=== PATIENT | female | born 1940 | race Caucasian/White ===

== ENCOUNTER 2020-07-11 09:06 | Inpatient (IN) | payer MEDICARE, MEDICAID, SELFPAY ==
[2020-07-11] VITALS (14 sets, daily range): BP systolic 96–165; BP diastolic 42–78; PULSE 55–75; RESP 16–24; TEMP 36.4–37.1; O2SAT 89–98; BMI 31.4
--- NOTE | 2020-07-11 09:30 | ED_ITS ---
HPI - SOB/Dyspnea General Chief Complaint: Dyspnea Stated Complaint: covid +, low 02 Time Seen by Provider: 07/11/20 09:26 Source: patient Mode of arrival: EMS Limitations: no limitations History of Present Illness HPI Narrative: Patient with the diagnosis of COVID-19 on 07/03 history of COPD hypertension CKD peripheral vascular disease depression and history of remote PE on 2 L oxygen dependent at baseline was admitted to the [facility] days ago for increased shortness of breath for hypoxia since last night patient requiring more oxygen saturating 82% on 2 L increased on non-rebreather and saturating 94% also she is on Bactrim for UTI patient been coughing more lately denied any chest pain had taken a course of prednisone MD elicited complaint: shortness of breath and cough Pertinent past history: COPD Onset (ago): day(s) (1) Related Data Home Medications Medication Instructions Recorded Confirmed Docusate Plus 1 tab PO BID 07/11/20 07/11/20 acetaminophen 650 mg PO Q6H PRN 07/11/20 07/11/20 amlodipine 5 mg PO DAILY 07/11/20 07/11/20 atorvastatin 40 mg PO BEDTIME 07/11/20 07/11/20 budesonide-formoterol [Symbicort] 1 puff INHALATION BID 07/11/20 07/11/20 clopidogrel 75 mg PO DAILY 07/11/20 07/11/20 escitalopram oxalate 10 mg PO DAILY 07/11/20 07/11/20 estradiol 1 appl VAGINAL USEASDIRECTD 07/11/20 07/11/20 fluticasone propionate 1 spray INTRANASAL DAILY 07/11/20 07/11/20 furosemide 80 mg PO DAILY 07/11/20 glycerin [Artificial Tears 1 drp OPHTHALMIC (EYE) DAILY 07/11/20 07/11/20 (glycerin)] labetalol 300 mg PO BID 07/11/20 07/11/20 lamotrigine 25 mg PO DAILY 07/11/20 07/11/20 mirabegron [Myrbetriq] 25 mg PO DAILY 07/11/20 07/11/20 sulfamethoxazole-trimethoprim 1 tab PO BID 07/11/20 07/11/20 tiotropium bromide [Spiriva with 1 cap INHALATION DAILY 07/11/20 07/11/20 HandiHaler] Allergies Allergy/AdvReac Type Severity Reaction Status Date / Time No Known Allergies Allergy Verified 07/11/20 09:41 Review of Systems Review of Systems: Constitutional : No Weight loss, No Fever, No Chills ENT/Mouth : No sore throat, No Rhinorrhea Eyes: No Eye Pain, No Swelling Cardiovascular : No Chest Pain, no palpitations Respiratory : ++ Cough, No Sputum, ++ shortness of breath Gastrointestinal : no Nausea, No Vomiting, No Diarrhea, No abdominal Pain, no black stools Genitourinary : No Dysuria, No Urinary Frequency Musculoskeletal : No joint pain, No Myalgias, No Joint Swelling Skin : No Skin Lesions, No rash Neuro : No Weakness, No Numbness, No Dizziness, No Headache Psych : No Anxiety/Panic, No Depression Heme/Lymph: No Bruising, No Lymphadenopathy Endocrine : No Polyuria, No Polydipsia All other systems reviewed and are negative [facility] Past Medical History Medical History Anxiety CKD (chronic kidney disease) COPD (chronic obstructive pulmonary disease) Dementia Diastolic dysfunction HTN (hypertension) Hyperlipidemia Insomnia Pulmonary embolism PVD (peripheral vascular disease) Social History Social History Smoking Status: Former smoker Use of substances other than those prescribed or required for medical reasons: No Advance Directives: No Advance Directives Information Provided: No Physical Exam Vital Signs: Vital Signs: Last Vital Signs Temp 97.5 F 07/11/20 14:16 Pulse 66 07/11/20 13:49 Resp 16 07/11/20 12:45 BP 145/78 H 07/11/20 12:45 Pulse Ox 96 07/11/20 12:45 Body Mass Index 31.4 Const: General: in distress moderate Nutritional Appearance: average body habitus Orientation/consciousness: oriented to person, oriented to place and oriented to time Limitations: no limitations HENMT: Head: Yes normal to inspection and Yes normocephalic Ears: hearing grossly normal bilaterally General nose exam: Normal external nose present Face and sinus: Yes normal facial exam Mouth: Normal oral and palatal mucosa present Teeth and gingiva: dentition normal Throat: Yes posterior oropharynx normal Eyes: General: appearance normal, both eyes and all related structures Sclerae: sclerae normal Corneas: corneas normal Neck: Neck: Yes normal visual inspection, Yes full ROM and Yes no lymphadenopathy Chest: Chest palpation & inspection: normal inspection of the chest and normal palpation of entire chest wall Resp: Effort & Inspection: labored, respiratory distress (Moderate) and tachypneic Auscultation: no crackles, no rales, rhonchi and wheezes Percussion: percussion normal Cardio: Jugular venous distension: no JVD Rate: regular rate Rhythm: regular rhythm Heart sounds: S1 normal heart sound present and S2 normal heart sound present Peripheral pulses: Peripheral pulses 2+ throughout GI: Inspection: Yes normal to inspection Palpation (GI): Soft to palpation, nontender and no guarding Auscultation: normal bowel sounds : General: Yes no CVA tenderness Back/Spine/Pelvis: Back: no CVA tenderness Thoracic/Lumbar Spine: thoracic and lumbar spine normal to inspection Skin: General skin exam: no rashes or lesions noted Neuro: General: oriented to person, oriented to place and oriented to time MDM - SOB/Dyspnea MDM Narrative Medical decision making narrative: Patient with chronic lung disease with COVID positive with significant hypoxia CTA chest negative for PE but diffuse infiltrate will admit patient for hypoxia with COVID , started on Decadron Medical Records Attestation: I reviewed the patient's medical records. Lab Data Attestation: I reviewed the patient's lab results. Result diagrams: 07/11/20 09:52 07/11/20 09:52 Labs: Lab Results 07/11/20 07/11/20 07/11/20 Range/Units 09:52 09:52 09:52 WBC 3.6 L (4.8-10.8) X10*3/uL RBC 3.79 L (4.20-5.50) X10*6/uL Hgb 11.8 L (12.0-16.0) g/dl Hct 37.5 (37-47) % MCV 98.9 H (80-98) fL MCH 31.1 (27.0-33.0) pg MCHC 31.5 (31.0-35.0) g/dl RDW 13.6 (11.0-16.0) % Plt Count 177 (160-400) X10*3/uL MPV 9.6 (9.4-12.3) fL Immature Gran % (Auto) 0.6 H (0.0-0.4) % Neut % (Auto) 64.9 (45-73) % Lymph % (Auto) 23.0 (20-40) % [place] % (Auto) 11.2 H (2-11) % Eos % (Auto) 0.0 (0-4) % Baso % (Auto) 0.3 (0-2) % Lymph # (Auto) 0.8 L (1.2-4.9) X10*3/uL [place] # (Auto) 0.4 (0.1-1.2) X10*3/uL Eos # (Auto) 0.0 (0.0-0.4) X10*3/uL Baso # (Auto) 0.0 (0.0-0.2) X10*3/uL Abs Immat Gran (auto) 0.02 (0.00-0.03) X10*3/uL Absolute Neuts (auto) 2.3 (2.0-8.3) X10*3/uL Absolute Nucleated RBC 0.000 (0.0-0.012) X10*3/uL Nucleated RBC % (auto) 0.0 (0.0-0.2) /100WBC PT 12.3 (10.8-13.0) SEC INR 1.0 (0.9-1.1) APTT 35.3 (24.1-38.0) SEC D-Dimer 228 NG/ML Sodium 144 (135-145) mmol/L Potassium 4.5 (3.3-5.1) mmol/l Chloride 110 H (96-108) mmol/L Carbon Dioxide 27 (22-29) mmol/L Anion Gap 12 (12-20) BUN 22 H (9-16) mg/dL Creatinine 1.10 (0.5-1.4) mg/dL Estim Creat Clear Calc 35.1 Estimated GFR 48 Random Glucose 111 (60-115) mg/dL Lactic Acid (0.5-2.0) mmol/L Calcium 7.6 L (8.4-10.2) mg/dL Ferritin 194 (10-250) ng/mL Total Bilirubin 0.3 (0.0-1.0) mg/dL Direct Bilirubin 0.2 (0.0-0.5) mg/dL AST 20 (5-31) U/L ALT < 6 (0-31) U/L Alkaline Phosphatase 78 (39-117) U/L Lactate Dehydrogenase (122-220) U/L Troponin I High Sens (<3.5-17.0) ng/L C-Reactive Protein (< or = 0.50) mg/dL B-Natriuretic Peptide (<100) pg/mL Total Protein 5.6 L (6.5-8.0) g/dL Albumin 3.6 (3.5-5.0) g/dL Lipase (8-78) U/L 07/11/20 07/11/20 07/11/20 Range/Units 09:52 09:52 09:53 WBC (4.8-10.8) X10*3/uL RBC (4.20-5.50) X10*6/uL Hgb (12.0-16.0) g/dl Hct (37-47) % MCV (80-98) fL MCH (27.0-33.0) pg MCHC (31.0-35.0) g/dl RDW (11.0-16.0) % Plt Count (160-400) X10*3/uL MPV (9.4-12.3) fL Immature Gran % (Auto) (0.0-0.4) % Neut % (Auto) (45-73) % Lymph % (Auto) (20-40) % Bea[place]gard % (Auto) (2-11) % Eos % (Auto) (0-4) % Baso % (Auto) (0-2) % Lymph # (Auto) (1.2-4.9) X10*3/uL [place] # (Auto) (0.1-1.2) X10*3/uL Eos # (Auto) (0.0-0.4) X10*3/uL Baso # (Auto) (0.0-0.2) X10*3/uL Abs Immat Gran (auto) (0.00-0.03) X10*3/uL Absolute Neuts (auto) (2.0-8.3) X10*3/uL Absolute Nucleated RBC (0.0-0.012) X10*3/uL Nucleated RBC % (auto) (0.0-0.2) /100WBC PT (10.8-13.0) SEC INR (0.9-1.1) APTT (24.1-38.0) SEC D-Dimer NG/ML Sodium (135-145) mmol/L Potassium (3.3-5.1) mmol/l Chloride (96-108) mmol/L Carbon Dioxide (22-29) mmol/L Anion Gap (12-20) BUN (9-16) mg/dL Creatinine (0.5-1.4) mg/dL Estim Creat Clear Calc Estimated GFR Random Glucose (60-115) mg/dL Lactic Acid 0.6 (0.5-2.0) mmol/L Calcium (8.4-10.2) mg/dL Ferritin (10-250) ng/mL Total Bilirubin (0.0-1.0) mg/dL Direct Bilirubin (0.0-0.5) mg/dL AST (5-31) U/L ALT (0-31) U/L Alkaline Phosphatase (39-117) U/L Lactate Dehydrogenase 301 H (122-220) U/L Troponin I High Sens 15.9 (<3.5-17.0) ng/L C-Reactive Protein 6.03 H (< or = 0.50) mg/dL B-Natriuretic Peptide 111 H (<100) pg/mL Total Protein (6.5-8.0) g/dL Albumin (3.5-5.0) g/dL Lipase 25 (8-78) U/L
--- NOTE | 2020-07-11 09:38 | CT_ITS ---
EXAMINATION: CT ANGIOGRAM OF THE CHEST WITH AND WITHOUT CONTRAST (CT PULMONARY ANGIOGRAM FOR PE) CLINICAL INFORMATION: Reason for Exam COVID positive with history of PE increased shortness of frandy COMPARISON: None TECHNIQUE: Prior to contrast administration, noncontrast localization images were obtained. Subsequently, multidetector volumetric imaging was performed from the thoracic inlet to below the diaphragms following the administration of 65 mL Omnipaque 350 intravenous contrast. No contrast reaction reported Sagittal, coronal, and MIP oblique sagittal reformatted images were obtained on the CT workstation, uploaded to PACS, and reviewed. This CT examination was performed using dose optimization techniques as appropriate, variously including the following: *Automated exposure control *Adjustment of mA and/or kV according to patient size (this includes techniques or standardized protocols for targeted exams where dose is matched to indication/reason for exam; i.e. extremities or head) *Use of iterative reconstruction technique Total exam dose-length product 257 mGy-cm FINDINGS: QUALITY OF STUDY/CONTRAST BOLUS: Satisfactory. PULMONARY ARTERIES: No large central or segmental pulmonary emboli. Evaluation of the smaller segmental and subsegmental pulmonary arteries are limited due to motion artifact and compressive atelectasis/consolidation of the left lung base to the large diaphragmatic hernia. There may be evidence of old pulmonary embolism with increased soft tissue in the wall of the right upper lobe for example MIP reconstructed image 64 series 9. The pulmonary arteries are slightly enlarged, main pulmonary artery measuring 3.3 cm questionable for pulmonary artery hypertension. THORACIC AORTA: No aneurysm or dissection. The thoracic aorta is tortuous. There is calcified and noncalcified atherosclerotic plaque. LUNG: There are increased peripheral reticular markings seen. This may be related to a sequela of Covid infection. There is subsegmental atelectasis or small infiltrate seen at the right lung base in the posterior basal right lower lobe. There is a subsegmental atelectasis or small infiltrate in the inferior segment of the lingula and left lower lobe adjacent to the left diaphragmatic hernia. PLEURA: No pleural effusion or pneumothorax. MEDIASTINUM: Normal heart size. No pericardial effusion. There are enlarged right hilar and mediastinal lymph nodes. Largest lymph nodes are a right precarinal lymph node measuring 1.2 x 1.5 cm and right hilar lymph node measuring 1.4 x 2.3 cm. Evaluation for left hilar adenopathy is limited due to adjacent consolidation/atelectasis of the left lung. There may be a small left hilar lymph nodes as well. No evidence of septal bowing or right heart strain. There is a large left diaphragmatic hernia containing the stomach and distal transverse colon, splenic flexure and proximal left colon. CHEST WALL/AXILLA: No axillary or internal mammary lymphadenopathy. OSSEOUS STRUCTURES: There are degenerative changes of the spine. UPPER ABDOMEN: Large left diaphragmatic hernia containing the stomach and splenic flexure No reflux of contrast into the hepatic veins to suggest elevated right heart pressures. CT/CT angio chest PE protocol IMPRESSION: No evidence of acute or large or central pulmonary embolism. Evaluation for smaller subsegmental pulmonary arteries is limited due to respiratory motion and compressive atelectasis/infiltrate from large left diaphragmatic hernia. There is question of changes from old of pulmonary embolism seen right upper lobe. Slightly enlarged pulmonary arteries questionable for pulmonary artery hypertension. Subsegmental atelectasis/small infiltrate in the posterior basal right lower lobe, inferior segment of the lingula and left lower lobe. Enlarged right sided hilar and mediastinal lymph nodes. Large left diaphragmatic hernia containing the stomach and splenic flexure. VTE: negative
--- NOTE | 2020-07-11 09:38 | ECG_ITS ---
Test Reason : SOB Blood Pressure : / mmHG Vent. Rate : 066 BPM Atrial Rate : 066 BPM P-R Int : 200 ms QRS Dur : 068 ms QT Int : 406 ms P-R-T Axes : 037 008 037 degrees QTc Int : 425 ms Poor data quality Normal sinus rhythm Septal infarct , age undetermined Abnormal ECG When compared with ECG of 05-JUL-2016 16:08, Septal infarct is now Present Referred By: Jorden Davis Electronically Signed By:FRANCI ROME
[2020-07-11] MEDS: 0.9 % Sodium Chloride 1,000 ML 999 ML IVCONT (09:58)
[2020-07-11 10:05] LABS: MANUAL DIFF FLAG NO
[2020-07-11 10:08] LABS: Basophils Percent Auto 0.3 % (0-2); Hematocrit 37.5 % (37-47); Hemoglobin 11.8 g/dl (12.0-16.0); Imm Gran Abs Auto 0.02 X10*3/uL (0.00-0.03); Imm Gran Pct Auto 0.6 % (0.0-0.4); Lymphocytes Absolute Auto 0.8 X10*3/uL (1.2-4.9); Mean Corpuscular HGB Conc 31.5 g/dl (31.0-35.0); Mean Corpuscular Hemoglobin 31.1 pg (27.0-33.0); Mean Corpuscular Volume 98.9 fL (80-98); Mean Platelet Volume 9.6 fL (9.4-12.3); Monocytes Absolute Auto 0.4 X10*3/uL (0.1-1.2); Monocytes Percent Auto 11.2 % (2-11); Neutrophils Absolute Auto 2.3 X10*3/uL (2.0-8.3); Neutrophils Percent Auto 64.9 % (45-73); Platelet Count 177 X10*3/uL (160-400); Red Blood Count 3.79 X10*6/uL (4.20-5.50); Red Cell Distribution Width 13.6 % (11.0-16.0); White Blood Count 3.6 X10*3/uL (4.8-10.8)
[2020-07-11 10:14] LABS: Prothrombin Time 12.3 SEC (10.8-13.0)
[2020-07-11 10:17] LABS: D Dimer 228 NG/ML; Partial Thromboplastin Time 35.3 SEC (24.1-38.0)
[2020-07-11 10:30] LABS: Lactic Acid 0.6 mmol/L (0.5-2.0)
[2020-07-11 10:37] LABS: C Reactive Protein 6.03 mg/dL (< or = 0.50); Lactate Dehydrogenase 301 U/L (122-220); Lipase 25 U/L (8-78)
[2020-07-11 10:38] LABS: Alanine Aminotransferase < 6 U/L (0-31); Albumin Level 3.6 g/dL (3.5-5.0); Alkaline Phosphatase 78 U/L (39-117); Anion Gap 12 (12-20); Aspartate Amino Transferase 20 U/L (5-31); Bilirubin Direct 0.2 mg/dL (0.0-0.5); Bilirubin Total 0.3 mg/dL (0.0-1.0); Blood Urea Nitrogen 22 mg/dL (9-16); Calcium 7.6 mg/dL (8.4-10.2); Carbon Dioxide 27 mmol/L (22-29); Chloride 110 mmol/L (96-108); Creatinine Clr Calc Pharmacy 35.1; Estimated Glomerular Filt Rate 48; Glucose Random 111 mg/dL (60-115); Potassium 4.5 mmol/l (3.3-5.1); Sodium 144 mmol/L (135-145); Total Protein 5.6 g/dL (6.5-8.0)
[2020-07-11 10:40] LABS: B Type Natriuretic Peptide 111 pg/mL (<100); Troponin-I High Sensitivity 15.9 ng/L (<3.5-17.0)
[2020-07-11 10:57] LABS: Ferritin 194 ng/mL (10-250)
[2020-07-11] MEDS: iohexoL 350 MG/ML 100 ML INFUS..BTL IV (11:07)
[2020-07-11] MEDS: Albuterol Sulfate 90 MCG 8 GM INHALER 4 PUFF INHALE (13:48)
--- NOTE | 2020-07-11 13:49 | PC.NURSE ---
PT CURRENTLY ON 4L O2 VIA NC, SPO2 92-93% WITH RETRACTIONS, THOUGH PT DENIES FEELING SOB. SEEN BY HOSPITALIST. RT AT BEDSIDE FOR INHALER INSTRUCTION.
--- NOTE | 2020-07-11 13:59 | PM.EVENT ---
Event Note Date of Service: 07/11/20 Event Note: Patient seen and examined independently and was present during adams portion of E/M service. Agree with midlevel's history, physical, assessment, and plan. 80F presented with hypoxia Acute on chronic hypoxic respiratory failure secondary to COVID pneumonia Decadron Monitor Check ABG
--- NOTE | 2020-07-11 14:41 | PC.NURSE ---
CALLED UP TO [facility] FOR REPORT, EXPECTING CALL BACK.
[2020-07-11 14:53] LABS: Pt Ventilation O2% 4 L
[2020-07-11 15:01] LABS: ABG PCO2 44 mmHg (32-45); Base Excess ABG -0.7; HCO3 ABG 25 mmol/L (22-26); PO2 ABG 69 mmHg (83-108); pH ABG 7.35 (7.35-7.45)
[2020-07-11] MEDS: cefTRIAXone sodium 1 GM in 0.9 % Sodium Chloride 50 ML IV (15:11)
--- NOTE | 2020-07-11 15:51 | P.HPHOSP_ITS ---
History of Present Illness Date of Service: 07/11/20 Chief Complaint: increasing oxygen requirements This is an 80-year-old female who was sent from the [facility] due to increasing oxygen requirements. She tested positive for coronavirus on July 06 and since that time she reportedly has been having increasing shortness of breath and oxygen requirements. Due to her underlying she is unable to provide any additional details. She does have a history of oxygen dependent COPD. She typically uses 2 L of oxygen. See department she was requiring 4 L of oxygen to maintain saturations in the mid 90s. Subsegmental atelectasis/small infiltrate in the posterior basal right lower lobe inferior segment of the lingula and left lower lobe. She was afebrile, lab work revealed no leukocytosis. She was given a dose of IV and covered empirically with antibiotics. Review of Systems Review of Systems: Yes Unobtainable due to mental condition [facility]LY [facility], [facility] Medical History (Updated 07/11/20 @ 15:56 by RADHA Menendez) Anxiety Chronic respiratory failure CKD (chronic kidney disease) COPD (chronic obstructive pulmonary disease) Dementia Diastolic dysfunction HTN (hypertension) Hyperlipidemia Insomnia RENETTA (obstructive sleep apnea) Pulmonary embolism PVD (peripheral vascular disease) Family history: reviewed and not pertinent Social History Smoking Status: Former smoker Use of substances other than those prescribed or required for medical reasons: No Advance Directives: No Advance Directives Information Provided: No Meds Allergies Allergy/AdvReac Type Severity Reaction Status Date / Time No Known Allergies Allergy Verified 07/11/20 09:41 Home Medications Medication Instructions Recorded Confirmed Type Docusate Plus 1 tab PO BID 07/11/20 07/11/20 History acetaminophen 650 mg PO Q6H PRN 07/11/20 07/11/20 History amlodipine 5 mg PO DAILY 07/11/20 07/11/20 History atorvastatin 40 mg PO BEDTIME 07/11/20 07/11/20 History budesonide-formoterol [Symbicort] 1 puff INHALATION BID 07/11/20 07/11/20 History clopidogrel 75 mg PO DAILY 07/11/20 07/11/20 History escitalopram oxalate 10 mg PO DAILY 07/11/20 07/11/20 History estradiol 1 appl VAGINAL USEASDIRECTD 07/11/20 07/11/20 History fluticasone propionate 1 spray INTRANASAL DAILY 07/11/20 07/11/20 History furosemide 80 mg PO DAILY 07/11/20 History glycerin [Artificial Tears 1 drp OPHTHALMIC (EYE) DAILY 07/11/20 07/11/20 History (glycerin)] labetalol 300 mg PO BID 07/11/20 07/11/20 History lamotrigine 25 mg PO DAILY 07/11/20 07/11/20 History mirabegron [Myrbetriq] 25 mg PO DAILY 07/11/20 07/11/20 History sulfamethoxazole-trimethoprim 1 tab PO BID 07/11/20 07/11/20 History tiotropium bromide [Spiriva with 1 cap INHALATION DAILY 07/11/20 07/11/20 History HandiHaler] Physical Exam Vital Signs and Narrative: Vital Signs: Last Vital Signs Temp 97.5 F 07/11/20 14:16 Pulse 66 07/11/20 13:49 Resp 16 07/11/20 12:45 BP 145/78 H 07/11/20 12:45 Pulse Ox 96 07/11/20 12:45 Body Mass Index 31.4 Const: General: lethargic Nutritional Appearance: well nourished Orientation/consciousness: lethargic HENMT: Head: Yes normocephalic and Yes atraumatic Eyes: Sclerae: sclerae normal Chest: Chest palpation & inspection: normal inspection of the chest Resp: Effort & Inspection: tachypneic Cardio: Rate: regular rate Rhythm: regular rhythm GI: Palpation (GI): Soft to palpation and nontender Skin: General skin exam: no rashes or lesions noted Neuro: Cranial nerves: Yes CN's II-XII intact bilaterally and Yes Bilaterally intact EOM present Extrem: General: Yes normal to inspection Results Labs CBC and Chem 7: 07/11/20 09:52 07/11/20 09:52 Labs: Laboratory Results - last 24 hr 07/11/20 07/11/20 07/11/20 09:52 09:52 09:52 MCV 98.9 H MCH 31.1 MCHC 31.5 RDW 13.6 Plt Count 177 MPV 9.6 Immature Gran % (Auto) 0.6 H Neut % (Auto) 64.9 Lymph % (Auto) 23.0 Garland % (Auto) 11.2 H Eos % (Auto) 0.0 Baso % (Auto) 0.3 Lymph # (Auto) 0.8 L [place]land # (Auto) 0.4 Eos # (Auto) 0.0 Baso # (Auto) 0.0 Abs Immat Gran (auto) 0.02 Absolute Neuts (auto) 2.3 Absolute Nucleated RBC 0.000 Nucleated RBC % (auto) 0.0 PT 12.3 INR 1.0 APTT 35.3 D-Dimer 228 ABG pH ABG pCO2 ABG pO2 ABG HCO3 ABG O2 Saturation ABG Base Excess Oxygen Given Anion Gap 12 Estim Creat Clear Calc 35.1 Estimated GFR 48 Random Glucose 111 Lactic Acid Calcium 7.6 L Ferritin 194 Total Bilirubin 0.3 Direct Bilirubin 0.2 AST 20 ALT < 6 Alkaline Phosphatase 78 Lactate Dehydrogenase Troponin I High Sens C-Reactive Protein B-Natriuretic Peptide Total Protein 5.6 L Albumin 3.6 Lipase 07/11/20 07/11/20 07/11/20 09:52 09:52 09:53 MCV MCH MCHC RDW Plt Count MPV Immature Gran % (Auto) Neut % (Auto) Lymph % (Auto) Garland % (Auto) Eos % (Auto) Baso % (Auto) Lymph # (Auto) [place]land # (Auto) Eos # (Auto) Baso # (Auto) Abs Immat Gran (auto) Absolute Neuts (auto) Absolute Nucleated RBC Nucleated RBC % (auto) PT INR APTT D-Dimer ABG pH ABG pCO2 ABG pO2 ABG HCO3 ABG O2 Saturation ABG Base Excess Oxygen Given Anion Gap Estim Creat Clear Calc Estimated GFR Random Glucose Lactic Acid 0.6 Calcium Ferritin Total Bilirubin Direct Bilirubin AST ALT Alkaline Phosphatase Lactate Dehydrogenase 301 H Troponin I High Sens 15.9 C-Reactive Protein 6.03 H B-Natriuretic Peptide 111 H Total Protein Albumin Lipase 25 07/11/20 14:48 MCV MCH MCHC RDW Plt Count MPV Immature Gran % (Auto) Neut % (Auto) Lymph % (Auto) Garland % (Auto) Eos % (Auto) Baso % (Auto) Lymph # (Auto) Garland # (Auto) Eos # (Auto) Baso # (Auto) Abs Immat Gran (auto) Absolute Neuts (auto) Absolute Nucleated RBC Nucleated RBC % (auto) PT INR APTT D-Dimer ABG pH 7.35 ABG pCO2 44 ABG pO2 69 L ABG HCO3 25 ABG O2 Saturation 95.0 ABG Base Excess -0.7 Oxygen Given 4 L Anion Gap Estim Creat Clear Calc Estimated GFR Random Glucose Lactic Acid Calcium Ferritin Total Bilirubin Direct Bilirubin AST ALT Alkaline Phosphatase Lactate Dehydrogenase Troponin I High Sens C-Reactive Protein B-Natriuretic Peptide Total Protein Albumin Lipase Imaging Radiologist's Impressions: Impressions Chest CTA 07/11/20 09:38 IMPRESSION: No evidence of acute or large or central pulmonary embolism. Evaluation for smaller subsegmental pulmonary arteries is limited due to respiratory motion and compressive atelectasis/infiltrate from large left diaphragmatic hernia. There is question of changes from old of pulmonary embolism seen right upper lobe. Slightly enlarged pulmonary arteries questionable for pulmonary artery hypertension. Subsegmental atelectasis/small infiltrate in the posterior basal right lower lobe, inferior segment of the lingula and left lower lobe. Enlarged right sided hilar and mediastinal lymph nodes. Large left diaphragmatic hernia containing the stomach and splenic flexure. VTE: negative Assessment and Plan (1) COVID-19: Status: Acute (2) Hypoxia: Status: Acute This is an 80-year-old female with history of COPD, chronic respiratory failure, CHF, dementia, recently diagnosed with COVID-19 sent from the [facility] for increasing oxygen requirements Acute on chronic respiratory failure COVID-19 pneumonia -IV dexamethasone -continue supplemental oxygen Hypertension Continue Norvasc, labetalol RENETTA Continue CPAP HLD Continue statin PVD continue plavix Mood Continue ssri, lamotrigine Overactive bladder continue myrbetriq dvt ppx - heparin code status - full code this case was discussed with Dr. Guan
[2020-07-11] MEDS: Azithromycin 500 MG in 0.9 % Sodium Chloride 250 ML 125 MG IV (15:58)
[2020-07-11] MEDS: 0.9 % Sodium Chloride Flush 3 ML SYRINGE IVFLUSH ×2 (16:01→21:27)
[2020-07-11] MEDS: Heparin Sodium,Porcine 5,000 UNIT/ML VIAL 5000 UNIT SUBCUT (17:31)
[2020-07-11] MEDS: Labetalol HCL 100 MG TABLET 300 MG PO (21:27)
[2020-07-11] MEDS: Atorvastatin Calcium 40 MG TABLET PO (21:27)
[2020-07-12] VITALS (10 sets, daily range): BP systolic 121–146; BP diastolic 59–69; PULSE 66–88; RESP 16–22; TEMP 36–36.8; O2SAT 90–94
[2020-07-12] MEDS: Heparin Sodium,Porcine 5,000 UNIT/ML VIAL 5000 UNIT SUBCUT (05:14)
[2020-07-12 06:19] LABS: MANUAL DIFF FLAG NO
[2020-07-12 06:30] LABS: Basophils Percent Auto 0.3 % (0-2); Hematocrit 36.5 % (37-47); Hemoglobin 11.4 g/dl (12.0-16.0); Imm Gran Abs Auto 0.07 X10*3/uL (0.00-0.03); Imm Gran Pct Auto 1.9 % (0.0-0.4); Lymphocytes Absolute Auto 0.9 X10*3/uL (1.2-4.9); Lymphocytes Percent Auto 23.2 % (20-40); Mean Corpuscular HGB Conc 31.2 g/dl (31.0-35.0); Mean Corpuscular Hemoglobin 31.1 pg (27.0-33.0); Mean Corpuscular Volume 99.7 fL (80-98); Mean Platelet Volume 9.7 fL (9.4-12.3); Monocytes Absolute Auto 0.3 X10*3/uL (0.1-1.2); Monocytes Percent Auto 7.7 % (2-11); Neutrophils Absolute Auto 2.5 X10*3/uL (2.0-8.3); Neutrophils Percent Auto 66.9 % (45-73); Platelet Count 191 X10*3/uL (160-400); Red Blood Count 3.66 X10*6/uL (4.20-5.50); Red Cell Distribution Width 13.5 % (11.0-16.0); White Blood Count 3.8 X10*3/uL (4.8-10.8)
[2020-07-12 07:10] LABS: Anion Gap 13 (12-20); Blood Urea Nitrogen 21 mg/dL (9-16); Carbon Dioxide 23 mmol/L (22-29); Chloride 113 mmol/L (96-108); Creatinine Clr Calc Pharmacy 47.2; Estimated Glomerular Filt Rate > 60; Glucose Random 146 mg/dL (60-115); Potassium 4.4 mmol/l (3.3-5.1); Sodium 145 mmol/L (135-145)
[2020-07-12 07:21] LABS: Calcium 7.3 mg/dL (8.4-10.2)
[2020-07-12] MEDS: Escitalopram Oxalate 10 MG TABLET PO (09:02)
[2020-07-12] MEDS: lamoTRIgine 25 MG TABLET PO (09:02)
[2020-07-12] MEDS: amLODIPine Besylate 5 MG TABLET PO (09:02)
[2020-07-12] MEDS: 0.9 % Sodium Chloride Flush 3 ML SYRINGE IVFLUSH ×3 (09:02→20:04)
[2020-07-12] MEDS: Clopidogrel Bisulfate 75 MG TABLET PO (09:02)
[2020-07-12] MEDS: Mirabegron 25 MG TAB.ER.24H PO (09:02)
[2020-07-12] MEDS: Labetalol HCL 100 MG TABLET 300 MG PO ×2 (09:02→20:04)
[2020-07-12] MEDS: Fluticasone Propionate Nasal 16 GM SPRAY 1 SPRAY NOSTRIL-B (09:03)
[2020-07-12] MEDS: Artificial Tears 15 ML DROPS 1 DROP EYE-BOTH (09:03)
--- NOTE | 2020-07-12 09:52 | PC.NURSE ---
Pt desats on 3L O2 while talking on the phone down to low 80's. Will continue to monitor.
--- NOTE | 2020-07-12 12:32 | HO.PM.IMPN ---
Subjective Subjective Date of Service: 07/12/20 Interval History: no complaints Cardiovascular Cardiovascular: Reports no additional cardiovascular complaints Gastrointestinal Gastrointestinal: Reports no additional gastrointestinal complaints Physical Exam Vital Signs: Vital Signs: Last Vital Signs Temp 97.8 F 07/12/20 08:00 Pulse 72 07/12/20 09:02 Resp 18 07/12/20 08:00 BP 142/69 H 07/12/20 09:02 Pulse Ox 94 07/12/20 08:00 Body Mass Index 31.4 General: AO X 3, no acute distress Resp: diminished CVS: S1,S2,RRR GI: soft, non tender, non distended Neuro: motor grossly intact Psych: appropriate affect Objective Data Current Medications Generic Name Dose Route Start Last Admin Trade Name Freq PRN Reason Stop Dose Admin Acetaminophen 650 mg 07/11/20 15:08 Acetaminophen 325 Mg Tablet PO Q6H PRN Pain, Mild (Pain Scale 1-3) Amlodipine Besylate 5 mg 07/12/20 09:00 07/12/20 09:02 Amlodipine Besylate 5 Mg Tablet PO 5 mg DAILY DANA Administration Protocol Artificial Tears 1 drop 07/12/20 09:00 07/12/20 09:03 Artificial Tears 15 Ml Drops EYE-BOTH 1 drop DAILY DANA Administration Atorvastatin Calcium 40 mg 07/11/20 21:00 07/11/20 21:27 Atorvastatin Calcium 40 Mg Tablet PO 40 mg BEDTIME DANA Administration Clopidogrel Bisulfate 75 mg 07/12/20 09:00 07/12/20 09:02 Clopidogrel Bisulfate 75 Mg Tablet PO 75 mg DAILY DANA Administration Dexamethasone Sodium Phosphate 6 mg 07/12/20 09:00 07/12/20 09:03 Dexamethasone Sod Phosphate/Pf 10 Mg/Ml Vial IVPUSH 6 mg DAILY DANA Administration Docusate Sodium 100 mg 07/11/20 15:08 Docusate Sodium 100 Mg Capsule PO DAILY PRN Constipation Escitalopram Oxalate 10 mg 07/12/20 09:00 07/12/20 09:02 Escitalopram Oxalate 10 Mg Tablet PO 10 mg DAILY DANA Administration Fluticasone Propionate 1 spray 07/12/20 09:00 07/12/20 09:03 Fluticasone Propionate Nasal 16 Gm [place] NOSTRIL-B 1 spray DAILY DANA Administration Heparin Sodium (Porcine) 5,000 unit 07/11/20 18:00 07/12/20 05:14 Heparin Sodium,Porcine 5,000 Unit/Ml Vial SUBCUT 5,000 unit Q12H DANA Administration Labetalol HCl 300 mg 07/11/20 21:00 07/12/20 09:02 Labetalol Hcl 100 Mg Tablet PO 300 mg BID DANA Administration Lamotrigine 25 mg 07/12/20 09:00 07/12/20 09:02 Lamotrigine 25 Mg Tablet PO 25 mg DAILY DANA Administration Mirabegron 25 mg 07/12/20 09:00 07/12/20 09:02 Mirabegron 25 Mg Tab.Er.24h PO 25 mg DAILY DANA Administration Ondansetron HCl 4 mg 07/11/20 15:08 Ondansetron Hcl 4 Mg/2 Ml Vial IVPUSH Q8H PRN Nausea and Vomiting Pharmacy Consult 1 each 07/11/20 13:53 Consult Rx Perform Med Rec MISCELLANE ONCE PRN Consult order Sodium Chloride 3 ml 07/11/20 16:00 07/12/20 09:02 0.9 % Sodium Chloride Flush 3 Ml Syringe IVFLUSH 3 ml QSHIFT DANA Administration Tiotropium [employer] 1 puff 07/12/20 09:00 07/12/20 08:40 Tiotropium [employer] 18 Mcg Cap.W.Dev INHALE 1 puff DAILY DANA Administration Labs CBC & Chem 7: 07/12/20 05:51 07/12/20 05:51 Microbiology Microbiology Results: Microbiology 07/11/20 09:53 Blood - Venous Blood Culture - Preliminary No growth after 24 hours. 07/11/20 09:53 Blood - Venous Blood Culture - Preliminary No growth after 24 hours. Assessment and Plan (1) COVID-19: Status: Acute (2) Hypoxia: Status: Acute Assessment and Plan: This is an 80-year-old female with history of COPD, chronic respiratory failure, CHF, dementia, recently diagnosed with COVID-19 sent from the [facility] for increasing oxygen requirements Acute on chronic respiratory failure COVID-19 pneumonia -IV dexamethasone day 2 -continue supplemental oxygen Hypertension Continue Norvasc, labetalol RENETTA Continue CPAP HLD Continue statin PVD continue plavix Mood Continue ssri, lamotrigine Overactive bladder continue myrbetriq dvt ppx - heparin code status - full code
--- NOTE | 2020-07-12 14:51 | MHC.CM.PN ---
CM CONTACTED PTS HCP, ELMIRA LAYTON ([phone]) TO COMPLETE ENERGY DIRECTOR. PT ON ISOLATION UNIT DUE TO COVID 19 AND HAS A DEMENTIA DIAGNOSIS. ELMIRA REPORTS SHE IS THE PTS [id number] WELL HCP. 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 ELMIRA REPORTS THE PT USUALLY AMBULATES WITH A WALKER HOWEVER SHE HAS BEEN ABLE TO GO SHORTER AND SHORTER DISTANCES RECENTLY DUE TO INCREASING OXYGEN REQUIREMENTS. PT IS OXYGEN DEPENDENT AT BASELINE PER ELMIRA. PTS MEDICARE RIGHTS WERE REVIEWED AND ELMIRA CONFIRMS PTS DCP WILL BE TO RETURN TO [facility] VIA BLS. CM CONTACTED [facility] TO REQUEST A COPY OF PTS HCP. COPY RECEIVED, SCANNED INTO Pocket AND SENT TO [facility].
[2020-07-12] MEDS: Atorvastatin Calcium 40 MG TABLET PO (20:04)
[2020-07-13] VITALS (9 sets, daily range): BP systolic 126–168; BP diastolic 55–88; PULSE 68–81; RESP 18–20; TEMP 36.6–37; O2SAT 88–94
[2020-07-13] MEDS: Heparin Sodium,Porcine 5,000 UNIT/ML VIAL 5000 UNIT SUBCUT ×2 (05:31→16:35)
[2020-07-13] MEDS: guaiFENesin DM 100/10/5 ML 5 ML SYRUP PO ×2 (06:34→16:40)
[2020-07-13] MEDS: 0.9 % Sodium Chloride Flush 3 ML SYRINGE IVFLUSH ×3 (09:30→19:34)
[2020-07-13] MEDS: Escitalopram Oxalate 10 MG TABLET PO (09:31)
[2020-07-13] MEDS: lamoTRIgine 25 MG TABLET PO (09:31)
[2020-07-13] MEDS: Mirabegron 25 MG TAB.ER.24H PO (09:31)
[2020-07-13] MEDS: amLODIPine Besylate 5 MG TABLET PO (09:31)
[2020-07-13] MEDS: Labetalol HCL 100 MG TABLET 300 MG PO ×2 (09:31→19:32)
[2020-07-13] MEDS: Clopidogrel Bisulfate 75 MG TABLET PO (09:31)
[2020-07-13] MEDS: Artificial Tears 15 ML DROPS 1 DROP EYE-BOTH (09:32)
[2020-07-13] MEDS: Fluticasone Propionate Nasal 16 GM SPRAY 1 SPRAY NOSTRIL-B (09:32)
--- NOTE | 2020-07-13 11:54 | P.PNIM_ITS ---
Subjective Subjective Date of Service: 07/13/20 Interval History: no complaints Cardiovascular Cardiovascular: Reports no additional cardiovascular complaints Gastrointestinal Gastrointestinal: Reports no additional gastrointestinal complaints Physical Exam Vital Signs: Vital Signs: Last Vital Signs Temp 98.6 F 07/13/20 07:15 Pulse 70 07/13/20 09:31 Resp 18 07/13/20 03:51 BP 159/75 H 07/13/20 09:31 Pulse Ox 92 07/13/20 07:15 Body Mass Index 31.4 General: Alert, no acute distress Resp: CTA bilateral CVS: S1,S2,RRR GI: soft, non tender, non distended Neuro: motor grossly intact Psych: appropriate affect Objective Data Current Medications Generic Name Dose Route Start Last Admin Trade Name Freq PRN Reason Stop Dose Admin Acetaminophen 650 mg 07/11/20 15:08 Acetaminophen 325 Mg Tablet PO Q6H PRN Pain, Mild (Pain Scale 1-3) Amlodipine Besylate 5 mg 07/12/20 09:00 07/13/20 09:31 Amlodipine Besylate 5 Mg Tablet PO 5 mg DAILY DANA Administration Protocol Artificial Tears 1 drop 07/12/20 09:00 07/13/20 09:32 Artificial Tears 15 Ml Drops EYE-BOTH 1 drop DAILY DANA Administration Atorvastatin Calcium 40 mg 07/11/20 21:00 07/12/20 20:04 Atorvastatin Calcium 40 Mg Tablet PO 40 mg BEDTIME DANA Administration Clopidogrel Bisulfate 75 mg 07/12/20 09:00 07/13/20 09:31 Clopidogrel Bisulfate 75 Mg Tablet PO 75 mg DAILY DANA Administration Dexamethasone Sodium Phosphate 6 mg 07/12/20 09:00 07/13/20 09:32 Dexamethasone Sod Phosphate/Pf 10 Mg/Ml Vial IVPUSH 6 mg DAILY DANA Administration Docusate Sodium 100 mg 07/11/20 15:08 Docusate Sodium 100 Mg Capsule PO DAILY PRN Constipation Escitalopram Oxalate 10 mg 07/12/20 09:00 07/13/20 09:31 Escitalopram Oxalate 10 Mg Tablet PO 10 mg DAILY DANA Administration Fluticasone Propionate 1 spray 07/12/20 09:00 07/13/20 09:32 Fluticasone Propionate Nasal 16 Gm [place] NOSTRIL-B 1 spray DAILY DANA Administration Guaifenesin/Dextromethorphan 5 ml 07/13/20 05:55 07/13/20 06:34 Guaifenesin Dm 100/10/5 Ml 5 Ml Syrup PO 5 ml Q6H PRN Administration cough Heparin Sodium (Porcine) 5,000 unit 07/11/20 18:00 07/13/20 05:31 Heparin Sodium,Porcine 5,000 Unit/Ml Vial SUBCUT 5,000 unit Q12H DANA Administration Labetalol HCl 300 mg 07/11/20 21:00 07/13/20 09:31 Labetalol Hcl 100 Mg Tablet PO 300 mg BID DANA Administration Lamotrigine 25 mg 07/12/20 09:00 07/13/20 09:31 Lamotrigine 25 Mg Tablet PO 25 mg DAILY DANA Administration Mirabegron 25 mg 07/12/20 09:00 07/13/20 09:31 Mirabegron 25 Mg Tab.Er.24h PO 25 mg DAILY DANA Administration Ondansetron HCl 4 mg 07/11/20 15:08 Ondansetron Hcl 4 Mg/2 Ml Vial IVPUSH Q8H PRN Nausea and Vomiting Pharmacy Consult 1 each 07/11/20 13:53 Consult Rx Perform Med Rec MISCELLANE ONCE PRN Consult order Sodium Chloride 3 ml 07/11/20 16:00 07/13/20 09:30 0.9 % Sodium Chloride Flush 3 Ml Syringe IVFLUSH 3 ml QSHIFT DANA Administration Tiotropium [place] 1 puff 07/12/20 09:00 07/13/20 07:46 Tiotropium [place] 18 Mcg Cap.W.Dev INHALE 1 puff DAILY DANA Administration Labs CBC & Chem 7: 07/12/20 05:51 07/12/20 05:51 Microbiology Microbiology Results: Microbiology 07/11/20 09:53 Blood - Venous Blood Culture - Preliminary No growth after 24 hours. 07/11/20 09:53 Blood - Venous Blood Culture - Preliminary No growth after 24 hours. Assessment and Plan (1) COVID-19: Status: Acute (2) Hypoxia: Status: Acute Assessment and Plan: This is an 80-year-old female with history of COPD, chronic respiratory failure, CHF, dementia, recently diagnosed with COVID-19 sent from the [facility] for increasing oxygen requirements Acute on chronic respiratory failure COVID-19 pneumonia -IV dexamethasone day 3 -continue supplemental oxygen Hypertension Continue Norvasc, labetalol RENETTA Continue CPAP HLD Continue statin PVD continue plavix Mood Continue ssri, lamotrigine Overactive bladder continue myrbetriq dvt ppx - heparin code status - full code
[2020-07-13] MEDS: Acetaminophen 325 MG TABLET 650 MG PO (16:40)
[2020-07-13] MEDS: Atorvastatin Calcium 40 MG TABLET PO (19:33)
[2020-07-14 00:19] VITALS: BP 159/82; PULSE 69; RESP 18; TEMP 36.7; O2SAT 90
[2020-07-14 03:57] VITALS: BP 141/78; PULSE 71; RESP 18; TEMP 36.8; O2SAT 91
[2020-07-14] MEDS: Heparin Sodium,Porcine 5,000 UNIT/ML VIAL 5000 UNIT SUBCUT (06:08)
[2020-07-14 06:11] LABS: MANUAL DIFF FLAG NO
[2020-07-14 06:21] LABS: Hematocrit 36.7 % (37-47); Hemoglobin 11.7 g/dl (12.0-16.0); Imm Gran Abs Auto 0.03 X10*3/uL (0.00-0.03); Imm Gran Pct Auto 0.6 % (0.0-0.4); Lymphocytes Absolute Auto 0.7 X10*3/uL (1.2-4.9); Lymphocytes Percent Auto 12.9 % (20-40); Mean Corpuscular HGB Conc 31.9 g/dl (31.0-35.0); Mean Corpuscular Hemoglobin 30.6 pg (27.0-33.0); Mean Corpuscular Volume 96.1 fL (80-98); Mean Platelet Volume 9.2 fL (9.4-12.3); Monocytes Absolute Auto 0.6 X10*3/uL (0.1-1.2); Monocytes Percent Auto 11.2 % (2-11); Neutrophils Absolute Auto 4.1 X10*3/uL (2.0-8.3); Neutrophils Percent Auto 75.3 % (45-73); Platelet Count 260 X10*3/uL (160-400); Red Blood Count 3.82 X10*6/uL (4.20-5.50); Red Cell Distribution Width 13.1 % (11.0-16.0); White Blood Count 5.4 X10*3/uL (4.8-10.8)
[2020-07-14 06:25] LABS: D Dimer 374 NG/ML
[2020-07-14 06:52] LABS: Anion Gap 15 (12-20); Blood Urea Nitrogen 21 mg/dL (9-16); C Reactive Protein 4.43 mg/dL (< or = 0.50); Carbon Dioxide 23 mmol/L (22-29); Chloride 109 mmol/L (96-108); Estimated Glomerular Filt Rate > 60; Glucose Fasting 95 mg/dL (60-99); Potassium 4.4 mmol/l (3.3-5.1); Sodium 143 mmol/L (135-145)
[2020-07-14 07:13] VITALS: BP 134/76; PULSE 71; RESP 20; TEMP 37.1; O2SAT 91
[2020-07-14 08:06] VITALS: PULSE 68; O2SAT 94
[2020-07-14] MEDS: Mirabegron 25 MG TAB.ER.24H PO (09:35)
[2020-07-14] MEDS: Labetalol HCL 100 MG TABLET 300 MG PO (09:35)
[2020-07-14] MEDS: Escitalopram Oxalate 10 MG TABLET PO (09:35)
[2020-07-14] MEDS: Clopidogrel Bisulfate 75 MG TABLET PO (09:36)
[2020-07-14] MEDS: lamoTRIgine 25 MG TABLET PO (09:36)
[2020-07-14] MEDS: Fluticasone Propionate Nasal 16 GM SPRAY 1 SPRAY NOSTRIL-B (09:36)
[2020-07-14] MEDS: 0.9 % Sodium Chloride Flush 3 ML SYRINGE IVFLUSH (09:36)
[2020-07-14] MEDS: Artificial Tears 15 ML DROPS 1 DROP EYE-BOTH (09:36)
[2020-07-14] MEDS: amLODIPine Besylate 5 MG TABLET PO (09:36)
[2020-07-14 10:51] VITALS: BP 150/74; PULSE 68; RESP 18; TEMP 35.5; O2SAT 92
--- NOTE | 2020-07-14 11:41 | P.DS_ITS ---
DS: Providers Provider Date of Service: 07/14/20 Date of admission: 07/11/20 13:53 Primary care physician: Nonstaff Physician DS: Diagnosis Discharge Diagnosis (1) COVID-19: Status: Acute (2) Hypoxia: Status: Acute DS: Medications Discharge Medications Home Medications: Home Medications Medication Instructions Recorded Confirmed Artificial Tears (PF) 1 drp OPHTHALMIC (EYE) DAILY 07/11/20 07/11/20 Docusate Plus 1 tab PO BID 07/11/20 07/11/20 Myrbetriq 25 mg PO DAILY 07/11/20 07/11/20 Spiriva with HandiHaler 1 cap INHALATION DAILY 07/11/20 07/11/20 acetaminophen 650 mg PO Q6H PRN 07/11/20 07/11/20 amlodipine 5 mg PO DAILY 07/11/20 07/11/20 atorvastatin 40 mg PO BEDTIME 07/11/20 07/11/20 budesonide-formoterol [Symbicort] 1 puff INHALATION BID 07/11/20 07/11/20 clopidogrel 75 mg PO DAILY 07/11/20 07/11/20 escitalopram oxalate 10 mg PO DAILY 07/11/20 07/11/20 estradiol 1 appl VAGINAL USEASDIRECTD 07/11/20 07/11/20 fluticasone propionate 1 spray INTRANASAL DAILY 07/11/20 07/11/20 furosemide 80 mg PO DAILY 07/11/20 labetalol 300 mg PO BID 07/11/20 07/11/20 lamotrigine 25 mg PO DAILY 07/11/20 07/11/20 Previous Rx's Medication Instructions Recorded dexamethasone [Decadron] 6 mg PO DAILY #7 tab 07/14/20 DS: Summary Hospital Course Hospital Course: Patient was admitted for acute on chronic hypoxic respiratory failure secondary to COVID-19 pneumonia. She was put on IV Decadron. Her symptoms improved. Her hypoxia returned to baseline. Her inflammatory markers decreased. She will be discharged back to rehab and continue 7 more days of p.o. Decadron. Time Spent with Patient Time attestation: Total time spent providing and/or coordinating discharge services: Discharge coordination time: Greater than 30 minutes Physical Exam Vital Signs: Vital Signs: Last Vital Signs Temp 96 F L 07/14/20 10:51 Pulse 68 07/14/20 10:51 Resp 18 07/14/20 10:51 BP 150/74 H 07/14/20 10:51 Pulse Ox 92 07/14/20 10:51 Body Mass Index 31.4 General: AO X 3, with some confusion, no acute distress Resp: CTA bilateral CVS: S1,S2,RRR GI: soft, non tender, non distended Neuro: motor grossly intact Psych: appropriate affect DS: Data Data Completed and Pending Labs on day of discharge: Laboratory Tests 07/11/20 07/11/20 07/11/20 09:52 09:52 09:52 WBC 3.6 L RBC 3.79 L Hgb 11.8 L Hct 37.5 MCV 98.9 H MCH 31.1 MCHC 31.5 RDW 13.6 Plt Count 177 MPV 9.6 Immature Gran % (Auto) 0.6 H Neut % (Auto) 64.9 Lymph % (Auto) 23.0 Jennings % (Auto) 11.2 H Eos % (Auto) 0.0 Baso % (Auto) 0.3 Lymph # (Auto) 0.8 L Jennings # (Auto) 0.4 Eos # (Auto) 0.0 Baso # (Auto) 0.0 Abs Immat Gran (auto) 0.02 Absolute Neuts (auto) 2.3 Absolute Nucleated RBC 0.000 Nucleated RBC % (auto) 0.0 PT 12.3 INR 1.0 APTT 35.3 D-Dimer 228 ABG pH ABG pCO2 ABG pO2 ABG HCO3 ABG O2 Saturation ABG Base Excess Oxygen Given Sodium 144 Potassium 4.5 Chloride 110 H Carbon Dioxide 27 Anion Gap 12 BUN 22 H Creatinine 1.10 Estim Creat Clear Calc 35.1 Estimated GFR 48 Random Glucose 111 Fasting Glucose Lactic Acid Calcium 7.6 L Ferritin 194 Total Bilirubin 0.3 Direct Bilirubin 0.2 AST 20 ALT < 6 Alkaline Phosphatase 78 Lactate Dehydrogenase Troponin I High Sens C-Reactive Protein B-Natriuretic Peptide Total Protein 5.6 L Albumin 3.6 Lipase 07/11/20 07/11/20 07/11/20 09:52 09:52 09:53 WBC RBC Hgb Hct MCV MCH MCHC RDW Plt Count MPV Immature Gran % (Auto) Neut % (Auto) Lymph % (Auto) Jennings % (Auto) Eos % (Auto) Baso % (Auto) Lymph # (Auto) Jennings # (Auto) Eos # (Auto) Baso # (Auto) Abs Immat Gran (auto) Absolute Neuts (auto) Absolute Nucleated RBC Nucleated RBC % (auto) PT INR APTT D-Dimer ABG pH ABG pCO2 ABG pO2 ABG HCO3 ABG O2 Saturation ABG Base Excess Oxygen Given Sodium Potassium Chloride Carbon Dioxide Anion Gap BUN Creatinine Estim Creat Clear Calc Estimated GFR Random Glucose Fasting Glucose Lactic Acid 0.6 Calcium Ferritin Total Bilirubin Direct Bilirubin AST ALT Alkaline Phosphatase Lactate Dehydrogenase 301 H Troponin I High Sens 15.9 C-Reactive Protein 6.03 H B-Natriuretic Peptide 111 H Total Protein Albumin Lipase 07/11/20 07/12/20 07/12/20 14:48 05:51 05:51 WBC 3.8 L RBC 3.66 L Hgb 11.4 L Hct 36.5 L MCV 99.7 H MCH 31.1 MCHC 31.2 RDW 13.5 Plt Count 191 MPV 9.7 Immature Gran % (Auto) 1.9 H Neut % (Auto) 66.9 Lymph % (Auto) 23.2 Jennings % (Auto) 7.7 Eos % (Auto) 0.0 Baso % (Auto) 0.3 Lymph # (Auto) 0.9 L Jennings # (Auto) 0.3 Eos # (Auto) 0.0 Baso # (Auto) 0.0 Abs Immat Gran (auto) 0.07 H Absolute Neuts (auto) 2.5 Absolute Nucleated RBC 0.000 Nucleated RBC % (auto) 0.0 PT INR APTT D-Dimer ABG pH 7.35 ABG pCO2 44 ABG pO2 69 L ABG HCO3 25 ABG O2 Saturation 95.0 ABG Base Excess -0.7 Oxygen Given 4 L Sodium 145 Potassium 4.4 Chloride 113 H Carbon Dioxide 23 Anion Gap 13 BUN 21 H Creatinine 0.82 Estim Creat Clear Calc 47.2 Estimated GFR > 60 Random Glucose 146 H Fasting Glucose Lactic Acid Calcium 7.3 L Ferritin Total Bilirubin Direct Bilirubin AST ALT Alkaline Phosphatase Lactate Dehydrogenase Troponin I High Sens C-Reactive Protein B-Natriuretic Peptide Total Protein Albumin Lipase 07/14/20 07/14/20 07/14/20 05:40 05:40 05:40 WBC 5.4 RBC 3.82 L Hgb 11.7 L Hct 36.7 L MCV 96.1 MCH 30.6 MCHC 31.9 RDW 13.1 Plt Count 260 D MPV 9.2 L Immature Gran % (Auto) 0.6 H Neut % (Auto) 75.3 H Lymph % (Auto) 12.9 L Jennings % (Auto) 11.2 H Eos % (Auto) 0.0 Baso % (Auto) 0.0 Lymph # (Auto) 0.7 L Jennings # (Auto) 0.6 Eos # (Auto) 0.0 Baso # (Auto) 0.0 Abs Immat Gran (auto) 0.03 Absolute Neuts (auto) 4.1 Absolute Nucleated RBC 0.000 Nucleated RBC % (auto) 0.0 PT INR APTT D-Dimer 374 ABG pH ABG pCO2 ABG pO2 ABG HCO3 ABG O2 Saturation ABG Base Excess Oxygen Given Sodium 143 Potassium 4.4 Chloride 109 H Carbon Dioxide 23 Anion Gap 15 BUN 21 H Creatinine 0.73 Estim Creat Clear Calc 53.0 Estimated GFR > 60 Random Glucose Fasting Glucose 95 Lactic Acid Calcium 8.0 L D Ferritin Total Bilirubin Direct Bilirubin AST ALT Alkaline Phosphatase Lactate Dehydrogenase Troponin I High Sens C-Reactive Protein 4.43 H B-Natriuretic Peptide Total Protein Albumin Lipase Preliminary micro results at discharge 07/11/20 09:53 Blood Culture - Preliminary Blood - Venous No growth after 48 hours. 07/11/20 09:53 Blood Culture - Preliminary Blood - Venous No growth after 48 hours. Discharge Plan Discharge Patient Disposition: er [facility] Referrals: Physician,Nonstaff [Primary Care Provider] - Discharge Medications: New dexamethasone [Decadron] 6 mg tablet 6 mg PO DAILY Qty: 7 RF: 0 Continued atorvastatin 40 mg tablet 40 mg PO BEDTIME RF: 0 clopidogrel 75 mg tablet 75 mg PO DAILY RF: 0 lamotrigine 25 mg tablet 25 mg PO DAILY RF: 0 furosemide 20 mg tablet 80 mg PO DAILY RF: 0 labetalol 300 mg tablet 300 mg PO BID RF: 0 estradiol 0.01 % (0.1 mg/gram) cream 1 appl vaginal USEASDIRECTD RF: 0 escitalopram oxalate 10 mg tablet 10 mg PO DAILY RF: 0 Spiriva with HandiHaler 18 mcg capsule, w/inhalation device 1 cap inhalation DAILY RF: 0 budesonide-formoterol [Symbicort] 80-4.5 mcg/actuation HFA aerosol inhaler 1 puff inhalation BID RF: 0 Myrbetriq 25 mg tablet extended release 24 hr 25 mg PO DAILY RF: 0 amlodipine 5 mg Tablet 5 mg PO DAILY RF: 0 acetaminophen 650 mg Tablet 650 mg PO Q6H PRN (Reason: Pain) RF: 0 fluticasone propionate 50 mcg/actuation [place],Suspension 1 spray INTRANASAL DAILY RF: 0 Docusate Plus 1 tab PO BID RF: 0 Artificial Tears (PF) [place] 1 drp OPHTHALMIC (EYE) DAILY RF: 0 Discontinued sulfamethoxazole-trimethoprim 800-160 mg tablet 1 tab PO BID RF: 0 Discharge Orders: Discharge Order (Routine); Ordered 07/14/20 Ordered By: Sudhakar Guan Activity on Discharge: As tolerated Stand Alone Forms: Patient Portal Discharge page Care Plan Goals: Recovery Health Concerns: COVID Plan of Treatment: Seven more days of Decadron
--- NOTE | 2020-07-14 12:22 | MHC.CM.PN ---
Patient will be discharged back to [facility] today at 2pm via BLS transport. Nurse, , [place] HCP are all aware.
== END 2020-07-14 15:20 | disposition skilled nursing facility (03) | DRG 177 ==
LOC: HO.ED 10:04 → HO.IMC 14:04
PROVIDERS: Physician Assistant Medical; Admitting Provider Internal Medicine; Emergency Provider Internal Medicine; Visit Provider Internal Medicine
DX: U07.1 COVID-19 (principal); J12.82 Pneumonia due to coronavirus disease 2019; J96.21 Acute and chronic respiratory failure with hypoxia; I13.0 Hypertensive heart and chronic kidney disease with heart failure and stage 1 through stage 4 chronic kidney disease, or unspecified chronic kidney disease; G47.33 Obstructive sleep apnea (adult) (pediatric); N32.81 Overactive bladder; F32.9 Major depressive disorder, single episode, unspecified; N18.9 Chronic kidney disease, unspecified; I50.9 Heart failure, unspecified; Z99.81 Dependence on supplemental oxygen; Z79.02 Long term (current) use of antithrombotics/antiplatelets; Z79.899 Other long term (current) drug therapy
CPT/HCPCS: 36415; 36600; 71275; 80048; 80076; 82728; 82803; 83605; 83615; 83690; 83880; 84484; 85025; 85379; 85610; 85730; 86140; 87040; 93005; 94640; 94660; 99284; J0456; J0696; J1100; Q9967

== ENCOUNTER 2020-08-14 11:21 | Inpatient (IN) | payer MEDICARE, MEDICAID, SELFPAY ==
[2020-08-14] VITALS (8 sets, daily range): BP systolic 102–143; BP diastolic 46–78; PULSE 64–76; RESP 16–23; TEMP 36.1–37.5; O2SAT 94–99; BMI 26.6
--- NOTE | ~2020-08-14 | XR_ITS ---
EXAMINATION: XR CHEST CLINICAL INFORMATION: Shortness of breath COMPARISON: CT scan of July 11, 2020 TECHNIQUE: AP portable view of the chest was obtained. FINDINGS: There is again noted be elevation of the left hemidiaphragm/diaphragmatic hernia containing stomach/bowel. Heart normal size. No evidence of pulmonary edema. Discoid density seen right base. There appears to be some basilar disease at the left base likely related to atelectasis. There is prominence of the right hilum. XR/XR chest 1V IMPRESSION: Elevation of the left hemidiaphragm. Probable bibasilar atelectasis. Discoid density right base with prominence of the right hilum seen to represent lymphadenopathy on previous CT scan.
--- NOTE | ~2020-08-14 | CT_ITS ---
EXAMINATION: CT HEAD WITHOUT CONTRAST CLINICAL INFORMATION: Weakness and lethargy COMPARISON: July 05, 2016 TECHNIQUE: Contiguous axial imaging was performed from the skull base to vertex without intravenous administration of contrast. This CT examination was performed using dose optimization techniques as appropriate, variously including the following: *Automated exposure control *Adjustment of mA and/or kV according to patient size (this includes techniques or standardized protocols for targeted exams where dose is matched to indication/reason for exam; i.e. extremities or head) *Use of iterative reconstruction technique DLP: 1292 mGy-cm FINDINGS: There is no evidence of acute intracranial hemorrhage or territorial infarction. No abnormal mass effect or midline shift is seen. Luna to white matter differentiation is well preserved. No extra-axial fluid collections are identified. There is a large amount of periventricular and subcortical white matter low density consistent with microangiopathy. 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 There is sequela of encephalomalacia within the right frontal lobe from previous hemorrhage. The ventricles, sulci, and cisterns are very prominent consistent with generalized atrophy. Some degree of hydrocephalus cannot be excluded. The osseous structures and soft tissues are normal. The mastoid air cells and visualized portions of the paranasal sinuses are well aerated. CT/CT head/brain wo con IMPRESSION: No acute intracranial pathology. Changes of diffuse microangiopathy and atrophy. Sequela of previous right frontal hemorrhage.
--- NOTE | 2020-08-14 11:48 | ECG_ITS ---
Test Reason : FALL Blood Pressure : / mmHG Vent. Rate : 069 BPM Atrial Rate : 069 BPM P-R Int : 184 ms QRS Dur : 080 ms QT Int : 442 ms P-R-T Axes : 050 027 049 degrees QTc Int : 473 ms Normal sinus rhythm Normal ECG When compared with ECG of 11-JUL-2020 09:36, Criteria for Septal infarct are no longer Present T wave inversion no longer evident in Anterior leads Referred By: Ashley Aguilar Electronically Signed By:KOURTNEY MCGINNIS MD
--- NOTE | 2020-08-14 11:51 | ED_ITS ---
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 She had a fever of 101 three days ago with poor PO intake. Lab workup showed WBC 11K, UA +WBC, CXR negative. She was treated with Rocephin for 3 days. Repeat labs yesterday showed WBC 12.2 & sodium 146. Her lethargy worsened, not verbal and not eating so she was brought to the ER for further evaluation. On arrival to the ED patient is unable to provide any significant history but can answer yes/no questions. She falls asleep easily. She is asking for her O2 to be hooked up and she reports SOB. She was on her baseline O2 with SpO2 94%. Complaint: generalized weakness Onset (ago): day(s) (3) Duration: constant Location: generalized Severity: severe Relieving factors: none Exacerbating factors: none Context: recent illness (recent COVID pneumonia) Associated symptoms: confusion, fever/chills, loss of appetite and shortness of breath Related Data Home Medications Medication Instructions Recorded Confirmed Artificial Tears (PF) 1 drp OPHTHALMIC (EYE) DAILY 07/11/20 08/14/20 Myrbetriq 25 mg PO DAILY 07/11/20 08/14/20 Spiriva with HandiHaler 1 cap INHALATION DAILY 07/11/20 07/11/20 acetaminophen 650 mg PO Q6H PRN 07/11/20 08/14/20 amlodipine 5 mg PO DAILY 07/11/20 08/14/20 atorvastatin 40 mg PO BEDTIME 07/11/20 08/14/20 budesonide-formoterol [Symbicort] 1 puff INHALATION BID 07/11/20 08/14/20 clopidogrel 75 mg PO DAILY 07/11/20 08/14/20 escitalopram oxalate 10 mg PO DAILY 07/11/20 08/14/20 estradiol 1 appl VAGINAL USEASDIRECTD 07/11/20 08/14/20 fluticasone propionate 1 spray INTRANASAL DAILY 07/11/20 07/11/20 furosemide 80 mg PO DAILY 07/11/20 labetalol 300 mg PO BID 07/11/20 07/11/20 lamotrigine 25 mg PO DAILY 07/11/20 08/14/20 Allergies Allergy/AdvReac Type Severity Reaction Status Date / Time No Known Allergies Allergy Verified 07/11/20 09:41 Review of Systems Review of Systems: Yes Unobtainable due to mental condition and Unobtainable due to mental status FOR[facility]LY [facility] Past Medical History Medical History Anxiety Chronic respiratory failure CKD (chronic kidney disease) COPD (chronic obstructive pulmonary disease) Dementia Diastolic dysfunction Hiatal hernia HTN (hypertension) Hyperlipidemia Insomnia RENETTA (obstructive sleep apnea) Pulmonary embolism PVD (peripheral vascular disease) Social History Social History Household Members: Other Housing: Senior Living Alcohol intake: unknown Smoking Status: Former smoker Second Hand Smoke Exposure: No Use of substances other than those prescribed or required for medical reasons: No Advance Directives: Yes Advance Directives Information Provided: No Advance Directives on File: Yes Advance Directives Date on File: 07/15/20 service: No Current occupational status: retired Physical Exam Vital Signs: Vital Signs: Last Vital Signs Temp 97.6 F 08/14/20 14:13 Pulse 69 08/14/20 14:13 Resp 20 08/14/20 14:13 BP 112/51 L 08/14/20 14:13 Pulse Ox 96 08/14/20 14:13 Body Mass Index 26.6 Appearance: Elderly female, lethargic Eyes: Pupils equal, round and reactive to light. ENT: Pharynx with dry mucus membranes Neck: Normal inspection. Neck supple. CVS: Normal heart rate and rhythm. Pulses normal. Respiratory: No respiratory distress. Diminished throughout Abdomen: Soft and nontender. +BS x4 Skin: Skin warm and dry. Normal skin color. Poor skin turgor. No rashes. Extremities: Trace LE edema, warm and well perfused. Neuro: Arouses to voice, oriented x2, equal UE strength, lifts arms against gravity, no pronator drift, can wiggle toes but unable to lift legs off the bed, lethargic and falls asleep quickly. Course Course Course Narrative: 80 y/o female with multiple comorbidities including COPD on O2, recent COVID & hospitalization, dementia presenting with AMS, lethargy and generalized weakness after fever noted 3 days ago. Concern for UTI as source of infection w/ positive UA outpatient vs possible HCAP given her reports of SOB. Maintaining saturations on her baseline O2 with soft but stable BP in 90-100's systolic. MAP>65. Concern for hypercarbia causing acute metabolic encephalopathy, possible worsening hypernatremia. Need to r/o ICH with CT head as well, although she is not on anticoagulation and no reports of trauma. Will give empiric zosyn given she was recently hospitalized and she has gotten worse despite Rocephin. Reevaluation(s) Reevaluation #1: Troponin elevated 150 without ischemic changes on EKG. Denies chest pain. Will trend. Na+ stable 146. BUN/Cr 30/0.95. Given 1L IVF. Will encourage PO water intake and will hold home lasix. CT head showed no acute findings. ABG not acidotic. Reevaluation #2: UA positive for infection. Zosyn given. Lethargy likely due to infection / metabolic encephalopathy. Reevaluation #3: Mental status improved. Repeat troponin pending. Will plan for admission for IV abx and further monitoring. MDM - Weakness Lab Data Attestation: I reviewed the patient's lab results. Result diagrams: 08/14/20 12:24 08/14/20 12:23 Labs: Lab Results 08/14/20 08/14/20 08/14/20 Range/Units 12:22 12:23 12:23 WBC (4.8-10.8) X10*3/uL RBC (4.20-5.50) X10*6/uL Hgb (12.0-16.0) g/dl Hct (37-47) % MCV (80-98) fL MCH (27.0-33.0) pg MCHC (31.0-35.0) g/dl RDW (11.0-16.0) % Plt Count (160-400) X10*3/uL MPV (9.4-12.3) fL Immature Gran % (Auto) (0.0-0.4) % Neut % (Auto) (45-73) % Lymph % (Auto) (20-40) % [place] % (Auto) (2-11) % Eos % (Auto) (0-4) % Baso % (Auto) (0-2) % Lymph # (Auto) (1.2-4.9) X10*3/uL [place] # (Auto) (0.1-1.2) X10*3/uL Eos # (Auto) (0.0-0.4) X10*3/uL Baso # (Auto) (0.0-0.2) X10*3/uL Abs Immat Gran (auto) (0.00-0.03) X10*3/uL Absolute Neuts (auto) (2.0-8.3) X10*3/uL Absolute Nucleated RBC (0.0-0.012) X10*3/uL Nucleated RBC % (auto) (0.0-0.2) /100WBC Hold Blue Top SEE NOTE ABG pH (7.35-7.45) ABG pCO2 (32-45) mmHg ABG pO2 (83-108) mmHg ABG HCO3 (22-26) mmol/L ABG O2 Saturation % ABG Base Excess Oxygen Given Sodium 146 H (135-145) mmol/L Potassium 4.1 (3.3-5.1) mmol/L Chloride 111 H (96-108) mmol/L Carbon Dioxide 28 (22-29) mmol/L Anion Gap 11 L (12-20) BUN 30 H (9-16) mg/dL Creatinine 0.95 (0.5-1.4) mg/dL Estim Creat Clear Calc 45.6 Estimated GFR 56 Random Glucose 101 (60-115) mg/dL Lactic Acid 0.7 (0.5-2.0) mmol/L Calcium 7.8 L (8.4-10.2) mg/dL Magnesium 2.2 (1.6-2.6) mg/dL Total Bilirubin 0.5 (0.0-1.0) mg/dL Direct Bilirubin 0.3 (0.0-0.5) mg/dL AST 12 (5-31) U/L ALT 6 (0-31) U/L Alkaline Phosphatase 121 H D (39-117) U/L Ammonia (13-55) umol/L Troponin I High Sens (<3.5-17.0) ng/L B-Natriuretic Peptide (<100) pg/mL Total Protein 5.1 L (6.5-8.0) g/dL Albumin 2.8 L D (3.5-5.0) g/dL Procalcitonin ng/mL Urine Color Urine Appearance Urine pH (5.0-8.0) Ur Specific [place] (1.005-1.025) Urine Protein (NEG-TRACE) MG/DL Urine Glucose (UA) (NEG) MG/DL Urine Ketones (NEG) MG/DL Urine Blood (NEG) Urine Nitrite (NEG) Ur Leukocyte Esterase (NEG) Urine RBC (0) /HPF Urine WBC (0-4) /HPF Ur Squamous Epith Cells /LPF Urine Bacteria /LPF Urine Mucus /LPF Coronavirus (PCR) (Negative) Influenza Type A (PCR) (Negative) Influenza Type B (PCR) (Negative) RSV RNA Qual (PCR) (Negative) 08/14/20 08/14/20 08/14/20 Range/Units 12:23 12:23 12:23 WBC (4.8-10.8) X10*3/uL RBC (4.20-5.50) X10*6/uL Hgb (12.0-16.0) g/dl Hct (37-47) % MCV (80-98) fL MCH (27.0-33.0) pg MCHC (31.0-35.0) g/dl RDW (11.0-16.0) % Plt Count (160-400) X10*3/uL MPV (9.4-12.3) fL Immature Gran % (Auto) (0.0-0.4) % Neut % (Auto) (45-73) % Lymph % (Auto) (20-40) % [place] % (Auto) (2-11) % Eos % (Auto) (0-4) % Baso % (Auto) (0-2) % Lymph # (Auto) (1.2-4.9) X10*3/uL [place] # (Auto) (0.1-1.2) X10*3/uL Eos # (Auto) (0.0-0.4) X10*3/uL Baso # (Auto) (0.0-0.2) X10*3/uL Abs Immat Gran (auto) (0.00-0.03) X10*3/uL Absolute Neuts (auto) (2.0-8.3) X10*3/uL Absolute Nucleated RBC (0.0-0.012) X10*3/uL Nucleated RBC % (auto) (0.0-0.2) /100WBC Hold Blue Top ABG pH (7.35-7.45) ABG pCO2 (32-45) mmHg ABG pO2 (83-108) mmHg ABG HCO3 (22-26) mmol/L ABG O2 Saturation % ABG Base Excess Oxygen Given Sodium (135-145) mmol/L Potassium (3.3-5.1) mmol/L Chloride (96-108) mmol/L Carbon Dioxide (22-29) mmol/L Anion Gap (12-20) BUN (9-16) mg/dL Creatinine (0.5-1.4) mg/dL Estim Creat Clear Calc Estimated GFR Random Glucose (60-115) mg/dL Lactic Acid (0.5-2.0) mmol/L Calcium (8.4-10.2) mg/dL Magnesium (1.6-2.6) mg/dL Total Bilirubin (0.0-1.0) mg/dL Direct Bilirubin (0.0-0.5) mg/dL AST (5-31) U/L ALT (0-31) U/L Alkaline Phosphatase (39-117) U/L Ammonia 31 (13-55) umol/L Troponin I High Sens 154.7 H D (<3.5-17.0) ng/L B-Natriuretic Peptide 101 H (<100) pg/mL Total Protein (6.5-8.0) g/dL Albumin (3.5-5.0) g/dL Procalcitonin 4.55 ng/mL Urine Color Urine Appearance Urine pH (5.0-8.0) Ur Specific [place] (1.005-1.025) Urine Protein (NEG-TRACE) MG/DL Urine Glucose (UA) (NEG) MG/DL Urine Ketones (NEG) MG/DL Urine Blood (NEG) Urine Nitrite (NEG) Ur Leukocyte Esterase (NEG) Urine RBC (0) /HPF Urine WBC (0-4) /HPF Ur Squamous Epith Cells /LPF Urine Bacteria /LPF Urine Mucus /LPF Coronavirus (PCR) (Negative) Influenza Type A (PCR) (Negative) Influenza Type B (PCR) (Negative) RSV RNA Qual (PCR) (Negative) 08/14/20 08/14/20 08/14/20 Range/Units 12:24 12:25 12:52 WBC 8.0 (4.8-10.8) X10*3/uL RBC 3.49 L (4.20-5.50) X10*6/uL Hgb 10.8 L (12.0-16.0) g/dl Hct 34.5 L (37-47) % MCV 98.9 H (80-98) fL MCH 30.9 (27.0-33.0) pg MCHC 31.3 (31.0-35.0) g/dl RDW 14.9 (11.0-16.0) % Plt Count 332 D (160-400) X10*3/uL MPV 9.4 (9.4-12.3) fL Immature Gran % (Auto) 0.7 H (0.0-0.4) % Neut % (Auto) 69.5 (45-73) % Lymph % (Auto) 15.7 L (20-40) % [place] % (Auto) 12.9 H (2-11) % Eos % (Auto) 0.7 (0-4) % Baso % (Auto) 0.5 (0-2) % Lymph # (Auto) 1.3 (1.2-4.9) X10*3/uL [place] # (Auto) 1.0 (0.1-1.2) X10*3/uL Eos # (Auto) 0.1 (0.0-0.4) X10*3/uL Baso # (Auto) 0.0 (0.0-0.2) X10*3/uL Abs Immat Gran (auto) 0.06 H (0.00-0.03) X10*3/uL Absolute Neuts (auto) 5.6 (2.0-8.3) X10*3/uL Absolute Nucleated RBC 0.000 (0.0-0.012) X10*3/uL Nucleated RBC % (auto) 0.0 (0.0-0.2) /100WBC Hold Blue Top ABG pH 7.44 (7.35-7.45) ABG pCO2 37 (32-45) mmHg ABG pO2 74 L (83-108) mmHg ABG HCO3 26 (22-26) mmol/L ABG O2 Saturation 94.0 % ABG Base Excess 2.1 Oxygen Given 2 L Sodium (135-145) mmol/L Potassium (3.3-5.1) mmol/L Chloride (96-108) mmol/L Carbon Dioxide (22-29) mmol/L Anion Gap (12-20) BUN (9-16) mg/dL Creatinine (0.5-1.4) mg/dL Estim Creat Clear Calc Estimated GFR Random Glucose (60-115) mg/dL Lactic Acid (0.5-2.0) mmol/L Calcium (8.4-10.2) mg/dL Magnesium (1.6-2.6) mg/dL Total Bilirubin (0.0-1.0) mg/dL Direct Bilirubin (0.0-0.5) mg/dL AST (5-31) U/L ALT (0-31) U/L Alkaline Phosphatase (39-117) U/L Ammonia (13-55) umol/L Troponin I High Sens (<3.5-17.0) ng/L B-Natriuretic Peptide (<100) pg/mL Total Protein (6.5-8.0) g/dL Albumin (3.5-5.0) g/dL Procalcitonin ng/mL Urine Color Urine Appearance Urine pH (5.0-8.0) Ur Specific [place] (1.005-1.025) Urine Protein (NEG-TRACE) MG/DL Urine Glucose (UA) (NEG) MG/DL Urine Ketones (NEG) MG/DL Urine Blood (NEG) Urine Nitrite (NEG) Ur Leukocyte Esterase (NEG) Urine RBC (0) /HPF Urine WBC (0-4) /HPF Ur Squamous Epith Cells /LPF Urine Bacteria /LPF Urine Mucus /LPF Coronavirus (PCR) NEGATIVE (Negative) Influenza Type A (PCR) NEGATIVE (Negative) Influenza Type B (PCR) NEGATIVE (Negative) RSV RNA Qual (PCR) NEGATIVE (Negative) 08/14/20 Range/Units 14:03 WBC (4.8-10.8) X10*3/uL RBC (4.20-5.50) X10*6/uL Hgb (12.0-16.0) g/dl Hct (37-47) % MCV (80-98) fL MCH (27.0-33.0) pg MCHC (31.0-35.0) g/dl RDW (11.0-16.0) % Plt Count (160-400) X10*3/uL MPV (9.4-12.3) fL Immature Gran % (Auto) (0.0-0.4) % Neut % (Auto) (45-73) % Lymph % (Auto) (20-40) % [place] % (Auto) (2-11) % Eos % (Auto) (0-4) % Baso % (Auto) (0-2) % Lymph # (Auto) (1.2-4.9) X10*3/uL [place] # (Auto) (0.1-1.2) X10*3/uL Eos # (Auto) (0.0-0.4) X10*3/uL Baso # (Auto) (0.0-0.2) X10*3/uL Abs Immat Gran (auto) (0.00-0.03) X10*3/uL Absolute Neuts (auto) (2.0-8.3) X10*3/uL Absolute Nucleated RBC (0.0-0.012) X10*3/uL Nucleated RBC % (auto) (0.0-0.2) /100WBC Hold Blue Top ABG pH (7.35-7.45) ABG pCO2 (32-45) mmHg ABG pO2 (83-108) mmHg ABG HCO3 (22-26) mmol/L ABG O2 Saturation % ABG Base Excess Oxygen Given Sodium (135-145) mmol/L Potassium (3.3-5.1) mmol/L Chloride (96-108) mmol/L Carbon Dioxide (22-29) mmol/L Anion Gap (12-20) BUN (9-16) mg/dL Creatinine (0.5-1.4) mg/dL Estim Creat Clear Calc Estimated GFR Random Glucose (60-115) mg/dL Lactic Acid (0.5-2.0) mmol/L Calcium (8.4-10.2) mg/dL Magnesium (1.6-2.6) mg/dL Total Bilirubin (0.0-1.0) mg/dL Direct Bilirubin (0.0-0.5) mg/dL AST (5-31) U/L ALT (0-31) U/L Alkaline Phosphatase (39-117) U/L Ammonia (13-55) umol/L Troponin I High Sens (<3.5-17.0) ng/L B-Natriuretic Peptide (<100) pg/mL Total Protein (6.5-8.0) g/dL Albumin (3.5-5.0) g/dL Procalcitonin ng/mL Urine Color DARK YELLOW Urine Appearance HAZY Urine pH 6.0 (5.0-8.0) Ur Specific [place] 1.025 (1.005-1.025) Urine Protein 1+ H (NEG-TRACE) MG/DL Urine Glucose (UA) NEG (NEG) MG/DL Urine Ketones NEG (NEG) MG/DL Urine Blood 1+ H (NEG) Urine Nitrite NEG (NEG) Ur Leukocyte Esterase 1+ H (NEG) Urine RBC 1-4 (0) /HPF Urine WBC 50-75 H (0-4) /HPF Ur Squamous Epith Cells 2+ /LPF Urine Bacteria TRACE /LPF Urine Mucus 2+ /LPF Coronavirus (PCR) (Negative) Influenza Type A (PCR) (Negative) Influenza Type B (PCR) (Negative) RSV RNA Qual (PCR) (Negative) ABG Data ABG results: Attestation: I personally reviewed and interpreted this ABG as follows: Interpretation: stable chronic hypoxic respiratory failure - no CO2 retention ECG Data Attestation: I personally reviewed and interpreted this ECG as follows: ECG interpretation date: 08/14/20 ECG interpretation time: 13:10 Interpretation: normal sinus rhythm, HR 69 bpm, NC interval normal, normal QTc, no ST segment elevations Critical Care Time Critical Care Time Critical Care Time: Yes Total Critical Care Time: 45 Attestation: I attest to critical care time spent caring for this patient significant acute mental status change and signficant lethargy requiring extensive workup, frequent bedside reassessments, and reviewing of imaging and old medical records. Discharge Plan Discharge Clinical Impression: Acute metabolic encephalopathy, Acute UTI Patient Disposition: Admitted As Inpatient
[2020-08-14] MEDS: 0.9 % Sodium Chloride 1,000 ML 999 ML IVCONT (12:26)
[2020-08-14 12:34] LABS: MANUAL DIFF FLAG NO
[2020-08-14 12:36] LABS: Basophils Percent Auto 0.5 % (0-2); Eosinophils Absolute Auto 0.1 X10*3/uL (0.0-0.4); Eosinophils Percent Auto 0.7 % (0-4); Hematocrit 34.5 % (37-47); Hemoglobin 10.8 g/dl (12.0-16.0); Imm Gran Abs Auto 0.06 X10*3/uL (0.00-0.03); Imm Gran Pct Auto 0.7 % (0.0-0.4); Lymphocytes Absolute Auto 1.3 X10*3/uL (1.2-4.9); Lymphocytes Percent Auto 15.7 % (20-40); Mean Corpuscular HGB Conc 31.3 g/dl (31.0-35.0); Mean Corpuscular Hemoglobin 30.9 pg (27.0-33.0); Mean Corpuscular Volume 98.9 fL (80-98); Mean Platelet Volume 9.4 fL (9.4-12.3); Monocytes Percent Auto 12.9 % (2-11); Neutrophils Absolute Auto 5.6 X10*3/uL (2.0-8.3); Neutrophils Percent Auto 69.5 % (45-73); Platelet Count 332 X10*3/uL (160-400); Red Blood Count 3.49 X10*6/uL (4.20-5.50); Red Cell Distribution Width 14.9 % (11.0-16.0)
[2020-08-14 12:54] LABS: Lactic Acid 0.7 mmol/L (0.5-2.0)
[2020-08-14 12:56] LABS: Ammonia 31 umol/L (13-55)
[2020-08-14 13:01] LABS: Pt Ventilation O2% 2 L
[2020-08-14 13:01] LABS: Alanine Aminotransferase 6 U/L (0-31); Albumin Level 2.8 g/dL (3.5-5.0); Alkaline Phosphatase 121 U/L (39-117); Anion Gap 11 (12-20); Aspartate Amino Transferase 12 U/L (5-31); Bilirubin Direct 0.3 mg/dL (0.0-0.5); Bilirubin Total 0.5 mg/dL (0.0-1.0); Blood Urea Nitrogen 30 mg/dL (9-16); Calcium 7.8 mg/dL (8.4-10.2); Carbon Dioxide 28 mmol/L (22-29); Chloride 111 mmol/L (96-108); Creatinine Clr Calc Pharmacy 45.6; Estimated Glomerular Filt Rate 56; Glucose Random 101 mg/dL (60-115); Magnesium 2.2 mg/dL (1.6-2.6); Potassium 4.1 mmol/L (3.3-5.1); Sodium 146 mmol/L (135-145); Total Protein 5.1 g/dL (6.5-8.0)
[2020-08-14 13:05] LABS: ABG PCO2 37 mmHg (32-45); Base Excess ABG 2.1; HCO3 ABG 26 mmol/L (22-26); PO2 ABG 74 mmHg (83-108); pH ABG 7.44 (7.35-7.45)
[2020-08-14 13:11] LABS: B Type Natriuretic Peptide 101 pg/mL (<100); Troponin-I High Sensitivity 154.7 ng/L (<3.5-17.0)
[2020-08-14 13:30] LABS: Influenza A PCR NEGATIVE (Negative); Influenza B PCR NEGATIVE (Negative); Resp Syncy Virus RNA Qual PCR NEGATIVE (Negative); SARS COV2 PCR INHOUSE NEGATIVE (Negative)
[2020-08-14] MEDS: Piperacillin Sodium/Tazobactam 4.5 GM in 0.9 % Sodium Chloride 100 ML IV (14:11)
[2020-08-14] MEDS: Acetaminophen 325 MG TABLET 975 MG PO (14:11)
[2020-08-14 14:21] LABS: Glucose Urine UA NEG (NEG); Leukocyte Esterase Urine 1+ (NEG); Nitrite Urine NEG (NEG); Specific Gravity - Urine 1.025 (1.005-1.025); UACC Culture Trigger YES; Urine Blood 1+ (NEG); Urine Ketones NEG (NEG); Urine Protein 1+ MG/DL (NEG-TRACE)
[2020-08-14 14:27] LABS: Appearance Urine HAZY; Color Urine DARK YELLOW
[2020-08-14 14:52] LABS: Bacteria Urine TRACE /LPF; Mucus Urine 2+ /LPF; Squamous Epithelial Cell Urine 2+ /LPF; WBC Urine 50-75 /HPF (0-4)
[2020-08-14 15:42] LABS: Procalcitonin 4.55 ng/mL
[2020-08-14] MEDS: Dextrose 5 % 1,000 ML 75 ML IVCONT (15:43)
[2020-08-14 16:28] LABS: Troponin-I High Sensitivity 110.8 ng/L (<3.5-17.0)
--- NOTE | 2020-08-14 16:55 | P.HPHOSP_ITS ---
History of Present Illness Date of Service: 08/14/20 Chief Complaint: AMS, fever, UTI This is an 80-year-old female with a past medical history as outlined below who is a resident at longterm [facility] where reportedly she was being treated for a urinary tract infection for the last 3 days with Rocephin 1 g IM without much improvement. She continued to decline and as such she was sent to [facility]. The patient herself is currently confused and unable to provide a meaningful history. She is able to tell me that she is in [facility] and that she has no pain but otherwise unable to get any other history. Per ED records, as stated above was being treated for a UTI for 3 days and had persistent decreased oral intake. CBC done at [facility] showed a elevated white count. A chest x-ray was reportedly negative. In the emergency room, UA shows some pyuria, 1+ bacteria. Mild leukocytosis. She was also mildly hypernatremic and quite lethargic when she presented. She was given a dose of IV Zosyn and some IV fluids with improvement in her mentation. Admission was requested for treatment of probable resistant urinary tract infection. Of note the patient was diagnosed with COVID-19 on 07/06/2020. She was admitted to [facility] on 07/11-07/14. Was treated with Decadron and increased supplemental oxygen and discharged back Review of Systems Review of Systems: ROS unreliable due to confusion [facility] Medical History (Updated 08/14/20 @ 17:04 by Joey Lovett MD) Anxiety Chronic respiratory failure Chronic respiratory failure with hypoxia CKD (chronic kidney disease) COPD (chronic obstructive pulmonary disease) Dementia Diastolic dysfunction Hiatal hernia HTN (hypertension) Hyperlipidemia Insomnia RENETTA (obstructive sleep apnea) Pulmonary embolism PVD (peripheral vascular disease) Social History Household Members: Other Housing: Retirement Alcohol intake: unknown Smoking Status: Former smoker Second Hand Smoke Exposure: No Use of substances other than those prescribed or required for medical reasons: No Advance Directives: Yes Advance Directives Information Provided: No Advance Directives on File: Yes Advance Directives Date on File: 07/15/20 service: No Current occupational status: retired Meds Allergies Allergy/AdvReac Type Severity Reaction Status Date / Time No Known Allergies Allergy Verified 07/11/20 09:41 Active Medications: Current Medications Generic Name Dose Route Start Last Admin Trade Name Freq PRN Reason Stop Dose Admin Acetaminophen 650 mg 08/14/20 16:51 Acetaminophen 325 Mg Tablet PO Q6H PRN Pain, Mild (Pain Scale 1-3) Atorvastatin Calcium 40 mg 08/14/20 21:00 Atorvastatin Calcium 40 Mg Tablet PO BEDTIME ON LICENSE OF [facility] Clopidogrel Bisulfate 75 mg 08/15/20 09:00 Clopidogrel Bisulfate 75 Mg Tablet PO DAILY ON LICENSE OF [facility] Escitalopram Oxalate 10 mg 08/15/20 09:00 Escitalopram Oxalate 10 Mg Tablet PO DAILY ON LICENSE OF [facility] Fluticasone Propionate 1 spray 08/15/20 09:00 Fluticasone Propionate Nasal 16 Gm [place] NOSTRIL-B DAILY ON LICENSE OF [facility] Dextrose 1,000 mls @ 75 mls/hr 08/14/20 15:15 08/14/20 15:43 D5w IVCONT 75 mls/hr .[id number] DANA Administration Dextrose/Sodium Chloride 1,000 mls @ 100 mls/hr 08/14/20 16:51 D5ns IVCONT 08/15/20 12:50 .Q10H DANA Piperacillin Sod/Tazobactam 50 mls @ 100 mls/hr 08/14/20 20:00 Sod 3.375 gm/ Sodium Chloride IV Q6H ON LICENSE OF [facility] Lamotrigine 25 mg 08/15/20 09:00 Lamotrigine 25 Mg Tablet PO DAILY ON LICENSE OF [facility] Mirabegron 25 mg 08/15/20 09:00 Mirabegron 25 Mg Tab.Er.24h PO DAILY ON LICENSE OF [facility] Non-Formulary Medication 1 puff 08/14/20 21:00 Budesonide-Formoterol [Symbicort] INHALE BID ON LICENSE OF [facility] Ondansetron HCl 4 mg 08/14/20 16:51 Ondansetron Hcl 4 Mg/2 Ml Vial IVPUSH Q8H PRN Nausea and Vomiting Pharmacy Consult 1 each 08/14/20 15:46 Consult Rx Perform Med Rec MISCELLANE ONCE PRN Consult order Sodium Chloride 3 ml 08/15/20 00:00 0.9 % Sodium Chloride Flush 3 Ml Syringe IVFLUSH QSHIFT ON LICENSE OF [facility] Tiotropium [place] puff 08/15/20 09:00 Tiotropium [place] 18 Mcg Cap.W.Dev INHALE DAILY ON LICENSE OF [facility] Home Medications Medication Instructions Recorded Confirmed Last Taken Type Artificial Tears (PF) 1 drp OPHTHALMIC (EYE) DAILY 07/11/20 08/14/20 07/10/20 History Myrbetriq 25 mg PO DAILY 07/11/20 08/14/20 07/10/20 History Spiriva with HandiHaler 1 cap INHALATION DAILY 07/11/20 08/14/20 07/10/20 History acetaminophen 650 mg PO Q6H PRN 07/11/20 08/14/20 Unknown History amlodipine 5 mg PO DAILY 07/11/20 08/14/20 07/10/20 History atorvastatin 40 mg PO BEDTIME 07/11/20 08/14/20 07/10/20 History budesonide-formoterol [Symbicort] 1 puff INHALATION BID 07/11/20 08/14/20 07/10/20 History clopidogrel 75 mg PO DAILY 07/11/20 08/14/20 07/10/20 History escitalopram oxalate 10 mg PO DAILY 07/11/20 08/14/20 07/10/20 History estradiol 1 appl VAGINAL USEASDIRECTD 07/11/20 08/14/20 07/09/20 History fluticasone propionate 1 spray INTRANASAL DAILY 07/11/20 08/14/20 07/10/20 History furosemide 80 mg PO DAILY 07/11/20 Unknown History labetalol 300 mg PO BID 07/11/20 08/14/20 07/10/20 History lamotrigine 25 mg PO DAILY 07/11/20 08/14/20 07/10/20 History Physical Exam Vital Signs and Narrative: Vital Signs: Last Vital Signs Temp 97.6 F 08/14/20 14:13 Pulse 64 08/14/20 16:52 Resp 16 08/14/20 16:52 BP 110/46 L 08/14/20 16:52 Pulse Ox 96 08/14/20 16:52 Body Mass Index 26.6 Const: Other: Constitutional - Awake and Alert, No apparent distress, Confused Eyes - PERRLA, EOMI Cardiovascular - S1S2, RRR, No edema Respiratory - Diminshed without wheezing; saturation 93-95 on 2L Gastrointestinal - NT / ND; +BS; No rebound or guarding - No CVA tenderness Extremities - no calf tenderness bilaterally, no swelling Musculoskeletal - Normal inspection, normal ROM Skin - Warm/Dry Neurological - Non-focal, disoriented to place / time Psychological - Appropriate affect Results Labs CBC and Chem 7: 08/14/20 12:24 08/14/20 12:23 Labs: Laboratory Results - last 24 hr 08/14/20 08/14/20 08/14/20 12:22 12:23 12:23 MCV MCH MCHC RDW Plt Count MPV Immature Gran % (Auto) Neut % (Auto) Lymph % (Auto) Patrick % (Auto) Eos % (Auto) Baso % (Auto) Lymph # (Auto) Patrick # (Auto) Eos # (Auto) Baso # (Auto) Abs Immat Gran (auto) Absolute Neuts (auto) Absolute Nucleated RBC Nucleated RBC % (auto) Hold Blue Top SEE NOTE ABG pH ABG pCO2 ABG pO2 ABG HCO3 ABG O2 Saturation ABG Base Excess Oxygen Given Anion Gap 11 L Estim Creat Clear Calc 45.6 Estimated GFR 56 Random Glucose 101 Lactic Acid 0.7 Calcium 7.8 L Magnesium 2.2 Total Bilirubin 0.5 Direct Bilirubin 0.3 AST 12 ALT 6 Alkaline Phosphatase 121 H D Ammonia Troponin I High Sens B-Natriuretic Peptide Total Protein 5.1 L Albumin 2.8 L D Procalcitonin Urine Color Urine Appearance Urine pH Ur Specific [place] Urine Protein Urine Glucose (UA) Urine Ketones Urine Blood Urine Nitrite Ur Leukocyte Esterase Urine RBC Urine WBC Ur Squamous Epith Cells Urine Bacteria Urine Mucus Coronavirus (PCR) Influenza Type A (PCR) Influenza Type B (PCR) RSV RNA Qual (PCR) 08/14/20 08/14/20 08/14/20 12:23 12:23 12:23 MCV MCH MCHC RDW Plt Count MPV Immature Gran % (Auto) Neut % (Auto) Lymph % (Auto) Patrick % (Auto) Eos % (Auto) Baso % (Auto) Lymph # (Auto) Patrick # (Auto) Eos # (Auto) Baso # (Auto) Abs Immat Gran (auto) Absolute Neuts (auto) Absolute Nucleated RBC Nucleated RBC % (auto) Hold Blue Top ABG pH ABG pCO2 ABG pO2 ABG HCO3 ABG O2 Saturation ABG Base Excess Oxygen Given Anion Gap Estim Creat Clear Calc Estimated GFR Random Glucose Lactic Acid Calcium Magnesium Total Bilirubin Direct Bilirubin AST ALT Alkaline Phosphatase Ammonia 31 Troponin I High Sens 154.7 H D B-Natriuretic Peptide 101 H Total Protein Albumin Procalcitonin 4.55 Urine Color Urine Appearance Urine pH Ur Specific [place] Urine Protein Urine Glucose (UA) Urine Ketones Urine Blood Urine Nitrite Ur Leukocyte Esterase Urine RBC Urine WBC Ur Squamous Epith Cells Urine Bacteria Urine Mucus Coronavirus (PCR) Influenza Type A (PCR) Influenza Type B (PCR) RSV RNA Qual (PCR) 08/14/20 08/14/20 08/14/20 12:24 12:25 12:52 MCV 98.9 H MCH 30.9 MCHC 31.3 RDW 14.9 Plt Count 332 D MPV 9.4 Immature Gran % (Auto) 0.7 H Neut % (Auto) 69.5 Lymph % (Auto) 15.7 L Patrick % (Auto) 12.9 H Eos % (Auto) 0.7 Baso % (Auto) 0.5 Lymph # (Auto) 1.3 Patrick # (Auto) 1.0 Eos # (Auto) 0.1 Baso # (Auto) 0.0 Abs Immat Gran (auto) 0.06 H Absolute Neuts (auto) 5.6 Absolute Nucleated RBC 0.000 Nucleated RBC % (auto) 0.0 Hold Blue Top ABG pH 7.44 ABG pCO2 37 ABG pO2 74 L ABG HCO3 26 ABG O2 Saturation 94.0 ABG Base Excess 2.1 Oxygen Given 2 L Anion Gap Estim Creat Clear Calc Estimated GFR Random Glucose Lactic Acid Calcium Magnesium Total Bilirubin Direct Bilirubin AST ALT Alkaline Phosphatase Ammonia Troponin I High Sens B-Natriuretic Peptide Total Protein Albumin Procalcitonin Urine Color Urine Appearance Urine pH Ur Specific [place] Urine Protein Urine Glucose (UA) Urine Ketones Urine Blood Urine Nitrite Ur Leukocyte Esterase Urine RBC Urine WBC Ur Squamous Epith Cells Urine Bacteria Urine Mucus Coronavirus (PCR) NEGATIVE Influenza Type A (PCR) NEGATIVE Influenza Type B (PCR) NEGATIVE RSV RNA Qual (PCR) NEGATIVE 08/14/20 08/14/20 14:03 15:34 MCV MCH MCHC RDW Plt Count MPV Immature Gran % (Auto) Neut % (Auto) Lymph % (Auto) Patrick % (Auto) Eos % (Auto) Baso % (Auto) Lymph # (Auto) Patrick # (Auto) Eos # (Auto) Baso # (Auto) Abs Immat Gran (auto) Absolute Neuts (auto) Absolute Nucleated RBC Nucleated RBC % (auto) Hold Blue Top ABG pH ABG pCO2 ABG pO2 ABG HCO3 ABG O2 Saturation ABG Base Excess Oxygen Given Anion Gap Estim Creat Clear Calc Estimated GFR Random Glucose Lactic Acid Calcium Magnesium Total Bilirubin Direct Bilirubin AST ALT Alkaline Phosphatase Ammonia Troponin I High Sens 110.8 H B-Natriuretic Peptide Total Protein Albumin Procalcitonin Urine Color DARK YELLOW Urine Appearance HAZY Urine pH 6.0 Ur Specific [place] 1.025 Urine Protein 1+ H Urine Glucose (UA) NEG Urine Ketones NEG Urine Blood 1+ H Urine Nitrite NEG Ur Leukocyte Esterase 1+ H Urine RBC 1-4 Urine WBC 50-75 H Ur Squamous Epith Cells 2+ Urine Bacteria TRACE Urine Mucus 2+ Coronavirus (PCR) Influenza Type A (PCR) Influenza Type B (PCR) RSV RNA Qual (PCR) Imaging Radiologist's Impressions: Impressions Chest X-Ray 08/14/20 11:48 IMPRESSION: Elevation of the left hemidiaphragm. Probable bibasilar atelectasis. Discoid density right base with prominence of the right hilum seen to represent lymphadenopathy on previous CT scan. Head CT 08/14/20 11:48 IMPRESSION: No acute intracranial pathology. Changes of diffuse microangiopathy and atrophy. Sequela of previous right frontal hemorrhage. Assessment and Plan (1) Acute UTI: Status: Acute This is an 80-year-old female who is a resident at [facility] with a past medical history of COPD and chronic respiratory failure on 2 L, dementia, diastolic dysfunction, COVID-19 in June 2020, who was being treated at the longterm facility for a urinary tract infection and was subsequently sent here for fevers. 1. UTI concern over resistant organisms given no improvement on rocephin IV zosyn f/u cultures 2. HyperNa from poor oral intake d5-1/2 @ 100 cc/hr x 2L 3. Toxic/Metabolic encephalopathy due to above + baseline dementia 4. HTN bp soft currently hold antihypertensives 5. Elevated trop-I down-trending type 2 EKG without any signs of acute ishcemic 6. COPD with chronic resp failure continue baseline 2L NC Continue other care Full Code per [facility] form
--- NOTE | 2020-08-14 17:01 | PC.NURSE ---
Spoke with nurse at [facility]. Nurse states that urine culture is collected or not. Nurse from facility is calling their lab to get if urine was collected and will fax results/follow-up with [facility]. Pt on regular diet-thin liquids per facility.
--- NOTE | 2020-08-14 17:08 | PC.NURSE ---
Facility called. Stated urine culture was not collected.
[2020-08-14] MEDS: Dextrose 5 % and 0.9 % NaCl 1,000 ML 100 ML IVCONT (18:12)
--- NOTE | 2020-08-14 20:00 | PC.NURSE ---
Report called to [facility] at 1957
[2020-08-14] MEDS: Atorvastatin Calcium 40 MG TABLET PO (21:03)
[2020-08-14] MEDS: 0.9 % Sodium Chloride Flush 3 ML SYRINGE IVFLUSH (21:03)
[2020-08-14] MEDS: Piperacillin Sodium/Tazobactam 3.375 GM in 0.9 % Sodium Chloride 50 ML IV (21:03)
[2020-08-15 03:53] VITALS: BP 141/70; PULSE 77; RESP 20; TEMP 36.6; O2SAT 97
[2020-08-15] MEDS: Piperacillin Sodium/Tazobactam 3.375 GM in 0.9 % Sodium Chloride 50 ML IV ×4 (03:55→19:35)
[2020-08-15] MEDS: Dextrose 5 % and 0.9 % NaCl 1,000 ML 100 ML IVCONT (03:56)
[2020-08-15 07:30] LABS: Anion Gap 13 (12-20); Blood Urea Nitrogen 23 mg/dL (9-16); Calcium 7.2 mg/dL (8.4-10.2); Carbon Dioxide 24 mmol/L (22-29); Chloride 113 mmol/L (96-108); Creatinine Clr Calc Pharmacy 54.1; Estimated Glomerular Filt Rate > 60; Glucose Random 99 mg/dL (60-115); Potassium 4.2 mmol/L (3.3-5.1); Sodium 146 mmol/L (135-145)
[2020-08-15 08:00] VITALS: BP 130/63; PULSE 80; RESP 18; TEMP 36.4; O2SAT 95
--- NOTE | 2020-08-15 08:38 | MHC.CM.PN ---
Patient has a diagnosis of Dementia and is documented to be confused and unable to provide meaningful history; CM spoke with [id number]-Rpa/HCP/Catalina @ [phone].Patient is a LTC Resident at [facility] and the goal is for her to return there at dc. CM has initiated and will follow for dc planning. IMM Addressed with Catalina and the original is being mailed certified letter to her and a copy has been placed on the chart.Patient uses a w/c for most mobility and she uses O2 at the SNF. PCP is Dr. Dinh Po. HCP & [facility]OLST is on file.
[2020-08-15] MEDS: Mirabegron 25 MG TAB.ER.24H PO (08:57)
[2020-08-15] MEDS: 0.9 % Sodium Chloride Flush 3 ML SYRINGE IVFLUSH ×3 (08:57→22:36)
[2020-08-15] MEDS: Escitalopram Oxalate 10 MG TABLET PO (08:58)
[2020-08-15] MEDS: lamoTRIgine 25 MG TABLET PO (08:58)
[2020-08-15] MEDS: Clopidogrel Bisulfate 75 MG TABLET PO (08:58)
[2020-08-15] MEDS: Dextrose 5 % 1,000 ML 100 ML IVCONT (10:04)
[2020-08-15 13:13] VITALS: BP 102/57; PULSE 88; RESP 20; TEMP 36.2; O2SAT 94
--- NOTE | 2020-08-15 13:46 | HO.PM.IMPN ---
Subjective Subjective Date of Service: 08/15/20 Interval History: seen and examined this AM pleasantly confused tells me she feeling better ROS unreliable Physical Exam Vital Signs: Vital Signs: Last Vital Signs Temp 97.2 F 08/15/20 13:13 Pulse 88 08/15/20 13:13 Resp 20 08/15/20 13:13 BP 102/57 L 08/15/20 13:13 Pulse Ox 94 08/15/20 13:13 Body Mass Index 26.6 Const: General: cooperative Orientation/consciousness: oriented to person Resp: Effort & Inspection: normal respiratory effort and able to speak in complete sentences Cardio: Heart sounds: S1 normal heart sound present and S2 normal heart sound present Neuro: General: oriented to person Objective Data Current Medications Generic Name Dose Route Start Last Admin Trade Name Freq PRN Reason Stop Dose Admin Acetaminophen 650 mg 08/14/20 16:51 Acetaminophen 325 Mg Tablet PO Q6H PRN Pain, Mild (Pain Scale 1-3) Atorvastatin Calcium 40 mg 08/14/20 21:00 08/14/20 21:03 Atorvastatin Calcium 40 Mg Tablet PO 40 mg BEDTIME DANA Administration Clopidogrel Bisulfate 75 mg 08/15/20 09:00 08/15/20 08:58 Clopidogrel Bisulfate 75 Mg Tablet PO 75 mg DAILY DANA Administration Escitalopram Oxalate 10 mg 08/15/20 09:00 08/15/20 08:58 Escitalopram Oxalate 10 Mg Tablet PO 10 mg DAILY DANA Administration Fluticasone Propionate 1 spray 08/15/20 09:00 08/15/20 10:55 Fluticasone Propionate Nasal 16 Gm [place] NOSTRIL-B Not Given DAILY DANA Fluticasone/Vilanterol 1 puff 08/15/20 08:00 08/15/20 12:34 Fluticasone/Vilanterol 100/25 Blst.W.Dev INHALE Not Given RDAILY DANA Piperacillin Sod/Tazobactam 50 mls @ 100 mls/hr 08/14/20 20:00 08/15/20 10:05 Sod 3.375 gm/ Sodium Chloride IV Infused Q6H DANA Infusion Dextrose 1,000 mls @ 100 mls/hr 08/15/20 08:15 08/15/20 10:04 D5w IVCONT 08/15/20 18:14 100 mls/hr .Q10H DANA Administration Lamotrigine 25 mg 08/15/20 09:00 08/15/20 08:58 Lamotrigine 25 Mg Tablet PO 25 mg DAILY DANA Administration Mirabegron 25 mg 08/15/20 09:00 08/15/20 08:57 Mirabegron 25 Mg Tab.Er.24h PO 25 mg DAILY DANA Administration Ondansetron HCl 4 mg 08/14/20 16:51 Ondansetron Hcl 4 Mg/2 Ml Vial IVPUSH Q8H PRN Nausea and Vomiting Pharmacy Consult 1 each 08/14/20 15:46 Consult Rx Perform Med Rec MISCELLANE ONCE PRN Consult order Sodium Chloride 3 ml 08/15/20 00:00 08/15/20 08:57 0.9 % Sodium Chloride Flush 3 Ml Syringe IVFLUSH 3 ml QSHIFT DANA Administration Tiotropium [place] 1 puff 08/15/20 09:00 08/15/20 12:34 Tiotropium [place] 18 Mcg Cap.W.Dev INHALE Not Given DAILY DANA Labs CBC & Chem 7: 08/14/20 12:24 08/15/20 05:50 Microbiology Microbiology Results: Microbiology 08/14/20 00:00 Urine clean catch - Clean Catch Midstream Urine Culture - Final No growth. Assessment and Plan (1) Acute UTI: Status: Acute Assessment and Plan: This is an 80-year-old female who is a resident at [facility] with a past medical history of COPD and chronic respiratory failure on 2 L, dementia, diastolic dysfunction, COVID-19 in June 2020, who was being treated at the long-term facility for a urinary tract infection and was subsequently sent here for fevers. 1. UTI urine C&S negative -- suspected due to recent Rx at SNF will give zosyn for now to obtain C&S results from facility -- requested yesterday, still have no received it blood cx negative to date 2. HyperNa persists change IVF to D5W x 1L 3. Toxic/Metabolic encephalopathy improving baseline unclear 4. HTN continue holding antihypertensives 5. Elevated trop-I down-trending type 2 EKG without any signs of acute isomeric 6. COPD with chronic resp failure continue baseline 2L NC Continue other care DVT pptx, Lovenox Full Code per [facility] form
[2020-08-15] MEDS: Enoxaparin Sodium 40 MG/0.4 ML SYRINGE SUBCUT (14:55)
[2020-08-15 15:38] VITALS: BP 122/63; PULSE 81; RESP 17; TEMP 36.1; O2SAT 96
[2020-08-15 15:46] LABS: Anion Gap 11 (12-20); Blood Urea Nitrogen 17 mg/dL (9-16); Calcium 7.5 mg/dL (8.4-10.2); Carbon Dioxide 25 mmol/L (22-29); Chloride 109 mmol/L (96-108); Estimated Glomerular Filt Rate > 60; Glucose Random 100 mg/dL (60-115); Sodium 141 mmol/L (135-145)
[2020-08-15] MEDS: Atorvastatin Calcium 40 MG TABLET PO (19:35)
[2020-08-15 20:00] VITALS: BP 140/67; PULSE 76; RESP 20; TEMP 35.9; O2SAT 98
[2020-08-15 23:33] VITALS: BP 157/71; PULSE 75; RESP 19; TEMP 36.6; O2SAT 98
[2020-08-16] MEDS: Piperacillin Sodium/Tazobactam 3.375 GM in 0.9 % Sodium Chloride 50 ML IV ×4 (01:53→19:23)
[2020-08-16 03:17] VITALS: BP 152/91; PULSE 78; RESP 22; TEMP 36.6; O2SAT 97
[2020-08-16 08:00] VITALS: BP 170/79; PULSE 71; RESP 22; TEMP 36.2; O2SAT 97
[2020-08-16] MEDS: Clopidogrel Bisulfate 75 MG TABLET PO (09:31)
[2020-08-16] MEDS: 0.9 % Sodium Chloride Flush 3 ML SYRINGE IVFLUSH ×3 (09:31→22:59)
[2020-08-16 09:32] VITALS: BP 170/79; PULSE 71
[2020-08-16] MEDS: Mirabegron 25 MG TAB.ER.24H PO (09:32)
[2020-08-16] MEDS: lamoTRIgine 25 MG TABLET PO (09:32)
[2020-08-16] MEDS: Escitalopram Oxalate 10 MG TABLET PO (09:32)
[2020-08-16] MEDS: amLODIPine Besylate 5 MG TABLET PO (09:32)
[2020-08-16] MEDS: Fluticasone Propionate Nasal 16 GM SPRAY 1 SPRAY NOSTRIL-B (09:32)
--- NOTE | 2020-08-16 11:11 | HO.PM.IMPN ---
Subjective Subjective Date of Service: 08/16/20 Interval History: seen and examined this AM eating breakfast knows shes in the hospital, not sure why ROS unreliable Physical Exam Vital Signs: Vital Signs: Last Vital Signs Temp 97.1 F 08/16/20 08:00 Pulse 71 08/16/20 09:32 Resp 22 H 08/16/20 08:00 BP 170/79 H 08/16/20 09:32 Pulse Ox 97 08/16/20 08:00 Body Mass Index 26.6 Const: General: cooperative Orientation/consciousness: oriented to person Resp: Effort & Inspection: normal respiratory effort and able to speak in complete sentences Cardio: Heart sounds: S1 normal heart sound present and S2 normal heart sound present GI: Palpation (GI): Soft to palpation and nontender Auscultation: normal bowel sounds Neuro: General: oriented to person Objective Data Current Medications Generic Name Dose Route Start Last Admin Trade Name Freq PRN Reason Stop Dose Admin Acetaminophen 650 mg 08/14/20 16:51 Acetaminophen 325 Mg Tablet PO Q6H PRN Pain, Mild (Pain Scale 1-3) Albuterol/Ipratropium 3 ml 08/16/20 02:48 Albuterol/Iprat 2.5/0.5mg 3 Ml Ampul.Neb INHALE RQ4H PRN Shortness of Breath Amlodipine Besylate 5 mg 08/16/20 09:00 08/16/20 09:32 Amlodipine Besylate 5 Mg Tablet PO 5 mg DAILY DANA Administration Protocol Atorvastatin Calcium 40 mg 08/14/20 21:00 08/15/20 19:35 Atorvastatin Calcium 40 Mg Tablet PO 40 mg BEDTIME DANA Administration Clopidogrel Bisulfate 75 mg 08/15/20 09:00 08/16/20 09:31 Clopidogrel Bisulfate 75 Mg Tablet PO 75 mg DAILY DANA Administration Enoxaparin Sodium 40 mg 08/15/20 15:00 08/15/20 14:55 Enoxaparin Sodium 40 Mg/0.4 Ml Syringe SUBCUT 40 mg Q24H DANA Administration Escitalopram Oxalate 10 mg 08/15/20 09:00 08/16/20 09:32 Escitalopram Oxalate 10 Mg Tablet PO 10 mg DAILY DANA Administration Fluticasone Propionate 1 spray 08/15/20 09:00 08/16/20 09:32 Fluticasone Propionate Nasal 16 Gm [place] NOSTRIL-B 1 spray DAILY DANA Administration Fluticasone/Vilanterol 1 puff 08/15/20 08:00 08/16/20 07:46 Fluticasone/Vilanterol 100/25 Blst.W.Dev INHALE Not Given RDAILY DANA Piperacillin Sod/Tazobactam 50 mls @ 100 mls/hr 08/14/20 20:00 08/16/20 10:36 Sod 3.375 gm/ Sodium Chloride IV Infused Q6H DANA Infusion Lamotrigine 25 mg 08/15/20 09:00 08/16/20 09:32 Lamotrigine 25 Mg Tablet PO 25 mg DAILY DANA Administration Mirabegron 25 mg 08/15/20 09:00 08/16/20 09:32 Mirabegron 25 Mg Tab.Er.24h PO 25 mg DAILY DANA Administration Ondansetron HCl 4 mg 08/14/20 16:51 Ondansetron Hcl 4 Mg/2 Ml Vial IVPUSH Q8H PRN Nausea and Vomiting Pharmacy Consult 1 each 08/14/20 15:46 Consult Rx Perform Med Rec MISCELLANE ONCE PRN Consult order Sodium Chloride 3 ml 08/15/20 00:00 08/16/20 09:31 0.9 % Sodium Chloride Flush 3 Ml Syringe IVFLUSH 3 ml QSHIFT DANA Administration Tiotropium [place] 1 puff 08/15/20 09:00 08/16/20 07:46 Tiotropium [place] 18 Mcg Cap.W.Dev INHALE Not Given DAILY DANA Labs CBC & Chem 7: 08/14/20 12:24 08/15/20 15:05 Microbiology Microbiology Results: Microbiology 08/14/20 12:20 Blood - Venous Blood Culture - Preliminary No growth after 24 hours. 08/14/20 12:23 Blood - Venous Blood Culture - Preliminary No growth after 24 hours. 08/14/20 00:00 Urine clean catch - Clean Catch Midstream Urine Culture - Final No growth. Assessment and Plan (1) Acute UTI: Status: Acute Assessment and Plan: This is an 80-year-old female who is a resident at [facility] with a past medical history of COPD and chronic respiratory failure on 2 L, dementia, diastolic dysfunction, COVID-19 in June 2020, who [facility] infection and was subsequently sent here for fevers. 1. UTI urine C&S negative -- suspected due to recent Rx at [facility] concern over resistant microbes given no improvement with rocephin at [facility] unclear of urine cx sent at [facility]; will #3 blood cx negative @ 24 hours 2. HyperNa resolved with IVF due to poor oral intake encourage oral hydration 3. Toxic/Metabolic encephalopathy slowly improving daily 4. HTN rebounding, restart norvac 5. Elevated trop-I down-trending type 2 EKG without any signs of acute ischemic changes 6. COPD with chronic resp failure continue baseline 2L NC Continue other care DVT pptx, Lovenox Full Code per [facility] form dispo: back to , likely tomorrow or Tuesday
[2020-08-16 12:00] VITALS: BP 149/69; PULSE 77; RESP 23; TEMP 36.7; O2SAT 98
[2020-08-16] MEDS: Enoxaparin Sodium 40 MG/0.4 ML SYRINGE SUBCUT (14:33)
[2020-08-16 15:31] VITALS: BP 140/74; PULSE 81; RESP 24; TEMP 36.3; O2SAT 95
[2020-08-16] MEDS: Atorvastatin Calcium 40 MG TABLET PO (19:26)
[2020-08-16 20:00] VITALS: BP 137/62; PULSE 82; RESP 20; TEMP 36.6; O2SAT 98
[2020-08-17] MEDS: Piperacillin Sodium/Tazobactam 3.375 GM in 0.9 % Sodium Chloride 50 ML IV ×2 (03:07→08:20)
[2020-08-17 03:54] VITALS: BP 137/65; PULSE 77; RESP 18; TEMP 36.7; O2SAT 99
[2020-08-17] MEDS: Fluticasone/Vilanterol 100/25 BLST.W.DEV 1 PUFF INHALE (07:36)
[2020-08-17 07:38] VITALS: PULSE 77; O2SAT 98
[2020-08-17 08:01] VITALS: BP 157/73; PULSE 76; RESP 20; TEMP 36.3; O2SAT 96
[2020-08-17 08:20] VITALS: BP 157/73; PULSE 76
[2020-08-17] MEDS: Escitalopram Oxalate 10 MG TABLET PO (08:20)
[2020-08-17] MEDS: Mirabegron 25 MG TAB.ER.24H PO (08:20)
[2020-08-17] MEDS: Clopidogrel Bisulfate 75 MG TABLET PO (08:20)
[2020-08-17] MEDS: amLODIPine Besylate 5 MG TABLET PO (08:20)
[2020-08-17] MEDS: lamoTRIgine 25 MG TABLET PO (08:20)
[2020-08-17] MEDS: 0.9 % Sodium Chloride Flush 3 ML SYRINGE IVFLUSH (08:20)
[2020-08-17] MEDS: Fluticasone Propionate Nasal 16 GM SPRAY 1 SPRAY NOSTRIL-B (08:21)
--- NOTE | 2020-08-17 11:49 | MHC.CM.PN ---
Pt cleared to return to [facility] today. CM contacted pts HCP, Catalina ([phone]). Pts medicare rights were reviewed and she is agreeable to DC plan and time. Pt will DC back to [facility], where she is a LTC resident, at 1400 hours today via [facility]
--- NOTE | 2020-08-17 12:07 | P.DS_ITS ---
DS: Providers Provider Date of Service: 08/17/20 Date of admission: 08/14/20 16:51 Primary care physician: Fabrizio Garcias MD DS: Diagnosis Discharge Diagnosis (1) Acute UTI: Status: Acute (2) Acute metabolic encephalopathy: Status: Acute (3) Hypernatremia: Status: Acute (4) Elevated troponin I level: Status: Acute DS: Medications Discharge Medications Home Medications: Home Medications Medication Instructions Recorded Confirmed Artificial Tears (PF) 1 drp OPHTHALMIC (EYE) DAILY 07/11/20 08/14/20 Myrbetriq 25 mg PO DAILY 07/11/20 08/14/20 Spiriva with HandiHaler 1 cap INHALATION DAILY 07/11/20 08/14/20 acetaminophen 650 mg PO Q6H PRN 07/11/20 08/14/20 amlodipine 5 mg PO DAILY 07/11/20 08/14/20 atorvastatin 40 mg PO BEDTIME 07/11/20 08/14/20 budesonide-formoterol [Symbicort] 1 puff INHALATION BID 07/11/20 08/14/20 clopidogrel 75 mg PO DAILY 07/11/20 08/14/20 escitalopram oxalate 10 mg PO DAILY 07/11/20 08/14/20 estradiol 1 appl VAGINAL USEASDIRECTD 07/11/20 08/14/20 fluticasone propionate 1 spray INTRANASAL DAILY 07/11/20 08/14/20 furosemide 80 mg PO DAILY 07/11/20 labetalol 300 mg PO BID 07/11/20 08/14/20 lamotrigine 25 mg PO DAILY 07/11/20 08/14/20 Previous Rx's Medication Instructions Recorded cefuroxime axetil 500 mg PO Q12H #6 tab 08/17/20 DS: Summary Hospital Course Hospital Course: Patient was started on IV Zosyn and IV fluids for her urinary tract infection and dehydration. She quickly improved. Her urine cultures returned negative but this was felt secondary to treatment with ceftriaxone at the residential facility. Was blood cultures returned negative, she was transitioned to oral cefuroxime for 3 more days at the time of discharge. Time Spent with Patient Time attestation: Total time spent providing and/or coordinating discharge services: Discharge coordination time: Greater than 30 minutes Physical Exam Vital Signs: Vital Signs: Last Vital Signs Temp 97.4 F 08/17/20 08:01 Pulse 76 08/17/20 08:20 Resp 20 08/17/20 08:01 BP 157/73 H 08/17/20 08:20 Pulse Ox 96 08/17/20 08:01 Body Mass Index 26.6 Const: General: cooperative Orientation/consciousness: oriented to person, oriented to place and oriented to time Resp: Effort & Inspection: normal respiratory effort and able to speak in complete sentences Cardio: Heart sounds: S1 normal heart sound present and S2 normal heart sound present GI: Palpation (GI): Soft to palpation and nontender Auscultation: normal bowel sounds Neuro: General: oriented to person, oriented to place and oriented to time DS: Data Data Completed and Pending Labs on day of discharge: Preliminary micro results at discharge 08/14/20 12:20 Blood Culture - Preliminary Blood - Venous No growth after 48 hours. 08/14/20 12:23 Blood Culture - Preliminary Blood - Venous No growth after 48 hours. Discharge Plan Discharge Patient Disposition: [facility] Referrals: [facility] [Outside] Po,Fabrizio Hickman MD [Primary Care Provider] - Discharge Medications: New cefuroxime axetil 500 mg tablet 500 mg PO Q12H Qty: 6 RF: 0 Continued atorvastatin 40 mg tablet 40 mg PO BEDTIME RF: 0 clopidogrel 75 mg tablet 75 mg PO DAILY RF: 0 lamotrigine 25 mg tablet 25 mg PO DAILY RF: 0 furosemide 20 mg tablet 80 mg PO DAILY RF: 0 labetalol 300 mg tablet 300 mg PO BID RF: 0 estradiol 0.01 % (0.1 mg/gram) cream 1 appl vaginal USEASDIRECTD RF: 0 escitalopram oxalate 10 mg tablet 10 mg PO DAILY RF: 0 Spiriva with HandiHaler 18 mcg capsule, w/inhalation device 1 cap inhalation DAILY RF: 0 budesonide-formoterol [Symbicort] 80-4.5 mcg/actuation HFA aerosol inhaler 1 puff inhalation BID RF: 0 Myrbetriq 25 mg tablet extended release 24 hr 25 mg PO DAILY RF: 0 amlodipine 5 mg Tablet 5 mg PO DAILY RF: 0 acetaminophen 650 mg Tablet 650 mg PO Q6H PRN (Reason: Pain) RF: 0 fluticasone propionate 50 mcg/actuation [place],Suspension 1 spray INTRANASAL DAILY RF: 0 Artificial Tears (PF) Dropperette 1 drp OPHTHALMIC (EYE) DAILY RF: 0 Discharge Orders: Discharge Order (Routine); Ordered 08/17/20 Ordered By: Joey Lovett Diet: advance to usual diet Activity on Discharge: As tolerated Stand Alone Forms: Patient Portal Discharge page Care Plan Goals: To stay healthy and out of the hospital. Health Concerns: UTI Hypernatremia Dehydration Plan of Treatment: UTI - take 3 more days of antibiotics Hypernatremia - drink plenty of water Dehydration - drink plenty of water
== END 2020-08-17 14:00 | DRG 689 ==
LOC: HO.ED 14:39 → HO.EDOVER 16:59 → HO.IMC 19:17
PROVIDERS: Physician Assistant; Admitting Provider Family Medicine; Emergency Provider Emergency Medicine; PCP Internal Medicine; Visit Provider Family Medicine
DX: N39.0 Urinary tract infection, site not specified (principal); G92 Toxic encephalopathy; E87.0 Hyperosmolality and hypernatremia; J96.10 Chronic respiratory failure, unspecified whether with hypoxia or hypercapnia; F41.9 Anxiety disorder, unspecified; E78.5 Hyperlipidemia, unspecified; I12.9 Hypertensive chronic kidney disease with stage 1 through stage 4 chronic kidney disease, or unspecified chronic kidney disease; N18.30 Chronic kidney disease, stage 3 unspecified; F03.90 Unspecified dementia, unspecified severity, without behavioral disturbance, psychotic disturbance, mood disturbance, and anxiety; E86.0 Dehydration; Z86.16 Personal history of COVID-19; Z20.822 Contact with and (suspected) exposure to COVID-19; Z87.891 Personal history of nicotine dependence; Z99.81 Dependence on supplemental oxygen; Z86.711 Personal history of pulmonary embolism; Z79.02 Long term (current) use of antithrombotics/antiplatelets; Z79.51 Long term (current) use of inhaled steroids; Z79.899 Other long term (current) drug therapy
CPT/HCPCS: 0241U; 36415; 70450; 71045; 80048; 80076; 81001; 81003; 82140; 82803; 83605; 83735; 83880; 84145; 84484; 85025; 87040; 87086; 93005; 96361; 96365; 99285; J1650; J2543

== ENCOUNTER 2022-08-03 09:36 | Inpatient (IN) | payer MEDICARE, MEDICAID, SELFPAY ==
[2022-08-03] VITALS (12 sets, daily range): BP systolic 82–172; BP diastolic 47–90; PULSE 76–108; RESP 19–26; TEMP 36.4–39.1; O2SAT 94–100; BMI 26.8
--- NOTE | ~2022-08-03 | CT_ITS ---
EXAMINATION: CT CHEST WITH IV CONTRAST CT ABDOMEN AND PELVIS WITH IV CONTRAST CLINICAL INFORMATION: 82-year-old female with history of cough, difficulty breathing. Abdominal pain. COMPARISON: Chest CT from 07/11/2020. TECHNIQUE: Multidetector CT imaging examination of the chest, abdomen and pelvis was performed with intravenous administration of 85 mL Omnipaque 350. Axial images are displayed at 0.625 mm and 5 mm slice thickness. Oral contrast not given. Coronal and sagittal reformatted images were generated at the technologist's workstation and submitted for review. This CT examination was performed using dose optimization techniques as appropriate, variously including the following: *Automated exposure control *Adjustment of mA and/or kV according to patient size (this includes techniques or standardized protocols for targeted exams where dose is matched to indication/reason for exam; i.e. extremities or head) *Use of iterative reconstruction technique DLP: 1080 mGy-cm FINDINGS: CHEST - LUNGS AND PLEURA: The evaluation of lung parenchyma is limited by patient's respiratory motion. Chronic centrilobular emphysema. There is likely a small lymph node along the left major fissure. 2.2 x 1.9 x 2 cm irregular, spiculated solid noncalcified nodule is present in the posterior right upper lobe has a few linear pleural tags (or surrounding linear opacities of fibrosis or scar in contact with pleura). No pleural effusion or pneumothorax. The evaluation of the airways is severely limited by the respiratory motion. MEDIASTINUM/LOWER NECK: The heart size is normal. No pericardial effusion. Mild atherosclerotic calcification of coronary arteries. Moderate atherosclerotic calcification of the thoracic aorta without aneurysm or dissection. Pulmonary arteries are grossly unremarkable. Thyroid gland is atrophied and otherwise unremarkable. No mediastinal mass. Large hiatal hernia contains stomach and transverse colon. LYMPHATICS: No axillary or internal mammary lymphadenopathy. A slightly prominent precarinal region lymph node of 1 cm short axis dimension is decreased in size compared to 07/11/2020. No suspicious enlarging lymph nodes. No overt hilar lymphadenopathy. CHEST WALL/BONES: No chest wall mass. Mild hyperkyphosis of the chronically degenerated thoracic spine. Bones appear to be osteopenic. No aggressive osseous lesion within the thorax. Mild osteoarthritis of glenohumeral joints. ABDOMEN AND PELVIS - HEPATOBILIARY: Liver has normal size, contour and attenuation. Gallbladder is unremarkable. No intrahepatic or extrahepatic bile duct dilatation. PANCREAS: Mild atrophy of the pancreas. No edema, mass or pancreatic ductal dilatation. SPLEEN: Normal. ADRENAL GLANDS: Normal. KIDNEYS AND URETERS: The evaluation the kidneys is partially limited by patient motion. The kidneys enhance symmetrically. Moderate right hydronephrosis and apparent mild smooth thickening of the urothelium without focal mass. The right ureter is unremarkable. No urinary tract stones are identified. BOWEL AND PERITONEUM: No dilated bowel loops. Multiple diverticula of the descending and sigmoid colon without diverticulitis. The appendix is normal. No abdominal free fluid or free air. ABDOMINAL WALL: No acute findings in the abdominal wall. VESSELS: Atherosclerosis of the abdominal aorta without aneurysm. LYMPH NODES: No pathologic sized lymph nodes in the abdomen or pelvis. No inguinal lymphadenopathy. BLADDER AND PELVIC VISCERA: Urinary bladder is empty. The bladder wall appears to be diffusely thickened but suboptimally evaluated. No bladder stones. MUSCULOSKELETAL: Multilevel facet osteoarthritis and disc degenerative change of the lumbar spine. Mild, grade 1 anterolisthesis at L3-L4. The loss of disc space is worst (severe) at L5-S1. Osteoarthritis of the hips is mild on the right and [id number] on the left. CT/CT abdomen pelvis w IV con IMPRESSION: * Chronic pulmonary emphysema. The evaluation of the lungs is limited by patient's respiratory motion. * Interval development of a 2.2 x 1.9 x 2 cm spiculated nodule in the posterior right upper lobe, highly suspicious for carcinoma. Based on Fleischner Society guidelines, recommendations would be for PET/CT imaging evaluation or tissue sampling at 3 months, or sooner, if deemed appropriate. * Interestingly, there has been interval resolution of previously observed right hilar lymphadenopathy, and a precarinal region lymph node been of the mediastinum has decreased in size. * The evaluation of the abdomen is partially limited by patient motion. Moderate hydronephrosis of the right kidney without observation of an obstructing stone. There appears to be mild smooth thickening of urothelium of the dilated renal pelvis. If the patient has right flank pain, fever, leukocytosis, then urinary tract infection would be suspected. Also, urinary bladder appears to be thick-walled although not well evaluated due to lack of distention. * Large hiatal hernia contains stomach and transverse colon. There is colonic diverticulosis without diverticulitis.
--- NOTE | ~2022-08-03 | XR_ITS ---
EXAMINATION: XR CHEST CLINICAL INFORMATION: Cough COMPARISON: Chest CT from 07/11/2020 TECHNIQUE: 2 views of the chest were obtained. FINDINGS: Lungs are mildly hypoinflated. An opacity that projects over the right anterior first rib on the frontal radiograph appears to correspond to a 2.7 cm nodule projecting over the upper thoracic spine on the lateral view. No pleural effusion or pneumothorax. Although there was paratracheal, right hilar and central right lower lobe lymphadenopathy on 07/11/2020, no overt lymphadenopathy is seen on this radiographic examination. Cardiac silhouette is normal in size. The pulmonary vascular pattern is normal. Large hiatal hernia. No acute skeletal findings. XR/XR chest 2V IMPRESSION: * There appears to be a new nodule in the posterior right upper lobe. Recommend further evaluation with chest CT imaging since this could represent lung carcinoma. * Again noted is a large hiatal hernia which previously contained both stomach and colon on 07/11/2020.
--- NOTE | ~2022-08-03 | US_ITS ---
EXAMINATION: US RETROPERITONEAL LIMITED (RENAL ONLY) CLINICAL INFORMATION: Follow up hydronephrosis. COMPARISON: CT abdomen and pelvis with contrast 08/03/2022. TECHNIQUE: Real-time imaging of the kidneys. FINDINGS: RIGHT KIDNEY: 9.8 x 3.3 x 4.2 cm (SAG x AP x TRV). The kidney is normal in size and echogenicity. There is mild right hydronephrosis. This appears decreased from previous CT. No renal calculi or focal parenchymal lesions. LEFT KIDNEY: 9.5 x 4.3 x 3.6 cm (SAG x AP x TRV). The kidney is normal in size and echogenicity. No calculi or focal parenchymal lesions. No hydronephrosis. US/US renal BI IMPRESSION: Mild right hydronephrosis decreased from recent CT scan..
--- NOTE | 2022-08-03 09:44 | ED_ITS ---
HPI - General Adult General Chief complaint: Altered Mental Status Stated complaint: AMS,WEAKNESS FROM SNF ?'S UTI PER EMS Time Seen by Provider: 08/03/22 09:43 Source: patient and EMS Mode of arrival: EMS Limitations: no limitations History of Present Illness HPI narrative: 82 [id number] with pmHx of COPD, CKD, HTN, PVD, RENETTA, and dementia presenting with EMS from [facility] c/o weakness, fatigue, and AMS since this morning. Per staff, patient was unable to get out of bed this morning and had to be lifted into her chair. Patient normally ambulates independently with walker. Pt alert, oriented to person and place only, poor historian regarding events prior to arrival. Endorses difficulty ambulating today . Denies chills, abdominal pain, dysuria, sob, chest pain, neuro deficits. Onset (ago): hour(s) (4) Severity: moderate Severity scale (1-10): 4 Treatments prior to arrival: none Related Data Home Medications Medication Instructions Recorded Confirmed acetaminophen 650 mg tablet 650 mg PO Q6H PRN Pain 07/11/20 08/03/22 dextran 70-hypromellose eye drops 1 drp ophthalmic (eye) DAILY 07/11/20 08/03/22 in a dropperette (Artificial Tears (PF) drops in a dropperette) Allergies Allergy/AdvReac Type Severity Reaction Status Date / Time No Known Allergies Allergy Verified 07/11/20 09:41 Review of Systems Review of Systems: Yes Unobtainable due to mental status (patient is demented at baseline) Constitutional: Constitutional: Reports no additional constitutional complaints, Denies chills, Reports fever(s) and Denies night sweats Eyes: Eyes: Reports no additional eye complaints, Denies blurry vision, Denies change in vision, Denies diplopia, Denies eye discharge, Denies loss of vision and Denies eye pain ENT: Denies dizziness Cardiovascular: Cardiovascular: Reports no additional cardiovascular complaints, Denies chest pain, Denies lightheadedness, Denies Loss of Consciousness and Denies dyspnea Respiratory: Respiratory: Reports no additional respiratory complaints and Denies dyspnea Gastrointestinal: Gastrointestinal: Reports no additional gastrointestinal complaints, Denies abdominal pain, Denies melena, Denies hematochezia, Denies change in bowel habits and Denies change in stool character Genitourinary: Genitourinary: Denies hematuria, Denies urinary frequency and Reports urinary incontinence Musculoskeletal: Musculoskeletal: Reports no additional musculoskeletal complaints, Denies numbness and Denies tingling Neurologic: Reports confusion (consistent with baseline), Denies dizziness, Denies loss of vision, Denies numbness and Denies tingling Psychiatric: Psychiatric: Reports no additional psychiatric complaints and Reports confusion (consistent with baseline) Endocrine: Endocrine: Reports no additional endocrine complaints Hematologic/Lymphatic: Hematologic/Lymphatic: Reports no additional hematologic/lymphatic complaints Allergic/Immunologic: Allergic/Immunologic: Reports no additional allergic/immunologic complaints PMFSH Past Medical History Attestation statement: The following information was validated with the patient. PMFSH Narrative: PMFSH reviewed with patient's chart and facility, patient poor historian with hx of dementia. Source: old records reviewed, nursing notes reviewed and other (all notes from [facility] reviewed) Medical History (Updated 08/03/22 @ 16:21 by RADHA Granados) Anxiety Chronic respiratory failure CKD (chronic kidney disease) COPD (chronic obstructive pulmonary disease) Dementia Diastolic dysfunction Hiatal hernia HTN (hypertension) Hyperlipidemia Insomnia RENETTA (obstructive sleep apnea) Pulmonary embolism PVD (peripheral vascular disease) Social History Social History Household Members: None Housing: Residential Do you presently have visiting nurse or other home services: No Alcohol intake: never Smoked in Last 30 Days: No Second Hand Smoke Exposure: No Use of substances other than those prescribed or required for medical reasons: No Advance Directives: Yes Advance Directives on File: Yes Advance Directives Date on File: 07/15/20 service: No Current occupational status: retired Physical Exam ED Vital Signs: Vital Signs - 24 hr 08/03/22 09:51 08/03/22 11:34 08/03/22 12:07 Temperature 102.4 F H Pulse Rate 103 H 89 82 Respiratory Rate 22 H 22 H 26 H Blood Pressure 139/71 127/60 88/47 L Pulse Oximetry 97 97 96 Oxygen Delivery Method Nasal Cannula Nasal Cannula Nasal Cannula Oxygen Flow Rate 2 08/03/22 13:00 08/03/22 13:02 08/03/22 13:57 Temperature 97.9 F Pulse Rate 78 77 79 Respiratory Rate 25 H 23 H 21 H Blood Pressure 82/49 L 113/57 L 119/57 L Pulse Oximetry 100 100 Oxygen Delivery Method Nasal Cannula Nasal Cannula Oxygen Flow Rate 2 2 08/03/22 15:17 08/03/22 15:21 08/03/22 15:38 Temperature Pulse Rate 79 77 76 Respiratory Rate 21 H 22 H 26 H Blood Pressure 115/58 L 122/56 L Pulse Oximetry 96 99 Oxygen Delivery Method Nasal Cannula Nasal Cannula Oxygen Flow Rate 2 2 BMI result Body Mass Index 26.8 Const General: cooperative, alert, awake, confusion (consistent with baseline) and ill appearing Nutritional Appearance: well nourished Orientation/consciousness: oriented to person, oriented to place and confusion (consistent with baseline) Limitations: altered mental status HENUT Head: Yes normal to inspection and Yes atraumatic Ears: hearing grossly normal bilaterally and external ears normal General nose exam: Normal external nose present, no nasal discharge noted and no epistaxis Face and sinus: Yes normal facial exam, No abrasion and No laceration Mouth: Normal oral and palatal mucosa present, no drooling and no muffled voice Eyes General: appearance normal, both eyes and all related structures Periorbital: periorbital findings normal Eyelids: Yes eyelids normal Conjunctivae: conjunctivae normal Pupils: Equal, round and reactive pupils present EOM: EOMs intact bilaterally Neck Neck: Yes normal visual inspection, Yes full ROM and Yes no lymphadenopathy Lymphatic: no lymphadenopathy noted Chest Chest palpation & inspection: normal inspection of the chest Resp Effort & Inspection: able to speak in complete sentences and tachypneic Auscultation: rales on the right in the mid lung balderrama and in the lower lung balderrama and wheezes left lower Cardio Rate: tachycardic Rhythm: regular rhythm Heart sounds: S1 normal heart sound present and S2 normal heart sound present GI Inspection: Yes normal to inspection Auscultation: normal bowel sounds Rectal Exam - Female: visual inspection normal Skin General skin exam: no rashes or lesions noted Neuro General: oriented to person, oriented to place, moves all extremities, confusion (consistent with baseline) and Unable to assess gait Cranial nerves: Yes Equal, round and reactive pupils present Cognition (Neuro): normal cognition Gait exam (Neuro): Unable to assess gait Motor exam (neuro): 5/5 motor strength present throughout Sensory Exam: Normal double simultaneous stimulation for sensation Coordination: [id number] test normal Extrem General: Yes normal to inspection, Yes full ROM and Yes capillary refill normal Psych Appearance: grossly normal Mental Status: mental status grossly normal Affect: normal affect Attitude: cooperative Thought process: Normal thought process present Thought content: Normal thought content present Insight: Good insight present (Psych) Medications Administered Generic Name Dose Route Start Last Admin Trade Name Freq PRN Reason Stop Dose Admin Sodium Chloride 1,000 mls @ 175 mls/hr 08/03/22 12:15 08/03/22 12:27 Ns IV 08/03/22 17:57 175 mls/hr .[id number] DANA Administration Discontinued Medications Generic Name Dose Route Start Last Admin Trade Name Freq PRN Reason Stop Dose Admin Acetaminophen 650 mg 08/03/22 11:06 08/03/22 11:32 Acetaminophen Supp 650 Mg Supp.Rect DC 08/03/22 11:07 650 mg ONCE ONE Administration Albuterol Sulfate 10 mg 08/03/22 15:21 08/03/22 15:34 Albuterol Sulfate (0.083%) 2.5 Mg/3 Ml Vial.Neb INHALE 08/03/22 15:22 10 mg ONCE ONE Administration Ceftriaxone Sodium 2 gm/ 50 mls @ 100 mls/hr 08/03/22 09:50 08/03/22 10:45 Sodium Chloride IV 08/03/22 10:19 Infused ONCE ONE Infusion Sodium Chloride 1,000 mls @ 1,193 mls/hr 08/03/22 13:45 08/03/22 15:00 Ns IV 08/03/22 14:35 Infused .Q51M DANA Infusion Iohexol 100 ml 08/03/22 13:15 08/03/22 13:18 Iohexol 350 Mg/Ml 100 Ml Infus..Btl IV 08/03/22 13:16 85 ml ONCE ONE Administration Medical Decision Making Medical Decision Making MDM Narrative: 82 [id number] with pmHx of COPD, CKD, HTN, PVD, RENETTA, and dementia presenting to the department with reported weakness, fatigue, and worsening AMS. On exam she was tachycardic in the low 100's, tachypneic at 23 RR, and febrile to 102.4. She was alert and oriented to person and place only and followed commands appropriately. Adventitious lung sounds auscultated on exam. Skin exam void of lesions, wounds. Based on presentation of patient and symptomatology, higher suspicion remains for infectious cause such as urinary tract infection, pneumonia, COVID. Lower suspicion for intraabdominal process. Plan: Obtain labs; CBC, BMP, LFTs, U/A, XRAY Admin broad spectrum abx Re-evaluate labs and imaging Pt hypotensive at 84/37 with MAP of 57. Initial rate of IVF was 175 mL/hr. Rate changed to bolus for 1 total Liter of NS. MAP increased to 71 with SBP in 110's. Chest xray questionable for new posterior right sided mass. CT-chest performed, awaiting results. Labs showed an elevated WBC count of 16.0, inital trop 10.4 with a repeat of 10.6, BNP of 146, and lactic of 2.0. Patient's Urine was obviously infected with positive nitires, large leuks, >50 WBC + clumps, and 4+ bacteria. Chest CT showed a new 2.2 x 1.9 x 2 cm spiculated node in the posterior right upper lobe that is highly suspicious for carcinoma. Abd CT showed chronic large hiatal hernia. Patient began to have an episode of wheezing. Solu-medrol + duoneb ordered. Spoke to the patient's contact who verbalized understanding and agreement with admission. Spoke to the hospitalist team who agreed to hospital admission. Differential Diagnosis Differential Diagnoses: The differential diagnosis associated with the presentation includes UTI, sepsis, lung cancer Consult Healthcare Provider Management of the patient was discussed with: Hospitalist (agreed to admission) Lab Data MDM Lab Attestation statement: I reviewed the patient's lab results. 08/03/22 10:08 08/03/22 10:28 Labs: Lab Results 08/03/22 08/03/22 08/03/22 Range/Units 09:59 10:04 10:08 WBC 16.0 H (4.8-10.8) X10*3/uL RBC 4.32 (4.20-5.50) X10*6/uL Hgb 13.1 (12.0-16.0) g/dl Hct 40.6 (37.0-47.0) % MCV 94.0 (80.0-98.0) fL MCH 30.3 (27.0-33.0) pg MCHC 32.3 (31.0-35.0) g/dl RDW 13.3 (11.0-16.0) % Plt Count 310 (160-400) X10*3/uL MPV 8.8 L (9.4-12.3) fL Immature Gran % (Auto) 0.4 (0.0-0.4) % Neut % (Auto) 77.3 H (45-73) % Lymph % (Auto) 11.4 L (20-40) % [place] % (Auto) 10.4 (2-11) % Eos % (Auto) 0.1 (0-4) % Baso % (Auto) 0.4 (0-2) % Lymph # (Auto) 1.8 (1.2-4.9) X10*3/uL [place] # (Auto) 1.7 H (0.1-1.2) X10*3/uL Eos # (Auto) 0.0 (0.0-0.4) X10*3/uL Baso # (Auto) 0.1 (0.0-0.2) X10*3/uL Abs Immat Gran (auto) 0.07 H (0.00-0.03) X10*3/uL Absolute Neuts (auto) 12.4 H (2.0-8.3) x10*3/uL Absolute Nucleated RBC 0.000 (0.0-0.012) X10*3/uL Nucleated RBC % (auto) 0.0 (0.0-0.2) /100WBC Smear Tech's Comments VERIFIED PT (10.0-13.1) SEC INR (0.9-1.1) APTT (26.0-36.4) SEC Sodium (135-145) mmol/L Potassium (3.3-5.1) mmol/L Chloride (96-108) mmol/L Carbon Dioxide (22-29) mmol/L Anion Gap (12-20) BUN (9-16) mg/dL Creatinine (0.5-1.4) mg/dL Estim Creat Clear Calc Estimated GFR Random Glucose (60-115) mg/dL Lactic Acid (0.5-2.0) mmol/L Calcium (8.4-10.2) mg/dL Magnesium (1.6-2.6) mg/dL Total Bilirubin (0.0-1.0) mg/dL AST (5-31) U/L ALT (0-31) U/L Alkaline Phosphatase (39-117) U/L Troponin I High Sens 10.4 (<3.5-17.0) ng/L B-Natriuretic Peptide (<100) pg/mL Total Protein (6.5-8.0) g/dL Albumin (3.5-5.0) g/dL Urine Color Urine Appearance Urine pH (5.0-9.0) Ur Specific [place] (1.005-1.025) Urine Protein (Neg-Trace) mg/dL Urine Glucose (UA) (Negative) mg/dL Urine Ketones (Negative) mg/dL Urine Blood (Negative) Urine Nitrite (Negative) Ur Leukocyte Esterase (Negative) Urine RBC (0-2) /HPF Urine WBC (0-5) /HPF Urine WBC Clumps Ur Squamous Epith Cells (0-2) /HPF Urine Bacteria (None Seen) Hyaline Casts (0-2) /LPF Influenza Type A (PCR) NEGATIVE (Negative) Influenza Type B (PCR) NEGATIVE (Negative) RSV RNA Qual (PCR) NEGATIVE (Negative) SARS-CoV-2 RNA (RT-PCR) NEGATIVE (Negative) 08/03/22 08/03/22 08/03/22 Range/Units 10:08 10:08 10:15 WBC (4.8-10.8) X10*3/uL RBC (4.20-5.50) X10*6/uL Hgb (12.0-16.0) g/dl Hct (37.0-47.0) % MCV (80.0-98.0) fL MCH (27.0-33.0) pg MCHC (31.0-35.0) g/dl RDW (11.0-16.0) % Plt Count (160-400) X10*3/uL MPV (9.4-12.3) fL Immature Gran % (Auto) (0.0-0.4) % Neut % (Auto) (45-73) % Lymph % (Auto) (20-40) % [place] % (Auto) (2-11) % Eos % (Auto) (0-4) % Baso % (Auto) (0-2) % Lymph # (Auto) (1.2-4.9) X10*3/uL [place] # (Auto) (0.1-1.2) X10*3/uL Eos # (Auto) (0.0-0.4) X10*3/uL Baso # (Auto) (0.0-0.2) X10*3/uL Abs Immat Gran (auto) (0.00-0.03) X10*3/uL Absolute Neuts (auto) (2.0-8.3) x10*3/uL Absolute Nucleated RBC (0.0-0.012) X10*3/uL Nucleated RBC % (auto) (0.0-0.2) /100WBC Smear Tech's Comments PT (10.0-13.1) SEC INR (0.9-1.1) APTT (26.0-36.4) SEC Sodium (135-145) mmol/L Potassium (3.3-5.1) mmol/L Chloride (96-108) mmol/L Carbon Dioxide (22-29) mmol/L Anion Gap (12-20) BUN (9-16) mg/dL Creatinine (0.5-1.4) mg/dL Estim Creat Clear Calc Estimated GFR Random Glucose (60-115) mg/dL Lactic Acid 2.0 (0.5-2.0) mmol/L Calcium (8.4-10.2) mg/dL Magnesium (1.6-2.6) mg/dL Total Bilirubin (0.0-1.0) mg/dL AST (5-31) U/L ALT (0-31) U/L Alkaline Phosphatase (39-117) U/L Troponin I High Sens (<3.5-17.0) ng/L B-Natriuretic Peptide 146 H (<100) pg/mL Total Protein (6.5-8.0) g/dL Albumin (3.5-5.0) g/dL Urine Color Yellow Urine Appearance Turbid Urine pH 6.5 (5.0-9.0) Ur Specific [place] 1.015 (1.005-1.025) Urine Protein 100 (2+) H (Neg-Trace) mg/dL Urine Glucose (UA) Negative (Negative) mg/dL Urine Ketones Negative (Negative) mg/dL Urine Blood Moderate (2+) H (Negative) Urine Nitrite Positive H (Negative) Ur Leukocyte Esterase Large (3+) H (Negative) Urine RBC >20 H (0-2) /HPF Urine WBC >50 H (0-5) /HPF Urine WBC Clumps Present Ur Squamous Epith Cells 11-20 (0-2) /HPF Urine Bacteria 4+ (None Seen) Hyaline Casts 11-20 (0-2) /LPF Influenza Type A (PCR) (Negative) Influenza Type B (PCR) (Negative) RSV RNA Qual (PCR) (Negative) SARS-CoV-2 RNA (RT-PCR) (Negative) 08/03/22 08/03/22 08/03/22 Range/Units 10:28 10:28 14:01 WBC (4.8-10.8) X10*3/uL RBC (4.20-5.50) X10*6/uL Hgb (12.0-16.0) g/dl Hct (37.0-47.0) % MCV (80.0-98.0) fL MCH (27.0-33.0) pg MCHC (31.0-35.0) g/dl RDW (11.0-16.0) % Plt Count (160-400) X10*3/uL MPV (9.4-12.3) fL Immature Gran % (Auto) (0.0-0.4) % Neut % (Auto) (45-73) % Lymph % (Auto) (20-40) % [place] % (Auto) (2-11) % Eos % (Auto) (0-4) % Baso % (Auto) (0-2) % Lymph # (Auto) (1.2-4.9) X10*3/uL [place] # (Auto) (0.1-1.2) X10*3/uL Eos # (Auto) (0.0-0.4) X10*3/uL Baso # (Auto) (0.0-0.2) X10*3/uL Abs Immat Gran (auto) (0.00-0.03) X10*3/uL Absolute Neuts (auto) (2.0-8.3) x10*3/uL Absolute Nucleated RBC (0.0-0.012) X10*3/uL Nucleated RBC % (auto) (0.0-0.2) /100WBC Smear Tech's Comments PT 12.2 (10.0-13.1) SEC INR 1.1 (0.9-1.1) APTT 31.8 (26.0-36.4) SEC Sodium 141 (135-145) mmol/L Potassium 4.4 (3.3-5.1) mmol/L Chloride 107 (96-108) mmol/L Carbon Dioxide 24 (22-29) mmol/L Anion Gap 14 (12-20) BUN 18 H (9-16) mg/dL Creatinine 0.98 (0.5-1.4) mg/dL Estim Creat Clear Calc 42.8 Estimated GFR 54 Random Glucose 125 H (60-115) mg/dL Lactic Acid (0.5-2.0) mmol/L Calcium 8.2 L D (8.4-10.2) mg/dL Magnesium 2.1 (1.6-2.6) mg/dL Total Bilirubin 0.7 (0.0-1.0) mg/dL AST 13 (5-31) U/L ALT 8 (0-31) U/L Alkaline Phosphatase 103 (39-117) U/L Troponin I High Sens 10.6 (<3.5-17.0) ng/L B-Natriuretic Peptide (<100) pg/mL Total Protein 5.8 L (6.5-8.0) g/dL Albumin 3.5 (3.5-5.0) g/dL Urine Color Urine Appearance Urine pH (5.0-9.0) Ur Specific [place] (1.005-1.025) Urine Protein (Neg-Trace) mg/dL Urine Glucose (UA) (Negative) mg/dL Urine Ketones (Negative) mg/dL Urine Blood (Negative) Urine Nitrite (Negative) Ur Leukocyte Esterase (Negative) Urine RBC (0-2) /HPF Urine WBC (0-5) /HPF Urine WBC Clumps Ur Squamous Epith Cells (0-2) /HPF Urine Bacteria (None Seen) Hyaline Casts (0-2) /LPF Influenza Type A (PCR) (Negative) Influenza Type B (PCR) (Negative) RSV RNA Qual (PCR) (Negative) SARS-CoV-2 RNA (RT-PCR) (Negative) Radiology Impression Radiologist Impression: My interpretation is in agreement with the radiologist's impression of these imaging studies. EXAMINATION: XR CHEST CLINICAL INFORMATION: Cough COMPARISON: Chest CT from 07/11/2020 TECHNIQUE: 2 views of the chest were obtained. FINDINGS: Lungs are mildly hypoinflated. An opacity that projects over the right anterior first rib on the frontal radiograph appears to correspond to a 2.7 cm nodule projecting over the upper thoracic spine on the lateral view. No pleural effusion or pneumothorax. Although there was paratracheal, right hilar and central right lower lobe lymphadenopathy on 07/11/2020, no overt lymphadenopathy is seen on this radiographic examination. Cardiac silhouette is normal in size. The pulmonary vascular pattern is normal. Large hiatal hernia. No acute skeletal findings. XR/XR chest 2V IMPRESSION: *? There appears to be a new nodule in the posterior right upper lobe. Recommend further evaluation with chest CT imaging since this could represent lung carcinoma. *? Again noted is a large hiatal hernia which previously contained both stomach and colon on 07/11/2020. Dictated By: Santos Santo MD Signed By: Electronically signed by Santos Santo MD 08/03/22 1157 EXAMINATION: CT CHEST WITH IV CONTRAST CT ABDOMEN AND PELVIS WITH IV CONTRAST CLINICAL INFORMATION: 82-year-old female with history of cough, difficulty breathing. Abdominal pain. COMPARISON: Chest CT from 07/11/2020. TECHNIQUE: Multidetector CT imaging examination of the chest, abdomen and pelvis was performed with intravenous administration of 85 mL Omnipaque 350. Axial images are displayed at 0.625 mm and 5 mm slice thickness. Oral contrast not given. Coronal and sagittal reformatted images were generated at the technologist's workstation and submitted for review. This CT examination was performed using dose optimization techniques as appropriate, variously including the following: *Automated exposure control *Adjustment of mA and/or kV according to patient size (this includes techniques or standardized protocols for targeted exams where dose is matched to indication/reason for exam; i.e. extremities or head) *Use of iterative reconstruction technique DLP: 1080 mGy-cm FINDINGS: CHEST - LUNGS AND PLEURA:? The evaluation of lung parenchyma is limited by patient's respiratory motion. Chronic centrilobular emphysema. There is likely a small lymph node along the left major fissure. 2.2 x 1.9 x 2 cm irregular, spiculated solid noncalcified nodule is present in the posterior right upper lobe has a few linear pleural tags (or surrounding linear opacities of fibrosis or scar in contact with pleura). No pleural effusion or pneumothorax. The evaluation of the airways is severely limited by the respiratory motion. MEDIASTINUM/LOWER NECK: The heart size is normal. No pericardial effusion. Mild atherosclerotic calcification of coronary arteries. Moderate atherosclerotic calcification of the thoracic aorta without aneurysm or dissection. Pulmonary arteries are grossly unremarkable. Thyroid gland is atrophied and otherwise unremarkable. No mediastinal mass. Large hiatal hernia contains stomach and transverse colon. LYMPHATICS: No axillary or internal mammary lymphadenopathy. A slightly prominent precarinal region lymph node of 1 cm short axis dimension is decreased in size compared to 07/11/2020. No suspicious enlarging lymph nodes. No overt hilar lymphadenopathy. CHEST WALL/BONES: No chest wall mass. Mild hyperkyphosis of the chronically degenerated thoracic spine. Bones appear to be osteopenic. No aggressive osseous lesion within the thorax. Mild osteoarthritis of glenohumeral joints. ABDOMEN AND PELVIS - HEPATOBILIARY: Liver has normal size, contour and attenuation. Gallbladder is unremarkable. No intrahepatic or extrahepatic bile duct dilatation. PANCREAS: Mild atrophy of the pancreas. No edema, mass or pancreatic ductal dilatation. SPLEEN: Normal. ADRENAL GLANDS: Normal. KIDNEYS AND URETERS: The evaluation the kidneys is partially limited by patient motion. The kidneys enhance symmetrically. Moderate right hydronephrosis and apparent mild smooth thickening of the urothelium without focal mass. The right ureter is unremarkable. No urinary tract stones are identified. BOWEL AND PERITONEUM: No dilated bowel loops. Multiple diverticula of the descending and sigmoid colon without diverticulitis. The appendix is normal. No abdominal free fluid or free air. ABDOMINAL WALL: No acute findings in the abdominal wall. VESSELS: Atherosclerosis of the abdominal aorta without aneurysm. LYMPH NODES: No pathologic sized lymph nodes in the abdomen or pelvis. No inguinal lymphadenopathy. BLADDER AND PELVIC VISCERA: Urinary bladder is empty. The bladder wall appears to be diffusely thickened but suboptimally evaluated. No bladder stones. MUSCULOSKELETAL: Multilevel facet osteoarthritis and disc degenerative change of the lumbar spine. Mild, grade 1 anterolisthesis at L3-L4. The loss of disc space is worst (severe) at L5-S1. Osteoarthritis of the hips is mild on the right and [id number] on the left. CT/CT chest w IV con IMPRESSION: *? Chronic pulmonary emphysema. The evaluation of the lungs is limited by patient's respiratory motion. *? Interval development of a 2.2 x 1.9 x 2 cm spiculated nodule in the posterior right upper lobe, highly suspicious for carcinoma. Based on Fleischner Society guidelines, recommendations would be for PET/CT imaging evaluation or tissue sampling at 3 months, or sooner, if deemed appropriate. *? Interestingly, there has been interval resolution of previously observed right hilar lymphadenopathy, and a precarinal region lymph node been of the mediastinum has decreased in size. *? The evaluation of the abdomen is partially limited by patient motion. Moderate hydronephrosis of the right kidney without observation of an obstructing stone. There appears to be mild smooth thickening of urothelium of the dilated renal pelvis. If the patient has right flank pain, fever, leukocytosis, then urinary tract infection would be suspected. Also, urinary bladder appears to be thick-walled although not well evaluated due to lack of distention. *? Large hiatal hernia contains stomach and transverse colon. There is colonic diverticulosis without diverticulitis. ? Dictated By: Santos Santo MD Signed By: Electronically signed by Santos Santo MD 08/03/22 1438 External Record Review External record reviewed: Other ([facility] Critical Care Time Critical Care Time Critical Care Time: Yes Total Critical Care Time: 45 Attestation: I spent 45 minutes of Critical Care Time with this patient. This does not include time spent on separately reported billable procedures. Discharge Plan Discharge Clinical Impression: Sepsis, Acute UTI Patient Disposition: Admitted As Inpatient
[2022-08-03] MEDS: cefTRIAXone sodium 2 GM in 0.9 % Sodium Chloride 50 ML IV (10:08)
--- NOTE | 2022-08-03 10:22 | PHA.MEDREC ---
Pharmacy Consult ? Medication Reconciliation Pharmacy has completed the medication reconciliation. Used list from [facility], patients list seemed incomplete with only two medications. Called facility and confirmed with RN patient is only on eye drops and tylenol
[2022-08-03 10:24] LABS: Basophils Absolute Auto 0.1 X10*3/uL (0.0-0.2); Basophils Percent Auto 0.4 % (0-2); Eosinophils Percent Auto 0.1 % (0-4); Hematocrit 40.6 % (37.0-47.0); Hemoglobin 13.1 g/dl (12.0-16.0); Imm Gran Abs Auto 0.07 X10*3/uL (0.00-0.03); Imm Gran Pct Auto 0.4 % (0.0-0.4); Lymphocytes Absolute Auto 1.8 X10*3/uL (1.2-4.9); Lymphocytes Percent Auto 11.4 % (20-40); MANUAL DIFF FLAG SCAN; Mean Corpuscular HGB Conc 32.3 g/dl (31.0-35.0); Mean Corpuscular Hemoglobin 30.3 pg (27.0-33.0); Mean Platelet Volume 8.8 fL (9.4-12.3); Monocytes Absolute Auto 1.7 X10*3/uL (0.1-1.2); Monocytes Percent Auto 10.4 % (2-11); Neutrophils Absolute Auto 12.4 x10*3/uL (2.0-8.3); Neutrophils Percent Auto 77.3 % (45-73); Platelet Count 310 X10*3/uL (160-400); Red Blood Count 4.32 X10*6/uL (4.20-5.50); Red Cell Distribution Width 13.3 % (11.0-16.0); SCAN SMEAR FLAG 1
[2022-08-03 10:34] LABS: Troponin-I High Sensitivity 10.4 ng/L (<3.5-17.0)
[2022-08-03 10:35] LABS: B Type Natriuretic Peptide 146 pg/mL (<100)
[2022-08-03 10:36] LABS: Appearance Urine Turbid; Color Urine Yellow; Glucose Urine UA Negative (Negative); Leukocyte Esterase Urine Large (3+) (Negative); Nitrite Urine Positive (Negative); PH 6.5 (5.0-9.0); Specific Gravity - Urine 1.015 (1.005-1.025); UMIC TRIGGER UACC YES; Urine Blood Moderate (2+) (Negative); Urine Ketones Negative (Negative); Urine Protein 100 (2+) mg/dL (Neg-Trace)
[2022-08-03 10:39] LABS: INTERNATIONAL NORM RATIO 1.1 (0.9-1.1); Prothrombin Time 12.2 SEC (10.0-13.1)
[2022-08-03 10:41] LABS: Partial Thromboplastin Time 31.8 SEC (26.0-36.4)
[2022-08-03 10:48] LABS: Influenza A PCR NEGATIVE (Negative); Influenza B PCR NEGATIVE (Negative); Resp Syncy Virus RNA Qual PCR NEGATIVE (Negative); SARS COV2 PCR INHOUSE NEGATIVE (Negative)
[2022-08-03 10:50] LABS: SLIDE REVIEW VERIFIED
[2022-08-03 10:51] LABS: Bacteria Urine 4+ (None Seen); RBC Urine >20 /HPF (0-2); UACC Culture Trigger YES; WBC Clumps Urine Present; WBC Urine >50 /HPF (0-5)
[2022-08-03 10:55] LABS: Alanine Aminotransferase 8 U/L (0-31); Albumin Level 3.5 g/dL (3.5-5.0); Alkaline Phosphatase 103 U/L (39-117); Anion Gap 14 (12-20); Aspartate Amino Transferase 13 U/L (5-31); Bilirubin Total 0.7 mg/dL (0.0-1.0); Blood Urea Nitrogen 18 mg/dL (9-16); Calcium 8.2 mg/dL (8.4-10.2); Carbon Dioxide 24 mmol/L (22-29); Chloride 107 mmol/L (96-108); Creatinine Clr Calc Pharmacy 42.8; Estimated Glomerular Filt Rate 54; Glucose Random 125 mg/dL (60-115); Magnesium 2.1 mg/dL (1.6-2.6); Potassium 4.4 mmol/L (3.3-5.1); Sodium 141 mmol/L (135-145); Total Protein 5.8 g/dL (6.5-8.0)
--- NOTE | 2022-08-03 11:01 | PC.NURSE ---
pt meets sepsis criteria - pt lactic is 2.0 and the provider did not order sepsis fluids.
[2022-08-03] MEDS: Acetaminophen Supp 650 MG SUPP.RECT PR (11:32)
[2022-08-03] MEDS: 0.9 % Sodium Chloride 1,000 ML 175 ML IV (12:27)
[2022-08-03] MEDS: iohexoL 350 MG/ML 100 ML INFUS..BTL IV (13:18)
[2022-08-03] MEDS: 0.9 % Sodium Chloride 1,000 ML 1193 ML IV (13:55)
[2022-08-03 14:28] LABS: Troponin-I High Sensitivity 10.6 ng/L (<3.5-17.0)
--- NOTE | 2022-08-03 15:30 | PM.IMHP ---
History of Present Illness Date of Service: 08/03/22 Chief Complaint: confusion 82 year old women from [facility] presenting with weakness, fatigue and altered mental status since this morning. She is mostly wheelchair bound and she was unable to get out of bed this morning. Patient denied any fever, chills, nausea, vomiting, diarrhea, chest pain, shortness of breath. Noted to have leukocytosis, fever, tachycardia, low blood pressure. Given 2 L of IV fluids in the ER with good affect on blood pressure. Abdominal chest CT shows spiculated nodule in the posterior right upper lobe suspicious for carcinoma, nothing acute in abdomen. Expiratory wheezing noted and more upper respiratory for strict wheezing. Systolic blood pressures initially in the 80s but did respond to IV fluid. UA positive. Patient given IV Rocephin, Tylenol, Solu-Medrol in the ER. Review of Systems Review of Systems: Denies any recent fever chills or decrease in appetite respiratory denies any shortness of breath coverage production cardiovascular denied chest pain gastrointestinal denies any dysphagia abdominal pain nausea vomiting or diarrhea genitourinary denies any dysuria frequency or hematuria musculoskeletal denies any joint pain or swelling neuropsych denies any weakness or seizures all other systems reviewed are negative [facility] Medical History (Updated 08/03/22 @ 17:04 by Francesca Aguilera NP) Anxiety Chronic respiratory failure CKD (chronic kidney disease) COPD (chronic obstructive pulmonary disease) Dementia Depression Diastolic dysfunction Hiatal hernia HTN (hypertension) Hyperlipidemia Insomnia RENETTA (obstructive sleep apnea) Pulmonary embolism PVD (peripheral vascular disease) Pertinent family history: Denied cardiac disease Surgical History (Updated 08/03/22 @ 17:04 by Francesca Aguilera NP) Hx of tonsillectomy Social History Household Members: None Housing: Assisted Do you presently have visiting nurse or other home services: No Alcohol intake: never Patient Tobacco Use Status: Former Tobacco user Smoked in Last 30 Days: No Second Hand Smoke Exposure: No Use of substances other than those prescribed or required for medical reasons: No Advance Directives: Yes Advance Directives on File: Yes Advance Directives Date on File: 07/15/20 Nutrition Risks: No Nutritional Risk service: No Current occupational status: retired Meds Allergies Allergy/AdvReac Type Severity Reaction Status Date / Time No Known Allergies Allergy Verified 07/11/20 09:41 Active Medications: Current Medications Sodium Chloride (Ns) 1,000 mls @ 175 mls/hr IV .[id number] DANA Stop: 08/03/22 17:57 Last Admin: 08/03/22 12:27 Dose: 175 mls/hr Pharmacy Consult (Consult Rx Perform Med Rec) 1 each MISCELLANE ONCE PRN PRN Reason: Consult order Home Medications Medication Instructions Recorded Confirmed Last Taken Type acetaminophen 650 mg tablet 650 mg PO Q6H PRN Pain 07/11/20 08/03/22 Unknown History dextran 70-hypromellose eye drops 1 drp ophthalmic (eye) DAILY 07/11/20 08/03/22 07/10/20 History in a dropperette (Artificial Tears (PF) drops in a dropperette) Physical Exam Vital Signs and Narrative: Vital Signs: Last Vital Signs Temp 97.9 F 08/03/22 13:57 Pulse 77 08/03/22 15:21 Resp 22 H 08/03/22 15:21 BP 122/56 L 08/03/22 15:21 Pulse Ox 99 08/03/22 15:21 O2 Del Method 08/03/22 15:21 O2 Flow Rate 2 08/03/22 15:21 Oxygen Flow Rate 2 08/03/22 09:51 BMI result Body Mass Index 26.8 Results Labs 08/03/22 10:08 08/03/22 10:28 Labs: Laboratory Results - last 24 hr 08/03/22 08/03/22 08/03/22 09:59 10:04 10:08 MCV 94.0 MCH 30.3 MCHC 32.3 RDW 13.3 Plt Count 310 MPV 8.8 L Immature Gran % (Auto) 0.4 Neut % (Auto) 77.3 H Lymph % (Auto) 11.4 L [place] % (Auto) 10.4 Eos % (Auto) 0.1 Baso % (Auto) 0.4 Lymph # (Auto) 1.8 [place] # (Auto) 1.7 H Eos # (Auto) 0.0 Baso # (Auto) 0.1 Abs Immat Gran (auto) 0.07 H Absolute Neuts (auto) 12.4 H Absolute Nucleated RBC 0.000 Nucleated RBC % (auto) 0.0 Smear Tech's Comments VERIFIED PT INR APTT Anion Gap Estim Creat Clear Calc Estimated GFR Random Glucose Lactic Acid Calcium Magnesium Total Bilirubin AST ALT Alkaline Phosphatase Troponin I High Sens 10.4 B-Natriuretic Peptide Total Protein Albumin Urine Color Urine Appearance Urine pH Ur Specific [place] Urine Protein Urine Glucose (UA) Urine Ketones Urine Blood Urine Nitrite Ur Leukocyte Esterase Urine RBC Urine WBC Urine WBC Clumps Ur Squamous Epith Cells Urine Bacteria Hyaline Casts Influenza Type A (PCR) NEGATIVE Influenza Type B (PCR) NEGATIVE RSV RNA Qual (PCR) NEGATIVE SARS-CoV-2 RNA (RT-PCR) NEGATIVE 08/03/22 08/03/22 08/03/22 10:08 10:08 10:15 MCV MCH MCHC RDW Plt Count MPV Immature Gran % (Auto) Neut % (Auto) Lymph % (Auto) [place] % (Auto) Eos % (Auto) Baso % (Auto) Lymph # (Auto) [place] # (Auto) Eos # (Auto) Baso # (Auto) Abs Immat Gran (auto) Absolute Neuts (auto) Absolute Nucleated RBC Nucleated RBC % (auto) Smear Tech's Comments PT INR APTT Anion Gap Estim Creat Clear Calc Estimated GFR Random Glucose Lactic Acid 2.0 Calcium Magnesium Total Bilirubin AST ALT Alkaline Phosphatase Troponin I High Sens B-Natriuretic Peptide 146 H Total Protein Albumin Urine Color Yellow Urine Appearance Turbid Urine pH 6.5 Ur Specific [place] 1.015 Urine Protein 100 (2+) H Urine Glucose (UA) Negative Urine Ketones Negative Urine Blood Moderate (2+) H Urine Nitrite Positive H Ur Leukocyte Esterase Large (3+) H Urine RBC >20 H Urine WBC >50 H Urine WBC Clumps Present Ur Squamous Epith Cells 11-20 Urine Bacteria 4+ Hyaline Casts 11-20 Influenza Type A (PCR) Influenza Type B (PCR) RSV RNA Qual (PCR) SARS-CoV-2 RNA (RT-PCR) 08/03/22 08/03/22 08/03/22 10:28 10:28 14:01 MCV MCH MCHC RDW Plt Count MPV Immature Gran % (Auto) Neut % (Auto) Lymph % (Auto) [place] % (Auto) Eos % (Auto) Baso % (Auto) Lymph # (Auto) [place] # (Auto) Eos # (Auto) Baso # (Auto) Abs Immat Gran (auto) Absolute Neuts (auto) Absolute Nucleated RBC Nucleated RBC % (auto) Smear Tech's Comments PT 12.2 INR 1.1 APTT 31.8 Anion Gap 14 Estim Creat Clear Calc 42.8 Estimated GFR 54 Random Glucose 125 H Lactic Acid Calcium 8.2 L D Magnesium 2.1 Total Bilirubin 0.7 AST 13 ALT 8 Alkaline Phosphatase 103 Troponin I High Sens 10.6 B-Natriuretic Peptide Total Protein 5.8 L Albumin 3.5 Urine Color Urine Appearance Urine pH Ur Specific [place] Urine Protein Urine Glucose (UA) Urine Ketones Urine Blood Urine Nitrite Ur Leukocyte Esterase Urine RBC Urine WBC Urine WBC Clumps Ur Squamous Epith Cells Urine Bacteria Hyaline Casts Influenza Type A (PCR) Influenza Type B (PCR) RSV RNA Qual (PCR) SARS-CoV-2 RNA (RT-PCR) Imaging Radiologist's Impressions: Impressions Chest X-Ray 08/03/22 10:52 IMPRESSION: * There appears to be a new nodule in the posterior right upper lobe. Recommend further evaluation with chest CT imaging since this could represent lung carcinoma. * Again noted is a large hiatal hernia which previously contained both stomach and colon on 07/11/2020. Chest CT 08/03/22 13:18 IMPRESSION: * Chronic pulmonary emphysema. The evaluation of the lungs is limited by patient's respiratory motion. * Interval development of a 2.2 x 1.9 x 2 cm spiculated nodule in the posterior right upper lobe, highly suspicious for carcinoma. Based on Fleischner Society guidelines, recommendations would be for PET/CT imaging evaluation or tissue sampling at 3 months, or sooner, if deemed appropriate. * Interestingly, there has been interval resolution of previously observed right hilar lymphadenopathy, and a precarinal region lymph node been of the mediastinum has decreased in size. * The evaluation of the abdomen is partially limited by patient motion. Moderate hydronephrosis of the right kidney without observation of an obstructing stone. There appears to be mild smooth thickening of urothelium of the dilated renal pelvis. If the patient has right flank pain, fever, leukocytosis, then urinary tract infection would be suspected. Also, urinary bladder appears to be thick-walled although not well evaluated due to lack of distention. * Large hiatal hernia contains stomach and transverse colon. There is colonic diverticulosis without diverticulitis. Abdomen/Pelvis CT 08/03/22 13:20 IMPRESSION: * Chronic pulmonary emphysema. The evaluation of the lungs is limited by patient's respiratory motion. * Interval development of a 2.2 x 1.9 x 2 cm spiculated nodule in the posterior right upper lobe, highly suspicious for carcinoma. Based on Fleischner Society guidelines, recommendations would be for PET/CT imaging evaluation or tissue sampling at 3 months, or sooner, if deemed appropriate. * Interestingly, there has been interval resolution of previously observed right hilar lymphadenopathy, and a precarinal region lymph node been of the mediastinum has decreased in size. * The evaluation of the abdomen is partially limited by patient motion. Moderate hydronephrosis of the right kidney without observation of an obstructing stone. There appears to be mild smooth thickening of urothelium of the dilated renal pelvis. If the patient has right flank pain, fever, leukocytosis, then urinary tract infection would be suspected. Also, urinary bladder appears to be thick-walled although not well evaluated due to lack of distention. * Large hiatal hernia contains stomach and transverse colon. There is colonic diverticulosis without diverticulitis. Assessment and Plan (1) Sepsis: Status: Acute (2) Acute UTI: Status: Acute Plan 82 year old women admitted with severe sepsis secondary to UTI Severe sepsis secondary to urinary tract infection Fever, leukocytosis, tachycardia, normal lactic acid Started Rocephin Follow cultures Acute on Chronic respiratory failure secondary to COPD /emphysema Expiratory wheezing noted Continue baseline oxygen Abnormal chest CT showing spiculated mass Pulmonology consultation, may need bronchoscopy with biopsy Solu-Medrol and scheduled DuoNebs Hypertension Low blood pressure Not on antihypertensives RENETTA May use CPAP Dementia. Unspecified Resident of [facility] DVT prophylaxis Attending Dr. Figueredo Full code Patient requires 2 inpatient midnights for treatment of severe sepsis secondary to urinary tract infection requiring IV antibiotics Time Spent With Patient Time: Total time managing care of this patient today ____ minutes. Quality Stroke Does the patient have a stroke diagnosis?: No VTE Prior VTE?: No VTE Risk Level:: Medical - moderate - high VTE Device Contraindication: Treatment Not Indicated VTE Drug Contraindication: N/A - Med Ordered
[2022-08-03] MEDS: Albuterol Sulfate (0.083%) 2.5 MG/3 ML VIAL.NEB 10 MG INHALE (15:34)
[2022-08-03] MEDS: 0.9 % Sodium Chloride Flush 3 ML SYRINGE IVFLUSH (16:56)
[2022-08-03] MEDS: methylPREDNISolone Sod Succ 125 MG/2 ML VIAL 60 MG IVPUSH (16:56)
[2022-08-03] MEDS: Heparin Sodium,Porcine 5,000 UNIT/ML VIAL 5000 UNIT SUBCUT (19:28)
[2022-08-03] MEDS: Albuterol/Iprat 2.5/0.5MG 3 ML AMPUL.NEB INHALE (20:03)
[2022-08-04] VITALS (7 sets, daily range): BP systolic 127–153; BP diastolic 61–76; PULSE 79–92; RESP 16–20; TEMP 36.2–36.4; O2SAT 91–95
[2022-08-04] MEDS: methylPREDNISolone Sod Succ 40 MG/ML VIAL IVPUSH ×3 (01:00→18:40)
[2022-08-04] MEDS: 0.9 % Sodium Chloride Flush 3 ML SYRINGE IVFLUSH ×3 (01:02→18:42)
[2022-08-04] MEDS: Heparin Sodium,Porcine 5,000 UNIT/ML VIAL 5000 UNIT SUBCUT ×2 (05:58→18:43)
[2022-08-04 06:06] LABS: MANUAL DIFF FLAG NO
[2022-08-04 06:10] LABS: Basophils Percent Auto 0.1 % (0-2); Hematocrit 34.3 % (37.0-47.0); Hemoglobin 10.9 g/dl (12.0-16.0); Imm Gran Abs Auto 0.08 X10*3/uL (0.00-0.03); Imm Gran Pct Auto 0.8 % (0.0-0.4); Lymphocytes Percent Auto 10.3 % (20-40); Mean Corpuscular HGB Conc 31.8 g/dl (31.0-35.0); Mean Corpuscular Hemoglobin 30.5 pg (27.0-33.0); Mean Corpuscular Volume 96.1 fL (80.0-98.0); Mean Platelet Volume 9.2 fL (9.4-12.3); Monocytes Absolute Auto 0.1 X10*3/uL (0.1-1.2); Monocytes Percent Auto 1.1 % (2-11); Neutrophils Absolute Auto 8.6 x10*3/uL (2.0-8.3); Neutrophils Percent Auto 87.7 % (45-73); Platelet Count 260 X10*3/uL (160-400); Red Blood Count 3.57 X10*6/uL (4.20-5.50); Red Cell Distribution Width 13.3 % (11.0-16.0); White Blood Count 9.8 X10*3/uL (4.8-10.8)
[2022-08-04 06:33] LABS: Anion Gap 16 (12-20); Blood Urea Nitrogen 18 mg/dL (9-16); Calcium 8.2 mg/dL (8.4-10.2); Carbon Dioxide 22 mmol/L (22-29); Chloride 110 mmol/L (96-108); Creatinine Clr Calc Pharmacy 48.7; Estimated Glomerular Filt Rate > 60; Glucose Random 150 mg/dL (60-115); Potassium 4.6 mmol/L (3.3-5.1); Sodium 143 mmol/L (135-145)
--- NOTE | 2022-08-04 07:41 | PC.NURSE ---
Pt awake, eating breakfast. Bed linens changed, new IV established in right AC. Call lazo within reach
[2022-08-04] MEDS: Albuterol/Iprat 2.5/0.5MG 3 ML AMPUL.NEB INHALE ×4 (08:09→20:24)
--- NOTE | 2022-08-04 10:02 | PM.CNPUL ---
History of Present Illness History of Present Illness Consult date: 08/04/22 Chief complaint: severe sepsis, UTI Narrative: This is an inpatient pulmonary consultation. The patient is a 82 year old women from [facility] presenting with weakness, fatigue and altered mental status since this morning.? She is mostly wheelchair bound and she was unable to get out of bed this morning.? Patient denied any fever, chills, nausea, vomiting, diarrhea, chest pain, shortness of breath. Noted to have leukocytosis, fever, tachycardia, low blood pressure.? Given 2 L of IV fluids in the ER with good affect on blood pressure.? Abdominal chest CT shows spiculated nodule in the posterior right upper lobe suspicious for carcinoma, nothing acute in abdomen.? Expiratory wheezing noted and more upper respiratory for strict wheezing.? Systolic blood pressures initially in the 80s but did respond to IV fluid.? UA positive.? Patient given IV Rocephin, Tylenol, Solu-Medrol in the ER. I did review her CT scan of the chest that was done in the ER. The patient does have a concerning appearing right upper lobe pulmonary nodule in addition to that she has mediastinal lymphadenopathy. Indeed this could be a malignant process. Based on the patient's comorbidities the patient will benefit from an outpatient PET scan to address the potential of cancer and involvement. Review of Systems Review of Systems: Denies any recent fever chills or decrease in appetite respiratory denies any shortness of breath coverage production cardiovascular denied chest pain gastrointestinal denies any dysphagia abdominal pain nausea vomiting or diarrhea genitourinary denies any dysuria frequency or hematuria musculoskeletal denies any joint pain or swelling neuropsych denies any weakness or seizures all other systems reviewed are negative [facility] Past Medical History Medical History (Updated 08/04/22 @ 10:40 by Juan Aguilera MD) Anxiety Chronic respiratory failure CKD (chronic kidney disease) COPD (chronic obstructive pulmonary disease) Dementia Depression Diastolic dysfunction Hiatal hernia HTN (hypertension) Hyperlipidemia Insomnia Lymphadenopathy, mediastinal RENETTA (obstructive sleep apnea) Pulmonary embolism Pulmonary nodule PVD (peripheral vascular disease) Surgical History Surgical History (Updated 08/03/22 @ 17:04 by Francesca Aguilera NP) Hx of tonsillectomy Social History Social History Household Members: None Housing: [facility] Do you presently have visiting nurse or other home services: No Alcohol intake: never Patient Tobacco Use Status: Former Tobacco user Smoked in Last 30 Days: No Second Hand Smoke Exposure: No Use of substances other than those prescribed or required for medical reasons: No Advance Directives: Yes Advance Directives on File: Yes Advance Directives Date on File: 07/15/20 Nutrition Risks: No Nutritional Risk service: No Current occupational status: retired Meds Allergies Allergy/AdvReac Type Severity Reaction Status Date / Time No Known Allergies Allergy Verified 07/11/20 09:41 Active Medications: Current Medications Acetaminophen (Acetaminophen 325 Mg Tablet) 650 mg PO Q6H PRN PRN Reason: Pain, Mild (Pain Scale 1-3) Albuterol/Ipratropium (Albuterol/Iprat 2.5/0.5mg 3 Ml Ampul.Neb) 3 ml INHALE RQ4H WHILE AWAKE [facility] Last Admin: 08/04/22 08:09 Dose: 3 ml Heparin Sodium (Porcine) (Heparin Sodium,Porcine 5,000 Unit/Ml Vial) 5,000 unit SUBCUT Q12H [facility] Last Admin: 08/04/22 05:58 Dose: 5,000 unit Ceftriaxone Sodium 1 gm/ (Sodium Chloride) 50 mls @ 100 mls/hr IV Q24H [facility] Methylprednisolone Sodium Succinate (Methylprednisolone Sod Succ 40 Mg/Ml Vial) 40 mg IVPUSH Q8H [facility] Last Admin: 08/04/22 07:39 Dose: 40 mg Ondansetron HCl (Ondansetron Hcl 4 Mg/2 Ml Vial) 4 mg IVPUSH Q8H PRN PRN Reason: Nausea and Vomiting Pharmacy Consult (Consult Rx Perform Med Rec) 1 each MISCELLANE ONCE PRN PRN Reason: Consult order Sodium Chloride (0.9 % Sodium Chloride Flush 3 Ml Syringe) 3 ml IVFLUSH QSHIFT [facility] Last Admin: 08/04/22 07:39 Dose: 3 ml Home Medications Medication Instructions Recorded Confirmed Last Taken Type acetaminophen 650 mg tablet 650 mg PO Q6H PRN Pain 07/11/20 08/03/22 Unknown History dextran 70-hypromellose eye drops 1 drp ophthalmic (eye) DAILY 07/11/20 08/03/22 07/10/20 History in a dropperette (Artificial Tears (PF) drops in a dropperette) Physical Exam Vital Signs: Vital Signs: Last Vital Signs Temp 97.5 F 08/04/22 07:27 Pulse 89 08/04/22 08:11 Resp 20 08/04/22 08:11 BP 146/73 H 08/04/22 07:27 Pulse Ox 94 08/04/22 07:27 O2 Del Method 08/04/22 07:27 O2 Flow Rate 2 08/04/22 07:27 Oxygen Flow Rate 2 08/03/22 09:51 BMI result Body Mass Index 26.8 Const: General: cooperative and comfortable Orientation/consciousness: oriented to person, oriented to place and oriented to time HEENT: Head: Yes atraumatic Neck: Neck: Yes supple Chest: Chest palpation & inspection: normal inspection of the chest Resp: Effort & Inspection: normal respiratory effort and able to speak in complete sentences Cardio: Heart sounds: S1 normal heart sound present and S2 normal heart sound present GI: Palpation (GI): Soft to palpation and nontender Auscultation: normal bowel sounds Neuro: General: oriented to person, oriented to place and oriented to time Extrem: General: Yes no clubbing, cyanosis or edema Results Laboratory Findings 08/04/22 05:10 08/04/22 05:10 ABG, PT/INR, D-dimer: PT/INR, D-dimer PT 12.2 SEC (10.0-13.1) 08/03/22 10:28 INR 1.1 (0.9-1.1) 08/03/22 10:28 Abnormal lab findings: Abnormal Labs 08/03/22 08/03/22 08/03/22 10:08 10:08 10:15 WBC 16.0 H RBC Hgb Hct MPV 8.8 L Immature Gran % (Auto) Neut % (Auto) 77.3 H Lymph % (Auto) 11.4 L Cole % (Auto) Lymph # (Auto) Cole # (Auto) 1.7 H Abs Immat Gran (auto) 0.07 H Absolute Neuts (auto) 12.4 H Chloride BUN Random Glucose Calcium B-Natriuretic Peptide 146 H Total Protein Urine Protein 100 (2+) H Urine Blood Moderate (2+) H Urine Nitrite Positive H Ur Leukocyte Esterase Large (3+) H Urine RBC >20 H Urine WBC >50 H 08/03/22 08/04/22 08/04/22 10:28 05:10 05:10 WBC RBC 3.57 L Hgb 10.9 L Hct 34.3 L MPV 9.2 L Immature Gran % (Auto) 0.8 H Neut % (Auto) 87.7 H Lymph % (Auto) 10.3 L Cole % (Auto) 1.1 L Lymph # (Auto) 1.0 L Cole # (Auto) Abs Immat Gran (auto) 0.08 H Absolute Neuts (auto) 8.6 H Chloride 110 H BUN 18 H 18 H Random Glucose 125 H 150 H Calcium 8.2 L D 8.2 L B-Natriuretic Peptide Total Protein 5.8 L Urine Protein Urine Blood Urine Nitrite Ur Leukocyte Esterase Urine RBC Urine WBC Assessment and Plan (1) Pulmonary nodule: Status: Acute (2) Lymphadenopathy, mediastinal: Status: Acute Plan Her pulmonary nodular density is indeed concerning for a malignant process. With the mediastinal lymphadenopathy the patient may indeed have some local involvement. The patient has other comorbidities. The best way to further delineate the degree of this process would be to have her undergo a PET scan Recommendations: Outpatient PET scan to address the pulmonary nodule in the lymphadenopathy Arrange follow-up pulmonary upon discharge to set up for the PET scan Time Spent With Patient Time: Total time managing care of this patient today ____ minutes. Procedures Date of Service Date of Service: 08/04/22
[2022-08-04] MEDS: cefTRIAXone sodium 1 GM in 0.9 % Sodium Chloride 50 ML IV (10:14)
--- NOTE | 2022-08-04 12:39 | MHC.CM.PN ---
IMM 08/04/22 Female 82 DX UTI she is LTC @ [facility]. She is WC bound. She is dependent with care. She has continuous supplemental O2. Covid Vaxxed x 5. A copy of her HCP has been requested. DP return to [facility] via BLS. The referral has been sent to [facility].
--- NOTE | 2022-08-04 13:45 | HO.PM.IMPN ---
Subjective Subjective Date of Service: 08/04/22 Interval History: dysuria improving no cough Review of Systems Review of Systems: Yes all other systems are reviewed and are negative Physical Exam Vital Signs: Vital Signs: Last Vital Signs Temp 97.5 F 08/04/22 07:27 Pulse 79 08/04/22 11:35 Resp 16 08/04/22 11:35 BP 146/73 H 08/04/22 07:27 Pulse Ox 94 08/04/22 07:27 O2 Del Method 08/04/22 07:27 O2 Flow Rate 2 08/04/22 07:27 Oxygen Flow Rate 2 08/03/22 09:51 BMI result Body Mass Index 26.8 Const: Other: Gen: in no acute distress HEENT: sclera anicteric, moist mucus membranes Neck: supple Lungs: clear to auscultation bilaterally Heart: regular rate and rhythm, no murmurs Abd: soft, mild suprapubc tenderness Ext: no edema Skin: warm/well-perfused Neuro: alert and oriented x3, no focal findings Psych: appropriate affect Objective Data Active Medications Acetaminophen (Acetaminophen 325 Mg Tablet) 650 mg PO Q6H PRN PRN Reason: Pain, Mild (Pain Scale 1-3) Albuterol/Ipratropium (Albuterol/Iprat 2.5/0.5mg 3 Ml Ampul.Neb) 3 ml INHALE RQ4H WHILE AWAKE [facility] Last Admin: 08/04/22 11:35 Dose: 3 ml Documented By: LÓPEZ Heparin Sodium (Porcine) (Heparin Sodium,Porcine 5,000 Unit/Ml Vial) 5,000 unit SUBCUT Q12H [facility] Last Admin: 08/04/22 05:58 Dose: 5,000 unit Documented By: MARCY Ceftriaxone Sodium 1 gm/ (Sodium Chloride) 50 mls @ 100 mls/hr IV Q24H [facility] Last Admin: 08/04/22 10:14 Dose: 100 mls/hr Documented By: NEGRO Methylprednisolone Sodium Succinate (Methylprednisolone Sod Succ 40 Mg/Ml Vial) 40 mg IVPUSH Q8H [facility] Last Admin: 08/04/22 07:39 Dose: 40 mg Documented By: NEGRO Ondansetron HCl (Ondansetron Hcl 4 Mg/2 Ml Vial) 4 mg IVPUSH Q8H PRN PRN Reason: Nausea and Vomiting Pharmacy Consult (Consult Rx Perform Med Rec) 1 each MISCELLANE ONCE PRN PRN Reason: Consult order Sodium Chloride (0.9 % Sodium Chloride Flush 3 Ml Syringe) 3 ml IVFLUSH QSHIFT [facility] Last Admin: 08/04/22 07:39 Dose: 3 ml Documented By: NEGRO Labs 08/04/22 05:10 08/04/22 05:10 Labs: Laboratory Results - last 24 hr 08/03/22 08/04/22 08/04/22 14:01 05:10 05:10 MCV 96.1 MCH 30.5 MCHC 31.8 RDW 13.3 Plt Count 260 MPV 9.2 L Immature Gran % (Auto) 0.8 H Neut % (Auto) 87.7 H Lymph % (Auto) 10.3 L Thayer % (Auto) 1.1 L Eos % (Auto) 0.0 Baso % (Auto) 0.1 Lymph # (Auto) 1.0 L Thayer # (Auto) 0.1 Eos # (Auto) 0.0 Baso # (Auto) 0.0 Abs Immat Gran (auto) 0.08 H Absolute Neuts (auto) 8.6 H Absolute Nucleated RBC 0.000 Nucleated RBC % (auto) 0.0 Anion Gap 16 Estim Creat Clear Calc 48.7 Estimated GFR > 60 Random Glucose 150 H Calcium 8.2 L Troponin I High Sens 10.6 Microbiology Microbiology Results: Microbiology 08/03/22 10:04 Blood Culture - Preliminary Blood - Venous No growth after 24 hours. 08/03/22 09:59 Blood Culture - Preliminary Blood - Venous No growth after 24 hours. 08/03/22 10:53 Urine Culture - Preliminary Urine Catheterized - Straight Catheter Gram negative ethan Assessment and Plan (1) Pulmonary nodule: Status: Acute (2) Sepsis: Status: Acute (3) Acute UTI: Status: Acute Plan hospital d#2 82yo F resident of [facility] admitted with severe sepsis due to UTI # severe sepsis due to UTI - ceftriaxone 08/03-, follow UCx + BCx, likely GNR # acute-chronic resp failure due to COPD - IV methlyprednisolone 08/03-, nebs # suspicious lung mass - Pulm consulted, outpt PET/CT recommended # RENETTA - CPAP at night # dementia NOS - no behavioral issues # VTE ppx: UFH # dispo: LTC @ [facility] In my clinical judgment, the patient requires continued inpatient hospitalization for the following reasons: IV ABX Time Spent With Patient Time: Total time managing care of this patient today _35___ minutes. Quality Stroke Does the patient have a stroke diagnosis?: No VTE Prior VTE?: No VTE Risk Level:: Medical - moderate - high VTE Device Contraindication: Treatment Not Indicated VTE Drug Contraindication: N/A - Med Ordered
--- NOTE | 2022-08-04 21:17 | PC.RT ---
PT states she does not use a CPAP at home. Plan to keep on NC Overnight and check home care company in AM
[2022-08-05] VITALS (8 sets, daily range): BP systolic 120–162; BP diastolic 57–73; PULSE 74–88; RESP 16–18; TEMP 36.1–36.6; O2SAT 92–96
[2022-08-05] MEDS: methylPREDNISolone Sod Succ 40 MG/ML VIAL IVPUSH ×2 (00:50→09:45)
[2022-08-05] MEDS: 0.9 % Sodium Chloride Flush 3 ML SYRINGE IVFLUSH ×4 (00:51→20:20)
[2022-08-05] MEDS: Heparin Sodium,Porcine 5,000 UNIT/ML VIAL 5000 UNIT SUBCUT ×2 (05:29→17:35)
[2022-08-05 06:34] LABS: Hematocrit 33.5 % (37.0-47.0); Hemoglobin 10.7 g/dl (12.0-16.0); Mean Corpuscular HGB Conc 31.9 g/dl (31.0-35.0); Mean Corpuscular Hemoglobin 30.1 pg (27.0-33.0); Mean Corpuscular Volume 94.1 fL (80.0-98.0); Mean Platelet Volume 9.4 fL (9.4-12.3); Platelet Count 289 X10*3/uL (160-400); Red Blood Count 3.56 X10*6/uL (4.20-5.50); Red Cell Distribution Width 13.2 % (11.0-16.0); White Blood Count 14.8 X10*3/uL (4.8-10.8)
[2022-08-05 06:49] LABS: Anion Gap 14 (12-20); Blood Urea Nitrogen 24 mg/dL (9-16); Calcium 8.3 mg/dL (8.4-10.2); Carbon Dioxide 22 mmol/L (22-29); Chloride 111 mmol/L (96-108); Creatinine Clr Calc Pharmacy 51.8; Estimated Glomerular Filt Rate > 60; Glucose Random 137 mg/dL (60-115); Potassium 4.5 mmol/L (3.3-5.1); Sodium 142 mmol/L (135-145)
[2022-08-05] MEDS: Albuterol/Iprat 2.5/0.5MG 3 ML AMPUL.NEB INHALE ×4 (08:25→20:04)
--- NOTE | 2022-08-05 09:28 | P.PNIM_ITS ---
Subjective Subjective Date of Service: 08/05/22 Interval History: Dysuria improving Dyspnea improving Appetite good Review of Systems Review of Systems: Yes all other systems are reviewed and are negative Physical Exam Vital Signs: Vital Signs: Last Vital Signs Temp 97.2 F 08/05/22 07:38 Pulse 88 08/05/22 08:09 Resp 16 08/05/22 08:09 BP 162/73 H 08/05/22 07:38 Pulse Ox 95 08/05/22 07:38 O2 Del Method 08/05/22 07:38 O2 Flow Rate 2 08/05/22 07:38 Oxygen Flow Rate 2 08/03/22 09:51 BMI result Body Mass Index 26.8 Const: Other: Gen: in no acute distress HEENT: sclera anicteric, moist mucus membranes Neck: supple Lungs: clear to auscultation bilaterally Heart: regular rate and rhythm, no murmurs Abd: soft, mild suprapubc tenderness Ext: no edema Skin: warm/well-perfused Neuro: alert and oriented x3, no focal findings Psych: appropriate affect Objective Data Active Medications Acetaminophen (Acetaminophen 325 Mg Tablet) 650 mg PO Q6H PRN PRN Reason: Pain, Mild (Pain Scale 1-3) Albuterol/Ipratropium (Albuterol/Iprat 2.5/0.5mg 3 Ml Ampul.Neb) 3 ml INHALE RQ4H WHILE AWAKE [facility] Last Admin: 08/05/22 08:25 Dose: 3 ml Documented By: BELKIS Heparin Sodium (Porcine) (Heparin Sodium,Porcine 5,000 Unit/Ml Vial) 5,000 unit SUBCUT Q12H [facility] Last Admin: 08/05/22 05:29 Dose: 5,000 unit Documented By: NIKA Ceftriaxone Sodium 1 gm/ (Sodium Chloride) 50 mls @ 100 mls/hr IV Q24H [facility] Last Infusion: 08/04/22 18:43 Dose: 0 mls/hr Documented By: THERESA Methylprednisolone Sodium Succinate (Methylprednisolone Sod Succ 40 Mg/Ml Vial) 40 mg IVPUSH Q24H [facility] Ondansetron HCl (Ondansetron Hcl 4 Mg/2 Ml Vial) 4 mg IVPUSH Q8H PRN PRN Reason: Nausea and Vomiting Pharmacy Consult (Consult Rx Perform Med Rec) 1 each MISCELLANE ONCE PRN PRN Reason: Consult order Sodium Chloride (0.9 % Sodium Chloride Flush 3 Ml Syringe) 3 ml IVFLUSH QSHIFT [facility] Last Admin: 08/05/22 00:51 Dose: 3 ml Documented By: NIKA Labs 08/05/22 06:05 08/05/22 06:05 Labs: Laboratory Results - last 24 hr 08/05/22 08/05/22 06:05 06:05 MCV 94.1 MCH 30.1 MCHC 31.9 RDW 13.2 Plt Count 289 MPV 9.4 Absolute Nucleated RBC 0.000 Nucleated RBC % (auto) 0.0 Anion Gap 14 Estim Creat Clear Calc 51.8 Estimated GFR > 60 Random Glucose 137 H Calcium 8.3 L Microbiology Microbiology Results: Microbiology 08/03/22 10:53 Urine Culture - Final Urine Catheterized - Straight Catheter Klebsiella pneumoniae 08/03/22 10:04 Blood Culture - Preliminary Blood - Venous No growth after 24 hours. 08/03/22 09:59 Blood Culture - Preliminary Blood - Venous No growth after 24 hours. Assessment and Plan (1) Pulmonary nodule: Status: Acute (2) Sepsis: Status: Acute (3) Acute UTI: Status: Acute Plan hospital d#3 82yo F resident of [facility] admitted with severe sepsis due to UTI # severe sepsis due to UTI - ceftriaxone 08/03-, UCx Klebsiella resistant to ampicillin, BCx NGTD # acute-chronic resp failure due to COPD - IV methlyprednisolone 08/03-, nebs # suspicious lung mass - Pulm consulted, outpt PET/CT recommended # RENETTA - not on CPAP # dementia NOS - no behavioral issues # VTE ppx: UF # dispo: LTC @ [facility] likely tomorrow In my clinical judgment, the patient requires continued inpatient hospitalization for the following reasons: IV ABX I updated the patient's [id number] [place] by phone Time Spent With Patient Time: Total time managing care of this patient today _35___ minutes. Quality Stroke Does the patient have a stroke diagnosis?: No VTE Prior VTE?: No VTE Risk Level:: Medical - moderate - high VTE Device Contraindication: Treatment Not Indicated VTE Drug Contraindication: N/A - Med Ordered
[2022-08-05] MEDS: cefTRIAXone sodium 1 GM in 0.9 % Sodium Chloride 50 ML IV (09:45)
--- NOTE | 2022-08-05 09:48 | MHC.CDI.CONC ---
CDI Concurrent Query Documentation Clarification: PHYSICIAN'S DOCUMENTATION REQUEST Date of Query: 08/05/22 0949 Patient Name: Skyler Marks Admit Date: 08/03/22 Dear Doctor, A review of the medical record indicates additional documentation may be needed. Please review below and update the documentation accordingly. Clinical Indicators: Risk Factors/Clinical Indicators/Treatments H&P 08/03 - Acute on chronic respiratory failure due to COPD. Expiratory wheezing Solumedrol and scheduled DuoNebs, Oxygen. Based on the above, could you clarify in the Progress Notes the appropriate diagnosis, if significant, that supports the above abnormalities and additional evaluation, monitoring, and/or treatment rendered: COPD COPD Exacerbation Other (please specify) Unable to determine Use of terms such as suspected, likely, concern for, or probable (associated with a specific diagnosis that is being evaluated, monitored, or treated as if it exists) are acceptable and can be coded in the inpatient setting, when documented at the time of discharge. Thank you, Brooklyn Mclean [facility], CDIS Extension: [phone] Please use your independent medical judgment in providing your response. THIS QUERY IS PART OF THE PERMANENT MEDICAL RECORD Provider Response: Other Other Diagnosis: copd exac
--- NOTE | 2022-08-05 11:45 | MHC.CM.PN ---
EMR REVIEWED, PER HOSPITALIST ANTIC PT WILL BE READY FOR D/C BACK TO [facility] TOMORROW 08/06, SNF UPDATED VIA [facility]. CM WILL CONT TO FOLLOW D/C NEEDS.
[2022-08-06] VITALS: BP 157/69; PULSE 62; RESP 18; TEMP 36.4; O2SAT 97
[2022-08-06 04:19] VITALS: BP 163/75; PULSE 67; RESP 18; TEMP 36.9; O2SAT 100
[2022-08-06] MEDS: Heparin Sodium,Porcine 5,000 UNIT/ML VIAL 5000 UNIT SUBCUT (05:30)
[2022-08-06 06:09] LABS: Hematocrit 33.1 % (37.0-47.0); Hemoglobin 10.8 g/dl (12.0-16.0); Mean Corpuscular HGB Conc 32.6 g/dl (31.0-35.0); Mean Corpuscular Hemoglobin 30.9 pg (27.0-33.0); Mean Corpuscular Volume 94.8 fL (80.0-98.0); Mean Platelet Volume 9.5 fL (9.4-12.3); Platelet Count 320 X10*3/uL (160-400); Red Blood Count 3.49 X10*6/uL (4.20-5.50); Red Cell Distribution Width 13.2 % (11.0-16.0); White Blood Count 11.6 X10*3/uL (4.8-10.8)
[2022-08-06 08:00] VITALS: BP 178/81; PULSE 62; RESP 18; TEMP 36.3; O2SAT 97
[2022-08-06] MEDS: Albuterol/Iprat 2.5/0.5MG 3 ML AMPUL.NEB INHALE (08:07)
[2022-08-06 08:08] VITALS: PULSE 78; RESP 16; O2SAT 99
[2022-08-06] MEDS: methylPREDNISolone Sod Succ 40 MG/ML VIAL IVPUSH (09:27)
[2022-08-06] MEDS: 0.9 % Sodium Chloride Flush 3 ML SYRINGE IVFLUSH (09:28)
[2022-08-06] MEDS: cefTRIAXone sodium 1 GM in 0.9 % Sodium Chloride 50 ML IV (09:28)
--- NOTE | 2022-08-06 09:57 | P.DS_ITS ---
DS: Providers Provider Date of Service: 08/06/22 Date of admission: 08/03/22 15:59 Date of discharge: 08/06/22 Primary care physician: Fabrizio Garcias MD Consults: 08/03/22 17:09 Consult to Pulmonology Routine Consulting Provider: Juan Aguilera Reason for consultation: spiculated mass Has provider been notified: No DS: Diagnosis Discharge Diagnosis (1) Pulmonary nodule: Status: Acute (2) Sepsis: Status: Acute (3) Acute UTI: Status: Acute (4) COPD exacerbation: Status: Acute (5) Lymphadenopathy, mediastinal: Status: Acute DS: Summary Hospital Course Hospital Course: from admission H+P 08/03/22 by hospitalist Francesca Aguilera FLOOR ATTENDANT: 82 year old women from [facility] presenting with weakness, fatigue and altered mental status since this morning.? She is mostly wheelchair bound and she was unable to get out of bed this morning.? Patient denied any fever, chills, nausea, vomiting, diarrhea, chest pain, shortness of breath. Noted to have leukocytosis, fever, tachycardia, low blood pressure.? Given 2 L of IV fluids in the ER with good affect on blood pressure.? Abdominal chest CT shows spiculated nodule in the posterior right upper lobe suspicious for carcinoma, nothing acute in abdomen.? Expiratory wheezing noted and more upper respiratory for strict wheezing.? Systolic blood pressures initially in the 80s but did respond to IV fluid.? UA positive.? Patient given IV Rocephin, Tylenol, Solu-Medrol in the ER This 82yo F resident of [facility] was admitted with severe sepsis due to UTI. UCx grew Klebsiella pneumoniae resistant to ampicillin and she was treated with ceftriaxone and discharged on cefuroxime. She was not bacteremic. She was also treated for COPD exacerbation with steroids and nebulized bronchodilators. As for the suspicious lung lesion, Pulmonology was consulted and an outpatient evaluation with PET/CT was recommended. She was discharged back to [facility] with prescriptions for cefuroxime, prednisone, and Duonebs. Time Spent with Patient Time attestation: Total time managing care of this patient today _35___ minutes. Discharge coordination time: Greater than 30 minutes Quality: Safe Use of Opioids Does Pt have an Active Cancer Diagnosis on the Problem List?: No Quality: Stroke Does the patient have a stroke diagnosis?: No Physical Exam Vital Signs: Vital Signs: Last Vital Signs Temp 97.3 F 08/06/22 08:00 Pulse 78 08/06/22 08:08 Resp 16 08/06/22 08:08 BP 178/81 H 08/06/22 08:00 Pulse Ox 97 08/06/22 08:00 O2 Del Method 08/06/22 08:00 O2 Flow Rate 2 08/06/22 08:00 Oxygen Flow Rate 2 08/03/22 09:51 BMI result Body Mass Index 26.8 Const: Other: Gen: in no acute distress HEENT: sclera anicteric, moist mucus membranes Neck: supple Lungs: clear to auscultation bilaterally Heart: regular rate and rhythm, no murmurs Abd: soft, non-tender Ext: no edema Skin: warm/well-perfused Neuro: alert and oriented x3, no focal findings Psych: appropriate affect DS: Data Data Completed and Pending Completed studies during hospitalization [Text1]: Laboratory Results WBC 11.6 X10*3/uL (4.8-10.8) H 08/06/22 05:47 RBC 3.49 X10*6/uL (4.20-5.50) L 08/06/22 05:47 Hgb 10.8 g/dl (12.0-16.0) L 08/06/22 05:47 Hct 33.1 % (37.0-47.0) L 08/06/22 05:47 MCV 94.8 fL (80.0-98.0) 08/06/22 05:47 MCH 30.9 pg (27.0-33.0) 08/06/22 05:47 MCHC 32.6 g/dl (31.0-35.0) 08/06/22 05:47 RDW 13.2 % (11.0-16.0) 08/06/22 05:47 Plt Count 320 X10*3/uL (160-400) 08/06/22 05:47 MPV 9.5 fL (9.4-12.3) 08/06/22 05:47 Immature Gran % (Auto) 0.8 % (0.0-0.4) H 08/04/22 05:10 Neut % (Auto) 87.7 % (45-73) H 08/04/22 05:10 Lymph % (Auto) 10.3 % (20-40) L 08/04/22 05:10 Delta % (Auto) 1.1 % (2-11) L 08/04/22 05:10 Eos % (Auto) 0.0 % (0-4) 08/04/22 05:10 Baso % (Auto) 0.1 % (0-2) 08/04/22 05:10 Lymph # (Auto) 1.0 X10*3/uL (1.2-4.9) L 08/04/22 05:10 Delta # (Auto) 0.1 X10*3/uL (0.1-1.2) 08/04/22 05:10 Eos # (Auto) 0.0 X10*3/uL (0.0-0.4) 08/04/22 05:10 Baso # (Auto) 0.0 X10*3/uL (0.0-0.2) 08/04/22 05:10 Abs Immat Gran (auto) 0.08 X10*3/uL (0.00-0.03) H 08/04/22 05:10 Absolute Neuts (auto) 8.6 x10*3/uL (2.0-8.3) H 08/04/22 05:10 Absolute Nucleated RBC 0.000 X10*3/uL (0.0-0.012) 08/06/22 05:47 Nucleated RBC % (auto) 0.0 /100WBC (0.0-0.2) 08/06/22 05:47 Smear Tech's Comments VERIFIED 08/03/22 10:08 PT 12.2 SEC (10.0-13.1) 08/03/22 10:28 INR 1.1 (0.9-1.1) 08/03/22 10:28 APTT 31.8 SEC (26.0-36.4) 08/03/22 10:28 Sodium 142 mmol/L (135-145) 08/05/22 06:05 Potassium 4.5 mmol/L (3.3-5.1) 08/05/22 06:05 Chloride 111 mmol/L (96-108) H 08/05/22 06:05 Carbon Dioxide 22 mmol/L (22-29) 08/05/22 06:05 Anion Gap 14 (12-20) 08/05/22 06:05 BUN 24 mg/dL (9-16) H 08/05/22 06:05 Creatinine 0.81 mg/dL (0.5-1.4) 08/05/22 06:05 Estim Creat Clear Calc 51.8 08/05/22 06:05 Estimated GFR > 60 08/05/22 06:05 Random Glucose 137 mg/dL (60-115) H 08/05/22 06:05 Lactic Acid 2.0 mmol/L (0.5-2.0) 08/03/22 10:08 Calcium 8.3 mg/dL (8.4-10.2) L 08/05/22 06:05 Magnesium 2.1 mg/dL (1.6-2.6) 08/03/22 10:28 Total Bilirubin 0.7 mg/dL (0.0-1.0) 08/03/22 10:28 AST 13 U/L (5-31) 08/03/22 10:28 ALT 8 U/L (0-31) 08/03/22 10:28 Alkaline Phosphatase 103 U/L (39-117) 08/03/22 10:28 Troponin I High Sens 10.6 ng/L (<3.5-17.0) 08/03/22 14:01 B-Natriuretic Peptide 146 pg/mL (<100) H 08/03/22 10:08 Total Protein 5.8 g/dL (6.5-8.0) L 08/03/22 10:28 Albumin 3.5 g/dL (3.5-5.0) 08/03/22 10:28 Urine Color Yellow 08/03/22 10:15 Urine Appearance Turbid 08/03/22 10:15 Urine pH 6.5 (5.0-9.0) 08/03/22 10:15 Ur Specific [place] 1.015 (1.005-1.025) 08/03/22 10:15 Urine Protein 100 (2+) mg/dL (Neg-Trace) H 08/03/22 10:15 Urine Glucose (UA) Negative mg/dL (Negative) 08/03/22 10:15 Urine Ketones Negative mg/dL (Negative) 08/03/22 10:15 Urine Blood Moderate (2+) (Negative) H 08/03/22 10:15 Urine Nitrite Positive (Negative) H 08/03/22 10:15 Ur Leukocyte Esterase Large (3+) (Negative) H 08/03/22 10:15 Urine RBC >20 /HPF (0-2) H 08/03/22 10:15 Urine WBC >50 /HPF (0-5) H 08/03/22 10:15 Urine WBC Clumps Present 08/03/22 10:15 Ur Squamous Epith Cells 11-20 /HPF (0-2) 08/03/22 10:15 Urine Bacteria 4+ (None Seen) 08/03/22 10:15 Hyaline Casts 11-20 /LPF (0-2) 08/03/22 10:15 COVID-19 (ALEXANDER) Negative (Negative) 08/06/22 09:17 COVID-19 Clin Com See Note 08/06/22 09:17 Influenza Type A (PCR) NEGATIVE (Negative) 08/03/22 09:59 Influenza Type B (PCR) NEGATIVE (Negative) 08/03/22 09:59 RSV RNA Qual (PCR) NEGATIVE (Negative) 08/03/22 09:59 SARS-CoV-2 RNA (RT-PCR) NEGATIVE (Negative) 08/03/22 09:59 Impressions Chest X-Ray 08/03/22 10:52 IMPRESSION: * There appears to be a new nodule in the posterior right upper lobe. Recommend further evaluation with chest CT imaging since this could represent lung carcinoma. * Again noted is a large hiatal hernia which previously contained both stomach and colon on 07/11/2020. Chest CT 08/03/22 13:18 IMPRESSION: * Chronic pulmonary emphysema. The evaluation of the lungs is limited by patient's respiratory motion. * Interval development of a 2.2 x 1.9 x 2 cm spiculated nodule in the posterior right upper lobe, highly suspicious for carcinoma. Based on Fleischner Society guidelines, recommendations would be for PET/CT imaging evaluation or tissue sampling at 3 months, or sooner, if deemed appropriate. * Interestingly, there has been interval resolution of previously observed right hilar lymphadenopathy, and a precarinal region lymph node been of the mediastinum has decreased in size. * The evaluation of the abdomen is partially limited by patient motion. Moderate hydronephrosis of the right kidney without observation of an obstructing stone. There appears to be mild smooth thickening of urothelium of the dilated renal pelvis. If the patient has right flank pain, fever, leukocytosis, then urinary tract infection would be suspected. Also, urinary bladder appears to be thick-walled although not well evaluated due to lack of distention. * Large hiatal hernia contains stomach and transverse colon. There is colonic diverticulosis without diverticulitis. Abdomen/Pelvis CT 08/03/22 13:20 IMPRESSION: * Chronic pulmonary emphysema. The evaluation of the lungs is limited by patient's respiratory motion. * Interval development of a 2.2 x 1.9 x 2 cm spiculated nodule in the posterior right upper lobe, highly suspicious for carcinoma. Based on Fleischner Society guidelines, recommendations would be for PET/CT imaging evaluation or tissue sampling at 3 months, or sooner, if deemed appropriate. * Interestingly, there has been interval resolution of previously observed right hilar lymphadenopathy, and a precarinal region lymph node been of the mediastinum has decreased in size. * The evaluation of the abdomen is partially limited by patient motion. Moderate hydronephrosis of the right kidney without observation of an obstructing stone. There appears to be mild smooth thickening of urothelium of the dilated renal pelvis. If the patient has right flank pain, fever, leukocytosis, then urinary tract infection would be suspected. Also, urinary bladder appears to be thick-walled although not well evaluated due to lack of distention. * Large hiatal hernia contains stomach and transverse colon. There is colonic diverticulosis without diverticulitis. Renal Ultrasound 08/05/22 09:38 IMPRESSION: Mild right hydronephrosis decreased from recent CT scan.. Discharge Plan Discharge Anticipated Discharge Date/Time: 08/06/22 09:49 Patient Disposition: er [facility] Discharge Diagnosis: UTI COPD exacerbation lung nodule with adenopathy Referrals: Po,Fabrizio Hickman MD [Primary Care Provider] - 1 Week Juan Aguilera MD [Physician] - 2 Weeks Discharge Medications: New ipratropium-albuterol 0.5 mg-3 mg(2.5 mg base)/3 mL Solution For Nebulization 3 ml inhalation RQ4H WHILE AWAKE PRN (Reason: shortness of breath/wheeze) Qty: 30 0RF prednisone 20 mg tablet 40 mg PO DAILY Qty: 4 0RF cefuroxime axetil 500 mg tablet 500 mg PO BID Qty: 6 0RF Continued acetaminophen 650 mg Tablet 650 mg PO Q6H PRN (Reason: Pain) Artificial Tears (PF) Dropperette 1 drp OPHTHALMIC (EYE) DAILY Discharge Orders: Discharge Order (Routine); Ordered 08/06/22 Ordered By: Komal Mondragon Diet: Advance to usual diet Activity on Discharge: As tolerated Stand Alone Forms: Patient Portal Discharge page Care Plan Goals: recovery from infection relief of breathing problems workup of lung nodule Health Concerns: UTI COPD exacerbation lung nodule with adenopathy Plan of Treatment: cefuroxime 500 mg twice daily for 4 days prednisone 40 mg once daily for 2 days; Duoneb as needed for shortness of breath or wheeze follow-up with Dr Juan Aguilera from [facility] [place] Pulmonology for workup of suspicious lung nodule with PET/CT Assessment: See Discharge Summary.
[2022-08-06 10:02] LABS: COVID-19 Test Negative (Negative); IDNOW Serial# 16C4AD1C
--- NOTE | 2022-08-06 11:21 | MHC.CM.PN ---
Addendum entered by Tila Lange RN 08/06/22 11:28: PT'S HCP [facility] NOTIFIED AT 11:16AM AND AGREEABLE TO PLAN. Original Note: PT MEDICALLY CLEARED FOR D/C HOME TO [facility] AT 12:30PM.
[2022-08-06 11:58] VITALS: PULSE 82; RESP 16; O2SAT 98
== END 2022-08-06 13:53 | disposition skilled nursing facility (03) | DRG 871 ==
LOC: HO.ED 11:09 → HO.EDOVER 16:07 → HO.IMC 08-04 09:27 → HO.S3 08-04 23:44
PROVIDERS: Physician Assistant Medical; Admitting Provider Nurse Practitioner Acute Care; Emergency Provider Emergency Medicine; PCP Internal Medicine; Visit Provider Family Medicine
DX: A41.9 Sepsis, unspecified organism (principal); J96.20 Acute and chronic respiratory failure, unspecified whether with hypoxia or hypercapnia; N13.6 Pyonephrosis; Z16.11 Resistance to penicillins; C34.11 Malignant neoplasm of upper lobe, right bronchus or lung; J43.9 Emphysema, unspecified; R65.20 Severe sepsis without septic shock; B96.1 Klebsiella pneumoniae [K. pneumoniae] as the cause of diseases classified elsewhere; G47.33 Obstructive sleep apnea (adult) (pediatric); R59.0 Localized enlarged lymph nodes; E78.5 Hyperlipidemia, unspecified; F03.90 Unspecified dementia, unspecified severity, without behavioral disturbance, psychotic disturbance, mood disturbance, and anxiety; Z99.3 Dependence on wheelchair; Z20.822 Contact with and (suspected) exposure to COVID-19; Z87.891 Personal history of nicotine dependence; Z79.899 Other long term (current) drug therapy
CPT/HCPCS: 0241U; 36415; 71046; 71260; 74177; 76775; 80048; 80053; 81001; 83605; 83735; 83880; 84484; 85025; 85027; 85610; 85730; 87040; 87086; 87088; 87186; 87635; 94640; 99285; J0696; J1643; J2920; J2930; Q9967

== ENCOUNTER → 2022-08-19 10:33 | Outpatient (BNVA) | payer MEDICARE, MEDICAID, SELFPAY | PROVIDERS: PCP Emergency Medicine; Visit Provider Hospitalist | DX: J96.11 Chronic respiratory failure with hypoxia (principal); J41.0 Simple chronic bronchitis; R91.1 Solitary pulmonary nodule; R59.0 Localized enlarged lymph nodes | CPT/HCPCS: 99212 ==

== ENCOUNTER 2022-09-17 07:48 | Outpatient (REF) | payer MEDICARE, MEDICAID, SELFPAY ==
--- NOTE | 2022-09-17 | PFT_ITS ---
Forced vital capacity 46%, FEV1 34%, FEV1/FVC ratio is 55. FEF25/75 22% and MVV 16%. Post bronchodilator therapy, there is no change. Total lung capacity is 68%. Residual volume 95%. Diffusion capacity 17%. CONCLUSION: There is evidence of mild restrictive pulmonary disorder. There is evidence of severe obstructive airway disorder. No response to bronchodilator therapy. Clinical correlation is recommended. MD KEANU Rojas/MODL / [id number]
== END 2022-09-17 07:49 | disposition home or self-care (01) ==
LOC: HO.RESP 07:48
PROVIDERS: Visit Provider Hospitalist
DX: J44.9 Chronic obstructive pulmonary disease, unspecified (principal)
CPT/HCPCS: 94060; 94727; 94729

== ENCOUNTER → 2022-09-23 10:48 | Outpatient (BNVA) | payer MEDICARE, MEDICAID, SELFPAY | PROVIDERS: PCP Emergency Medicine; Visit Provider Hospitalist | DX: J96.11 Chronic respiratory failure with hypoxia (principal); J41.0 Simple chronic bronchitis; R91.1 Solitary pulmonary nodule; R59.0 Localized enlarged lymph nodes | CPT/HCPCS: 99212 ==

== ENCOUNTER 2022-11-02 12:52 | Day surgery (SDC) | payer MEDICARE, MEDICAID, SELFPAY ==
[2022-11-02] VITALS (7 sets, daily range): BP systolic 136–173; BP diastolic 68–86; PULSE 73–86; RESP 16–18; TEMP 36.8–37.3; O2SAT 93–96; BMI 26.4
--- NOTE | ~2022-11-02 | XR_ITS ---
EXAMINATION: XR CHEST CLINICAL INFORMATION: Post lung biopsy COMPARISON: Previous chest x-ray July 2022 TECHNIQUE: Two-view Inspiration and expiration AP portable chest FINDINGS: No pneumothorax is seen. The cardiac silhouette is enlarged but stable. There is a large esophageal hernia. Known right upper lobe pulmonary nodule not well visualized. No pleural effusion. XR/XR chest 1V IMPRESSION: No pneumothorax post right lung biopsy.
--- NOTE | ~2022-11-02 | CT_ITS ---
PROCEDURE: CT GUIDED BIOPSY, LUNG, RIGHT CLINICAL INFORMATION: Solitary pulmonary nodule right upper lobe. COMPARISON: CT chest 08/03/2022 TECHNIQUE: Following explaining CT fluoroscopy-guided right upper lobe lung nodule biopsy procedure, benefits and risks, a written consent was obtained. Patient was placed in right lateral decubitus view and preliminary CT imaging was obtained. Lead markers were placed along the right posterior chest wall and repeat CT imaging was obtained. An optimal marker was selected and placed on the posterior chest. The marker was cleaned and draped in usual sterile manner with 2% chlorhexidine solution. 1% lidocaine was injected at puncture site. Through a small skin incision a 20-gauge guide needle was advanced from the skin through the intercostal muscles into the right lung nodule. Coaxially a 3 pass fine-needle biopsy was performed. Three small tissue samples collected were sent in formalin solution to Pathology for further evaluation. Following the procedure the needle was withdrawn and complete hemostasis achieved at puncture site and a sterile dressing applied postprocedure. Repeat CT imaging was obtained for follow-up. Conscious sedation was administered during the exam and patient monitored by IR nursing and radiologist for [address] examination was performed using dose optimization techniques as appropriate, variously including the following: *Automated exposure control *Adjustment of mA and/or kV according to patient size (this includes techniques or standardized protocols for targeted exams where dose is matched to indication/reason for exam; i.e. extremities or head) *Use of iterative reconstruction technique DLP: 247 mGy-cm FINDINGS: On preliminary CT imaging in the right lateral decubitus view there is right upper lobe solid mass with spiculated margins measuring 2.[address] fluoroscopy-guided 3 pass fine-needle biopsy performed with 20-gauge biopsy gun. There were no immediate compilations. Postprocedure CT revealed no pneumothorax. There is minimal soft tissue density seen in between the nodule and the chest wall likely hemorrhage. Chest x-ray obtained one hour later after the CT chest biopsy revealed no pneumothorax. CT/CT biopsy lung RT IMPRESSION: Successful CT fluoroscopy-guided right lung nodule biopsy performed. No immediate complications seen.
--- NOTE | 2022-11-02 13:46 | PC.NURSE ---
IV inserted by Cindi BANUELOS. Patient and daughter in law present. Have lab draw results from [facility]. Ok per radiology nurse. Only PTT needs to be drawn at bedside today.
--- NOTE | 2022-11-02 14:07 | PC.NURSE ---
Silvia rodding anode worker called radiologist and PTT no longer needed as ordered. Doctor given results of PT/INR from facility labs drawn on 10/29/22
== END 2022-11-02 17:30 | disposition home or self-care (01) ==
PROVIDERS: Radiology Diagnostic Radiology; PCP Emergency Medicine; Visit Provider Radiology Diagnostic Radiology
DX: R91.1 Solitary pulmonary nodule (principal); R59.0 Localized enlarged lymph nodes; J41.0 Simple chronic bronchitis; J96.11 Chronic respiratory failure with hypoxia
CPT/HCPCS: 32408; 71045; 88305; 99152; J2250; J3010

== ENCOUNTER 2023-01-05 08:26 | Outpatient (REF) | payer MEDICARE, MEDICAID, SELFPAY ==
--- NOTE | ~2023-01-05 | CT_ITS ---
EXAMINATION: CT CHEST WITHOUT CONTRAST CLINICAL INFORMATION: Solitary pulmonary nodule. COMPARISON: CT chest 08/03/2022. TECHNIQUE: Multidetector volumetric CT imaging of the chest was done. Axial MIP volume rendering provided. Sagittal and coronal reformatted images were obtained. This CT examination was performed using dose optimization techniques as appropriate, variously including the following: *Automated exposure control *Adjustment of mA and/or kV according to patient size (this includes techniques or standardized protocols for targeted exams where dose is matched to indication/reason for exam; i.e. extremities or head) *Use of iterative reconstruction technique DLP: 230 mGy-cm FINDINGS: ASSISTANT ART DIRECTOR: Lungs are well expanded. LUNGS: Again visualized is a right upper lobe spiculated noncalcified lesion measuring 1.9 x 1.9 cm on axial slice 15/4. Previously measured 2.2 x 1.9 cm. There are fine linear strands extending to right posterior pleura. There is a 4 mm nodule along the left major fissure axial image 28/4. It is likely a fissural lymph node. No additional pulmonary nodules seen. MEDIASTINUM: The thyroid lobes are symmetric and normal. The central trachea and the bronchi are widely patent. The heart size and the great vessels are normal caliber. There is a large left-sided hernia containing almost entire stomach and transverse colon. There is mass effect on the heart shifting anteriorly into the right. A 1.9 cm precarinal lymph node is seen. It appears slightly larger compared to last exam 08/03/2022. CORONARY ARTERY CALCIFICATION: Mild. PLEURA: There is no pleural effusion. No pleural mass or thickening. AXILLA: No lymphadenopathy. UPPER ABDOMEN: Visualized liver, spleen, pancreas and bilateral adrenal glands are unremarkable. OSSEOUS STRUCTURES: No aggressive lytic or sclerotic process seen. CT/CT chest wo IV con IMPRESSION: Right upper lobe spiculated noncalcified lesion biopsied early appears slightly smaller as described above. Intrafissural lymph node left side. Precarinal lymph node appears slightly larger compared to previous study. Large left hiatal hernia containing the entire stomach and transverse colon produces mass effect on the myocardium shifting it anteriorly and right. The hernia is stable to last exam Fleischner guidelines were followed.
== END 2023-01-05 08:27 | disposition home or self-care (01) ==
LOC: HO.CT 08:26
PROVIDERS: PCP Emergency Medicine; Visit Provider Hospitalist
DX: R91.1 Solitary pulmonary nodule (principal)
CPT/HCPCS: 71250

== ENCOUNTER 2023-01-17 19:13 | Emergency (ER) | payer MEDICARE, MEDICAID, SELFPAY ==
--- NOTE | ~2023-01-17 | XR_ITS ---
EXAMINATION: XR CHEST CLINICAL INFORMATION: Shortness of breath. COMPARISON: Chest radiograph 11/02/2022. TECHNIQUE: Frontal view of the chest was obtained. FINDINGS: Examination is very limited secondary to patient's rotation. Stable prominence of the cardiomediastinal silhouette with redemonstration of a large hiatal hernia. No discrete new focal airspace opacity, pleural effusion or pneumothorax. No displaced osseous fractures. XR/XR chest 1V IMPRESSION: Very limited examination secondary to patient's rotation, recommend correlation with the already ordered chest CT.
--- NOTE | ~2023-01-17 | CT_ITS ---
EXAMINATION: CT head/brain wo IV con CLINICAL INFORMATION: Reason for Exam fall COMPARISON: CT head without contrast 08/14/2020 TECHNIQUE: Contiguous axial imaging was performed from the skull base to vertex without intravenous contrast. Sagittal and coronal reformatted images were obtained. This CT examination was performed using dose optimization techniques as appropriate, variously including the following: * Automated exposure control * Adjustment of mA and/or kV according to patient size (this includes techniques or standardized protocols for targeted exams where dose is matched to indication/reason for exam; i.e. extremities or head) Use of iterative reconstruction technique DLP: 604 mGy-cm FINDINGS: No acute osseous or soft tissue abnormality. The mastoid air cells and visualized portions of the paranasal sinuses are well aerated. There is no evidence of acute intracranial hemorrhage or territorial infarction. No abnormal mass effect or midline shift is seen. Luna to white matter differentiation is well preserved. No extra-axial fluid collections are identified. No hydrocephalus. Proportional prominence of the ventricles and sulcal spaces is consistent with moderate volume loss. Ex vacuo dilatation of the right frontal horn. Patchy periventricular and deep white matter hypoattenuation is consistent with moderate small vessel ischemic changes. Chronic right frontal lobe encephalomalacia. 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 CT/CT head/brain wo IV con IMPRESSION: No acute intracranial abnormality including hemorrhage, mass effect, hydrocephalus, or acute territorial edematous infarction.
[2023-01-17 19:21] VITALS: BP 157/84; BP 160/116; PULSE 95; RESP 18; TEMP 36.9; O2SAT 92; O2SAT 96; BMI 27.0
--- NOTE | 2023-01-17 19:35 | ED_ITS ---
HPI - General Adult General Chief complaint: Dyspnea Stated complaint: wheezing, coming from SNF Time Seen by Provider: 01/17/23 19:20 Source: patient Mode of arrival: ambulatory Limitations: no limitations History of Present Illness HPI narrative: Patient 82 years of history of tobacco dependency is UTI sepsis lung nodule chronic respiratory failure chronic renal disease hypertension came from [facility] for increased lethargic low-grade fever and weakness on arrival patient temperature was 101.7 degrees saturating 95% on 3 L. patient also complaining of falling from the wheelchair earlier today hitting her head to the ground Related Data Home Medications Medication Instructions Recorded Confirmed dextran 70-hypromellose eye drops 1 drp ophthalmic (eye) BID 07/11/20 01/17/23 in a dropperette (Artificial Tears (PF) drops in a dropperette) Oxygen Home Use 08/19/22 divalproex 125 mg tablet,delayed 125 mg PO BID 08/19/22 01/17/23 release (Depakote) nebulizers 08/19/22 acetaminophen 500 mg tablet 1,000 mg PO TID 01/17/23 01/17/23 sertraline 25 mg tablet 25 mg PO DAILY 01/17/23 01/17/23 Previous Rx's Medication Instructions Recorded ipratropium 0.5 mg-albuterol 3 mg 3 ml inhalation RQ4H WHILE AWAKE 08/06/22 (2.5 mg base)/3 mL nebulization PRN shortness of breath/wheeze #30 soln ea fluticasone fur. 100 mcg-umeclid 1 inh inhalation DAILY 30 days #60 09/23/22 62.5 mcg-vilant 25 mcg ea inhalat.powder (Trelegy Ellipta) cefuroxime axetil 250 mg tablet 250 mg PO BID 7 days #14 tabs 01/18/23 Allergies Allergy/AdvReac Type Severity Reaction Status Date / Time No Known Allergies Allergy Verified 11/02/22 14:05 Review of Systems Review of Systems: Yes Unobtainable due to mental status PMFSH Past Medical History Medical History Anxiety Chronic respiratory failure CKD (chronic kidney disease) COPD (chronic obstructive pulmonary disease) Dementia Depression Diastolic dysfunction Hiatal hernia HTN (hypertension) Hyperlipidemia Insomnia Lymphadenopathy, mediastinal RENETTA (obstructive sleep apnea) Pulmonary embolism Pulmonary nodule PVD (peripheral vascular disease) Surgical History Hx of tonsillectomy Social History Social History Household Members: None Housing: Assisted Living Facility Housing Other:: [facility] Do you presently have visiting nurse or other home services: No Alcohol intake: never Patient Tobacco Use Status: Former Tobacco user Quit Date: 2019 Tobacco use type: Cigarette Cigarette Packs Per Day: 1 Cigarettes Per Day: 20.0 Years Smoked: 68 e-Cigarette/Vaping Use: Never Used Second Hand Smoke Exposure: No Substance Use Type: Caffiene Advance Directives: Yes Advance Directives on File: Yes Advance Directives Date on File: 07/15/20 service: No Current occupational status: retired Physical Exam ED Vital Signs: Vital Signs - 24 hr 01/17/23 19:21 01/17/23 19:43 01/17/23 20:25 Temperature 98.4 F 101.7 F H Pulse Rate 95 89 Respiratory Rate 18 19 Blood Pressure 157/84 H Pulse Oximetry 96 Oxygen Delivery Method Nasal Cannula Oxygen Flow Rate 01/17/23 21:52 01/17/23 23:10 Temperature 100.6 F H 98.3 F Pulse Rate 80 82 Respiratory Rate 22 H 22 H Blood Pressure 140/73 H 129/61 Pulse Oximetry 97 Oxygen Delivery Method Nasal Cannula Oxygen Flow Rate 3 BMI result Body Mass Index 27.0 Appearance: Alert. Oriented X2-3. No acute distress. Eyes: PERRLA, No Nystagmus ENT: Pharynx normal. Oral Mucosa moist atraumatic normocephalic Neck: Normal inspection. Neck supple. No midline tenderness CVS: Normal heart rate and rhythm. Pulses normal. Respiratory: No respiratory distress. Prolonged expiration Equal air entry bilateral, no wheezing/rales/rhonchi Abdomen: Soft and nontender. Bowel sounds are present, no mass palpable, no CVA tenderness Skin: Skin warm and dry. Normal skin color. Normal skin turgor. Extremities: No lower extremity edema. No calf tenderness Neuro: Oriented X2- 3. Medications Administered Discontinued Medications Generic Name Dose Route Start Last Admin Trade Name Freq PRN Reason Stop Dose Admin Acetaminophen 650 mg 01/17/23 19:56 01/17/23 20:52 Acetaminophen 325 Mg Tablet PO 01/17/23 19:57 650 mg ONCE ONE Administration Albuterol Sulfate 5 mg 01/17/23 19:52 01/17/23 20:22 Albuterol Sulfate (0.083%) 2.5 Mg/3 Ml Vial.Neb INHALE 01/17/23 19:53 5 mg ONCE ONE Administration Albuterol/Ipratropium 3 ml 01/17/23 19:52 01/17/23 20:22 Albuterol/Iprat 2.5/0.5mg 3 Ml Ampul.Neb INHALE 01/17/23 19:53 3 ml ONCE ONE Administration Ceftriaxone Sodium 1 gm/ 50 mls @ 100 mls/hr 01/17/23 22:31 01/17/23 23:46 Sodium Chloride IV 01/17/23 23:00 Infused ONCE ONE Infusion Medical Decision Making Medical Decision Making [facility] Narrative: Patient has cloudy urine with slight confusion from [facility] head CT was negative labs are stable we will start patient on Ceftin Differential Diagnosis Differential Diagnoses: The differential diagnosis associated with the presentation includes COPD exacerbation/metabolic encephalopathy/UTI Admission/Observation Consideration of admission/observation: Escalation of care including admission/observation considered Consult Healthcare Provider Management of the patient was discussed with: Hospitalist Lab Data [facility] Lab Attestation statement: I reviewed the patient's lab results. 01/17/23 21:18 01/17/23 21:18 Labs: Lab Results 01/17/23 01/17/23 01/17/23 Range/Units 21:17 21:17 21:18 WBC 11.4 H (4.8-10.8) X10*3/uL RBC 3.64 L (4.20-5.50) X10*6/uL Hgb 11.4 L (12.0-16.0) g/dl Hct 35.4 L (37.0-47.0) % MCV 97.3 (80.0-98.0) fL MCH 31.3 (27.0-33.0) pg MCHC 32.2 (31.0-35.0) g/dl RDW 14.1 (11.0-16.0) % Plt Count 224 D (160-400) X10*3/uL MPV 9.1 L (9.4-12.3) fL Immature Gran % (Auto) 0.5 H (0.0-0.4) % Neut % (Auto) 66.0 (45-73) % Lymph % (Auto) 23.9 (20-40) % Bell % (Auto) 8.8 (2-11) % Eos % (Auto) 0.4 (0-4) % Baso % (Auto) 0.4 (0-2) % Lymph # (Auto) 2.7 (1.2-4.9) X10*3/uL Bell # (Auto) 1.0 (0.1-1.2) X10*3/uL Eos # (Auto) 0.1 (0.0-0.4) X10*3/uL Baso # (Auto) 0.1 (0.0-0.2) X10*3/uL Abs Immat Gran (auto) 0.06 H (0.00-0.03) X10*3/uL Absolute Neuts (auto) 7.5 (2.0-8.3) x10*3/uL Absolute Nucleated RBC 0.000 (0.0-0.012) X10*3/uL Nucleated RBC % (auto) 0.0 (0.0-0.2) /100WBC PT 11.7 (11.1-13.3) SEC INR 1.0 (0.9-1.1) Sodium (135-145) mmol/L Potassium (3.3-5.1) mmol/L Chloride (96-108) mmol/L Carbon Dioxide (22-29) mmol/L Anion Gap (12-20) BUN (9-16) mg/dL Creatinine (0.5-1.4) mg/dL Estim Creat Clear Calc Estimated GFR Random Glucose (60-115) mg/dL Lactic Acid (0.5-2.0) mmol/L Lactic Acid F/U @ 2Hr (0.5-2.0) mmol/L Calcium (8.4-10.2) mg/dL Total Bilirubin (0.0-1.0) mg/dL AST (5-31) U/L ALT (0-31) U/L Alkaline Phosphatase (39-117) U/L B-Natriuretic Peptide (<100) pg/mL Total Protein (6.5-8.0) g/dL Albumin (3.5-5.0) g/dL Urine Color Urine Appearance Urine pH (5.0-9.0) Ur Specific [place] (1.005-1.025) Urine Protein (Neg-Trace) mg/dL Urine Glucose (UA) (Negative) mg/dL Urine Ketones (Negative) mg/dL Urine Blood (Negative) Urine Nitrite (Negative) Ur Leukocyte Esterase (Negative) Urine RBC (0-2) /HPF Urine WBC (0-5) /HPF Ur Squamous Epith Cells (0-2) /HPF Urine Bacteria (None Seen) Hyaline Casts (0-2) /LPF COVID-19 (ALEXANDER) Negative (Negative) COVID-19 Clin Com See Note 01/17/23 01/17/23 01/17/23 Range/Units 21:18 21:18 21:18 WBC (4.8-10.8) X10*3/uL RBC (4.20-5.50) X10*6/uL Hgb (12.0-16.0) g/dl Hct (37.0-47.0) % MCV (80.0-98.0) fL MCH (27.0-33.0) pg MCHC (31.0-35.0) g/dl RDW (11.0-16.0) % Plt Count (160-400) X10*3/uL MPV (9.4-12.3) fL Immature Gran % (Auto) (0.0-0.4) % Neut % (Auto) (45-73) % Lymph % (Auto) (20-40) % Bell % (Auto) (2-11) % Eos % (Auto) (0-4) % Baso % (Auto) (0-2) % Lymph # (Auto) (1.2-4.9) X10*3/uL Bell # (Auto) (0.1-1.2) X10*3/uL Eos # (Auto) (0.0-0.4) X10*3/uL Baso # (Auto) (0.0-0.2) X10*3/uL Abs Immat Gran (auto) (0.00-0.03) X10*3/uL Absolute Neuts (auto) (2.0-8.3) x10*3/uL Absolute Nucleated RBC (0.0-0.012) X10*3/uL Nucleated RBC % (auto) (0.0-0.2) /100WBC PT (11.1-13.3) SEC INR (0.9-1.1) Sodium 141 (135-145) mmol/L Potassium 3.6 (3.3-5.1) mmol/L Chloride 108 (96-108) mmol/L Carbon Dioxide 22 (22-29) mmol/L Anion Gap 15 (12-20) BUN 18 H (9-16) mg/dL Creatinine 1.09 (0.5-1.4) mg/dL Estim Creat Clear Calc 40.0 Estimated GFR 48 Random Glucose 148 H (60-115) mg/dL Lactic Acid 2.3 H* (0.5-2.0) mmol/L Lactic Acid F/U @ 2Hr (0.5-2.0) mmol/L Calcium 8.5 (8.4-10.2) mg/dL Total Bilirubin 0.4 (0.0-1.0) mg/dL AST 14 (5-31) U/L ALT 9 (0-31) U/L Alkaline Phosphatase 85 (39-117) U/L B-Natriuretic Peptide 127 H (<100) pg/mL Total Protein 6.9 (6.5-8.0) g/dL Albumin 3.5 (3.5-5.0) g/dL Urine Color Urine Appearance Urine pH (5.0-9.0) Ur Specific [place] (1.005-1.025) Urine Protein (Neg-Trace) mg/dL Urine Glucose (UA) (Negative) mg/dL Urine Ketones (Negative) mg/dL Urine Blood (Negative) Urine Nitrite (Negative) Ur Leukocyte Esterase (Negative) Urine RBC (0-2) /HPF Urine WBC (0-5) /HPF Ur Squamous Epith Cells (0-2) /HPF Urine Bacteria (None Seen) Hyaline Casts (0-2) /LPF COVID-19 (ALEXANDER) (Negative) COVID-19 Clin Com 01/18/23 01/18/23 Range/Units 00:31 01:38 WBC (4.8-10.8) X10*3/uL RBC (4.20-5.50) X10*6/uL Hgb (12.0-16.0) g/dl Hct (37.0-47.0) % MCV (80.0-98.0) fL MCH (27.0-33.0) pg MCHC (31.0-35.0) g/dl RDW (11.0-16.0) % Plt Count (160-400) X10*3/uL MPV (9.4-12.3) fL Immature Gran % (Auto) (0.0-0.4) % Neut % (Auto) (45-73) % Lymph % (Auto) (20-40) % Bell % (Auto) (2-11) % Eos % (Auto) (0-4) % Baso % (Auto) (0-2) % Lymph # (Auto) (1.2-4.9) X10*3/uL Bell # (Auto) (0.1-1.2) X10*3/uL Eos # (Auto) (0.0-0.4) X10*3/uL Baso # (Auto) (0.0-0.2) X10*3/uL Abs Immat Gran (auto) (0.00-0.03) X10*3/uL Absolute Neuts (auto) (2.0-8.3) x10*3/uL Absolute Nucleated RBC (0.0-0.012) X10*3/uL Nucleated RBC % (auto) (0.0-0.2) /100WBC PT (11.1-13.3) SEC INR (0.9-1.1) Sodium (135-145) mmol/L Potassium (3.3-5.1) mmol/L Chloride (96-108) mmol/L Carbon Dioxide (22-29) mmol/L Anion Gap (12-20) BUN (9-16) mg/dL Creatinine (0.5-1.4) mg/dL Estim Creat Clear Calc Estimated GFR Random Glucose (60-115) mg/dL Lactic Acid (0.5-2.0) mmol/L Lactic Acid F/U @ 2Hr 1.7 (0.5-2.0) mmol/L Calcium (8.4-10.2) mg/dL Total Bilirubin (0.0-1.0) mg/dL AST (5-31) U/L ALT (0-31) U/L Alkaline Phosphatase (39-117) U/L B-Natriuretic Peptide (<100) pg/mL Total Protein (6.5-8.0) g/dL Albumin (3.5-5.0) g/dL Urine Color Yellow Urine Appearance Turbid Urine pH 5.5 (5.0-9.0) Ur Specific [place] 1.025 (1.005-1.025) Urine Protein 100 (2+) H (Neg-Trace) mg/dL Urine Glucose (UA) Negative (Negative) mg/dL Urine Ketones Trace (Negative) mg/dL Urine Blood Small (1+) H (Negative) Urine Nitrite Negative (Negative) Ur Leukocyte Esterase Moderate (2+) H (Negative) Urine RBC 3-5 H (0-2) /HPF Urine WBC >50 (0-5) /HPF Ur Squamous Epith Cells 6-10 (0-2) /HPF Urine Bacteria 1+ (None Seen) Hyaline Casts 0-2 (0-2) /LPF COVID-19 (ALEXANDER) (Negative) COVID-19 Clin Com Radiology Impression Discussion of test interpretation with radiology: I have reviewed the radiologist's reading. Radiologist Impression: CT/CT head/brain wo IV con IMPRESSION: ? No acute intracranial abnormality including hemorrhage, mass effect, hydrocephalus, or acute territorial edematous infarction. Discharge Plan Discharge Clinical Impression: COPD (chronic obstructive pulmonary disease), Acute UTI Patient Disposition: Xfer SNF Transfer Details: Patient had CT was negative for acute workup showed UTI as might be the cause for metabolic encephalopathy and confusion and weakness patient received IV Rocephin in the ER will discharge patient home on Ceftin 250 mg twice Daily Instructions: Urinary Tract Infection in Women (DC), COPD (Chronic Obstructive Pulmonary Disease) (ED) Additional Instructions: Drink plenty of fluids Take medicine as prescribed for urinary tract infection Prescriptions: New cefuroxime axetil 250 mg tablet 250 mg PO BID 7 Days Qty: 14 0RF No Action Artificial Tears (PF) Dropperette 1 drp OPHTHALMIC (EYE) BID ipratropium-albuterol 0.5 mg-3 mg(2.5 mg base)/3 mL Solution For Nebulization 3 ml inhalation RQ4H WHILE AWAKE PRN (Reason: shortness of breath/wheeze) Qty: 30 0RF acetaminophen 500 mg Tablet 1,000 mg PO TID sertraline 25 mg tablet 25 mg PO DAILY (DME) nebulizers Misc See Rx Instructions .ROUTE Rx Instructions: As directed (DME) Oxygen Home Use Kit See Rx Instructions .ROUTE Rx Instructions: As directed divalproex [Depakote] 125 mg tablet,delayed release (DR/EC) 125 mg PO BID Trelegy Ellipta 100-62.5-25 mcg blister with device 1 inh inhalation DAILY 30 Days Qty: 60 11RF
[2023-01-17 19:43] VITALS: TEMP 38.7
--- NOTE | 2023-01-17 19:50 | ECG_ITS ---
Test Reason : DYSPNEA Blood Pressure : / mmHG Vent. Rate : 089 BPM Atrial Rate : 089 BPM P-R Int : 166 ms QRS Dur : 080 ms QT Int : 398 ms P-R-T Axes : 032 028 056 degrees QTc Int : 484 ms Normal sinus rhythm Normal ECG When compared with ECG of 14-AUG-2020 13:01, No significant change was found Referred By: Jorden Cardenas Electronically Signed By:FRANCI ROME
[2023-01-17] MEDS: Albuterol Sulfate (0.083%) 2.5 MG/3 ML VIAL.NEB 5 MG INHALE (20:22)
[2023-01-17] MEDS: Albuterol/Iprat 2.5/0.5MG 3 ML AMPUL.NEB INHALE (20:22)
[2023-01-17 20:25] VITALS: PULSE 89; RESP 19; O2SAT 96
[2023-01-17] MEDS: Acetaminophen 325 MG TABLET 650 MG PO (20:52)
--- NOTE | 2023-01-17 21:09 | PHA.MEDREC ---
Pharmacy Consult ? Medication Reconciliation Pharmacy has completed the medication reconciliation. Patient came from [facility] with med list. Lizeth Díaz, JulissaD
[2023-01-17 21:29] LABS: MANUAL DIFF FLAG NO
[2023-01-17 21:32] LABS: Basophils Absolute Auto 0.1 X10*3/uL (0.0-0.2); Basophils Percent Auto 0.4 % (0-2); Eosinophils Absolute Auto 0.1 X10*3/uL (0.0-0.4); Eosinophils Percent Auto 0.4 % (0-4); Hematocrit 35.4 % (37.0-47.0); Hemoglobin 11.4 g/dl (12.0-16.0); Imm Gran Abs Auto 0.06 X10*3/uL (0.00-0.03); Imm Gran Pct Auto 0.5 % (0.0-0.4); Lymphocytes Absolute Auto 2.7 X10*3/uL (1.2-4.9); Lymphocytes Percent Auto 23.9 % (20-40); Mean Corpuscular HGB Conc 32.2 g/dl (31.0-35.0); Mean Corpuscular Hemoglobin 31.3 pg (27.0-33.0); Mean Corpuscular Volume 97.3 fL (80.0-98.0); Mean Platelet Volume 9.1 fL (9.4-12.3); Monocytes Percent Auto 8.8 % (2-11); Neutrophils Absolute Auto 7.5 x10*3/uL (2.0-8.3); Platelet Count 224 X10*3/uL (160-400); Red Blood Count 3.64 X10*6/uL (4.20-5.50); Red Cell Distribution Width 14.1 % (11.0-16.0); White Blood Count 11.4 X10*3/uL (4.8-10.8)
[2023-01-17 21:43] LABS: COVID-19 Test Negative (Negative); IDNOW Serial# 6674DD1D
[2023-01-17 21:45] LABS: Lactic Acid 2.3 mmol/L (0.5-2.0)
[2023-01-17 21:48] LABS: Alanine Aminotransferase 9 U/L (0-31); Albumin Level 3.5 g/dL (3.5-5.0); Alkaline Phosphatase 85 U/L (39-117); Anion Gap 15 (12-20); Aspartate Amino Transferase 14 U/L (5-31); Bilirubin Total 0.4 mg/dL (0.0-1.0); Blood Urea Nitrogen 18 mg/dL (9-16); Calcium 8.5 mg/dL (8.4-10.2); Carbon Dioxide 22 mmol/L (22-29); Chloride 108 mmol/L (96-108); Estimated Glomerular Filt Rate 48; Glucose Random 148 mg/dL (60-115); Potassium 3.6 mmol/L (3.3-5.1); Sodium 141 mmol/L (135-145); Total Protein 6.9 g/dL (6.5-8.0)
[2023-01-17 21:52] VITALS: BP 140/73; PULSE 80; RESP 22; TEMP 38.1
[2023-01-17 21:52] LABS: Prothrombin Time 11.7 SEC (11.1-13.3)
[2023-01-17 21:54] LABS: B Type Natriuretic Peptide 127 pg/mL (<100)
[2023-01-17] MEDS: cefTRIAXone sodium 1 GM in 0.9 % Sodium Chloride 50 ML IV (22:57)
--- NOTE | 2023-01-17 23:07 | MHC.EDTECH ---
TOOK OVER HEARING DOG TRAINER AT 2300
[2023-01-17 23:10] VITALS: BP 129/61; PULSE 82; RESP 22; TEMP 36.8; O2SAT 97
[2023-01-17 23:27] LABS: Reflex Lactate? Lactic Acid Added
[2023-01-18] VITALS: BP 106/55; PULSE 73; RESP 19
[2023-01-18 00:46] LABS: ~Lactic Acid-LAB USE ONLY 1.7 mmol/L (0.5-2.0)
--- NOTE | 2023-01-18 01:38 | PC.NURSE ---
late entry: pt a&Ox2, denies pain, BIBA from for SOB. Pt denies SOB, SpO2 96 NC 4L of her baseline. RR 18, speaking in full sentences. Lung sounds clear. No apparent distress noted. Pt febrile. IV line placed, blood work collected and sent to the lab. Pt straight cathed for urine sample, urine sent to lab, Pt tolerated well. Pt has a dressing to left lower leg, skin is intact, warm and dry. Pt incontinent of urine, incontinent care provided. Pt repositioned.
[2023-01-18 01:43] LABS: Appearance Urine Turbid; Color Urine Yellow; Glucose Urine UA Negative (Negative); Leukocyte Esterase Urine Moderate (2+) (Negative); Nitrite Urine Negative (Negative); PH 5.5 (5.0-9.0); Specific Gravity - Urine 1.025 (1.005-1.025); UMIC TRIGGER UACC YES; Urine Blood Small (1+) (Negative); Urine Ketones Trace mg/dL (Negative); Urine Protein 100 (2+) mg/dL (Neg-Trace)
[2023-01-18 01:56] LABS: Bacteria Urine 1+ (None Seen); Hyaline Casts Urine 0-2 /LPF (0-2); UACC Culture Trigger YES; WBC Urine >50 /HPF (0-5)
[2023-01-18 02:11] VITALS: BP 118/57; PULSE 70; RESP 18; TEMP 37.2
--- NOTE | 2023-01-18 02:18 | MHC.EDTECH ---
call out to [facility] at 0218 to book transport for pt back to SNF, estimated eta given was [phone]
--- NOTE | 2023-01-18 03:49 | PC.NURSE ---
attempted to give nurse to nurse report for pt returning to [facility], no answer.
== END 2023-01-18 03:46 | disposition skilled nursing facility (03) ==
PROVIDERS: Emergency Provider Internal Medicine; PCP Emergency Medicine
DX: J44.9 Chronic obstructive pulmonary disease, unspecified (principal); N39.0 Urinary tract infection, site not specified; B96.89 Other specified bacterial agents as the cause of diseases classified elsewhere; R06.00 Dyspnea, unspecified; R50.9 Fever, unspecified; Z20.822 Contact with and (suspected) exposure to COVID-19; I12.9 Hypertensive chronic kidney disease with stage 1 through stage 4 chronic kidney disease, or unspecified chronic kidney disease; N18.9 Chronic kidney disease, unspecified; Z87.891 Personal history of nicotine dependence; Z79.899 Other long term (current) drug therapy
CPT/HCPCS: 36415; 70450; 71045; 80053; 81001; 83605; 83880; 85025; 85610; 87040; 87086; 87088; 87186; 87635; 93005; 94640; 96365; 99284; 99285; J0696

== ENCOUNTER → 2023-01-17 19:50 | Outpatient (BNV) | payer MEDICARE, MEDICAID, SELFPAY | PROVIDERS: Emergency Provider Internal Medicine; PCP Emergency Medicine; Visit Provider Internal Medicine | DX: R06.00 Dyspnea, unspecified (principal) | CPT/HCPCS: 93010 ==

== ENCOUNTER 2023-03-09 08:39 | Outpatient (AMB) | payer MEDICARE, MEDICAID, SELFPAY ==
--- NOTE | 2023-03-09 08:46 | A.OFFVIS_ITS ---
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 There she had a CT scan of the abdomen that was abnormal and subsequently had a CT scan of the chest. Found to have a 2 cm right-sided spiculated pulmonary nodule which is concerning in nature for malignant process. She also evidence mediastinal lymphadenopathy. She is here for follow-up visit. Clinically patient is doing okay. She does have intermittent cough. Denies any hemoptysis. Her weight has been slowly going down. Her appetite has been good. View of her other comorbidities the best way to further address this pulmonary nodule will be to perform a PET scan. Indeed we will be looking for metastatic disease and potential sites for tissue biopsy which will provide the best yield for diagnosis. Ideally both with diagnostic and staging purposes. The patient does use oxygen with activity and sleep. She also has nebulized therapy. She will continue all these therapies for now. Will follow-up after her PET scan and PFTs. 09/23/2022 the patient is here for a pulmo nary follow-up visit. Overall she is feeling better from a respiratory status. She is coughing some. She has been congested now for couple weeks. Denies any fevers or chills denies any ple uritic discomfort. She denies any wheezing. She does use the oxygen with good effect. She did undergo her pulmonary function studies which we personally reviewed demonstrating very severe COPD also moderate restriction in a very severe diffusion impairment. Explained to the patient and also her [id number] that in view of the very limited respiratory capacity will be very difficult to do any diagnostic interventions for this right upper lobe pulmonary nodule. Explained to them the pulmonary nodules concerning. She was supposed to have a PET scan. I will make sure that she can have it done soon and I will call the patient with the results. Although I am concerned that even considering a CT-guided biopsy of this nodule will be considered high risk with very limited respiratory capacity. The patient also has significant COPD. She benefits from a more reliable respiratory regimen. Therefore will start her on Trelegy inhaler which she will use once a day. 03/09/2023 the patient is here for a pulm onary follow-up visit. Overall the patient has been doing well. She is tolerating the Trelegy inhaler. Initially she had a reaction but then improved. Id likely related to technique. Overall her breathing feels better. She does have abdominal discomfort at times. The patient did have a CT scan of the chest in December which we personally reviewed in the office. Appears that the spiculated concerning right upper lobe nodular density is stable if not a little smaller. Although is regular in dimensions so difficult heart to measuring compare. She also has some lymphadenopathy which could be related to the masslike density. In addition to that she does have a hiatal hernia that I explained to them that can be causing some abdominal discomfort. The patient is to maintain on reflux diet and make sure she is sleeping elevated. Based on the fact that the nodule has not significantly changed we can go ahead and repeat the CT scan in 6 months [address] the last CT scan. If the patient however develops any worsening symptoms or any concerning symptoms she is to call for us to evaluate sooner. A patient will return after her CT scan will review the CT scan at that point. [facility] Medical History Anxiety Chronic respiratory failure CKD (chronic kidney disease) COPD (chronic obstructive pulmonary disease) Dementia Depression Diastolic dysfunction Hiatal hernia HTN (hypertension) Hyperlipidemia Insomnia Lymphadenopathy, mediastinal RENETTA (obstructive sleep apnea) Pulmonary embolism Pulmonary nodule PVD (peripheral vascular disease) Surgical History Hx of tonsillectomy Social History Household Members: None Housing: Assisted Living Facility Housing Other:: [place] Do you presently have visiting nurse or other home services: No Alcohol intake: never Patient Tobacco Use Status: Former Tobacco user Quit Date: 2019 Tobacco use type: Cigarette Cigarette Packs Per Day: 1 Cigarettes Per Day: 20.0 Years Smoked: 68 e-Cigarette/Vaping Use: Never Used Second Hand Smoke Exposure: No Substance Use Type: Caffiene Advance Directives Date on File: 07/15/20 service: No Current occupational status: retired Review of Systems Const Reports fatigue and Denies poor appetite Eyes Denies change in vision ENT Denies nasal congestion Card Denies chest pain and Reports dyspnea on exertion Resp Reports chest congestion, Reports cough, Denies hemoptysis and Reports dyspnea on exertion GI Reports no additional complaints Skin/Breast Denies rash Neuro Reports no additional complaints and Reports Neuro-related abnormal movements Psych Reports no additional complaints Endo Reports fatigue Robbin/Lymph Denies easy bleeding and Denies easy bruising Physical Exam Vital Signs: Last Vital Signs Pulse 75 03/09/23 08:47 Pulse Ox 97 03/09/23 08:47 Oxygen Delivery Method Room Air 03/09/23 08:47 BMI result Body Mass Index 27.5 Last Vital Signs Temp 97.5 F 08/04/22 07:27 Pulse 89 08/04/22 08:11 Resp 20 08/04/22 08:11 BP 146/73 H 08/04/22 07:27 Pulse Ox 94 08/04/22 07:27 O2 Del Method 08/04/22 07:27 O2 Flow Rate 2 08/04/22 07:27 Oxygen Flow Rate 2 08/03/22 09:51 BMI result Body Mass Index 26.8 Const General: cooperative and comfortable Orientation/consciousness: oriented to person, oriented to place and oriented to time HEENT Head: Yes atraumatic Neck Neck: Yes supple Chest Chest palpation & inspection: normal inspection of the chest Resp Effort & Inspection: normal respiratory effort and able to speak in complete sentences Auscultation: diminished lung sounds Cardio Heart sounds: S1 normal heart sound present and S2 normal heart sound present GI Palpation (GI): Soft to palpation and nontender Auscultation: normal bowel sounds Neuro General: oriented to person, oriented to place and oriented to time Extrem General: Yes no clubbing, cyanosis or edema Assessment & Plan Assessment & Plan (1) Pulmonary nodule: Code(s): R91.1 - Solitary pulmonary nodule (2) Lymphadenopathy, mediastinal: Code(s): R59.0 - Localized enlarged lymph nodes (3) Chronic respiratory failure: Code(s): J96.10 - Chronic respiratory failure, unspecified whether with hypoxia or hypercapnia Qualifiers: Respiratory failure complication: hypoxia Qualified Code(s): J96.11 - Chronic respiratory failure with hypoxia (4) COPD (chronic obstructive pulmonary disease): Code(s): J44.9 - Chronic obstructive pulmonary disease, unspecified Qualifiers: COPD type: chronic bronchitis Chronic bronchitis type: simple Qualified Code(s): J41.0 - Simple chronic bronchitis Plan Repeat CT chest in 4 months (6 months from the last study) continue Trelegy inhaler daily continue with respiratory therapy as prescribed F/U 4 months Orders: Orders CT chest wo IV con 4 Months R91.1 - Solitary pulmonary nodule Coding Level of Care Code Est Pt Level 4 (93573) Diagnoses Pulmonary nodule R91.1 Lymphadenopathy, mediastinal R59.0 Chronic respiratory failure with hypoxia J96.11 Respiratory failure complication: hypoxia Simple chronic bronchitis J41.0 COPD type: chronic bronchitis Chronic bronchitis type: simple Time Spent (min) 17
[2023-03-09 08:47] VITALS: PULSE 75; O2SAT 97; BMI 27.5
== END 2023-03-09 09:17 | disposition home or self-care (01) ==
PROVIDERS: PCP Emergency Medicine; Visit Provider Hospitalist
DX: R91.1 Solitary pulmonary nodule (principal); R59.0 Localized enlarged lymph nodes; J96.11 Chronic respiratory failure with hypoxia; J41.0 Simple chronic bronchitis
CPT/HCPCS: 99214

== ENCOUNTER → 2023-03-09 08:39 | Outpatient (BNVA) | payer MEDICARE, MEDICAID, SELFPAY | PROVIDERS: PCP Emergency Medicine; Visit Provider Hospitalist | DX: J96.11 Chronic respiratory failure with hypoxia (principal); J41.0 Simple chronic bronchitis; R91.1 Solitary pulmonary nodule; R59.0 Localized enlarged lymph nodes | CPT/HCPCS: 99212 ==

== ENCOUNTER 2023-04-05 15:02 | Inpatient (IN) | payer MEDICARE, MEDICAID, SELFPAY ==
--- NOTE | ~2023-04-05 | CT_ITS ---
EXAMINATION: CT CHEST WITHOUT CONTRAST CLINICAL INFORMATION: COPD with fever COMPARISON: Chest radiograph earlier today, CT chest 01/05/2023 TECHNIQUE: Multidetector volumetric CT imaging of the chest was done. Axial MIP volume rendering provided. Sagittal and coronal reformatted images were obtained. This CT examination was performed using dose optimization techniques as appropriate, variously including the following: *Automated exposure control *Adjustment of mA and/or kV according to patient size (this includes techniques or standardized protocols for targeted exams where dose is matched to indication/reason for exam; i.e. extremities or head) *Use of iterative reconstruction technique DLP: 269 mGy-cm FINDINGS: LUNGS: A spiculated mass is present at the right apex which appears without significant change measuring about 2.6 x 1.7 cm. Some other small sub-5 mm nodules are seen that are unchanged. MEDIASTINUM: Again seen is a large hiatal hernia which contains the entire stomach as well as a portion of transverse colon. The hernia produces some mass effect on the mediastinum shifting the heart to the right. CORONARY ARTERY CALCIFICATION: Minimal PLEURA: There is no pleural effusion. No pleural mass or thickening. AXILLA: No lymphadenopathy. UPPER ABDOMEN: See hernia described above. Glands appear unremarkable. There is decreased attenuation of the liver compared with the spleen suggesting steatosis. OSSEOUS STRUCTURES: Degenerative changes are noted throughout the spine. CT/CT chest wo IV con IMPRESSION: 1. Spiculated mass at the right apex is unchanged, but highly suspicious for malignancy. 2. Large hiatal hernia containing the entire stomach and a portion of transverse colon. 3. Hepatic steatosis. 4. Other incidental findings as described above. 5. A cause for the patient's fever has not been found. Fleischner guidelines were followed.
--- NOTE | ~2023-04-05 | XR_ITS ---
EXAMINATION: XR CHEST CLINICAL INFORMATION: SOB COMPARISON: None available. TECHNIQUE: Frontal view of the chest was obtained. FINDINGS: There is moderate elevation of left hemidiaphragm. The lungs are expanded and clear of acute pneumonic process. There is likely left basilar atelectasis. Heart size enlarged. There is a large air-fluid level in the retrocardiac region likely hiatal hernia. Pulmonary vascularity is normal. No gross bony abnormalities seen. XR/XR chest 1V IMPRESSION: Cardiomegaly. Large hiatal hernia. Elevated left hemidiaphragm with likely left basilar atelectasis were.
--- NOTE | 2023-04-05 15:14 | ED_ITS ---
HPI - General Adult General Chief complaint: General Medical Stated complaint: SHIVERING,LOW O2 SAT 91% ON 4LPM PER EMS Time Seen by Provider: 04/05/23 15:12 History of Present Illness HPI narrative: 82 y/o F patient; PMH COPD, pulmonary nodule 2cm right-sided (observing), CKD, HTN, RENETTA, hx nicotine use; presents from home via EMS with report of increased respiratory effort and hypoxia requiring supplemental O2. The patient states she has had increased dyspnea for the last several days. Associated with central chest pressure. Denies: nausea/vomiting, diarrhea, abdominal pain. EMS placed the patient on 4L O2 with improvement in SpO2 to 90%. Related Data Home Medications Medication Instructions Recorded Confirmed dextran 70-hypromellose eye drops 1 drp ophthalmic (eye) BID 07/11/20 01/17/23 in a dropperette (Artificial Tears (PF) drops in a dropperette) Oxygen Home Use 08/19/22 divalproex 125 mg tablet,delayed 125 mg PO BID 08/19/22 01/17/23 release (Depakote) nebulizers 08/19/22 acetaminophen 500 mg tablet 1,000 mg PO TID 01/17/23 01/17/23 sertraline 25 mg tablet 25 mg PO DAILY 01/17/23 01/17/23 bisacodyl 10 mg rectal suppository [address] DAILY PRN 03/09/23 dextromethorphan polistirex 30 10 ml PO Q12H 03/09/23 mg/5 mL oral susp ext.release 12hr (Robitussin ER) diphenhydramine HCl 25 mg tablet 25 mg PO BEDTIME PRN 03/09/23 (Benadryl Allergy) magnesium hydroxide 400 mg/5 mL 400 mg PO DAILY PRN 03/09/23 oral suspension (Milk of Magnesia) sodium phosphates 19 gram-[address] BEDTIME PRN 03/09/23 gram/118 mL enema (Fleet Enema) Previous Rx's Medication Instructions Recorded ipratropium 0.5 mg-albuterol 3 mg 3 ml inhalation RQ4H WHILE AWAKE 08/06/22 (2.5 mg base)/3 mL nebulization PRN shortness of breath/wheeze #30 soln ea fluticasone fur. 100 mcg-umeclid 1 inh inhalation DAILY 30 days #60 04/06/23 62.5 mcg-vilant 25 mcg ea inhalat.powder (Trelegy Ellipta) cefuroxime axetil 250 mg tablet 250 mg PO BID 7 days #14 tabs 01/18/23 Allergies Allergy/AdvReac Type Severity Reaction Status Date / Time cephalexin [From Keflex] Allergy Severe Rash Verified 03/09/23 08:50 sulfamethoxazole Allergy Severe Itching Verified 03/09/23 08:50 [From Bactrim] trimethoprim [From Bactrim] Allergy Severe Itching Verified 03/09/23 08:50 Review of Systems Review of Systems: Yes all other systems are reviewed and are negative Constitutional: Constitutional: Reports no additional constitutional complaints Neurologic: Denies Sensory deficit (Neuro) [facility] Past Medical History Attestation statement: The following information was validated with the patient. Source: old records reviewed Medical History Anxiety Chronic respiratory failure CKD (chronic kidney disease) COPD (chronic obstructive pulmonary disease) Dementia Depression Diastolic dysfunction Hiatal hernia HTN (hypertension) Hyperlipidemia Insomnia Lymphadenopathy, mediastinal RENETTA (obstructive sleep apnea) Pulmonary embolism Pulmonary nodule PVD (peripheral vascular disease) Surgical History Hx of tonsillectomy Social History Social History Household Members: None Housing: Assisted Living Facility Housing Other:: [facility] Do you presently have visiting nurse or other home services: No Alcohol intake: former Patient Tobacco Use Status: Former Tobacco user Quit Date: 2019 Tobacco use type: Cigarette Cigarette Packs Per Day: 1 Cigarettes Per Day: 20.0 Years Smoked: 68 Smoked in Last 30 Days: No e-Cigarette/Vaping Use: Never Used Second Hand Smoke Exposure: No Use of substances other than those prescribed or required for medical reasons: No Substance Use Type: Caffiene Advance Directives: Yes Advance Directives on File: Yes Advance Directives Date on File: 07/15/20 service: No Current occupational status: retired Physical Exam ED Vital Signs: Vital Signs - 24 hr 04/05/23 15:17 04/05/23 15:20 Pulse Rate 131 H 138 H Respiratory Rate 40 H 18 Blood Pressure 135/89 135/89 Pulse Oximetry 90 L 90 L Oxygen Delivery Method Room Air Nasal Cannula Nasal Cannula Oxygen Flow Rate 4 BMI result Body Mass Index 26.0 Patient is febrile to 102F, tachycardic, tachypnic, and hypoxic requiring 4L NC for SpO2 90%. Const General: cooperative HENMT Head: Yes normal to inspection and Yes atraumatic Eyes General: appearance normal, both eyes and all related structures Pupils: Equal, round and reactive pupils present and Pupil accommodation reflex normal EOM: EOMs intact bilaterally Chest Chest palpation & inspection: normal inspection of the chest and normal palpation of entire chest wall Resp Other: Tachypnic, without adventitious lung sounds. Able to speak in full sentences. Cardio Other: Tachycardia, regular rhythm Peripheral pulses: Peripheral pulses 2+ throughout GI Inspection: Yes normal to inspection Palpation (GI): Soft to palpation and nontender Auscultation: normal bowel sounds Neuro Cranial nerves: Yes Equal, round and reactive pupils present Cognition (Neuro): normal cognition Motor exam (neuro): 5/5 motor strength present throughout Sensory Exam: No Sensory deficit (Neuro) Course Course Course Narrative: Patient is febrile, tachycardic, tachypnic, hypoxic requiring 4L NC to maintain SpO2 >90%. CXR ordered. EKG ordered. Respiratory exam is notable for tachypnea without significant adventitious lung sounds. In the setting of significant tachycardia, hypoxia, and tachypnea - without significant rhonchi or wheezing on exam - will order CTA Chest. Laboratory studies including VBG, LA, blood cultures, troponin ordered. ED bronchodilator protocol initiated. Provided dose of Solu-Medrol 125mg IV. Rectal temp by nursing consistent with fever. Suspect respiratory source. Patient denies abdominal complaints. Ordered for 30cc/kg IVF (total 2L IVF) and respiratory antibiotics (Azithromycin, Vancomycin, and Cefepime - ordered as patient has had IV antibiotics within the last 90 days - 01/17/2023). Plan: Transition care to oncoming ED physician pending diagnostic studies, re- evaluation, and disposition. Signed out at [address] Cardenas. Medications Administered Discontinued Medications Generic Name Dose Route Start Last Admin Trade Name Freq PRN Reason Stop Dose Admin Methylprednisolone Sodium Succinate 125 mg 04/05/23 15:28 04/05/23 15:51 Methylprednisolone Sod Succ 125 Mg/2 Ml Vial IVPUSH 04/05/23 15:29 125 mg ONCE ONE Administration Medical Decision Making Independent Interpretation I performed an independent interpretation of an: EKG Interpretation: ST 125BPM regular rate, appropriate intervals. Radiology Impression Discussion of test interpretation with radiology: I have reviewed the radiologist's reading. Discharge Plan Discharge Clinical Impression: Hypoxia, Dyspnea Patient Disposition: Still a Patient Prescriptions: No Action Artificial Tears (PF) Dropperette 1 drp OPHTHALMIC (EYE) BID ipratropium-albuterol 0.5 mg-3 mg(2.5 mg base)/3 mL Solution For Nebulization 3 ml inhalation RQ4H WHILE AWAKE PRN (Reason: shortness of breath/wheeze) Qty: 30 0RF acetaminophen 500 mg Tablet 1,000 mg PO TID sertraline 25 mg tablet 25 mg PO DAILY cefuroxime axetil 250 mg tablet 250 mg PO BID 7 Days Qty: 14 0RF (DME) nebulizers Misc See Rx Instructions .ROUTE Rx Instructions: As directed (DME) Oxygen Home Use Kit See Rx Instructions .ROUTE Rx Instructions: As directed divalproex [Depakote] 125 mg tablet,delayed release (DR/EC) 125 mg PO BID Trelegy Ellipta 100-62.5-25 mcg blister with device 1 inh inhalation DAILY 30 Days Qty: 60 11RF diphenhydramine HCl [Benadryl Allergy] 25 mg tablet 25 mg PO BEDTIME PRN dextromethorphan polistirex [Robitussin ER] 30 mg/5 mL suspension,extended rel 12 hr 10 ml PO Q12H bisacodyl 10 mg suppository [address] DAILY PRN Fleet Enema 19-7 gram/118 mL enema [address] BEDTIME PRN magnesium hydroxide [Milk of Magnesia] 400 mg/5 mL suspension 400 mg PO DAILY PRN
[2023-04-05 15:17] VITALS: BP 135/89; PULSE 131; RESP 40; O2SAT 90
[2023-04-05 15:20] VITALS: BP 135/89; BP 155/85; PULSE 130; PULSE 138; RESP 18; O2SAT 90; BMI 26.0
--- NOTE | 2023-04-05 15:21 | ECG_ITS ---
Test Reason : TACHYCARDIA Blood Pressure : / mmHG Vent. Rate : 125 BPM Atrial Rate : 125 BPM P-R Int : 130 ms QRS Dur : 068 ms QT Int : 314 ms P-R-T Axes : 041 023 112 degrees QTc Int : 453 ms Sinus tachycardia with occasional Premature atrial complexes Nonspecific ST abnormality Abnormal ECG When compared with ECG of 17-JAN-2023 22:46, Heart rate has increased Premature atrial complexes are new Referred By: Fani Singh Electronically Signed By:ADILENE OBREGON MD
--- NOTE | 2023-04-05 15:23 | PC.NURSE ---
Patient arrived via ems from [facility]. Per ems staff reported patient stoof up after lunch and was shaking. When vitals wee obtained 02 sats in low 90s. 02 was placed at 5 liters but stayed in lows 90`s. Patient alert and oriented, denies pain. States difficulty breathing. Patient with increased work of breath, sinus tachy on monitor. 90% on 4 liters 02.
[2023-04-05] MEDS: methylPREDNISolone Sod Succ 125 MG/2 ML VIAL IVPUSH (15:51)
[2023-04-05 16:33] LABS: Basophils Absolute Auto 0.1 X10*3/uL (0.0-0.2); Basophils Percent Auto 0.6 % (0-2); Eosinophils Absolute Auto 0.2 X10*3/uL (0.0-0.4); Eosinophils Percent Auto 1.4 % (0-4); Hematocrit 42.2 % (37.0-47.0); Hemoglobin 13.4 g/dl (12.0-16.0); Imm Gran Abs Auto 0.07 X10*3/uL (0.00-0.03); Imm Gran Pct Auto 0.5 % (0.0-0.4); Lymphocytes Absolute Auto 1.4 X10*3/uL (1.2-4.9); Lymphocytes Percent Auto 10.9 % (20-40); MANUAL DIFF FLAG NO; Mean Corpuscular HGB Conc 31.8 g/dl (31.0-35.0); Mean Corpuscular Hemoglobin 30.7 pg (27.0-33.0); Mean Corpuscular Volume 96.8 fL (80.0-98.0); Mean Platelet Volume 9.1 fL (9.4-12.3); Monocytes Absolute Auto 1.1 X10*3/uL (0.1-1.2); Monocytes Percent Auto 8.5 % (2-11); Neutrophils Percent Auto 78.1 % (45-73); Platelet Count 385 X10*3/uL (160-400); Red Blood Count 4.36 X10*6/uL (4.20-5.50); Red Cell Distribution Width 13.8 % (11.0-16.0); White Blood Count 12.8 X10*3/uL (4.8-10.8)
[2023-04-05 16:35] LABS: VBG Base Excess 2.2 mmol/L; VBG HCO3 27 mmol/L (22-26); VBG pCO2 43 mmHg; VBG pO2 41 mmHg
--- NOTE | 2023-04-05 16:42 | PHA.MEDREC ---
Pharmacy Consult ? Medication Reconciliation Pharmacy has completed the medication reconciliation. Patient came from [facility] with medication list. Lizeth Díaz, JulissaD
[2023-04-05 16:43] LABS: Venous Blood Gas Refer to POC result
[2023-04-05] MEDS: Azithromycin 500 MG in 0.9 % Sodium Chloride 250 ML 125 MG IV (16:44)
[2023-04-05 16:49] LABS: IDNOW Serial# BCCEAD1C; Influenza A Negative (Negative); Influenza B2 Negative (Negative)
[2023-04-05 17:09] LABS: Influenza A PCR NEGATIVE (Negative); Influenza B PCR NEGATIVE (Negative); Resp Syncy Virus RNA Qual PCR NEGATIVE (Negative); SARS COV2 PCR INHOUSE NEGATIVE (Negative)
--- NOTE | 2023-04-05 17:43 | PC.NURSE ---
Patient IV infilatrated will abt running, iv stopped, pressure dressing applied. x 1 attempt to re start iv unsuccessful at this time
[2023-04-05 17:49] LABS: Alanine Aminotransferase < 5 U/L (0-31); Albumin Level 3.1 g/dL (3.5-5.0); Alkaline Phosphatase 96 U/L (39-117); Anion Gap 13 (12-20); Aspartate Amino Transferase 15 U/L (5-31); Bilirubin Direct 0.1 mg/dL (0.0-0.5); Bilirubin Total 0.3 mg/dL (0.0-1.0); Blood Urea Nitrogen 19 mg/dL (9-16); Calcium 8.7 mg/dL (8.4-10.2); Carbon Dioxide 22 mmol/L (22-29); Chloride 110 mmol/L (96-108); Creatinine Clr Calc Pharmacy 34.9; Estimated Glomerular Filt Rate 45; Glucose Random 118 mg/dL (60-115); Lipase 15 U/L (8-78); Magnesium 2.3 mg/dL (1.6-2.6); Potassium 4.3 mmol/L (3.3-5.1); Sodium 141 mmol/L (135-145); Total Protein 6.6 g/dL (6.5-8.0)
[2023-04-05 17:53] LABS: Troponin-I High Sensitivity 7.6 ng/L (<3.5-17.0)
[2023-04-05] MEDS: cefEPime HCl 2 GM in 0.9 % Sodium Chloride 50 ML IV (17:54)
[2023-04-05] MEDS: 0.9 % Sodium Chloride 1,000 ML 999 ML IVCONT ×2 (17:57→22:44)
--- NOTE | 2023-04-05 17:58 | PC.NURSE ---
Right arm infiltration site red and painful to touch, cool compress applied.
[2023-04-05 18:00] VITALS: PULSE 93; RESP 18; O2SAT 97
[2023-04-05 19:27] VITALS: BP 151/78; PULSE 101; RESP 24; TEMP 36.4; O2SAT 97
[2023-04-05] MEDS: vancomycin HCL 1,000 MG, vancomycin HCL 750 MG in 0.9 % Sodium Chloride 500 ML 267.5 MG IV (19:32)
[2023-04-05 21:38] VITALS: BP 120/56; PULSE 85; RESP 21; TEMP 36.3; O2SAT 96
--- NOTE | 2023-04-05 21:39 | MHC.EDTECH ---
Patient inc and changed and repositioned
--- NOTE | 2023-04-05 22:29 | MHC.EDTECH ---
Patient inc and patient changed and repositioned
--- NOTE | 2023-04-05 22:30 | PC.NURSE ---
Assumed care of pt at 1900. PT is alert and oriented. Vss- temp 97.3, pulse 85, rr21, bp 120/56, o2 96% on 4l nasal cannula. IV in left arm intact and patent. PT denies any pain at this time. Delayed medication administration due to delay during day shift medication administration. Call lazo within reach. Plan of care on going
[2023-04-06] VITALS (12 sets, daily range): BP systolic 104–175; BP diastolic 55–91; PULSE 44–99; RESP 16–20; TEMP 36.2–37.1; O2SAT 90–95; BMI 25.7
--- NOTE | 2023-04-06 01:01 | P.HPHOSP_ITS ---
History of Present Illness Date of Service: 04/06/23 Chief Complaint: Hypoxia this is a 82-year-old female with pertinent history of mood disorder, COPD not on home oxygen, dementia unspecified was sent to the emergency department for evaluation of hypoxemia and dyspnea. Patient was found to be satting in the low 80s on 4 L supplemental oxygen and sent to the ER. Unable to obtain history from the patient due to cognitive dysfunction. History obtained from ER provider and chart review. Patient also associated wheezing. Unable to obtain review of systems. In the emergency department, patient requiring supplemental oxygen. Does not use supplemental oxygen at home as per reports. Review of Systems 2 Review of Systems: Yes Unobtainable due to mental condition [facility] Medical History Lymphadenopathy, mediastinal Pulmonary nodule Depression Hiatal hernia RENETTA (obstructive sleep apnea) Chronic respiratory failure CKD (chronic kidney disease) Diastolic dysfunction Dementia Pulmonary embolism Hyperlipidemia COPD (chronic obstructive pulmonary disease) PVD (peripheral vascular disease) HTN (hypertension) Insomnia Anxiety Surgical History Hx of tonsillectomy Social History Household Members: None Housing: Assisted Living Facility Housing Other:: [facility] Do you presently have visiting nurse or other home services: No Alcohol intake: former Patient Tobacco Use Status: Former Tobacco user Quit Date: 2019 Tobacco use type: Cigarette Cigarette Packs Per Day: 1 Cigarettes Per Day: 20.0 Years Smoked: 68 Smoked in Last 30 Days: No e-Cigarette/Vaping Use: Never Used Second Hand Smoke Exposure: No Use of substances other than those prescribed or required for medical reasons: No Substance Use Type: Caffiene Advance Directives: Yes Advance Directives on File: Yes Advance Directives Date on File: 07/15/20 service: No Current occupational status: retired Meds Allergies Allergy/AdvReac Type Severity Reaction Status Date / Time cephalexin [From Keflex] Allergy Severe Rash Verified 03/09/23 08:50 sulfamethoxazole Allergy Severe Itching Verified 03/09/23 08:50 [From Bactrim] trimethoprim [From Bactrim] Allergy Severe Itching Verified 03/09/23 08:50 Home Medications Medication Instructions Recorded Confirmed Last Taken Type Oxygen Home Use 08/19/22 Unknown History divalproex 125 mg tablet,delayed 125 mg PO BID 08/19/22 04/05/23 Unknown History release (Depakote) nebulizers 08/19/22 Unknown History acetaminophen 500 mg tablet 1,000 mg PO TID 01/17/23 04/05/23 Unknown History sertraline 25 mg tablet 25 mg PO DAILY 01/17/23 04/05/23 Unknown History magnesium hydroxide 400 mg/5 mL 400 mg PO DAILY PRN Constipation 03/09/23 04/05/23 Unknown History oral suspension (Milk of Magnesia) sodium phosphates 19 gram-7 118 ml HI BEDTIME PRN Constipation 03/09/23 04/05/23 Unknown History gram/118 mL enema (Fleet Enema) bisacodyl 10 mg rectal suppository 10 mg HI DAILY PRN Constipation 04/05/23 04/05/23 Unknown History calcium carbonate 600 mg-vitamin 1 tab PO BID 04/05/23 04/05/23 Unknown History D3 5 mcg (200 unit) tablet dextromethorphan HBr 15 mg/5 mL 30 mg PO Q6H PRN Cough 04/05/23 04/05/23 Unknown History oral syrup ipratropium 0.5 mg-albuterol 3 mg 3 ml inhalation Q4H PRN shortness 04/05/23 04/05/23 Unknown History (2.5 mg base)/3 mL nebulization of breath/wheeze soln polyvinyl alcohol 1.4 % eye drops 1 drp ophthalmic (eye) BID 04/05/23 04/05/23 Unknown History Physical Exam 2 Vital Signs and Narrative: Vital Signs: Last Vital Signs Temp 97.3 F 04/05/23 21:38 Pulse 85 04/05/23 21:38 Resp 21 H 04/05/23 21:38 BP 120/56 L 04/05/23 21:38 Pulse Ox 96 04/05/23 21:38 O2 Del Method Nasal Cannula 04/05/23 21:38 O2 Flow Rate 4 04/05/23 21:38 Oxygen Flow Rate 4 04/05/23 15:20 BMI result Body Mass Index 26.0 Elderly female lying in bed in Mild distress on supplemental oxygen Neck supple, no JVD Regular rate and rhythm, S1-S2 heard bilateral wheezing without crackles Abdomen soft nontender, no guarding, no rigidity Patient is awake, alert and oriented to self, place, time and person ; no focal motor deficit Psych: Normal mood No pedal edema Results Labs 04/05/23 16:14 04/05/23 17:21 Labs: Laboratory Results - last 24 hr 04/05/23 04/05/23 04/05/23 16:14 16:15 16:26 MCV 96.8 MCH 30.7 MCHC 31.8 RDW 13.8 Plt Count 385 D MPV 9.1 L Immature Gran % (Auto) 0.5 H Neut % (Auto) 78.1 H Lymph % (Auto) 10.9 L [place] % (Auto) 8.5 Eos % (Auto) 1.4 Baso % (Auto) 0.6 Lymph # (Auto) 1.4 [place] # (Auto) 1.1 Eos # (Auto) 0.2 Baso # (Auto) 0.1 Abs Immat Gran (auto) 0.07 H Absolute Neuts (auto) 10.0 H Absolute Nucleated RBC 0.000 Nucleated RBC % (auto) 0.0 VBG pH 7.40 VBG pCO2 43 VBG pO2 41 VBG HCO3 27 H VBG O2 Saturation 63.0 VBG Base Excess 2.2 Anion Gap Estim Creat Clear Calc Estimated GFR Random Glucose Lactic Acid 2.0 Calcium Magnesium Total Bilirubin Direct Bilirubin AST ALT Alkaline Phosphatase Total Protein Albumin Lipase Influenza Type A (PARVIZ) Negative Influenza Type A (PCR) NEGATIVE Influenza Type B (PARVIZ) Negative Influenza Type B (PCR) NEGATIVE Influenza A & B Note See Note RSV RNA Qual (PCR) NEGATIVE SARS-CoV-2 RNA (RT-PCR) NEGATIVE 04/05/23 17:21 MCV MCH MCHC RDW Plt Count MPV Immature Gran % (Auto) Neut % (Auto) Lymph % (Auto) [place] % (Auto) Eos % (Auto) Baso % (Auto) Lymph # (Auto) [place] # (Auto) Eos # (Auto) Baso # (Auto) Abs Immat Gran (auto) Absolute Neuts (auto) Absolute Nucleated RBC Nucleated RBC % (auto) VBG pH VBG pCO2 VBG pO2 VBG HCO3 VBG O2 Saturation VBG Base Excess Anion Gap 13 Estim Creat Clear Calc 34.9 Estimated GFR 45 Random Glucose 118 H Lactic Acid Calcium 8.7 Magnesium 2.3 Total Bilirubin 0.3 Direct Bilirubin 0.1 AST 15 ALT < 5 Alkaline Phosphatase 96 Total Protein 6.6 Albumin 3.1 L Lipase 15 Influenza Type A (PARVIZ) Influenza Type A (PCR) Influenza Type B (PARVIZ) Influenza Type B (PCR) Influenza A & B Note RSV RNA Qual (PCR) SARS-CoV-2 RNA (RT-PCR) Imaging Radiologist's Impressions: Impressions Chest X-Ray 04/05/23 15:37 IMPRESSION: Cardiomegaly. Large hiatal hernia. Elevated left hemidiaphragm with likely left basilar atelectasis were. Chest CT 04/05/23 18:45 IMPRESSION: 1. Spiculated mass at the right apex is unchanged, but highly suspicious for malignancy. 2. Large hiatal hernia containing the entire stomach and a portion of transverse colon. 3. Hepatic steatosis. 4. Other incidental findings as described above. 5. A cause for the patient's fever has not been found. Fleischner guidelines were followed. Assessment and Plan (1) COPD exacerbation: Status: Acute Plan this is a 82-year-old female with pertinent history of mood disorder, COPD not on home oxygen, dementia unspecified was sent to the emergency department for evaluation of hypoxemia and dyspnea. #. acute hypoxemic respiratory failure secondary to acute exacerbation of COPD. Will admit patient with supplemental oxygen. Initiating systemic steroids. Schedule and p.r.n. DuoNebs. continue home inhaler #. mood disorder: Continue home mood stabilizers #. dementia: Maintain sleep-wake cycle Med rec pending DVT prophylaxis: Lovenox full code. Admit as inpatient and will require two night minimum hospital stay for supplemental oxygen Time Spent With Patient Time: Total time managing care of this patient today ____ minutes. Quality Stroke Does the patient have a stroke diagnosis?: No VTE Prior VTE?: No VTE Risk Level:: Medical - moderate - high VTE Device Contraindication: Treatment Not Indicated VTE Drug Contraindication: N/A - Med Ordered
[2023-04-06 01:34] LABS: Appearance Urine Turbid; Color Urine Yellow; Glucose Urine UA Negative (Negative); Leukocyte Esterase Urine Large (3+) (Negative); Nitrite Urine Negative (Negative); PH 5.5 (5.0-9.0); UMIC TRIGGER UACC YES; Urine Blood Moderate (2+) (Negative); Urine Ketones 15 mg/dL (Negative); Urine Protein 100 (2+) mg/dL (Neg-Trace)
[2023-04-06 01:46] LABS: Bacteria Urine Trace (None Seen); RBC Urine >20 /HPF (0-2); UACC Culture Trigger YES; WBC Urine >50 /HPF (0-5)
--- NOTE | 2023-04-06 02:30 | PC.NURSE ---
Straight Cath performed, urine sample obtained. Call lazo within reach. Plan of care ongoing
[2023-04-06] MEDS: Enoxaparin Sodium 40 MG/0.4 ML SYRINGE SUBCUT (03:17)
[2023-04-06] MEDS: methylPREDNISolone Sod Succ 40 MG/ML VIAL IVPUSH ×2 (03:18→14:35)
[2023-04-06] MEDS: cefTRIAXone sodium 1 GM in 0.9 % Sodium Chloride 50 ML IV (03:18)
[2023-04-06 05:04] LABS: MANUAL DIFF FLAG NO
[2023-04-06 05:05] LABS: Basophils Percent Auto 0.2 % (0-2); Eosinophils Percent Auto 0.1 % (0-4); Hematocrit 35.5 % (37.0-47.0); Imm Gran Abs Auto 0.06 X10*3/uL (0.00-0.03); Imm Gran Pct Auto 0.6 % (0.0-0.4); Lymphocytes Absolute Auto 1.7 X10*3/uL (1.2-4.9); Lymphocytes Percent Auto 17.5 % (20-40); Mean Corpuscular Hemoglobin 30.5 pg (27.0-33.0); Mean Corpuscular Volume 98.3 fL (80.0-98.0); Mean Platelet Volume 9.2 fL (9.4-12.3); Monocytes Absolute Auto 0.2 X10*3/uL (0.1-1.2); Monocytes Percent Auto 1.6 % (2-11); Neutrophils Absolute Auto 7.9 x10*3/uL (2.0-8.3); Platelet Count 300 X10*3/uL (160-400); Red Blood Count 3.61 X10*6/uL (4.20-5.50); Red Cell Distribution Width 13.9 % (11.0-16.0); White Blood Count 9.9 X10*3/uL (4.8-10.8)
[2023-04-06 05:23] LABS: Anion Gap 13 (12-20); Blood Urea Nitrogen 17 mg/dL (9-16); Calcium 7.9 mg/dL (8.4-10.2); Carbon Dioxide 21 mmol/L (22-29); Chloride 113 mmol/L (96-108); Creatinine Clr Calc Pharmacy 44.8; Estimated Glomerular Filt Rate > 60; Glucose Random 138 mg/dL (60-115); Potassium 4.6 mmol/L (3.3-5.1); Sodium 142 mmol/L (135-145)
[2023-04-06] MEDS: Albuterol/Iprat 2.5/0.5MG 3 ML AMPUL.NEB INHALE ×5 (07:29→19:01)
[2023-04-06] MEDS: 0.9 % Sodium Chloride Flush 3 ML SYRINGE IVFLUSH ×2 (08:50→20:59)
--- NOTE | 2023-04-06 08:55 | PC.NURSE ---
pt is alert and oriented, skin pwd, respirations even and unlabored, ls clear, pt is currently on oxygen at 2l and typically does not require oxygen at baseline, currently sating at 92-93% pt denies pain, vs stable and normal sinus on the monitor
--- NOTE | 2023-04-06 09:21 | PC.NURSE ---
called for report awaiting a call back
--- NOTE | 2023-04-06 09:58 | PC.NURSE ---
report given to edwin hernandez
--- NOTE | 2023-04-06 10:15 | MHC.CM.PN ---
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
--- NOTE | 2023-04-06 14:38 | PM.EVENT ---
Event Note Date of Service: 04/06/23 Event Note: Chart reviewed/patient examined. Agree with findings and history and physical as outlined by night float. Empiric therapy pending culture Time Spent With Patient Time: Total time managing care of this patient today ____ minutes.
--- NOTE | 2023-04-06 14:52 | PC.NURSE ---
Patient arrived from ED approximately 1100 slide into bed with staff assist, oriented to room, call lazo system and staff. Alert to self and place off on date, speech clear. MELENDEZ to command BUE 4/5, BLE 2-3/5 sensation intact per pt feet very sensitive to touch. LSC dim bases denies shortness of breath of chest pain. BS+X4 abdomen soft non-tender denies nausea/vomiting tolerating diet per order. Purewick in place for urine. Skin intact. Bed in lowest position alarm for safety Will continue to monitor and report changes
[2023-04-06] MEDS: Divalproex Sodium Sprinkles 125 MG CAP.DR.SPR PO (20:59)
[2023-04-06] MEDS: Artificial Tears 15 ML DROPS 1 DROP EYE-BOTH (20:59)
[2023-04-06] MEDS: Calcium + Vitamin D 250 MG TABLET PO (20:59)
[2023-04-07] VITALS (8 sets, daily range): BP systolic 144–168; BP diastolic 71–85; PULSE 71–98; RESP 18–20; TEMP 36.4–36.9; O2SAT 88–94
[2023-04-07] MEDS: cefTRIAXone sodium 1 GM in 0.9 % Sodium Chloride 50 ML IV (01:42)
[2023-04-07] MEDS: methylPREDNISolone Sod Succ 40 MG/ML VIAL IVPUSH ×2 (01:45→13:51)
[2023-04-07] MEDS: Fluticasone/Umeclidinium/Vilanterol 100/62.5/25 BLST.W.DEV 1 PUFF INHALE (07:57)
[2023-04-07] MEDS: Albuterol/Iprat 2.5/0.5MG 3 ML AMPUL.NEB INHALE ×4 (07:57→19:40)
[2023-04-07] MEDS: Sertraline HCL 25 MG TABLET PO (08:50)
[2023-04-07] MEDS: Artificial Tears 15 ML DROPS 1 DROP EYE-BOTH ×2 (08:50→21:18)
[2023-04-07] MEDS: Divalproex Sodium Sprinkles 125 MG CAP.DR.SPR PO ×2 (08:50→21:18)
[2023-04-07] MEDS: Calcium + Vitamin D 250 MG TABLET PO ×2 (08:50→21:18)
[2023-04-07] MEDS: 0.9 % Sodium Chloride Flush 3 ML SYRINGE IVFLUSH ×2 (08:56→21:18)
[2023-04-07] MEDS: Acetaminophen 325 MG TABLET 650 MG PO ×2 (10:46→16:43)
--- NOTE | 2023-04-07 14:39 | P.PNIM_ITS ---
Subjective Subjective Date of Service: 04/07/23 Interval History: Remains pleasantly confused with no focal complaints Review of Systems Denies chest pain Denies shortness of breath Denies nausea vomiting diarrhea Denies fever chills Physical Exam 2 Vital Signs: Vital Signs: Last Vital Signs Temp 97.6 F 04/07/23 07:56 Pulse 74 04/07/23 11:30 Resp 20 04/07/23 11:30 BP 168/74 H 04/07/23 07:56 Pulse Ox 94 04/07/23 07:56 O2 Del Method Nasal Cannula 04/07/23 07:56 O2 Flow Rate 3 04/07/23 07:56 Oxygen Flow Rate 4 04/05/23 15:20 BMI result Body Mass Index 25.7 Const: Other: Awake pleasantly confused no acute distress Resp: Other: Clear to auscultation bilaterally no rales rhonchi or wheezes Cardio: Other: No S4; positive S1-S2; no S3 murmurs rubs or gallops GI: Other: Soft nontender nondistended normoactive bowel sounds Extrem: Other: No edema bilaterally Objective Data Active Medications Acetaminophen (Acetaminophen 325 Mg Tablet) 650 mg PO Q6H PRN PRN Reason: Pain, Mild (Pain Scale 1-3) Last Admin: 04/07/23 10:46 Dose: 650 mg Documented By: ALEXANDRO Albuterol/Ipratropium (Albuterol/Iprat 2.5/0.5mg 3 Ml Ampul.Neb) 3 ml INHALE RQ4H WHILE AWAKE [facility] Last Admin: 04/07/23 11:21 Dose: 3 ml Documented By: SHUBHAM Albuterol/Ipratropium (Albuterol/Iprat 2.5/0.5mg 3 Ml Ampul.Neb) 3 ml INHALE Q4H PRN PRN Reason: Wheezing Last Admin: 04/07/23 07:57 Dose: 3 ml Documented By: SHUBHAM Artificial Tears (Artificial Tears 15 Ml Drops) 1 drop EYE-BOTH BID [facility] Last Admin: 04/07/23 08:50 Dose: 1 drop Documented By: ALEXANDRO Calcium Carbonate/Cholecalciferol (Calcium + Vitamin D 250 Mg Tablet) 250 mg PO BID [facility] Last Admin: 04/07/23 08:50 Dose: 250 mg Documented By: ALEXANDRO Divalproex Sodium (Divalproex Sodium Sprinkles 125 Mg ) 125 mg PO BID [facility] Last Admin: 04/07/23 08:50 Dose: 125 mg Documented By: ALEXANDRO Enoxaparin Sodium (Enoxaparin Sodium 40 Mg/0.4 Ml Syringe) 40 mg SUBCUT Q24H [facility] Last Admin: 04/07/23 01:45 Dose: Not Given Documented By: CORNELL Non-Admin Reason: Patient Refused Fluticasone/Umeclidinium/Vilanterol (Fluticasone/Umeclidinium/Vilanterol 100/62.5/25 Blst.W.Dev) 1 puff INHALE RDAILY [facility] Last Admin: 04/07/23 07:57 Dose: 1 puff Documented By: SHUBHAM Ceftriaxone Sodium 1 gm/ (Sodium Chloride) 50 mls @ 100 mls/hr IV Q24H [facility] Last Infusion: 04/07/23 03:18 Dose: Infused Documented By: CORNELL Melatonin (Melatonin 3 Mg Tablet) 6 mg PO BEDTIME PRN PRN Reason: Insomnia Methylprednisolone Sodium Succinate (Methylprednisolone Sod Succ 40 Mg/Ml Vial) 40 mg IVPUSH Q12H [facility] Last Admin: 04/07/23 13:51 Dose: 40 mg Documented By: ALEXANDRO Ondansetron HCl (Ondansetron Hcl 4 Mg/2 Ml Vial) 4 mg IVPUSH Q8H PRN PRN Reason: Nausea and Vomiting Sertraline HCl (Sertraline Hcl 25 Mg Tablet) 25 mg PO DAILY [facility] Last Admin: 04/07/23 08:50 Dose: 25 mg Documented By: ALEXANDRO Sodium Chloride (0.9 % Sodium Chloride Flush 3 Ml Syringe) 3 ml IVFLUSH QSHIFT [facility] Last Admin: 04/07/23 08:56 Dose: 3 ml Documented By: ALEXANDRO Labs 04/06/23 04:41 04/06/23 04:41 Microbiology Microbiology Results: Microbiology 04/06/23 Unknown Urine Culture - Final Urine Catheterized - Stephens Catheter No growth. 04/05/23 16:18 Blood Culture - Preliminary Blood - Venous No growth after 24 hours. 04/05/23 16:15 Blood Culture - Preliminary Blood - Venous No growth after 24 hours. Assessment and Plan (1) Acute hypoxic respiratory failure: Status: Acute Plan 82-year-old female with pertinent history of mood disorder, COPD not on home oxygen, dementia unspecified was sent to the emergency department for evaluation of hypoxemia and dyspnea. 1.Acute hypoxemic respiratory failure secondary to acute exacerbation of COPD. -continue Ceftriaxone(2) -continue pulse dose steroids -titrate O2 to keep sats greater than or equal to 90% -blood cultures negative thus far 2.Mood disorder -stable and well compensated -continue outpatient therapies Lovenox full code. Requires ongoing hospitalization for IV steroids and antibiotics to treat acute exacerbation of COPD Time Spent With Patient Time: Total time managing care of this patient today ____ minutes. Quality Stroke Does the patient have a stroke diagnosis?: No VTE Prior VTE?: No VTE Risk Level:: Medical - moderate - high VTE Device Contraindication: Treatment Not Indicated VTE Drug Contraindication: N/A - Med Ordered
[2023-04-08] MEDS: cefTRIAXone sodium 1 GM in 0.9 % Sodium Chloride 50 ML IV (01:04)
[2023-04-08] MEDS: methylPREDNISolone Sod Succ 40 MG/ML VIAL IVPUSH (01:05)
[2023-04-08] MEDS: Enoxaparin Sodium 40 MG/0.4 ML SYRINGE SUBCUT (01:05)
[2023-04-08 04:00] VITALS: BP 190/82; PULSE 75; RESP 16; TEMP 36.1; O2SAT 91
[2023-04-08 05:43] VITALS: BP 170/78
[2023-04-08] MEDS: Fluticasone/Umeclidinium/Vilanterol 100/62.5/25 BLST.W.DEV 1 PUFF INHALE (07:51)
[2023-04-08] MEDS: Albuterol/Iprat 2.5/0.5MG 3 ML AMPUL.NEB INHALE ×2 (07:51→11:27)
[2023-04-08 07:52] VITALS: PULSE 65; RESP 18; O2SAT 91
[2023-04-08 08:00] VITALS: BP 130/90; PULSE 72; RESP 18; TEMP 36.1; O2SAT 91
[2023-04-08] MEDS: Sertraline HCL 25 MG TABLET PO (09:29)
[2023-04-08] MEDS: Calcium + Vitamin D 250 MG TABLET PO (09:29)
[2023-04-08] MEDS: Acetaminophen 325 MG TABLET 650 MG PO (09:29)
[2023-04-08] MEDS: Divalproex Sodium Sprinkles 125 MG CAP.DR.SPR PO (09:29)
[2023-04-08] MEDS: 0.9 % Sodium Chloride Flush 3 ML SYRINGE IVFLUSH (09:32)
[2023-04-08] MEDS: Artificial Tears 15 ML DROPS 1 DROP EYE-BOTH (09:33)
--- NOTE | 2023-04-08 10:20 | MHC.CM.PN ---
Patient has been medically cleared for dc to return to LTC today. Patient will return to LTC at [facility] today at 1:30 PM, via [facility].Last IMM addressed on 04/06/2023. CM spoke with [id number]/Catalina @ [phone] and informed her of the dc plan.
[2023-04-08 11:29] VITALS: PULSE 77; RESP 20; O2SAT 91
--- NOTE | 2023-04-08 11:53 | P.DS_ITS ---
DS: Providers Provider Date of Service: 04/08/23 Date of admission: 04/06/23 00:59 Date of discharge: 04/08/23 Primary care physician: CORTNEY SAGE DS: Diagnosis Discharge Diagnosis (1) Acute hypoxic respiratory failure: Status: Acute DS: Summary Hospital Course Hospital Course: 82-year-old female with pertinent history of mood disorder, COPD not on home oxygen, dementia unspecified was sent to the emergency department for evaluation of hypoxemia and dyspnea. Patient was found to be satting in the low 80s on 4 L supplemental oxygen and sent to the ER. Unable to obtain history from the patient due to cognitive dysfunction. History obtained from ER provider and chart review. Patient also associated wheezing. Unable to obtain review of systems. In the emergency department, patient requiring supplemental oxygen. Hospital course Admitted to telemetry and started on ceftriaxone as well as pulse dose steroids. Over the next 48 hours fever resolved and breathing improved. Of note a spiculated mass was found on CT; discussed with [id number] and patient has ongoing follow-up with Dr. Aguilera who is aware. This point time all cultures are negative cyst and patient will be discharged to complete oral course of Cef tin as well as prednisone taper. Further weaning of oxygen can be done at facility. Time Spent with Patient Time attestation: Total time managing care of this patient today ____ minutes. Discharge coordination time: Greater than 30 minutes Quality: Safe Use of Opioids Does Pt have an Active Cancer Diagnosis on the Problem List?: No Quality: Stroke Does the patient have a stroke diagnosis?: No Physical Exam Vital Signs: Vital Signs: Last Vital Signs Temp 96.9 F 04/08/23 08:00 Pulse 77 04/08/23 11:29 Resp 20 04/08/23 11:29 BP 130/90 H 04/08/23 08:00 Pulse Ox 91 L 04/08/23 08:00 O2 Del Method Nasal Cannula 04/08/23 08:00 O2 Flow Rate 2 04/08/23 08:00 Oxygen Flow Rate 4 04/05/23 15:20 BMI result Body Mass Index 25.7 Const: Other: Awake pleasantly confused no acute distress Resp: Other: Clear to auscultation bilaterally no rales rhonchi or wheezes Cardio: Other: No S4; positive S1-S2; no S3 murmurs rubs or gallops GI: Other: Soft nontender nondistended normoactive bowel sounds Extrem: Other: No edema bilaterally DS: Data Data Completed and Pending Labs on day of discharge: Preliminary micro results at discharge 04/05/23 16:18 Blood Culture - Preliminary Blood - Venous No growth after 48 hours. 04/05/23 16:15 Blood Culture - Preliminary Blood - Venous No growth after 48 hours. Discharge Plan Discharge Anticipated Discharge Date/Time: 04/08/23 11:48 Patient Disposition: er [facility] Discharge Diagnosis: Acute hypoxic respiratory failure Referrals: Day Veronica Antoine [Outside] - 1 Week CORTNEY SAGE [Primary Care Provider] - 1 Week Discharge Medications: New cefuroxime axetil 250 mg tablet 250 mg PO BID 10 Days Qty: 20 0RF prednisone 20 mg tablet See Rx Instructions .Route .COMPLEX Qty: 18 0RF Rx Instructions: 20 mg orally; 3 tabs daily for 3 days, 2 tabs daily for 3 days, 1 tab daily for 3 days Continued polyvinyl alcohol 1.4 % Drops 1 drp OPHTHALMIC (EYE) BID dextromethorphan HBr 15 mg/5 mL Syrup 30 mg PO Q6H PRN (Reason: Cough) calcium carbonate-vitamin D3 600 mg-5 mcg (200 unit) Tablet 1 tab PO BID ipratropium-albuterol 0.5 mg-3 mg(2.5 mg base)/3 mL solution for nebulization 3 ml inhalation Q4H PRN (Reason: shortness of breath/wheeze) bisacodyl 10 mg Suppository 10 mg MI DAILY PRN (Reason: Constipation) acetaminophen 500 mg Tablet 1,000 mg PO TID sertraline 25 mg tablet 25 mg PO DAILY (DME) nebulizers [facility] [place] See Rx Instructions .ROUTE Rx Instructions: As directed (DME) Oxygen Home Use Kit See Rx Instructions .ROUTE Rx Instructions: As directed divalproex [Depakote] 125 mg tablet,delayed release (DR/EC) 125 mg PO BID Trelegy Ellipta 100-62.5-25 mcg blister with device 1 inh inhalation DAILY 30 Days Qty: 60 11RF Fleet Enema 19-7 gram/118 mL enema 118 ml MI BEDTIME PRN (Reason: Constipation) magnesium hydroxide [Milk of Magnesia] 400 mg/5 mL suspension 400 mg PO DAILY PRN (Reason: Constipation) Discharge Orders: Discharge Order (Routine); Ordered 04/08/23 Ordered By: Orlin Vogt Diet: Advance to usual diet Activity on Discharge: As tolerated Stand Alone Forms: Patient Portal Discharge page Care Plan Goals: Resume all meds as taken pre-hospital Health Concerns: Ceftin 250 mg twice daily for 10 days Plan of Treatment: Follow-up with Dr. Aguilera as scheduled Assessment: See discharge summary
--- NOTE | 2023-04-12 17:00 | P.CDIM_ITS ---
PROVIDER RESPONSE TEXT: To clarify, the appropriate diagnosis supported by the clinical indicators: Sepsis is/was present and is a clinical diagnosis based on QUERY TEXT: PHYSICIAN'S DOCUMENTATION REQUEST Date of Query: 04/07/2023 08:31 AM EDT Patient Name: JANEL LING Admit Date: 04/06/2023 Dear Orlin Vogt, A review of the medical record indicates additional documentation may be needed. Please review below and update the documentation accordingly. Clarity and consistency of a diagnosis documented within the medical record: H&P: Sepsis due to UTI: Initiating empiric IV Rocephin, No Sepsis. Follow urine culture. Resuscitated with IV crystalloids, Lactic acid and blood cultures obtained. Ed: patient with fever and chills, leukocytosis and bandemia, admit the patient for UTI/bacteremia. Azithromycin, Vancomycin, Cefepime, Oxygen Sepsis Systemic manifestations of infection, with 2 or more SIRS criteria which include: Fever > 100.4?F or hypothermia < 96.8?F Leukocytosis WBC > 12,000 or leukopenia, WBC < 4,000, or > 10% bands Tachycardia- > 90 beats/minute Tachypnea- RR > 20 breaths/minute or PaCO2 < 32mmHg Based on the above information and the recognized standard for sepsis, could you please clarify if th is diagnoses is still accurate and reflective of the patient's condition to ensure quality of the medical record. Sepsis is/was present and is a clinical diagnosis based on After study (the condition) has been ruled out Other (explain)Clinically unable to determine (explain)Thank you, Brooklyn Mclean, CCS, CDIS Use of terms such as suspected, likely, concern for, or probable (associated with a specific diagnosi s that is being evaluated, monitored, or treated as if it exists) are acceptable and can be coded in the inpatient se tting, when documented at the time of discharge. Please use your independent medical judgment in providing your response. THIS QUERY IS PART OF THE PERMANENT MEDICAL RECORD
--- NOTE | 2023-04-12 17:00 | P.CDIM_ITS ---
PROVIDER RESPONSE TEXT: To clarify, the appropriate diagnosis supported by the clinical indicators: Sepsis is/was present and is a clinical diagnosis based on QUERY TEXT: PHYSICIAN'S DOCUMENTATION REQUEST Date of Query: 04/12/2023 08:14 AM EDT Patient Name: JANEL LING Admit Date: 04/06/2023 RETROSPECTIVE QUERY Dear Orlin Vogt, A review of the medical record indicates additional documentation may be needed. Please review below and update the documentation accordingly. Clinical indicators: Consistency of noted diagnosis within the medical record: H&P 04/06 -Sepsis due to UTI: Initiating empiric IV Rochephin. No Sepsis. Follow urine culture. resuscitated with IV cystalloids, lactic acid and blood cultures obtained. Ed: patient with fever and chills, leukocytosis and bandemia, admit the patient for UTI/bacteremia. Azithromycin, Vancomycin, Cefepime. Temp 97.8 LA wnl HR 131 WBC 12.8 Sepsis Systemic manifestations of infection, with 2 or more SIRS criteria which include: Fever > 100.4?F or hypothermia < 96.8?F Leukocytosis WBC > 12,000 or leukopenia, WBC < 4,000, or > 10% bands Tachycardia- > 90 beats/minute Tachypnea- RR > 20 breaths/minute or PaCO2 < 32mmHg Based on the above information and the recognized standard for sepsis, could you please clarify if th is diagnoses is still accurate and reflective of the patient's condition to ensure quality of the medical record. Sepsis is/was present and is a clinical diagnosis based on After study (the condition) has been ruled out Other (explain)Clinically unable to determine (explain)Thank you, Brooklyn Mclean, CCS, CDIS Use of terms such as suspected, likely, concern for, or probable (associated with a specific diagnosi s that is being evaluated, monitored, or treated as if it exists) are acceptable and can be coded in the inpatient se tting, when documented at the time of discharge. Please use your independent medical judgment in providing your response. THIS QUERY IS PART OF THE PERMANENT MEDICAL RECORD
== END 2023-04-08 15:03 | disposition home or self-care (01) | DRG 871 ==
LOC: HO.ED 04-06 02:10 → HO.EDOVER 04-06 02:36 → HO.IMC 04-06 09:02
PROVIDERS: Internal Medicine; Admitting Provider Student in an Organized Health Care Education/Training Program; Emergency Provider Emergency Medicine; PCP Emergency Medicine; Visit Provider Hospitalist
DX: A41.9 Sepsis, unspecified organism (principal); J96.01 Acute respiratory failure with hypoxia; J44.1 Chronic obstructive pulmonary disease with (acute) exacerbation; N39.0 Urinary tract infection, site not specified; F39 Unspecified mood [affective] disorder; F03.90 Unspecified dementia, unspecified severity, without behavioral disturbance, psychotic disturbance, mood disturbance, and anxiety; R91.1 Solitary pulmonary nodule; G47.33 Obstructive sleep apnea (adult) (pediatric); Z20.822 Contact with and (suspected) exposure to COVID-19; Z87.891 Personal history of nicotine dependence; Z79.51 Long term (current) use of inhaled steroids; Z79.899 Other long term (current) drug therapy
CPT/HCPCS: 0241U; 36415; 71045; 71250; 80048; 80076; 81001; 82803; 83605; 83690; 83735; 84484; 85025; 87040; 87086; 87502; 93005; 94640; 99285; J0456; J0692; J0696; J1650; J2920; J2930; J3370

== ENCOUNTER → 2023-04-05 16:14 | Outpatient (BNV) | payer MEDICARE, MEDICAID, SELFPAY | PROVIDERS: Emergency Provider Emergency Medicine; Visit Provider Student in an Organized Health Care Education/Training Program | DX: J96.01 Acute respiratory failure with hypoxia (principal) | CPT/HCPCS: 99222; 99233; 99239; 99499 ==

== ENCOUNTER 2023-06-23 15:15 | Outpatient (AMB) | payer MEDICARE, MEDICAID, SELFPAY ==
--- NOTE | 2023-06-23 15:30 | MHC.OFFVIS ---
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 There she had a CT scan of the abdomen that was abnormal and subsequently had a CT scan of the chest. Found to have a 2 cm right-sided spiculated pulmonary nodule which is concerning in nature for malignant process. She also evidence mediastinal lymphadenopathy. She is here for follow-up visit. Clinically patient is doing okay. She does have intermittent cough. Denies any hemoptysis. Her weight has been slowly going down. Her appetite has been good. View of her other comorbidities the best way to further address this pulmonary nodule will be to perform a PET scan. Indeed we will be looking for metastatic disease and potential sites for tissue biopsy which will provide the best yield for diagnosis. Ideally both with diagnostic and staging purposes. The patient does use oxygen with activity and sleep. She also has nebulized therapy. She will continue all these therapies for now. Will follow-up after her PET scan and PFTs. 09/23/2022 the patient is here for a pulmonary follow-up visit. Overall she is feeling better from a respiratory status. She is coughing some. She has been congested now for couple weeks. Denies any fevers or chills denies any pleuritic discomfort. She denies any wheezing. She does use the oxygen with good effect. She did undergo her pulmonary function studies which we personally reviewed demonstrating very severe COPD also moderate restriction in a very severe diffusion impairment. Explained to the patient and also her [id number] that in view of the very limited respiratory capacity will be very difficult to do any diagnostic interventions for this right upper lobe pulmonary nodule. Explained to them the pulmonary nodules concerning. She was supposed to have a PET scan. I will make sure that she can have it done soon and I will call the patient with the results. Although I am concerned that even considering a CT-guided biopsy of this nodule will be considered high risk with very limited respiratory capacity. The patient also has significant COPD. She benefits from a more reliable respiratory regimen. Therefore will start her on Trelegy inhaler which she will use once a day. 03/09/2023 the patient is here for a pulmonary follow-up visit. Overall the patient has been doing well. She is tolerating the Trelegy inhaler. Initially she had a reaction but then improved. Id likely related to technique. Overall her breathing feels better. She does have abdominal discomfort at times. The patient did have a CT scan of the chest in December which we personally reviewed in the office. Appears that the spiculated concerning right upper lobe nodular density is stable if not a little smaller. Although is regular in dimensions so difficult heart to measuring compare. She also has some lymphadenopathy which could be related to the masslike density. In addition to that she does have a hiatal hernia that I explained to them that can be causing some abdominal discomfort. The patient is to maintain on reflux diet and make sure she is sleeping elevated. Based on the fact that the nodule has not significantly changed we can go ahead and repeat the CT scan in [address] the last CT scan. If the patient however develops any worsening symptoms or any concerning symptoms she is to call for us to evaluate sooner. A patient will return after her CT scan will review the CT scan at that point. 06/23/2023 the patient is here for a pulmonary follow-up visit. She is here Her son and her [id number]. The patient appears to be more forgetful today. She is currently on oxygen initially on 2 L but had to be increased to 3 L because he was noted to be hypoxic on arrival. The may have been an issue with her portable oxygen tank it appeared to have been malfunctioning and therefore resulting in decreased Oxygen flow. Once we rectify that her oxygen improved about 90%. The patient appears to be otherwise okay. She denies any chest pains or call for any worsening respiratory complaints. I again spoke to the patient and also the family about her CT scan findings with significant mass which appears to be spiculated in the right upper lobe. We did look at the PET scan with the abnormal FDG activity we also looked at the biopsy demonstrating benign lung tissue. Explained my concerns that likely the biopsy was nondiagnostic. However because of her age and her comorbidities the family is not interested in undergoing anymore semi-invasive her invasive procedures. I do agree with that specially she does have significant chronic respiratory failure. The patient however should get a repeat CT scan. We should address the progression of this density. I also brought up the possibility of stereotactic radiation if she would be a candidate. Will 1st wait for the CAT scan report. Hold off the CT scan until August specially since she just had a CT scan in February 2023. the family is okay with. I explained to the family if they are concerned if they want a move up the CAT scan they can always call and we can address the issue. Otherwise patient does not have any other concerns. [facility] Medical History Lymphadenopathy, mediastinal Pulmonary nodule Depression Hiatal hernia RENETTA (obstructive sleep apnea) Chronic respiratory failure CKD (chronic kidney disease) Diastolic dysfunction Dementia Pulmonary embolism Hyperlipidemia COPD (chronic obstructive pulmonary disease) PVD (peripheral vascular disease) HTN (hypertension) Insomnia Anxiety Surgical History Hx of tonsillectomy Social History Household Members: Other Housing: Alf Housing Other:: [facility] Do you presently have visiting nurse or other home services: No Alcohol intake: former Comment: patient is wheelchair bound at baseline Patient Tobacco Use Status: Former Tobacco user Quit Date: 2019 Tobacco use type: Cigarette Cigarette Packs Per Day: 1 Cigarettes Per Day: 20.0 Years Smoked: 68 e-Cigarette/Vaping Use: Never Used Second Hand Smoke Exposure: No Substance Use Type: Caffiene Advance Directives Date on File: 07/15/20 service: No Current occupational status: retired Review of Systems Const Reports fatigue and Denies poor appetite Eyes Denies change in vision ENT Denies nasal congestion Card Denies chest pain and Reports dyspnea on exertion Resp Reports chest congestion, Reports cough, Denies hemoptysis and Reports dyspnea on exertion GI Reports no additional complaints Skin/Breast Denies rash Neuro Reports no additional complaints and Reports Neuro-related abnormal movements Psych Reports no additional complaints Endo Reports fatigue Robbin/Lymph Denies easy bleeding and Denies easy bruising Physical Exam Vital Signs: Last Vital Signs Pulse 85 06/23/23 15:31 Pulse Ox 93 06/23/23 15:31 Oxygen Delivery Method Room Air 06/23/23 15:31 BMI result Body Mass Index 27.3 Last Vital Signs Temp 97.5 F 08/04/22 07:27 Pulse 89 08/04/22 08:11 Resp 20 08/04/22 08:11 BP 146/73 H 08/04/22 07:27 Pulse Ox 94 08/04/22 07:27 O2 Del Method 08/04/22 07:27 O2 Flow Rate 2 08/04/22 07:27 Oxygen Flow Rate 2 08/03/22 09:51 BMI result Body Mass Index 26.8 Const General: cooperative and comfortable Orientation/consciousness: oriented to person, oriented to place and oriented to time HEENT Head: Yes atraumatic Neck Neck: Yes supple Chest Chest palpation & inspection: normal inspection of the chest Resp Effort & Inspection: normal respiratory effort and able to speak in complete sentences Auscultation: diminished lung sounds Cardio Heart sounds: S1 normal heart sound present and S2 normal heart sound present GI Palpation (GI): Soft to palpation and nontender Auscultation: normal bowel sounds Neuro General: oriented to person, oriented to place and oriented to time Extrem General: Yes no clubbing, cyanosis or edema Assessment & Plan Assessment & Plan (1) Pulmonary nodule: Code(s): R91.1 - Solitary pulmonary nodule (2) Lymphadenopathy, mediastinal: Code(s): R59.0 - Localized enlarged lymph nodes (3) Chronic respiratory failure: Code(s): J96.10 - Chronic respiratory failure, unspecified whether with hypoxia or hypercapnia Qualifiers: Respiratory failure complication: hypoxia Qualified Code(s): J96.11 - Chronic respiratory failure with hypoxia (4) COPD (chronic obstructive pulmonary disease): Code(s): J44.9 - Chronic obstructive pulmonary disease, unspecified Qualifiers: COPD type: chronic bronchitis Chronic bronchitis type: simple Qualified Code(s): J41.0 - Simple chronic bronchitis Plan Repeat CT chest in August 2022 continue Trelegy inhaler daily continue with respiratory therapy as prescribed continue oxygen to keep pox>90% F/U 4 months Orders: Orders CT chest wo IV con 08/29/23 R91.1 - Solitary pulmonary nodule Coding Level of Care Code Est Pt Level 4 (10657) Diagnoses Pulmonary nodule R91.1 Lymphadenopathy, mediastinal R59.0 Chronic respiratory failure with hypoxia J96.11 Respiratory failure complication: hypoxia Simple chronic bronchitis J41.0 COPD type: chronic bronchitis Chronic bronchitis type: simple Time Spent (min) 20
[2023-06-23 15:31] VITALS: PULSE 85; O2SAT 93; BMI 27.3
== END 2023-06-23 16:00 | disposition home or self-care (01) ==
PROVIDERS: PCP Emergency Medicine; Visit Provider Hospitalist
DX: R91.1 Solitary pulmonary nodule (principal); R59.0 Localized enlarged lymph nodes; J96.11 Chronic respiratory failure with hypoxia; J41.0 Simple chronic bronchitis
CPT/HCPCS: 99214

== ENCOUNTER → 2023-06-23 15:15 | Outpatient (BNVA) | payer MEDICARE, MEDICAID, SELFPAY | PROVIDERS: PCP Emergency Medicine; Visit Provider Hospitalist | DX: R91.1 Solitary pulmonary nodule (principal); J44.9 Chronic obstructive pulmonary disease, unspecified; J96.11 Chronic respiratory failure with hypoxia; J41.0 Simple chronic bronchitis; R59.0 Localized enlarged lymph nodes | CPT/HCPCS: 99212 ==

== ENCOUNTER 2023-12-29 14:15 | Inpatient (IN) | payer MEDICARE, MEDICAID, SELFPAY ==
[2023-12-29] VITALS (9 sets, daily range): BP systolic 112–142; BP diastolic 53–83; PULSE 82–96; RESP 17–26; TEMP 36.4–36.9; O2SAT 94–96; BMI 22.3
--- NOTE | 2023-12-29 | ECG_ITS ---
Test Reason : TROPONIN INCREASE Blood Pressure : / mmHG Vent. Rate : 096 BPM Atrial Rate : 096 BPM P-R Int : 156 ms QRS Dur : 070 ms QT Int : 344 ms P-R-T Axes : 026 -27 058 degrees QTc Int : 434 ms Normal sinus rhythm with sinus arrhythmia Septal infarct (cited on or before 29-DEC-2023) Abnormal ECG When compared with ECG of 29-DEC-2023 15:06, Premature atrial complexes are no longer Present Questionable change in initial forces of Septal leads Referred By: Daina Ling Electronically Signed By:Steffen Olivas
--- NOTE | ~2023-12-29 | CT_ITS ---
EXAMINATION: CT CHEST, ABDOMEN AND PELVIS withoutCONTRAST CLINICAL INFORMATION: Shortness of breath. Abdominal pain. COMPARISON: CT chest April 05, 2023 TECHNIQUE: Multidetector volumetric CT imaging of the chest, abdomen and pelvis was obtained . Coronal, Sagittal reformatted images preformed at the CT scanner. [This CT examination was performed using dose optimization techniques as appropriate, variously including the following: *Automated exposure control *Adjustment of mA and/or kV according to patient size (this includes techniques or standardized protocols for targeted exams where dose is matched to indication/reason for exam; i.e. extremities or head) *Use of iterative reconstruction technique] DLP: 903 mGy-cm. FINDINGS: CT CHEST: There is breathing motion which limits study. Lungs: Redemonstration of a spiculated mass in the right upper lobe. The mass has enlarged in size since prior CAT scan. Mass measures approximately 3.5 cm transverse coronal image 55/78 series 8. The mass previously measured 2.6 cm on CAT scan April 05, 2023. Emphysematous changes of lungs. Large left-sided hiatal hernia with atelectasis at left lung base. Mediastinum: Heart size is normal. No pericardial effusion. There are vascular calcifications of aorta. Prominent lymph node in the precarinal soft tissues measuring 1.1 cm transverse. This has not changed since CAT scan April 05, 2023. Redemonstration of the large left-sided hiatal hernia. This contains most of the stomach and nonobstructed loops of large bowel. Coronary artery calcifications: Small volume. Pleura: Small volume dependent left pleural effusion. Axilla: No lymphadenopathy. CT ABDOMEN AND PELVIS: There is artifact from imaging with patient's arms at the side. Exam limited by breathing motion. Liver, Gallbladder and Biliary Tree: The liver is normal in size, shape, and attenuation. No focal hepatic lesion or biliary ductal dilatation is present. The gallbladder is unremarkable with no evidence of radiopaque gallstones, gallbladder wall thickening, or obvious pericholecystic inflammatory changes. Pancreas: No acute change of the pancreas. No mass. No pancreatic duct dilatation. Spleen: Spleen normal in size and contour. No focal lesion. Adrenal Glands: Adrenal glands are normal in size. No focal mass. Kidneys and Ureters: Redemonstration of the moderate right-sided hydronephrosis similar to CAT scan August 03, 2022. There is no hydroureter. No calculus. Left kidney collecting system normal. Bladder: Unremarkable. Gastrointestinal Tract: Large volume of stool in the rectum which is distended to a transverse dimension of 7.5 cm. Subtle edema in the adjacent presacral soft tissues and mild thickening of the wall the rectum consistent with stercoral colitis. Diverticula of the sigmoid and descending colon without evidence of diverticulitis. The appendix is normal. Small bowel loops are normal. There is a large hiatal hernia containing the stomach and the splenic flexure colonic bowel loops. Mesentery: No inflammation. No free air or free fluid. Abdominal Wall: No significant hernia is appreciated. Lymph Nodes: Normal. Vascular: Scattered vascular calcifications of aorta and iliac arteries. There is no aneurysm. Pelvic Viscera: Uterus is retroverted. No adnexal abnormality. Osseous Structures: Multilevel degenerative spondylosis spine. CT/CT abdomen pelvis wo IV con IMPRESSION: 1. CT chest. Redemonstration of the spiculated mass in the right upper lobe. This has enlarged in size since prior CAT scan April 05, 2023. 2. Small dependent left pleural effusion. 3. Large left-sided hiatal hernia containing most of the stomach and the splenic flexure colonic bowel loops. 4. Redemonstration of the moderate right-sided hydronephrosis. 5. Large volume of stool in the rectum with mild wall thickening of the rectum consistent with stercoral colitis. 6. Diverticulosis of the colon. No acute change of the bowel.
--- NOTE | ~2023-12-29 | CT_ITS ---
EXAMINATION: CT HEAD WITHOUT CONTRAST (STROKE PROTOCOL) CLINICAL INFORMATION: Stroke protocol. Left leg and arm weakness. COMPARISON: 01/18/2023 TECHNIQUE: Contiguous axial imaging was performed from the skull base to vertex without intravenous administration of contrast. This CT examination was performed using dose optimization techniques as appropriate, variously including the following: *Automated exposure control *Adjustment of mA and/or kV according to patient size (this includes techniques or standardized protocols for targeted exams where dose is matched to indication/reason for exam; i.e. extremities or head) *Use of iterative reconstruction technique DLP: 636 mGy-cm FINDINGS: There is cerebral volume loss with prominence of the lateral and the third ventricles. The cortical sulci are widened appropriately. The fourth ventricle and basal cisterns are normally outlined. There is right frontal encephalomalacia with ex vacuo dilatation of the anterior horn of the right lateral ventricle. There is significant confluent bilateral periventricular and central white matter diminished attenuation. There is no definitive acute territorial defect, hemorrhage or midline shift. The extra-axial spaces are unremarkable. Calvarium/scalp: Intact. Maxillofacial sinuses and mastoids: The maxillofacial sinuses are clear. There is bilateral mastoid opacification greater on the left. CT/CT head for stroke IMPRESSION: 1. No acute intracranial hemorrhage or mass effect. 2. Right frontal encephalomalacia. 3. Extensive confluent bilateral periventricular and central white matter diminished attenuation likely chronic microangiopathic changes. 4. Bilateral mastoid opacification greater on the left. This critical result was discussed with Dr. Vijay Perez at 12:39 AM hours on 12/30/2023. It was ascertained that the content and urgency of the report was understood at the time of direct communication.
--- NOTE | ~2023-12-29 | CT_ITS ---
EXAMINATION: CT CERVICAL SPINE WITHOUT CONTRAST CLINICAL INFORMATION: Inability to move neck COMPARISON: None available. TECHNIQUE: Contiguous axial noncontrast CT scan images of the cervical spine obtained. Sagittal and coronal reformatted also obtained. This CT examination was performed using dose optimization techniques as appropriate, variously including the following: *Automated exposure control *Adjustment of mA and/or kV according to patient size (this includes techniques or standardized protocols for targeted exams where dose is matched to indication/reason for exam; i.e. extremities or head) *Use of iterative reconstruction technique DLP: 278 mGy-cm FINDINGS: The cervical alignment is normal. There is minimal anterolisthesis T2 over T3. There is diffuse aaem-en-nqeizmug cervical disc degenerative change with loss of disc space, endplate change and posterior osteophytes associated with diffuse xtuu-os-fnywlzol facet osteoarthritic hypertrophic change with multilevel mild spinal canal and multilevel [id number] neuroforaminal narrowing. The bony structures are osteopenic. No fracture is seen. The soft tissues are unremarkable. There is a partially imaged right upper lung field opacity which was present on CT performed 04/05/2023 There is bilateral mastoid opacification greater on the left. CT/CT cervical spine wo IV con IMPRESSION: 1. No acute fracture or dislocation. 2. Minimal anterolisthesis T2 over T3. 3. There are degenerative cervical disc changes with multilevel mild spinal canal and multilevel pcjn-sp-[id number] neuroforaminal narrowing. Fleischner guidelines were followed.
--- NOTE | ~2023-12-29 | XR_ITS ---
EXAMINATION: XR SHOULDER, RIGHT CLINICAL INFORMATION: Pain COMPARISON: None available. TECHNIQUE: Three views of the right shoulder. FINDINGS: Glenohumeral articulation is maintained. Limited evaluation of the glenohumeral joint space on the provided views. Mild acromioclavicular arthritis. No acute fracture or dislocation is seen. No suspicious soft tissue swelling. There is heterogeneity of the soft tissues, which could possibly represent edema. XR/XR shoulder RT min 2V IMPRESSION: No radiographic evidence of acute fracture or dislocation. Mild acromioclavicular arthritis.
--- NOTE | ~2023-12-29 | XR_ITS ---
EXAMINATION: XR BILATERAL HIPS WITH AP PELVIS CLINICAL INFORMATION: Pain. COMPARISON: None available. TECHNIQUE: AP view of the pelvis and single views of each hip were obtained. FINDINGS: The bony structures are osteopenic. There is mild bilateral hip degenerative change with mild loss of joint space and subchondral sclerosis as well as minimal osteophyte formation on the left. No fracture is seen. The soft tissues are unremarkable. XR/XR hip BI w PEL1V IMPRESSION: Osteopenia and mild bilateral hip degenerative change. No fracture seen.
--- NOTE | 2023-12-29 14:52 | ECG_ITS ---
Test Reason : fall Blood Pressure : / mmHG Vent. Rate : 087 BPM Atrial Rate : 087 BPM P-R Int : 176 ms QRS Dur : 084 ms QT Int : 374 ms P-R-T Axes : 057 -12 056 degrees QTc Int : 450 ms Sinus rhythm with Premature atrial complexes Septal infarct (cited on or before 29-DEC-2023) ST elevations precordial leads Abnormal ECG When compared with ECG of 05-APR-2023 15:41, Questionable change in initial forces of Septal leads ST no longer depressed in Anterior leads Subtle ST elevations present Referred By: Daina Ling Electronically Signed By:Steffen Oliavs
--- NOTE | 2023-12-29 15:00 | ED_ITS ---
HPI - General Adult General Chief complaint: Failure to Thrive Stated complaint: EVAL FOR RECENT DECLINE Time Seen by Provider: 12/29/23 14:20 History of Present Illness HPI narrative: Patient is an 83-year-old female on day presented today with having possible left lower abdominal pain. Previously evaluated by Pulmonary for a possible mass in the lung. Per family this has been an ongoing issue. Patient also have fallen about a week ago is been complaining of some pain on the left lower abdomen area. There has been no nausea no vomiting. EMS stated patient is here for a possible hospice evaluation. I discussed the history with Catalina the daughter in-law the [id number]. Patient is not here for hospice evaluation. Once some intubation about the left lower abdominal pain. Related Data Home Medications ?Medication ?Instructions ?Recorded ?Confirmed Oxygen Home Use 08/19/22 divalproex 125 mg tablet,delayed 125 mg PO BID 08/19/22 04/05/23 release (Depakote) nebulizers 08/19/22 acetaminophen 500 mg tablet 1,000 mg PO TID 01/17/23 04/05/23 sertraline 25 mg tablet 25 mg PO DAILY 01/17/23 04/05/23 magnesium hydroxide 400 mg/5 mL 400 mg PO DAILY PRN Constipation 03/09/23 04/05/23 oral suspension (Milk of Magnesia) sodium phosphates 19 gram-7 118 ml AR BEDTIME PRN Constipation 03/09/23 04/05/23 gram/118 mL enema (Fleet Enema) bisacodyl 10 mg rectal suppository 10 mg AR DAILY PRN Constipation 04/05/23 04/05/23 calcium carbonate 600 mg-vitamin 1 tab PO BID 04/05/23 04/05/23 D3 5 mcg (200 unit) tablet dextromethorphan HBr 15 mg/5 mL 30 mg PO Q6H PRN Cough 04/05/23 04/05/23 oral syrup ipratropium 0.5 mg-albuterol 3 mg 3 ml inhalation Q4H PRN shortness 04/05/23 04/05/23 (2.5 mg base)/3 mL nebulization of breath/wheeze soln polyvinyl alcohol 1.4 % eye drops 1 drp ophthalmic (eye) BID 04/05/23 04/05/23 Previous Rx's ?Medication ?Instructions ?Recorded fluticasone fur. 100 mcg-umeclid 1 inh inhalation DAILY 30 days #60 09/23/22 62.5 mcg-vilant 25 mcg ea inhalat.powder (Trelegy Ellipta) cefuroxime axetil 250 mg tablet 250 mg PO BID 10 days #20 tabs 04/08/23 prednisone 20 mg tablet See Rx Instructions .Route 04/08/23 .COMPLEX #18 tabs Allergies Allergy/AdvReac Type Severity Reaction Status Date / Time cephalexin [From Keflex] Allergy Severe Rash Verified 12/29/23 14:34 sulfamethoxazole Allergy Severe Itching Verified 12/29/23 14:34 [From Bactrim] trimethoprim [From Bactrim] Allergy Severe Itching Verified 12/29/23 14:34 Review of Systems 2 Review of Systems: Positive abdominal pain Yes all other systems are reviewed and are negative PMFSH Past Medical History Attestation statement: The following information was validated with the patient. Medical History Lymphadenopathy, mediastinal Pulmonary nodule Depression Hiatal hernia RENETTA (obstructive sleep apnea) Chronic respiratory failure CKD (chronic kidney disease) Diastolic dysfunction Dementia Pulmonary embolism Hyperlipidemia COPD (chronic obstructive pulmonary disease) PVD (peripheral vascular disease) HTN (hypertension) Insomnia Anxiety Surgical History Hx of tonsillectomy Social History Social History Household Members: Other Housing: Assisted Housing Other:: [facility] Do you presently have visiting nurse or other home services: No Alcohol intake: former Comment: patient is wheelchair bound at baseline Patient Tobacco Use Status: Former Tobacco user Tobacco use type: Cigarette Cigarette Packs Per Day: 1 Cigarettes Per Day: 20.0 Years Smoked: 68 e-Cigarette/Vaping Use: Never Used Second Hand Smoke Exposure: No Substance Use Type: Caffiene Advance Directives: Yes Advance Directives on File: Yes Advance Directives Date on File: 07/15/20 Do you have a plan to hurt others: No Plan service: No Current occupational status: retired Physical Exam ED Vital Signs: Vital Signs - 24 hr 12/29/23 14:31 12/29/23 14:39 12/29/23 14:40 Temperature 98.5 F 98.5 F Pulse Rate 83 83 Respiratory Rate 18 18 Blood Pressure 118/53 L 118/53 L Pulse Oximetry 96 96 96 Oxygen Delivery Method Nasal Cannula Nasal Cannula Nasal Cannula Oxygen Flow Rate 4 12/29/23 16:00 12/29/23 18:00 12/29/23 19:16 Temperature 98.1 F 97.9 F 98.1 F Pulse Rate 82 88 96 Respiratory Rate 17 19 26 H Blood Pressure 124/55 L 126/60 130/83 Pulse Oximetry 95 Oxygen Delivery Method Nasal Cannula Nasal Cannula Nasal Cannula Oxygen Flow Rate 4 4 12/29/23 20:03 Temperature 98.4 F Pulse Rate 96 Respiratory Rate 20 Blood Pressure 142/81 H Pulse Oximetry 96 Oxygen Delivery Method Room Air Nasal Cannula Oxygen Flow Rate 4 BMI result Body Mass Index 22.3 Appearance: Alert. Oriented X3. No acute distress. Eyes: Pupils equal, round and reactive to light. ENT: Pharynx normal. Neck: Normal inspection. Neck supple. No lymph nodes noted. No crepitus CVS: Normal heart rate and rhythm. Pulses normal. Normal S1 and S2 Respiratory: No respiratory distress. Breath sounds normal. No Wheezing. No rales Abdomen: Soft and nontender. No rigidity. No distention. good BS x4 Skin: Skin warm and dry. Normal skin color. Normal skin turgor. Extremities: No lower extremity edema. Neurovascular intact to all extremities. No Lacerations. No Rash Neuro: Oriented X 3. No motor deficit. No sensory deficit. Moving all extermities. No slurred speech Medications Administered Discontinued Medications Generic Name Dose Route Start Last Admin Trade Name Freq PRN Reason Stop Dose Admin Sodium Chloride 500 mls @ 999 mls/hr 12/29/23 15:00 12/29/23 18:20 Ns IV 12/29/23 15:30 Not Given .Q31M [facility] Medical Decision Making Medical Decision Making [facility] Narrative: 21:25 Patient presented with possible abdominal pain. Health has been declining. Patient denies any chest pain. No shortness of breath but feels weak. Patient was sent in for further evaluation. My interpretation of patient's EKG showed a sinus rhythm heart rate is 80 AR QRS QTC normal there is nonspecific ST segment changes in the anterior leads. A set of troponin was ordered. Case was discussed with patient's rneokchb-uj-qhe who is the [id number]. Wanted an evaluation for patient's possible abdominal pain. CT scan of the abdomen pelvis was negative for any acute evidence of obstruction abscess perforation. At redemonstrated the mass in the right upper lobe consistent with a possible malignancy. This was demonstrated back in March of 2023. Patient's troponin finally came back positive at 158. In the setting of normal O2 sat. Will recheck another troponin. Family was contacted. Once patient to be admitted. Case discussed with cardiology. [place] the changes to be minimal. One a repeat troponin prior to making a final decision. . Patient's 2nd troponin came back at 161. Essentially unchanged from the 1st 1. Contacted the hospitalist contacted the email administrator. Feel comfortable with aspirin did not want heparin at this time. Patient to be admitted. Differential Diagnosis Differential Diagnoses: The differential diagnosis associated with the presentation includes Dehydration, ACS, diverticulitis, obstruction, volvulus Admission/Observation Consideration of admission/observation: Escalation of care including admission/observation considered Consult Healthcare Provider Management of the patient was discussed with: Hospitalist and Data Architect (Cardiology) Lab Data MDM Lab Attestation statement: I reviewed the patient's lab results. 12/29/23 16:49 12/29/23 20:46 Labs: Lab Results 12/29/23 12/29/23 12/29/23 Range/Units 16:49 20:46 21:51 WBC 11.3 H (4.8-10.8) X10*3/uL RBC 3.91 L (4.20-5.50) X10*6/uL Hgb 11.9 L (12.0-16.0) g/dl Hct 36.7 L (37.0-47.0) % MCV 93.9 (80.0-98.0) fL MCH 30.4 (27.0-33.0) pg MCHC 32.4 (31.0-35.0) g/dl RDW 14.1 (11.0-16.0) % Plt Count 407 H D (160-400) X10*3/uL MPV 9.7 (9.4-12.3) fL Immature Gran % (Auto) 0.9 H (0.0-0.4) % Neut % (Auto) 67.5 (45-73) % Lymph % (Auto) 21.2 (20-40) % [place] % (Auto) 8.0 (2-11) % Eos % (Auto) 1.9 (0-4) % Baso % (Auto) 0.5 (0-2) % Lymph # (Auto) 2.4 (1.2-4.9) X10*3/uL [place] # (Auto) 0.9 (0.1-1.2) X10*3/uL Eos # (Auto) 0.2 (0.0-0.4) X10*3/uL Baso # (Auto) 0.1 (0.0-0.2) X10*3/uL Abs Immat Gran (auto) 0.10 H (0.00-0.03) X10*3/uL Absolute Neuts (auto) 7.6 (2.0-8.3) x10*3/uL Absolute Nucleated RBC 0.000 (0.0-0.012) X10*3/uL Nucleated RBC % (auto) 0.0 (0.0-0.2) /100WBC Sodium 141 (135-145) mmol/L Potassium 4.0 (3.3-5.1) mmol/L Chloride 106 (96-108) mmol/L Carbon Dioxide 24 (22-29) mmol/L Anion Gap 15 (12-20) BUN 24 H (9-16) mg/dL Creatinine 0.88 (0.5-1.4) mg/dL Estim Creat Clear Calc 42.0 Estimated GFR > 60 Random Glucose 96 (60-115) mg/dL Lactic Acid 1.0 (0.5-2.0) mmol/L Calcium 8.1 L (8.4-10.2) mg/dL Total Bilirubin 0.3 (0.0-1.0) mg/dL Direct Bilirubin 0.1 (0.0-0.5) mg/dL AST 20 (5-31) U/L ALT < 5 (0-31) U/L Alkaline Phosphatase 65 (39-117) U/L Troponin I High Sens 158.0 H* D 161.0 H* (<3.5-17.0) ng/L Total Protein 6.4 L (6.5-8.0) g/dL Albumin 3.1 L (3.5-5.0) g/dL Lipase 18 (8-78) U/L Independent Interpretation I performed an independent interpretation of an: EKG (My interpretation of patient's initial EKG showed a sinus rhythm heart rate is 80 AR QRS QTC normal there is a slight ST segment elevation in the anterior leads. Not enough for STEMI in the setting of no chest pain.) Interpretation: My interpretation of patient's 2nd EKG showed a sinus rhythm heart rate also 90 AR QRS QTC is normal from the initial EKG done with question ST segment elevations in the anterior needs again noted. The degree of elevation is not changed. Radiology Impression Discussion of test interpretation with radiology: I have reviewed the radiologist's reading. External Record Review prison record reviewed Critical Care Time Critical Care Time Critical Care Time: Yes Total Critical Care Time: 50 Attestation: I have personally provided 50 minutes of critical care time exclusive of time spent on separately billable procedures. ?Time includes review of lab data, radiology results, discussion with consultants, and monitoring for potential decompensation. ?Interventions were performed as documented above Discharge Plan Discharge Clinical Impression: Acute myocardial infarction Patient Disposition: Admitted As Inpatient Print Language: Mongolian
--- NOTE | 2023-12-29 15:30 | PC.NURSE ---
Unable to obtain IV access and/or labs. Requesting another RN to attempt access.
--- NOTE | 2023-12-29 16:49 | PC.NURSE ---
unable to establish IV accessx 2.
[2023-12-29 16:58] LABS: MANUAL DIFF FLAG NO
[2023-12-29 17:01] LABS: Basophils Absolute Auto 0.1 X10*3/uL (0.0-0.2); Basophils Percent Auto 0.5 % (0-2); Eosinophils Absolute Auto 0.2 X10*3/uL (0.0-0.4); Eosinophils Percent Auto 1.9 % (0-4); Hematocrit 36.7 % (37.0-47.0); Hemoglobin 11.9 g/dl (12.0-16.0); Imm Gran Pct Auto 0.9 % (0.0-0.4); Lymphocytes Absolute Auto 2.4 X10*3/uL (1.2-4.9); Lymphocytes Percent Auto 21.2 % (20-40); Mean Corpuscular HGB Conc 32.4 g/dl (31.0-35.0); Mean Corpuscular Hemoglobin 30.4 pg (27.0-33.0); Mean Corpuscular Volume 93.9 fL (80.0-98.0); Mean Platelet Volume 9.7 fL (9.4-12.3); Monocytes Absolute Auto 0.9 X10*3/uL (0.1-1.2); Neutrophils Absolute Auto 7.6 x10*3/uL (2.0-8.3); Neutrophils Percent Auto 67.5 % (45-73); Platelet Count 407 X10*3/uL (160-400); Red Blood Count 3.91 X10*6/uL (4.20-5.50); Red Cell Distribution Width 14.1 % (11.0-16.0); White Blood Count 11.3 X10*3/uL (4.8-10.8)
[2023-12-29 21:15] LABS: Alanine Aminotransferase < 5 U/L (0-31); Albumin Level 3.1 g/dL (3.5-5.0); Alkaline Phosphatase 65 U/L (39-117); Anion Gap 15 (12-20); Aspartate Amino Transferase 20 U/L (5-31); Bilirubin Direct 0.1 mg/dL (0.0-0.5); Bilirubin Total 0.3 mg/dL (0.0-1.0); Blood Urea Nitrogen 24 mg/dL (9-16); Calcium 8.1 mg/dL (8.4-10.2); Carbon Dioxide 24 mmol/L (22-29); Chloride 106 mmol/L (96-108); Estimated Glomerular Filt Rate > 60; Glucose Random 96 mg/dL (60-115); Lipase 18 U/L (8-78); Sodium 141 mmol/L (135-145); Total Protein 6.4 g/dL (6.5-8.0)
--- NOTE | 2023-12-29 22:07 | PC.NURSE ---
Assumed care of pt t 1900. Per previous RN pt was difficult stick and labs were not obtained. Per previous RN cancelled iv and labs. MD requested labs to be drawn by this RN, Trop elevated, line and repeat troponin requested by . IV line placed #22 R-AC. Repeat labs drawn by technology consultant. EKG done, pt changed over. VSS, pt alert and oriented to self, easily arousable, resistive to some care, pt reports pain in L-leg/hip. Pt attempt to pinch this RN after getting IV, pt stated you hurt me, I'm gonna hurt you . Explained to pt that the IV is needed and she would be getting admitted to to the hospital. Repeat troponin 161. aware.
--- NOTE | 2023-12-29 23:45 | PM.IMHP ---
History of Present Illness Date of Service: 12/29/23 Attending physician on admission: Alis Kaba Chief Complaint: Abdominal pain Skyler Marks is 83 years old woman with past medical history significant for COPD on home oxygen (4L/min), depression, right lung mass and constipation was brought to the emergency department from her nursing facility ([facility]) after family requested as the patient has been declining. I spoke with patient's daughter in-law, Catalina HOGAN, over the phone. She noted that patient's neck seems to be leaning to the right side and it seems to be like her left side has been more weaker than usual, so she is wondering if patient might be having a stroke. HPI was unable to obtain directly from the patient as she seems to be very confused. Even answering simple question was difficult for the patient. On evaluation, patient atarted to experience pain upon moving her left leg passively but she could not point out where was the pain. According to ED doctor patient has been having some abdominal pain. In the ED, she was found to have stable vital signs. Her oxygen saturation is normal on 4 liters/minutes supplemental oxygen via nasal cannula which is her baseline. Blood remarkable for elevated troponin x2 (158.0 --> 161.0). ECGs showed normal sinus rhythm without any specific ST wave changes. Chest, abdomen CT scan showed right upper lobe spiculated mass (enlarging size since prior CTA in 04/08/2023), small left pleural effusion, large left-sided hiatal hernia, chronic right-sided hydronephrosis, large volume of stool in the rectum, stercoral colitis and diverticulosis without diverticulitis. Review of Systems Review of Systems: Yes Unobtainable due to mental status [facility] Medical History (Updated 12/30/23 @ 00:43 by Alis Kaba MD) Mass of upper lobe of right lung Lymphadenopathy, mediastinal Pulmonary nodule Depression Hiatal hernia RENETTA (obstructive sleep apnea) Chronic respiratory failure CKD (chronic kidney disease) Diastolic dysfunction Dementia Pulmonary embolism Hyperlipidemia COPD (chronic obstructive pulmonary disease) PVD (peripheral vascular disease) HTN (hypertension) Insomnia Anxiety Surgical History Hx of tonsillectomy Social History Household Members: Other Housing: Prison Housing Other:: [facility] Do you presently have visiting nurse or other home services: No Alcohol intake: former Comment: patient is wheelchair bound at baseline Patient Tobacco Use Status: Former Tobacco user Tobacco use type: Cigarette Cigarette Packs Per Day: 1 Cigarettes Per Day: 20.0 Years Smoked: 68 e-Cigarette/Vaping Use: Never Used Second Hand Smoke Exposure: No Substance Use Type: Caffiene Advance Directives: Yes Advance Directives on File: Yes Advance Directives Date on File: 07/15/20 Do you have a plan to hurt others: No Plan service: No Current occupational status: retired Meds Allergies Allergy/AdvReac Type Severity Reaction Status Date / Time cephalexin [From Keflex] Allergy Severe Rash Verified 12/29/23 14:34 sulfamethoxazole Allergy Severe Itching Verified 12/29/23 14:34 [From Bactrim] trimethoprim [From Bactrim] Allergy Severe Itching Verified 12/29/23 14:34 Active Medications: Current Medications Acetaminophen (Acetaminophen 325 Mg Tablet) 975 mg PO Q6H PRN PRN Reason: Pain, Mild (Pain Scale 1-3), fever or headache Aspirin (Aspirin 81 Mg Tab.Chew) 81 mg PO DAILY DANA Heparin Sodium (Porcine) (Heparin Sodium,Porcine 5,000 Unit/Ml Vial) 5,000 unit SUBCUT Q12H DANA Magnesium Hydroxide (Milk Of Magnesia 30 Ml Oral.Susp) 30 ml PO DAILY PRN PRN Reason: Constipation Melatonin (Melatonin 3 Mg Tablet) 6 mg PO BEDTIME PRN PRN Reason: Insomnia Senna (Sennosides 8.6 Mg Tablet) 17.2 mg PO BEDTIME DANA Sodium Chloride (0.9 % Sodium Chloride Flush 3 Ml Syringe) 3 ml IVFLUSH QSHIFT DANA Home Medications ?Medication ?Instructions ?Recorded ?Confirmed ?Last Taken ?Type Oxygen Home Use 08/19/22 Unknown History divalproex 125 mg tablet,delayed 125 mg PO BID 08/19/22 04/05/23 Unknown History release (Depakote) nebulizers 08/19/22 Unknown History acetaminophen 500 mg tablet 1,000 mg PO TID 01/17/23 04/05/23 Unknown History sertraline 25 mg tablet 25 mg PO DAILY 01/17/23 04/05/23 Unknown History magnesium hydroxide 400 mg/5 mL 400 mg PO DAILY PRN Constipation 03/09/23 04/05/23 Unknown History oral suspension (Milk of Magnesia) sodium phosphates 19 gram-7 118 ml TN BEDTIME PRN Constipation 03/09/23 04/05/23 Unknown History gram/118 mL enema (Fleet Enema) bisacodyl 10 mg rectal suppository 10 mg TN DAILY PRN Constipation 04/05/23 04/05/23 Unknown History calcium carbonate 600 mg-vitamin 1 tab PO BID 04/05/23 04/05/23 Unknown History D3 5 mcg (200 unit) tablet dextromethorphan HBr 15 mg/5 mL 30 mg PO Q6H PRN Cough 04/05/23 04/05/23 Unknown History oral syrup ipratropium 0.5 mg-albuterol 3 mg 3 ml inhalation Q4H PRN shortness 04/05/23 04/05/23 Unknown History (2.5 mg base)/3 mL nebulization of breath/wheeze soln polyvinyl alcohol 1.4 % eye drops 1 drp ophthalmic (eye) BID 04/05/23 04/05/23 Unknown History Physical Exam Vital Signs and Narrative: Vital Signs: Last Vital Signs Temp 97.6 F 12/29/23 23:19 Pulse 94 12/29/23 23:19 Resp 22 H 12/29/23 23:19 BP 132/81 12/29/23 23:19 Pulse Ox 95 12/29/23 23:19 O2 Del Method Room Air, Nasal C annula 12/29/23 23:19 O2 Flow Rate 4 12/29/23 23:19 Oxygen Flow Rate 4 12/29/23 14:40 BMI result Body Mass Index 22.3 Constitutional - Awake and Alert, No apparent distress. Confused. Nasal cannula in place. HEENT - PERRL, EOMI, neck: no ROM due to pain, contracted to the right. Heart -RRR, (+) murmur. Lungs - Normal lung expansion, Normal respiratory effort, No respiratory distress, CTA bilaterally Abdomen - NT / ND; +BS; No rebound or guarding Extremities - no calf tenderness bilaterally, no swelling Musculoskeletal - Atrophic muscles. Tenderness to passive movement of the left leg. Left leg contracted. Skin - Warm/Dry Neurological - Alert & oriented x2. Left lower leg weakness. Psychological - Depressed affect Results Labs 12/29/23 16:49 12/29/23 20:46 Labs: Laboratory Results - last 24 hr 12/29/23 12/29/23 12/29/23 16:49 20:46 21:51 MCV 93.9 MCH 30.4 MCHC 32.4 RDW 14.1 Plt Count 407 H D MPV 9.7 Immature Gran % (Auto) 0.9 H Neut % (Auto) 67.5 Lymph % (Auto) 21.2 [place] % (Auto) 8.0 Eos % (Auto) 1.9 Baso % (Auto) 0.5 Lymph # (Auto) 2.4 [place] # (Auto) 0.9 Eos # (Auto) 0.2 Baso # (Auto) 0.1 Abs Immat Gran (auto) 0.10 H Absolute Neuts (auto) 7.6 Absolute Nucleated RBC 0.000 Nucleated RBC % (auto) 0.0 Anion Gap 15 Estim Creat Clear Calc 42.0 Estimated GFR > 60 Random Glucose 96 Lactic Acid 1.0 Calcium 8.1 L Total Bilirubin 0.3 Direct Bilirubin 0.1 AST 20 ALT < 5 Alkaline Phosphatase 65 Troponin I High Sens 158.0 H* D 161.0 H* Total Protein 6.4 L Albumin 3.1 L Lipase 18 Imaging Radiologist's Impressions: Impressions Shoulder X-Ray 12/29/23 17:02 IMPRESSION: No radiographic evidence of acute fracture or dislocation. Mild acromioclavicular arthritis. Abdomen/Pelvis CT 12/29/23 19:30 IMPRESSION: 1. CT chest. Redemonstration of the spiculated mass in the right upper lobe. This has enlarged in size since prior CAT scan April 05, 2023. 2. Small dependent left pleural effusion. 3. Large left-sided hiatal hernia containing most of the stomach and the splenic flexure colonic bowel loops. 4. Redemonstration of the moderate right-sided hydronephrosis. 5. Large volume of stool in the rectum with mild wall thickening of the rectum consistent with stercoral colitis. 6. Diverticulosis of the colon. No acute change of the bowel. Chest CT 12/29/23 19:30 IMPRESSION: 1. CT chest. Redemonstration of the spiculated mass in the right upper lobe. This has enlarged in size since prior CAT scan April 05, 2023. 2. Small dependent left pleural effusion. 3. Large left-sided hiatal hernia containing most of the stomach and the splenic flexure colonic bowel loops. 4. Redemonstration of the moderate right-sided hydronephrosis. 5. Large volume of stool in the rectum with mild wall thickening of the rectum consistent with stercoral colitis. 6. Diverticulosis of the colon. No acute change of the bowel. 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 Admit to hospitalist service. Continue aspirin 81 mg p.o. daily Check troponin in the morning. Check lipid panel and A1c. Obtain TTE. Cardiology consult. Severe constipation. Milk of magnesia, Senokot and fleet enema. Left buttock decubitus ulcer. Wound care consult. Left-sided weakness + neck mobilities issues. 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 C-spine CT scan is pending. Right-sided hydronephrosis, moderate and chronic. COPD. On home O2. Not in acute exacerbation. Currently requiring 4 liters/minute supplemental oxygen which is her baseline. Continue inhalers. Right upper lobe mass, suspicious for neoplasm as per PET scan done last year. Family is not pursuing aggressive treatment for this. Has been followed by Dr. Aguilera for this as an outpatient. Depression. Continue home medications: Sertraline and divalproex. DVT prophylaxis: Heparin Code status: [id number]. CPR okay Patient will need hospitalization for at least 2 midnights for elevated troponin workup and severe constipation treatment with multiple laxatives including enema. Patient will need evaluation by subspecialty. Quality Stroke Does the patient have a stroke diagnosis?: No VTE Prior VTE?: No VTE Risk Level:: Medical - moderate - high VTE Device Contraindication: Treatment Not Indicated VTE Drug Contraindication: N/A - Med Ordered
[2023-12-29] MEDS: Aspirin 81 MG TAB.CHEW 324 MG PO (23:57)
[2023-12-29] MEDS: Sennosides 8.6 MG TABLET 17.2 MG PO (23:57)
[2023-12-29] MEDS: Sodium Phosphate,Mono-Dibasic 133 ML ENEMA PR (23:57)
[2023-12-29] MEDS: 0.9 % Sodium Chloride Flush 3 ML SYRINGE IVFLUSH (23:58)
[2023-12-30] VITALS (7 sets, daily range): BP systolic 97–127; BP diastolic 50–72; PULSE 77–109; RESP 16–26; TEMP 36.6–37.1; O2SAT 93–100
[2023-12-30] MEDS: Divalproex Sodium Sprinkles 125 MG CAP.DR.SPR PO ×3 (02:43→21:20)
[2023-12-30 05:33] LABS: MANUAL DIFF FLAG NO
[2023-12-30 05:36] LABS: Basophils Absolute Auto 0.1 X10*3/uL (0.0-0.2); Basophils Percent Auto 0.5 % (0-2); Eosinophils Absolute Auto 0.1 X10*3/uL (0.0-0.4); Eosinophils Percent Auto 1.1 % (0-4); Hematocrit 33.9 % (37.0-47.0); Hemoglobin 11.3 g/dl (12.0-16.0); Imm Gran Abs Auto 0.12 X10*3/uL (0.00-0.03); Lymphocytes Absolute Auto 2.8 X10*3/uL (1.2-4.9); Lymphocytes Percent Auto 23.3 % (20-40); Mean Corpuscular HGB Conc 33.3 g/dl (31.0-35.0); Mean Corpuscular Hemoglobin 30.8 pg (27.0-33.0); Mean Corpuscular Volume 92.4 fL (80.0-98.0); Mean Platelet Volume 9.1 fL (9.4-12.3); Monocytes Absolute Auto 1.3 X10*3/uL (0.1-1.2); Monocytes Percent Auto 10.8 % (2-11); Neutrophils Absolute Auto 7.7 x10*3/uL (2.0-8.3); Neutrophils Percent Auto 63.3 % (45-73); Platelet Count 418 X10*3/uL (160-400); Red Blood Count 3.67 X10*6/uL (4.20-5.50); Red Cell Distribution Width 13.9 % (11.0-16.0); White Blood Count 12.1 X10*3/uL (4.8-10.8)
[2023-12-30 05:51] LABS: Anion Gap 12 (12-20); Blood Urea Nitrogen 22 mg/dL (9-16); Calcium 8.2 mg/dL (8.4-10.2); Carbon Dioxide 23 mmol/L (22-29); Chloride 107 mmol/L (96-108); Cholesterol 139 mg/dL (<200); Creatinine Clr Calc Pharmacy 43.5; Estimated Average Glucose 91 mg/dL; Estimated Glomerular Filt Rate > 60; Glucose Random 87 mg/dL (60-115); HDL Cholesterol 23 mg/dL (>40); Hemoglobin A1c % 4.8 % (<6.0); LDL Cholesterol Calculated 87 mg/dL (<100); Potassium 3.4 mmol/L (3.3-5.1); Sodium 139 mmol/L (135-145); Triglycerides 149 mg/dL (<150)
--- NOTE | 2023-12-30 05:53 | PC.NURSE ---
pt from [facility], dementia unit, family requested workup for Hospice care, DT mass in lung, and reports FIT. Mass in lung, has increased in size since, 04/11. Pt c/o of left leg pain. A&O to self, know [place], but not the hospital. Pt is very verbal, and will cuss at you, if you hurt her. IV in RAC, very hard stick. Pt received a fleets enema, with good results, R/T to full of stool, Pt is very contracted, in all extrementries, hurts to straighten them out. Take pill whole, with water. Ambulation status unknown. Pt has a stage 1 on coccyx, and left butttocks, with redness, and excoriation, UTI. Admission for elevated Trop. All scans, nothing acute, only change was the lung mass increase. O2@5L/NC, she is on Home O2. Pt is incont.
[2023-12-30 06:01] LABS: Troponin-I High Sensitivity 129.6 ng/L (<3.5-17.0)
[2023-12-30 06:41] LABS: Reflex LDLD? No
--- NOTE | 2023-12-30 07:00 | CA_ITS ---
Transthoracic Echocardiogram Patient (Last, First, Middle): Skyler Marks E Gender: Female Date of : 1940 Age: 83 Procedure Date: 12/30/2023 Procedure Type: Transthoracic Echocardiogram Location: ER Height: 165.1 cm Weight: 60.33 kg BSA: 1.66 m2 Heart Rate: 85 bpm BP: 97 / 62 mmHg Knitter Hand: Referring MD: Alis Kaba MD Symptoms: elevated troponin Study Quality: Adequate w contrast ECG Rhythm: Sinus Conclusions: - Normal left ventricular cavity size. There is moderately increased left ventricular wall thickness. The left ventricular systolic function is moderately decreased. The visually estimated ejection fraction is between 30-35%. - Mid to distal LV wall severe hypokinetic to akinetic- differentials Takotsubo cardiomyopathy vs multivessel disease. Findings Procedure Information Contrast agent, definity, is being given per protocol without apparent complications. Left Ventricle Normal left ventricular cavity size. There is moderately increased left ventricular wall thickness. The left ventricular systolic function is moderately decreased. The visually estimated ejection fraction is between 30 35%. There is evidence of regional wall motion abnormalities. Abnormal diastolic function is noted. Spectral Doppler is indicative of an impaired relaxation filling pattern. E/E prime ratio is >15, consistent with elevated filling pressures. Wall Motion Rest Echo Findings The entire apex, the mid anterior, mid inferior, mid anterolateral, mid inferoseptal, mid anteroseptal, and mid inferolateral segments are akinetic. Right Ventricle Normal right ventricular cavity size and systolic function. Apical RV appears hypokinetic. Atria The left atrium is normal in size. The right atrium is normal in size. Aortic Valve The aortic valve was not well visualized. There is mild thickening of the aortic valve. There is no aortic valve stenosis. There is no aortic valve regurgitation. Mitral Valve The mitral valve appears normal. There is no mitral valve regurgitation. There is no mitral valve stenosis. Pulmonic Valve The pulmonic valve was not well visualized. Tricuspid Valve Normal tricuspid valve structure. There is trace tricuspid valve regurgitation. Normal right atrial pressure. There is no evidence of pulmonary hypertension. Great Vessels The aorta was not well visualized. The pulmonary artery was not well visualized. Venous The inferior vena cava is normal in size and collapses greater than 50% with inspiration. Pericardium/Pleural There is a trivial pericardial effusion. Prior Study Comparison No prior study available for comparison. Measurements 2D Linear Measurements IVSd: 1.28 0.6-0.9/0.6-1.0 cm LVIDd: 2.91 3.9-5.3/4.2-5.9 cm LVIDd Index: 1.75 2.4-3.2/2.2-3.1 cm/m2 LVIDs: 2.30 2.0-3.6 cm LVPWd: 1.27 0.7-1.1 cm LA Diam: 1.90 2.7-3.8/3.0-4.0 cm LAIDs Index: 1.14 1.5-2.3 cm/m2 LV Mass: 143.65 67-162/88-224 g LV Mass Index: 86.54 43-95/49-115 g/m2 LVOT Diam: 2.10 3.0+(-)1.3 cm 2D Systolic Function EF 4C: 34.80 >55% EF 2C: 33.80 >55% EF BiP: 36.90 >55% Mitral Valve MV Pk E: 0.55 MV PK A: 1.06 MV Decel Time: 66.00 E/A: 0.50 E'Lateral: 3.92 E'Medial: 3.37 E/E' Med: 16.20 E/E' Lat: 13.90 PHT: 19.00 MVA PHT: 11.58 Decel [place]: 8.31 Aortic Valve AoV Pk Ang: 1.55 AoV Mn Ang: 0.92 AoV VTI: 0.31 AoV Pk Grad: 10.00 Aov Mn Grad: 4.00 BRAD Cont.VTI: 2.42 LVOT LVOT Pk Ang: 0.79 LVOT Mn Ang: 0.48 LVOT VTI: 0.21 LVOT Pk Grad: 2.00 LVOT Mn Grad: 1.00 LVOT Diam: 2.10 LVOT Area: 3.46 Diastolic Function MV Pk E: 0.55 MV Pk A: 1.06 E/A: 0.50 E'Medial: 3.37 E/E' Med: 16.20 E' Laterial: 3.92 E/E' Lat: 13.90 Right Ventricle TAPSE (mm): 20.90 TVS' Ang: 13.70 Tricuspid Valve TR Pk Ang: 3.02 TR Pk Grad: 36.00 RA Press: 3.00 RVSP: 39.00 Pulmonary Valve PV Pk Ang: 1.05 Peak PV Grad: 4.00 Updated in Other Vendor System with Status of Final Steffen Olivas MD electronically signed on 12/30/2023 12:07:44 PM with status of Final
--- NOTE | 2023-12-30 08:25 | PHA.MEDREC ---
Pharmacy Consult ? Medication Reconciliation Pharmacy has completed the medication reconciliation. List from [facility]
[2023-12-30] MEDS: Heparin Sodium,Porcine 5,000 UNIT/ML VIAL 5000 UNIT SUBCUT ×2 (08:42→21:20)
[2023-12-30] MEDS: 0.9 % Sodium Chloride Flush 3 ML SYRINGE IVFLUSH ×2 (08:42→21:21)
--- NOTE | 2023-12-30 08:43 | PC.NURSE ---
incontinent of urine and stool, patient cleaned and repositioned in the bed. wound on coccyx cleaned and dressed.
--- NOTE | 2023-12-30 08:50 | MHC.CM.PN ---
Patient has Dementia; CM left a detailed message for [id number]-[id number]/HCP/Catalina @ [phone] and original IMM will be mailed certified letter to Catalina and a copy will be placed on the chart. Patient is a LTC Resident and [facility] bed hold at [facility] and returning there is the goal. CM has initiated and will follow for dc planning.
--- NOTE | 2023-12-30 09:44 | HO.PM.IMPN ---
Subjective Subjective Date of Service: 12/30/23 Interval History: Seen and evaluated this morning laying comfortable, confused 2 moderate bowel movements Review of Systems Review of Systems: Yes Unobtainable due to mental status Physical Exam Vital Signs: Vital Signs: Last Vital Signs Temp 98.8 F 12/30/23 08:17 Pulse 77 12/30/23 08:17 Resp 16 12/30/23 08:17 BP 101/50 L 12/30/23 08:17 Pulse Ox 100 12/30/23 08:17 O2 Del Method Nasal Cannula 12/30/23 08:17 O2 Flow Rate 5 12/30/23 08:17 Oxygen Flow Rate 4 12/29/23 14:40 BMI result Body Mass Index 22.3 Const: Other: Constitutional : Awake with stimulation, frail looking, not in distress Neck : Normal inspection, Supple Cardiovascular : RRR, no JVP, no lower extremity edema Respiratory : good bilateral air entry, no crackles, wheezes or rhonchi Gastrointestinal: soft, lax, decreased bowel sounds, mild discomfort Skin : Warm, Dry, large Neurological : Alert & disoriented, No focal deficit Objective Data Active Medications Acetaminophen (Acetaminophen 325 Mg Tablet) 975 mg PO Q6H PRN PRN Reason: Pain, Mild (Pain Scale 1-3), fever or headache Albuterol/Ipratropium (Albuterol/Iprat 2.5/0.5mg 3 Ml Ampul.Neb) 3 ml INHALE Q4H PRN PRN Reason: shortness of breath/wheeze Aspirin (Aspirin 81 Mg Tab.Chew) 81 mg PO DAILY [facility] Last Admin: 12/30/23 08:42 Dose: Not Given Documented By: NEGRO Non-Admin Reason: Patient Refused Bisacodyl (Bisacodyl 10 Mg Supp.Rect) 10 mg [place] DAILY [facility] Fluticasone/Umeclidinium/Vilanterol (Fluticasone/Umeclidinium/Vilanterol 100/62.5/25 Blst.W.Dev) 1 puff INHALE RDAILY [facility] Heparin Sodium (Porcine) (Heparin Sodium,Porcine 5,000 Unit/Ml Vial) 5,000 unit SUBCUT Q12H [facility] Last Admin: 12/30/23 08:42 Dose: 5,000 unit Documented By: NEGRO Lactated Ringer's (Lr) 1,000 mls @ 80 mls/hr IVCONT .[id number] DANA Magnesium Hydroxide (Milk Of Magnesia 30 Ml Oral.Susp) 30 ml PO DAILY PRN PRN Reason: Constipation Magnesium Hydroxide (Milk Of Magnesia 30 Ml Oral.Susp) 30 ml PO DAILY PRN PRN Reason: no BM in 3 days Melatonin (Melatonin 3 Mg Tablet) 6 mg PO BEDTIME PRN PRN Reason: Insomnia Mirtazapine (Mirtazapine 15 Mg Tablet) 15 mg PO BEDTIME@2000 [facility] Non-Formulary Medication (Divalproex [Depakote]) 125 mg PO BID [facility] Non-Formulary Medication (Diclofenac Sodium) 4 gm TOPICAL TID PRN PRN Reason: shoulder pain Senna (Sennosides 8.6 Mg Tablet) 17.2 mg PO BEDTIME [facility] Last Admin: 12/29/23 23:57 Dose: 17.2 mg Documented By: NUHA Sertraline HCl (Sertraline Hcl 25 Mg Tablet) 25 mg PO DAILY [facility] Sodium Biphosphate/Sodium Phosphate (Sodium Phosphate,[place]-Dibasic 133 Ml Enema) 118 ml DE BEDTIME [facility] Sodium Chloride (0.9 % Sodium Chloride Flush 3 Ml Syringe) 3 ml IVFLUSH QSHIFT [facility] Last Admin: 12/30/23 08:42 Dose: 3 ml Documented By: NEGRO Labs 12/30/23 05:01 12/30/23 05:01 Labs: Laboratory Results - last 24 hr 12/29/23 12/29/23 12/29/23 16:49 20:46 21:51 MCV 93.9 MCH 30.4 MCHC 32.4 RDW 14.1 Plt Count 407 H D MPV 9.7 Immature Gran % (Auto) 0.9 H Neut % (Auto) 67.5 Lymph % (Auto) 21.2 [place] % (Auto) 8.0 Eos % (Auto) 1.9 Baso % (Auto) 0.5 Lymph # (Auto) 2.4 [place] # (Auto) 0.9 Eos # (Auto) 0.2 Baso # (Auto) 0.1 Abs Immat Gran (auto) 0.10 H Absolute Neuts (auto) 7.6 Absolute Nucleated RBC 0.000 Nucleated RBC % (auto) 0.0 Anion Gap 15 Estim Creat Clear Calc 42.0 Estimated GFR > 60 Random Glucose 96 Estimat Average Glucose Hemoglobin A1c % Lactic Acid 1.0 Calcium 8.1 L Total Bilirubin 0.3 Direct Bilirubin 0.1 AST 20 ALT < 5 Alkaline Phosphatase 65 Troponin I High Sens 158.0 H* D 161.0 H* Total Protein 6.4 L Albumin 3.1 L Triglycerides Cholesterol LDL Cholesterol, Calc HDL Cholesterol Lipase 18 12/30/23 05:01 MCV 92.4 MCH 30.8 MCHC 33.3 RDW 13.9 Plt Count 418 H MPV 9.1 L Immature Gran % (Auto) 1.0 H Neut % (Auto) 63.3 Lymph % (Auto) 23.3 [place] % (Auto) 10.8 Eos % (Auto) 1.1 Baso % (Auto) 0.5 Lymph # (Auto) 2.8 [place] # (Auto) 1.3 H Eos # (Auto) 0.1 Baso # (Auto) 0.1 Abs Immat Gran (auto) 0.12 H Absolute Neuts (auto) 7.7 Absolute Nucleated RBC 0.000 Nucleated RBC % (auto) 0.0 Anion Gap 12 Estim Creat Clear Calc 43.5 Estimated GFR > 60 Random Glucose 87 Estimat Average Glucose 91 Hemoglobin A1c % 4.8 Lactic Acid Calcium 8.2 L Total Bilirubin Direct Bilirubin AST ALT Alkaline Phosphatase Troponin I High Sens 129.6 H* Total Protein Albumin Triglycerides 149 Cholesterol 139 LDL Cholesterol, Calc 87 HDL Cholesterol 23 L Lipase Assessment and Plan (1) Hydronephrosis, right: Status: Acute (2) Constipation: Status: Acute (3) Mass of upper lobe of right lung: Status: Acute (4) Elevated troponin I level: Status: Acute Plan 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 daily lipid panel and A1c TTE Cardiology consult. Severe constipation. Milk of magnesia, Dulcolax supp, Senokot and fleet enema. Stage 2 Left buttock decubitus ulcer. Wound care consult. Local care Left-sided weakness + neck mobilities issues. 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 C-spine CT scan is pending. Right-sided hydronephrosis, moderate and chronic. COPD. On home O2. Not in acute exacerbation. on 3-4L Continue inhalers. Right upper lobe mass, suspicious for neoplasm as per PET scan done last year. Family is not pursuing aggressive treatment for this. Has been followed by Dr. Aguilera for this as an outpatient. Depression. Continue home medications: Sertraline and divalproex. DVT prophylaxis: Heparin Patient will need hospitalization overnight for elevated troponin workup and severe constipation treatment with multiple laxatives including enema. pending cardiology evaluation Quality Stroke Does the patient have a stroke diagnosis?: No VTE Prior VTE?: No VTE Risk Level:: Medical - moderate - high VTE Device Contraindication: Treatment Not Indicated VTE Drug Contraindication: N/A - Med Ordered
--- NOTE | 2023-12-30 10:19 | P.CONCA_ITS ---
History of Present Illness History of Present Illness Date of Service: 12/30/23 Chief complaint: Elevated Troponin Narrative: [age] year female who we have been asked to see for elevated troponin. She presented with weakness from nursing facility. High sensitive troponin levels are 161 and 129. No history is possible from the patient. She has background history of right upper lung mass which is presumed to be cancer but no further workup is decided by the family. She also has right-sided hydronephrosis and COPD. She denied chest discomfort shortness of breath. ECG and labs reviewed. [facility] Past Medical History Medical History (Updated 12/30/23 @ 11:27 by Steffen Olivas MD) Mass of upper lobe of right lung Lymphadenopathy, mediastinal Pulmonary nodule Depression Hiatal hernia R[place]TA (obstructive sleep apnea) Chronic respiratory failure CKD (chronic kidney disease) Diastolic dysfunction Dementia Pulmonary embolism Hyperlipidemia COPD (chronic obstructive pulmonary disease) PVD (peripheral vascular disease) HTN (hypertension) Insomnia Anxiety Surgical History Surgical History Hx of tonsillectomy Social History Social History Household Members: Other Housing: [facility] Other:: [facility] Do you presently have visiting nurse or other home services: No Alcohol intake: former Comment: patient is wheelchair bound at baseline Patient Tobacco Use Status: Former Tobacco user Tobacco use type: Cigarette Cigarette Packs Per Day: 1 Cigarettes Per Day: 20.0 Years Smoked: 68 e-Cigarette/Vaping Use: Never Used Second Hand Smoke Exposure: No Substance Use Type: Caffiene Advance Directives: Yes Advance Directives on File: Yes Advance Directives Date on File: 07/15/20 Do you have a plan to hurt others: No Plan service: No Current occupational status: retired Meds Allergies Allergy/AdvReac Type Severity Reaction Status Date / Time cephalexin [From Keflex] Allergy Severe Rash Verified 12/29/23 14:34 sulfamethoxazole Allergy Severe Itching Verified 12/29/23 14:34 [From Bactrim] trimethoprim [From Bactrim] Allergy Severe Itching Verified 12/29/23 14:34 Active Medications: Current Medications Acetaminophen (Acetaminophen 325 Mg Tablet) 975 mg PO Q6H PRN PRN Reason: Pain, Mild (Pain Scale 1-3), fever or headache Albuterol/Ipratropium (Albuterol/Iprat 2.5/0.5mg 3 Ml Ampul.Neb) 3 ml INHALE Q4H PRN PRN Reason: shortness of breath/wheeze Aspirin (Aspirin 81 Mg Tab.Chew) 81 mg PO DAILY [facility] Last Admin: 12/30/23 08:42 Dose: Not Given Bisacodyl (Bisacodyl 10 Mg Supp.Rect) 10 mg [place] DAILY [facility] Divalproex Sodium (Divalproex Sodium Sprinkles 125 Mg Cap.Dr.Spr) 125 mg PO BID [facility] Fluticasone/Umeclidinium/Vilanterol (Fluticasone/Umeclidinium/Vilanterol 100/62.5/25 Blst.W.Dev) 1 puff INHALE RDAILY [facility] Heparin Sodium (Porcine) (Heparin Sodium,Porcine 5,000 Unit/Ml Vial) 5,000 unit SUBCUT Q12H [facility] Last Admin: 12/30/23 08:42 Dose: 5,000 unit Lactated Ringer's (Lr) 1,000 mls @ 80 mls/hr IVCONT .[id number] [facility] Lactulose (Lactulose 20 Gm/30 Ml Solution) 20 gm PO BID [facility] Magnesium Hydroxide (Milk Of Magnesia 30 Ml Oral.Susp) 30 ml PO DAILY PRN PRN Reason: no BM in 3 days Magnesium Hydroxide (Milk Of Magnesia 30 Ml Oral.Susp) 30 ml PO DAILY [facility] Melatonin (Melatonin 3 Mg Tablet) 6 mg PO BEDTIME PRN PRN Reason: Insomnia Mirtazapine (Mirtazapine 15 Mg Tablet) 15 mg PO BEDTIME@2000 [facility] Senna (Sennosides 8.6 Mg Tablet) 17.2 mg PO BEDTIME [facility] Last Admin: 12/29/23 23:57 Dose: 17.2 mg Sertraline HCl (Sertraline Hcl 25 Mg Tablet) 25 mg PO DAILY [facility] Sodium Biphosphate/Sodium Phosphate (Sodium Phosphate,[place]-Dibasic 133 Ml Enema) 118 ml [place] BEDTIME [facility] Sodium Chloride (0.9 % Sodium Chloride Flush 3 Ml Syringe) 3 ml IVFLUSH QSHIFT [facility] Last Admin: 12/30/23 08:42 Dose: 3 ml Home Medications ?Medication ?Instructions ?Recorded ?Confirmed ?Last Taken ?Type Oxygen Home Use 08/19/22 Unknown History divalproex 125 mg tablet,delayed 125 mg PO BID 08/19/22 12/30/23 Unknown History release (Depakote) nebulizers 08/19/22 Unknown History acetaminophen 500 mg tablet 1,000 mg PO TID PRN Moderate Pain 01/17/23 12/30/23 Unknown History (Scale Score 5-6) sertraline 25 mg tablet 25 mg PO DAILY 01/17/23 12/30/23 Unknown History magnesium hydroxide 400 mg/5 mL 400 mg PO DAILY PRN no BM in 3 days 03/09/23 12/30/23 Unknown History oral suspension (Milk of Magnesia) sodium phosphates 19 gram-7 118 ml [place] BEDTIME PRN if bisacodyl 03/09/23 12/30/23 Unknown History gram/118 mL enema (Fleet Enema) suppository is ineffective bisacodyl 10 mg rectal suppository 10 mg [place] DAILY PRN Constipation if 04/05/23 12/30/23 Unknown History milk of mag is not effective ipratropium 0.5 mg-albuterol 3 mg 3 ml inhalation Q4H PRN shortness 04/05/23 12/30/23 Unknown History (2.5 mg base)/3 mL nebulization of breath/wheeze soln polyvinyl alcohol 1.4 % eye drops 1 drp ophthalmic (eye) BID PRN Dry 04/05/23 12/30/23 Unknown History Eyes diclofenac sodium 1 % topical gel 4 g topical TID PRN shoulder pain 12/30/23 12/30/23 Unknown History mirtazapine 15 mg tablet 15 mg PO BEDTIME@2000 12/30/23 12/30/23 Unknown History Physical Exam 2 Vital Signs: Vital Signs: Last Vital Signs Temp 98.8 F 12/30/23 08:17 Pulse 77 12/30/23 08:17 Resp 16 12/30/23 08:17 BP 101/50 L 12/30/23 08:17 Pulse Ox 100 12/30/23 08:17 O2 Del Method Nasal Cannula 12/30/23 08:17 O2 Flow Rate 5 12/30/23 08:17 Oxygen Flow Rate 4 12/29/23 14:40 BMI result Body Mass Index 22.3 GENERAL APPEARANCE: in no acute distress, laying down with eyes closed. Answering questions appropriately. NECK: no carotid bruit, no jugular venous distention. SKIN: no suspicious lesions, warm and dry. HEART: no murmurs, regular rate and rhythm. LUNGS: clear to auscultation bilaterally. ABDOMEN: soft, nontender. EXTREMITIES: no edema. PERIPHERAL PULSES: equal. Objective Labs and Meds 12/30/23 05:01 12/30/23 05:01 Lab results: Laboratory Results - last 24 hr 12/29/23 12/29/23 12/29/23 16:49 20:46 21:51 WBC 11.3 H RBC 3.91 L Hgb 11.9 L Hct 36.7 L MCV 93.9 MCH 30.4 MCHC 32.4 RDW 14.1 Plt Count 407 H D MPV 9.7 Immature Gran % (Auto) 0.9 H Neut % (Auto) 67.5 Lymph % (Auto) 21.2 [place] % (Auto) 8.0 Eos % (Auto) 1.9 Baso % (Auto) 0.5 Lymph # (Auto) 2.4 [place] # (Auto) 0.9 Eos # (Auto) 0.2 Baso # (Auto) 0.1 Abs Immat Gran (auto) 0.10 H Absolute Neuts (auto) 7.6 Absolute Nucleated RBC 0.000 Nucleated RBC % (auto) 0.0 Sodium 141 Potassium 4.0 Chloride 106 Carbon Dioxide 24 Anion Gap 15 BUN 24 H Creatinine 0.88 Estim Creat Clear Calc 42.0 Estimated GFR > 60 Random Glucose 96 Estimat Average Glucose Hemoglobin A1c % Lactic Acid 1.0 Calcium 8.1 L Total Bilirubin 0.3 Direct Bilirubin 0.1 AST 20 ALT < 5 Alkaline Phosphatase 65 Troponin I High Sens 158.0 H* D 161.0 H* Total Protein 6.4 L Albumin 3.1 L Triglycerides Cholesterol LDL Cholesterol, Calc HDL Cholesterol Lipase 18 12/30/23 05:01 WBC 12.1 H RBC 3.67 L Hgb 11.3 L Hct 33.9 L MCV 92.4 MCH 30.8 MCHC 33.3 RDW 13.9 Plt Count 418 H MPV 9.1 L Immature Gran % (Auto) 1.0 H Neut % (Auto) 63.3 Lymph % (Auto) 23.3 [place] % (Auto) 10.8 Eos % (Auto) 1.1 Baso % (Auto) 0.5 Lymph # (Auto) 2.8 [place] # (Auto) 1.3 H Eos # (Auto) 0.1 Baso # (Auto) 0.1 Abs Immat Gran (auto) 0.12 H Absolute Neuts (auto) 7.7 Absolute Nucleated RBC 0.000 Nucleated RBC % (auto) 0.0 Sodium 139 Potassium 3.4 Chloride 107 Carbon Dioxide 23 Anion Gap 12 BUN 22 H Creatinine 0.85 Estim Creat Clear Calc 43.5 Estimated GFR > 60 Random Glucose 87 Estimat Average Glucose 91 Hemoglobin A1c % 4.8 Lactic Acid Calcium 8.2 L Total Bilirubin Direct Bilirubin AST ALT Alkaline Phosphatase Troponin I High Sens 129.6 H* Total Protein Albumin Triglycerides 149 Cholesterol 139 LDL Cholesterol, Calc 87 HDL Cholesterol 23 L Lipase Imaging Radiologist's impression: Impressions Shoulder X-Ray 12/29/23 17:02 IMPRESSION: No radiographic evidence of acute fracture or dislocation. Mild acromioclavicular arthritis. Abdomen/Pelvis CT 12/29/23 19:30 IMPRESSION: 1. CT chest. Redemonstration of the spiculated mass in the right upper lobe. This has enlarged in size since prior CAT scan April 05, 2023. 2. Small dependent left pleural effusion. 3. Large left-sided hiatal hernia containing most of the stomach and the splenic flexure colonic bowel loops. 4. Redemonstration of the moderate right-sided hydronephrosis. 5. Large volume of stool in the rectum with mild wall thickening of the rectum consistent with stercoral colitis. 6. Diverticulosis of the colon. No acute change of the bowel. Chest CT 12/29/23 19:30 IMPRESSION: 1. CT chest. Redemonstration of the spiculated mass in the right upper lobe. This has enlarged in size since prior CAT scan April 05, 2023. 2. Small dependent left pleural effusion. 3. Large left-sided hiatal hernia containing most of the stomach and the splenic flexure colonic bowel loops. 4. Redemonstration of the moderate right-sided hydronephrosis. 5. Large volume of stool in the rectum with mild wall thickening of the rectum consistent with stercoral colitis. 6. Diverticulosis of the colon. No acute change of the bowel. Head CT 12/30/23 00:31 IMPRESSION: 1. No acute intracranial hemorrhage or mass effect. 2. Right frontal encephalomalacia. 3. Extensive confluent bilateral periventricular and central white matter diminished attenuation likely chronic microangiopathic changes. 4. Bilateral mastoid opacification greater on the left. This critical result was discussed with Dr. Vijay Perez at 12:39 AM hours on 12/30/2023. It was ascertained that the content and urgency of the report was understood at the time of direct communication. Hip/Pelvis X-Ray 12/30/23 00:46 IMPRESSION: Osteopenia and mild bilateral hip degenerative change. No fracture seen. Cervical Spine CT 12/30/23 00:47 IMPRESSION: 1. No acute fracture or dislocation. 2. Minimal anterolisthesis T2 over T3. 3. There are degenerative cervical disc changes with multilevel mild spinal canal and multilevel [id number] neuroforaminal narrowing. Fleischner guidelines were followed. Assessment and Plan (1) Elevated troponin: Status: Acute Plan Mildly elevated troponin levels in elderly lady with weakness. ECG has subtle ST changes but she has not complaining of any symptoms. She is background of lung mass which potentially is cancerous. Gentle hydration. Nutritional support. Recommend conservative care. Recommend no heparin. Thank you for allowing me to participate in the care of your patient. Please feel free to contact me if you have any questions. Procedures Date of Service Date of Service: 12/30/23
[2023-12-30] MEDS: Lactated Ringers 1,000 ML 80 ML IVCONT (11:51)
[2023-12-30] MEDS: bisacodyL 10 MG SUPP.RECT PR (11:52)
[2023-12-30] MEDS: Lactulose 20 GM/30 ML SOLUTION PO ×2 (11:52→21:20)
[2023-12-30] MEDS: Acetaminophen 325 MG TABLET 975 MG PO (17:45)
[2023-12-30] MEDS: Sennosides 8.6 MG TABLET 17.2 MG PO (21:20)
[2023-12-30] MEDS: Mirtazapine 15 MG TABLET PO (21:20)
[2023-12-31] MEDS: Lactated Ringers 1,000 ML 80 ML IVCONT (01:18)
[2023-12-31 04:00] VITALS: BP 118/58; PULSE 77; RESP 18; TEMP 36.4; O2SAT 99
[2023-12-31 08:00] VITALS: BP 126/74; PULSE 74; RESP 20; TEMP 36.2; O2SAT 94
[2023-12-31] MEDS: Aspirin 81 MG TAB.CHEW PO (09:38)
[2023-12-31] MEDS: Sertraline HCL 25 MG TABLET PO (09:38)
[2023-12-31] MEDS: bisacodyL 10 MG SUPP.RECT PR (09:38)
[2023-12-31] MEDS: Milk of Magnesia 30 ML ORAL.SUSP PO (09:39)
[2023-12-31] MEDS: Lactulose 20 GM/30 ML SOLUTION PO (09:39)
[2023-12-31] MEDS: Divalproex Sodium Sprinkles 125 MG CAP.DR.SPR PO (09:39)
[2023-12-31] MEDS: Heparin Sodium,Porcine 5,000 UNIT/ML VIAL 5000 UNIT SUBCUT (09:39)
--- NOTE | 2023-12-31 10:14 | HO.PM.IMPN ---
Subjective Subjective Date of Service: 12/31/23 Interval History: Seen and evaluated this morning laying comfortable, confused had 1 small bowel movements Review of Systems confused Physical Exam Vital Signs: Vital Signs: Last Vital Signs Temp 97.2 F 12/31/23 08:00 Pulse 74 12/31/23 08:00 Resp 20 12/31/23 08:00 BP 126/74 12/31/23 08:00 Pulse Ox 94 12/31/23 08:00 O2 Del Method Nasal Cannula 12/31/23 08:00 O2 Flow Rate 4 12/31/23 08:00 Oxygen Flow Rate 4 12/29/23 14:40 BMI result Body Mass Index 22.3 Const: Other: Constitutional : Awake with stimulation, frail looking, not in distress Neck : Normal inspection, Supple Cardiovascular : RRR, no JVP, no lower extremity edema Respiratory : good bilateral air entry, no crackles, wheezes or rhonchi Gastrointestinal: soft, lax, decreased bowel sounds, mild discomfort Skin : Warm, Dry, large Neurological : Alert & disoriented, No focal deficit Objective Data Active Medications Acetaminophen (Acetaminophen 325 Mg Tablet) 975 mg PO Q6H PRN PRN Reason: Pain, Mild (Pain Scale 1-3), fever or headache Last Admin: 12/30/23 17:45 Dose: 975 mg Documented By: TOMNITIN Albuterol/Ipratropium (Albuterol/Iprat 2.5/0.5mg 3 Ml Ampul.Neb) 3 ml INHALE Q4H PRN PRN Reason: shortness of breath/wheeze Aspirin (Aspirin 81 Mg Tab.Chew) 81 mg PO DAILY [facility] Last Admin: 12/31/23 09:38 Dose: 81 mg Documented By: PODMORP Bisacodyl (Bisacodyl 10 Mg Supp.Rect) 10 mg [place] DAILY [facility] Last Admin: 12/31/23 09:38 Dose: 10 mg Documented By: PODMORP Divalproex Sodium (Divalproex Sodium Sprinkles 125 Mg ) 125 mg PO BID [facility] Last Admin: 12/31/23 09:39 Dose: 125 mg Documented By: PODMORP Fluticasone/Umeclidinium/Vilanterol (Fluticasone/Umeclidinium/Vilanterol 100/62.5/25 Blst.W.Dev) 1 puff INHALE RDAILY [facility] Last Admin: 12/31/23 08:08 Dose: Not Given Documented By: DAMI Non-Admin Reason: Med Not Available Heparin Sodium (Porcine) (Heparin Sodium,Porcine 5,000 Unit/Ml Vial) 5,000 unit SUBCUT Q12H [facility] Last Admin: 12/31/23 09:39 Dose: 5,000 unit Documented By: MUNIRAMOJENNIFER Lactated Ringer's (Lr) 1,000 mls @ 80 mls/hr IVCONT .[id number] [facility] Last Admin: 12/31/23 01:18 Dose: 80 mls/hr Documented By: SINDY Lactulose (Lactulose 20 Gm/30 Ml Solution) 20 gm PO TID [facility] Magnesium Hydroxide (Milk Of Magnesia 30 Ml Oral.Susp) 30 ml PO DAILY PRN PRN Reason: no BM in 3 days Magnesium Hydroxide (Milk Of Magnesia 30 Ml Oral.Susp) 30 ml PO DAILY [facility] Last Admin: 12/31/23 09:39 Dose: 30 ml Documented By: HARRY Melatonin (Melatonin 3 Mg Tablet) 6 mg PO BEDTIME PRN PRN Reason: Insomnia Mirtazapine (Mirtazapine 15 Mg Tablet) 15 mg PO BEDTIME@1999 [facility] Last Admin: 12/30/23 21:20 Dose: 15 mg Documented By: SINYD Senna (Sennosides 8.6 Mg Tablet) 17.2 mg PO BEDTIME [facility] Last Admin: 12/30/23 21:20 Dose: 17.2 mg Documented By: SINDY Sertraline HCl (Sertraline Hcl 25 Mg Tablet) 25 mg PO DAILY [facility] Last Admin: 12/31/23 09:38 Dose: 25 mg Documented By: HARRY Sodium Biphosphate/Sodium Phosphate (Sodium Phosphate,[place]-Dibasic 133 Ml Enema) 118 ml [place] BEDTIME [facility] Last Admin: 12/30/23 21:22 Dose: Not Given Documented By: SINDY Non-Admin Reason: Patient Refused Sodium Chloride (0.9 % Sodium Chloride Flush 3 Ml Syringe) 3 ml IVFLUSH QSHIFT [facility] Last Admin: 12/31/23 09:38 Dose: Not Given Documented By: HARRY Non-Admin Reason: IV Running Labs 12/30/23 05:01 12/30/23 05:01 Assessment and Plan (1) Elevated troponin: Status: Acute (2) Hydronephrosis, right: Status: Acute (3) Constipation: Status: Acute Plan 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 daily lipid panel and A1c TTE showing decrease EF of 30-35% with LV wall severe hypokinesa Cardiology input appreciated, medical management for likely Takasubo Severe constipation. Lactulose, Milk of magnesia, Dulcolax supp, Senokot and fleet enema. Stage 2 Left buttock decubitus ulcer. Wound care consult. Local care Left-sided weakness + neck mobilities issues. 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 C-spine CT scan is pending. Right-sided hydronephrosis, moderate and chronic. COPD. On home O2. Not in acute exacerbation. on 3-4L Continue inhalers. Right upper lobe mass, suspicious for neoplasm as per PET scan done last year. Family is not pursuing aggressive treatment for this. Has been followed by Dr. Aguilera for this as an outpatient. Depression. Continue home medications: Sertraline and divalproex. DVT prophylaxis: Heparin Patient will need hospitalization overnight for severe constipation treatment with multiple laxatives including enema. Quality Stroke Does the patient have a stroke diagnosis?: No VTE Prior VTE?: No VTE Risk Level:: Medical - moderate - high VTE Device Contraindication: Treatment Not Indicated VTE Drug Contraindication: N/A - Med Ordered
--- NOTE | 2023-12-31 10:51 | PM.DS ---
DS: Providers Provider Date of Service: 12/31/23 Date of admission: 12/29/23 23:10 Primary care physician: CORTNEY SAGE Consults: 12/29/23 23:44 Consult to Cardiology Routine Consulting Provider: [facility] Reason for consultation: elevated troponin Has provider been notified: Yes 12/30/23 00:27 Consult to Wound Care Routine Reason for consultation: Left buttock decubitus ulcer DS: Diagnosis Discharge Diagnosis (1) Elevated troponin: Status: Acute (2) Hydronephrosis, right: Status: Acute (3) Constipation: Status: Acute (4) Cardiomyopathy: Status: Acute DS: Summary Hospital Course Hospital Course: Admission note HPI Skyler Marks is 83 years old woman with past medical history significant for COPD on home oxygen (4L/min), depression, right lung mass and constipation was brought to the emergency department from her nursing facility ([facility]) after family requested as the patient has been declining. I spoke with patient's daughter in-law, Catalina HOGAN, over the phone. She noted that patient's neck seems to be leaning to the right side and it seems to be like her left side has been more weaker than usual, so she is wondering if patient might be having a stroke. HPI was unable to obtain directly from the patient as she seems to be very confused. Even answering simple question was difficult for the patient. On evaluation, patient atarted to experience pain upon moving her left leg passively but she could not point out where was the pain. According to ED doctor patient has been having some abdominal pain. In the ED, she was found to have stable vital signs. Her oxygen saturation is normal on 4 liters/minutes supplemental oxygen via nasal cannula which is her baseline. Blood remarkable for elevated troponin x2 (158.0 --> 161.0). ECGs showed normal sinus rhythm without any specific ST wave changes. Chest, abdomen CT scan showed right upper lobe spiculated mass (enlarging size since prior CTA in 04/08/2023), small left pleural effusion, large left-sided hiatal hernia, chronic right-sided hydronephrosis, large volume of stool in the rectum, stercoral colitis and diverticulosis without diverticulitis. 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 Started on aspirin 81 mg p.o. daily , Atorvastatin and small dose Lisinopril with a plan to follow up as needed outpatient for medical management of cardiomyopathy. She was also noticed to have Severe constipation [er CT scan of abdomen. Started on Lactulose, Milk of magnesia, Dulcolax supp, Senokot and fleet enema with 3 bowel movements while inpatient. to continue with laxatives on discharge with goal of 1-2 BM daily. avoid diarrhea. Also noticed to have Stage 2 Left buttock decubitus ulcer that was evaluated by Wound care who recommended Local care for Left-sided weakness + neck mobilities issues. 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 C-spine CT scan is negative for any new findings. Right-sided hydronephrosis, moderate and chronic. COPD. On home O2. Not in acute exacerbation. on 3-4L Continue inhalers. Right upper lobe mass, suspicious for neoplasm as per PET scan done last year. Family is not pursuing aggressive treatment for this. Has been followed by Dr. Aguilera for this as an outpatient Discharge plan Continue Laxatives with goal of 1-2 bowel movements daily , Hold for diarrhea Start Aspirin, Atorvastatin and Lisinopril for cardiomyopathy Follow as outpatient with PCP\Cardiology to repeat Echo in 6 months if warranted Encourage PO water intake Time Attestation Discharge Coordination Time (in mins): 32 Quality: Safe Use of Opioids Does Pt have an Active Cancer Diagnosis on the Problem List?: No Quality: Stroke Does the patient have a stroke diagnosis?: No Physical Exam Vital Signs: Vital Signs: Last Vital Signs Temp 97.2 F 12/31/23 08:00 Pulse 74 12/31/23 08:00 Resp 20 12/31/23 08:00 BP 126/74 12/31/23 08:00 Pulse Ox 94 12/31/23 08:00 O2 Del Method Nasal Cannula 12/31/23 08:00 O2 Flow Rate 4 12/31/23 08:00 Oxygen Flow Rate 4 12/29/23 14:40 BMI result Body Mass Index 22.3 Const: Other: Constitutional : Awake with stimulation, frail looking, not in distress Neck : Normal inspection, Supple Cardiovascular : RRR, no JVP, no lower extremity edema Respiratory : good bilateral air entry, no crackles, wheezes or rhonchi Gastrointestinal: soft, lax, normal bowel sounds, no Skin : Warm, Dry, large Neurological : Alert & disoriented, No focal deficit DS: Data Imaging CT scan - abdomen: Radiologist's impression: ITS Impressions Shoulder X-Ray 12/29/23 17:02 IMPRESSION: No radiographic evidence of acute fracture or dislocation. Mild acromioclavicular arthritis. Abdomen/Pelvis CT 12/29/23 19:30 IMPRESSION: 1. CT chest. Redemonstration of the spiculated mass in the right upper lobe. This has enlarged in size since prior CAT scan April 05, 2023. 2. Small dependent left pleural effusion. 3. Large left-sided hiatal hernia containing most of the stomach and the splenic flexure colonic bowel loops. 4. Redemonstration of the moderate right-sided hydronephrosis. 5. Large volume of stool in the rectum with mild wall thickening of the rectum consistent with stercoral colitis. 6. Diverticulosis of the colon. No acute change of the bowel. Chest CT 12/29/23 19:30 IMPRESSION: 1. CT chest. Redemonstration of the spiculated mass in the right upper lobe. This has enlarged in size since prior CAT scan April 05, 2023. 2. Small dependent left pleural effusion. 3. Large left-sided hiatal hernia containing most of the stomach and the splenic flexure colonic bowel loops. 4. Redemonstration of the moderate right-sided hydronephrosis. 5. Large volume of stool in the rectum with mild wall thickening of the rectum consistent with stercoral colitis. 6. Diverticulosis of the colon. No acute change of the bowel. Head CT 12/30/23 00:31 IMPRESSION: 1. No acute intracranial hemorrhage or mass effect. 2. Right frontal encephalomalacia. 3. Extensive confluent bilateral periventricular and central white matter diminished attenuation likely chronic microangiopathic changes. 4. Bilateral mastoid opacification greater on the left. This critical result was discussed with Dr. Vijay Perez at 12:39 AM hours on 12/30/2023. It was ascertained that the content and urgency of the report was understood at the time of direct communication. Hip/Pelvis X-Ray 12/30/23 00:46 IMPRESSION: Osteopenia and mild bilateral hip degenerative change. No fracture seen. Cervical Spine CT 12/30/23 00:47 IMPRESSION: 1. No acute fracture or dislocation. 2. Minimal anterolisthesis T2 over T3. 3. There are degenerative cervical disc changes with multilevel mild spinal canal and multilevel [id number] neuroforaminal narrowing. Fleischner guidelines were followed. Discharge Plan Discharge Anticipated Discharge Date/Time: 12/31/23 10:35 Patient Disposition: Xfer SNF Discharge Diagnosis: Constipation Referrals: [facility] [Outside] CROTNEY SAGE [Primary Care Provider] - 1 Week Discharge Medications: New atorvastatin 40 mg Tablet 40 mg PO BEDTIME Qty: 90 0RF aspirin 81 mg Tablet,Chewable 81 mg PO DAILY Qty: 90 0RF lisinopril 2.5 mg Tablet 2.5 mg PO DAILY Qty: 90 0RF Protocol: Hold for SBP< HOLD for SBP < : 90 lactulose 20 gram/30 mL Solution 20 g PO BID Qty: 2880 0RF Continued polyvinyl alcohol 1.4 % Drops 1 drp OPHTHALMIC (EYE) BID PRN (Reason: Dry Eyes) ipratropium-albuterol 0.5 mg-3 mg(2.5 mg base)/3 mL solution for nebulization 3 ml inhalation Q4H PRN (Reason: shortness of breath/wheeze) bisacodyl 10 mg Suppository 10 mg NC DAILY PRN (Reason: Constipation if milk of mag is not effective) acetaminophen 500 mg Tablet 1,000 mg PO TID PRN (Reason: Moderate Pain (Scale Score 5-6)) sertraline 25 mg tablet 25 mg PO DAILY mirtazapine 15 mg tablet 15 mg PO BEDTIME@2000 diclofenac sodium 1 % Gel 4 g TOPICAL TID PRN (Reason: shoulder pain) Rx Instructions: left shoulder pain (DME) [place] [facility] [place] Instructions .ROUTE Rx Instructions: As directed (DME) Oxygen Home Use Kit See Rx Instructions .ROUTE Rx Instructions: As directed divalproex [Depakote] 125 mg tablet,delayed release (DR/EC) 125 mg PO BID Trelegy Ellipta 100-62.5-25 mcg blister with device 1 inh inhalation DAILY 30 Days Qty: 60 11RF Fleet Enema 19-7 gram/118 mL enema 118 ml NC BEDTIME PRN (Reason: if bisacodyl suppository is ineffective) magnesium hydroxide [Milk of Magnesia] 400 mg/5 mL suspension 400 mg PO DAILY PRN (Reason: no BM in 3 days) Discharge Orders: Discharge Order (Routine); Ordered 12/31/23 Ordered By: Garrett Caceres Diet: Advance to usual diet Activity on Discharge: As tolerated Stand Alone Forms: Patient Portal Discharge page Print Language: Djiboutian Care Plan Goals: Continue Laxatives with goal of 1-2 bowel movements daily , Hold for diarrhea Start Aspirin, Atorvastatin and Lisinopril for cardiomyopathy Follow as outpatient with PCP\Cardiology to repeat Echo in 6 months if warranted Health Concerns: Read below Plan of Treatment: Read below Assessment: Read below Discharge Date/Time: 12/31/23 18:00
[2023-12-31 12:37] VITALS: BP 126/74
[2023-12-31] MEDS: lisinopriL 2.5 MG TABLET PO (12:37)
--- NOTE | 2023-12-31 12:43 | MHC.CM.PN ---
PT CLEARED TO RETURN TO [facility] TODAY BLS TRANSPORT BOOKED FOR 1630 HOURS CM CALLED PTS HCP, ELMIRA LAYTON [phone], SHE IS AWARE OF, AND IN AGREEMENT WITH, THE DC TIME/PLAN
--- NOTE | 2023-12-31 13:56 | PM.PNCARD ---
Subjective Subjective Date of Service: 12/31/23 Interval history: Seen examined at bedside. Denying any symptoms. Physical Exam Vital Signs: Last Vital Signs Temp 97.2 F 12/31/23 08:00 Pulse 74 12/31/23 08:00 Resp 20 12/31/23 08:00 BP 126/74 12/31/23 12:37 Pulse Ox 94 12/31/23 08:00 O2 Del Method Nasal Cannula 12/31/23 08:00 O2 Flow Rate 4 12/31/23 08:00 Oxygen Flow Rate 4 12/29/23 14:40 BMI result Body Mass Index 22.3 GENERAL APPEARANCE: in no acute distress, awake. NECK: no carotid bruit, no jugular venous distention. SKIN: no suspicious lesions, warm and dry. HEART: no murmurs, regular rate and rhythm. LUNGS: clear to auscultation bilaterally. ABDOMEN: soft, nontender. EXTREMITIES: no edema. PERIPHERAL PULSES: equal. Objective Labs and Meds 12/30/23 05:01 12/30/23 05:01 Progress Note: A&P Assessment and plan (1) Cardiomyopathy: Status: Acute Plan [age] year female presenting with weakness and ST changes in the precordial leads. She had very mildly elevated troponin levels. She denied any chest discomfort. Echocardiography has shown and we dysfunction with EF 30 35% with mid to distal left ventricular dysfunction with severe hypokinesis to akinesis. 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 Conservative care. Not a candidate for aggressive procedures like cardiac catheterization. Doing well and is awake and eating. Can be discharged and can have repeat echocardiography as outpatient. Thank you for allowing me to participate in the care of your patient. Please feel free to contact me if you have any questions. Time Spent With Patient Time: Total time managing care of this patient today ____ minutes. Progress Note: Quality Stroke Does the patient have a stroke diagnosis?: No Procedures Date of Service Date of Service: 12/31/23
[2023-12-31 16:00] VITALS: BP 119/70; PULSE 92; RESP 20; TEMP 36.2; O2SAT 99
== END 2023-12-31 18:00 | disposition skilled nursing facility (03) | DRG 315 ==
LOC: HO.ED 21:27 → HO.EDOVER 23:22 → HO.IMC 12-30 13:18
PROVIDERS: Admitting Provider Internal Medicine; Emergency Provider Emergency Medicine Emergency Medical Services; PCP Emergency Medicine; Visit Provider Student in an Organized Health Care Education/Training Program
DX: I51.81 Takotsubo syndrome (principal); C34.11 Malignant neoplasm of upper lobe, right bronchus or lung; N13.30 Unspecified hydronephrosis; K59.00 Constipation, unspecified; L89.322 Pressure ulcer of left buttock, stage 2; J44.9 Chronic obstructive pulmonary disease, unspecified; Z99.81 Dependence on supplemental oxygen; Z87.891 Personal history of nicotine dependence; Z79.51 Long term (current) use of inhaled steroids; Z79.899 Other long term (current) drug therapy
CPT/HCPCS: 36415; 70450; 71250; 72125; 73030; 73521; 74176; 80048; 80061; 80076; 83036; 83605; 83690; 84484; 85025; 93005; 93306; 99285; J1644; J7120; Q9957

== ENCOUNTER 2023-12-29 23:10 | Outpatient (BNV) | payer MEDICARE, MEDICAID, SELFPAY | END 2023-12-30 07:00 | PROVIDERS: Admitting Provider Internal Medicine; Emergency Provider Emergency Medicine Emergency Medical Services; PCP Emergency Medicine; Visit Provider Internal Medicine Cardiovascular Disease | DX: I51.89 Other ill-defined heart diseases (principal) | CPT/HCPCS: 93306 ==

== ENCOUNTER → 2023-12-29 23:10 | Outpatient (BNV) | payer MEDICARE, MEDICAID, SELFPAY | PROVIDERS: Admitting Provider Internal Medicine; Emergency Provider Emergency Medicine Emergency Medical Services; PCP Emergency Medicine; Visit Provider Internal Medicine | DX: R79.89 Other specified abnormal findings of blood chemistry (principal); N13.30 Unspecified hydronephrosis; K59.01 Slow transit constipation; I42.9 Cardiomyopathy, unspecified | CPT/HCPCS: 99222; 99232; 99239; 99499 ==

== ENCOUNTER → 2023-12-29 23:10 | Outpatient (BNV) | payer MEDICARE, MEDICAID, SELFPAY | PROVIDERS: Admitting Provider Internal Medicine; Emergency Provider Emergency Medicine Emergency Medical Services; PCP Emergency Medicine; Visit Provider Internal Medicine Cardiovascular Disease | DX: R79.89 Other specified abnormal findings of blood chemistry (principal); I49.1 Atrial premature depolarization; R94.31 Abnormal electrocardiogram [ECG] [EKG] | CPT/HCPCS: 93010; 99222; 99233 ==